=== PATIENT | male | born 1955 | race Caucasian/White ===

== ENCOUNTER 2018-05-27 14:34 | Inpatient (IN) ==
[2018-05-27] MEDS ORDERED: HYDROmorphone INJ 0.5 MG/0.5 ML SYR IV STA (16:30)
[2018-05-27] MEDS ORDERED: HYDROmorphone INJ 0.5 MG/0.5 ML SYR ONE (16:45)
[2018-05-27] MEDS ORDERED: SOD PHOSPHATE/SOD BIPHOSPHATE ENEMA 132 ML BTL PR PRN (17:19)
[2018-05-27] MEDS ORDERED: ONDANSETRON INJ 2 MG/ML 2 ML VIAL IV PRN (17:19)
[2018-05-27] MEDS ORDERED: MAGNESIUM HYDROXIDE SUSP 30 ML UDC PO PRN (17:19)
[2018-05-27] MEDS ORDERED: NALOXONE HCL 0.4 MG/1 ML VIAL/CARP IV PRN (17:19)
[2018-05-27] MEDS ORDERED: BISACODYL 10 MG SUPP PR PRN (17:19)
--- NOTE | 2018-05-27 17:26 | History & Physical Report ---
Date of Service May 27, 2018 Assessment & Plan (1) Hip fracture: Secondary to mechanical fall on ice. -admit to med/surgery floor -fracture precautions and Hip fracture order set employed -pain control with dilaudid -Orthopedic Consult placed-discussed case with Dr. Angeles --> CD with outside xrays sent to Radiology to upload images -SCDs for DVT proph -can eat now, then NPO after midnight for surgery tomorrow to repair He can easily achieve 4 METS, has no acute or recent cardiopulmonary issues. ECG is with NSR, no abnormalities. He is at average risk for this intermediate risk surgery and should therefore proceed with surgery as planned tomorrow. (2) Knee pain, acute: Has a h/o 3 different meniscal repairs/scope and a patellar fracture on the left knee. Now with some pain, but no effusion on exam, difficult to assess for any other abnormality on exam due to hip fracture -await Ortho recommendations -will order left knee xray (3) High triglycerides: -continue atorvastatin 10mg daily (4) Obesity: Needs counseling on weight loss, dietary changes (5) DVT prophylaxis: SCDs only in prep for surgery tomorrow Dispo-admit to med/surgery PT/OT evals will be needed after surgery when ok with Ortho History of Present Illness Chief Complaint: Hip fracture Primary Care Provider: NO PCP This pt is a 63 yo male with a h/o hypertriglyceridemia and obesity, who presents as a direct transfer from [facility] with a left hip fracture after sustaining a fall on black ice on a driveway. 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 He immediately had pain and numbness in the left hip and saw his left ankle was at an odd angle. He denies LOC, no head injury, no other injuries except his left knee is also hurting somewhat. He was able to get back up and into his car and drive himself home 15 miles, and then his brought him to the hospital in her car. Xrays show an acute subcapital fracture of the left hip with valgus deformity. ECG with NSR and no ischemic changes, CBC, BMP, troponin, INR all normal at outside hospital. He reports he can easily walk up and down a flight of stairs without any chest pain or SOB. He has no h/o cardiac disease, no pulmonary or renal problems. He does not exercise, but does go to basketball games at the [facility] frequently and can go up the flight of stairs to his seats without difficulty. Home Medications Home Medications Medication Instructions Recorded Confirmed Type atorvastatin 10 mg PO DAILY 05/27/18 05/27/18 History Past Med/Surg History Medical History High triglycerides History of deviated nasal septum Obesity Surgical History H/O arthroscopy of left knee H/O arthroscopy of shoulder H/O inguinal hernia repair Family History Mother Breast cancer, Onset Age: 43 Father Esophageal cancer Sister Colon cancer Other Family history of cancer Social History marital status: Current Living Situation: Spouse and Family current occupational status: retired current occupation: retired from [place] [employer] Other Information That Helps Us Care for You: No Feels Safe at Home: Yes Safety Concerns: Feels Safe At This Time Smoking Status: Former smoker Tobacco Type: cigarettes Years Smoked: 10 Smoking End Date: 2008 Hx Alcohol Use: Yes Alcohol type: other Alcohol Intake Frequency: holidays/ special occasions only Hx Substance Use: No Beliefs That Will Affect Care: None Preferred Language: Czech Communication Ability: Effective Test Car Driver Required: No Review of Systems All systems reviewed & are unremarkable except as noted in HPI & below (no CP, no SOB, no headace, lightheadedness, no recent illness, no fevers, no abd pain, no constipation or diarrhea, no blood in stool, no rashes) Physical Exam 2 Vital Signs (Past 24 Hours): Last Vital Signs Temp 36.8 C 05/27/18 16:31 Pulse 72 05/27/18 16:31 Resp 20 05/27/18 16:31 BP 164/95 H 05/27/18 16:31 Pulse Ox 95 05/27/18 16:31 Constitutional: WD/WN, vitals as above + obese Eyes: PERRL, conjunctivae normal, anicteric sclerae ENMT: external ear and nose normal, oropharynx normal Neck: trachea midline, no thyromegaly Respiratory: normal respiratory effort, lungs clear to auscultation Cardiovascular: RRR, no murmur, no edema Gastrointestinal (Abdomen): normal bowel sounds, soft, nontender, no hepatosplenomegaly Musculoskeletal: Extremities: + extremities abnormal to inspection (LLE externally rotated and shortened, +TTP over left lateral hip, no hematoma; 2+ DP pulses bilat), no cyanosis and no clubbing Knee: no effusion and no skin erythema Skin: no rashes, warm and dry Neurologic: moves all extremities and awake; no focal motor deficits Psychiatric: A+Ox3, euthymic affect Lymphatic: no cervical lymphadenopathy Results & Data Laboratory Results 05/27/18 05/27/18 05/27/18 Range/Units 17:38 17:38 17:20 25-OH Vitamin D Total 21.6 L (30-100) ng/ml Urine Color Yellow Urine Appearance Clear (Clear) Urine pH 7.0 (4.5-7.5) Ur Specific [place] 1.020 (1.000-1.030) Urine Protein Negative (Negative) Urine Glucose (UA) Negative (Negative) Urine Ketones Negative (Negative) Urine Blood Trace H (Negative) Urine Nitrite Negative (Negative) Urine Bilirubin Negative (Negative) Urine Urobilinogen Negative (Negative) Ur Leukocyte Esterase Negative (Negative) Urine WBC (Auto) 1-5 (0-5) /hpf Urine RBC (Auto) 5-10 H (0-4) /hpf U Hyaline Cast (Auto) 1-5 (0-5) /lpf U Epithel Cells (Auto) 10-20 H (0-5) /lpf Urine Bacteria (Auto) Negative (Negative) Blood Type A Positive Antibody Screen NEGATIVE Outside Hospital Labs: WBC 6.8, Hgb 14.3, Plts 296 Na+ 135, K+ 3.9, Cl- 100, HCO3 27, BUN 20, Disc Jockey 1.1, glu 161 Tropinin negative INR 0.97 ECG Rhythm: normal sinus (rate 76, no ischemic changes) Code Status & VTE Plan Code Status Full Code VTE Prophylaxis Plan VTE Prophylaxis will be ordered: Yes Reason for no VTE drug order: Contraindicated _ (1) Obesity Obesity type: unspecified obesity type Obesity classification: adult class 1 (BMI 30 - 34.9) Serious obesity comorbidity presence: without serious comorbidity Body mass index: BMI 34.0-34.9 Qualified Code(s): E66.9 - Obesity , unspecified; Z68.34 - Body mass index (BMI) 34.0-34.9, adult (2) Hip fracture Encounter type: initial encounter Fracture type: closed Laterality: left Qualified Code(s): S72.002A - Fracture of unspecified part of neck of left femur , initial encounter for closed fracture (3) Knee pain, acute Laterality: left Qualified Code(s): M25.562 - Pain in left knee
[2018-05-27] MEDS ORDERED: HydrALAZINE HCL 20 MG/ML VIAL IV PRN (17:28)
[2018-05-27 17:55] LABS: Appearance Urine Clear (Clear); Bacteria Urine Automated Negative (Negative); Bilirubin Urine Negative (Negative); Color Urine Yellow; Glucose Urine UA Negative (Negative); Ketones Urine Negative (Negative); Leukocyte Esterase Urine Negative (Negative); Nitrite Urine Negative (Negative); Protein Urine Negative (Negative); Urobilinogen Urine Negative (Negative)
--- NOTE | 2018-05-27 19:16 | Anesthesiology Consultation ---
Date of Service May 27, 2018 Assessment & Plan Chart Review Chart Review: Acceptable Risk for Surgery and Patient NOT seen in Pre Admission Testing Consults Requested none ASA ASA3 Proposed Anesthesia Anesthesia Type: General and MAC Spinal History Surgery Operation Date: 05/28/18 08:50 Proposed Procedures p Left Hip Percutaneous Screw Fixation - Bari Angeles DO Height/Weight Height: 6 ft 4 in Weight: 129 kg Medications Home Medications Medication Instructions Recorded Confirmed Last Taken atorvastatin 10 mg PO DAILY 05/27/18 05/27/18 Unknown Past Medical History Medical History High triglycerides History of deviated nasal septum Past Family History Family History Other Family history of cancer Past Surgical History Surgical History H/O arthroscopy of left knee H/O arthroscopy of shoulder H/O inguinal hernia repair Past Anesthesia History No Hx of Anesthesia Complications and No Family Hx of Anesthesia Complications History of PONV No Motion Sickness Screening History of Motion Sickness: No Social History Smoking Status: Former smoker Hx Alcohol Use: No Hx Substance Use: No Exercise / Class Metabolic Activity III < 4 Walking/Shop/Light housework Physical Exam Vital Signs Last Vital Signs Temp 36.8 C 05/27/18 16:31 Pulse 72 05/27/18 16:31 Resp 20 05/27/18 16:31 BP 164/95 H 05/27/18 16:31 Pulse Ox 95 05/27/18 16:31 Testing Laboratory Results Blood Type A Positive 05/27/18 17:38 Antibody Screen NEGATIVE 05/27/18 17:38 Urine Color Yellow 05/27/18 17:20 Urine Appearance Clear (Clear) 05/27/18 17:20 Urine pH 7.0 (4.5-7.5) 05/27/18 17:20 Ur Specific [place] 1.020 (1.000-1.030) 05/27/18 17:20 Urine Protein Negative (Negative) 05/27/18 17:20 Urine Glucose (UA) Negative (Negative) 05/27/18 17:20 Urine Ketones Negative (Negative) 05/27/18 17:20 Urine Nitrite Negative (Negative) 05/27/18 17:20 Ur Leukocyte Esterase Negative (Negative) 05/27/18 17:20 Urine WBC (Auto) 1-5 /hpf (0-5) 05/27/18 17:20 Urine RBC (Auto) 5-10 /hpf (0-4) H 05/27/18 17:20 U Hyaline Cast (Auto) 1-5 /lpf (0-5) 05/27/18 17:20 U Epithel Cells (Auto) 10-20 /lpf (0-5) H 05/27/18 17:20 Urine Bacteria (Auto) Negative (Negative) 05/27/18 17:20
[2018-05-27] MEDS: HYDROmorphone INJ 0.5 MG/0.5 ML SYR IV PRN (21:30)
[2018-05-27] MEDS: DOCUSATE SODIUM/SENNA 50/8.6MG TAB PO SCH (21:37)
[2018-05-27] MEDS: LACTATED RINGER'S 1,000 ML IV SCH (21:37)
--- NOTE | 2018-05-27 21:50 | XRay Report ---
XR knee LT 2V routine HISTORY: 63 years-old Male left knee pain s/p fall with left hip fracture acute left knee pain with acute left hip fracture COMPARISON: Left hip radiographs of same day from outside facility TECHNIQUE: 2 views of the left knee FINDINGS: Limited study secondary to positioning. The patient is unable to properly position the knee secondary to the hip fracture. Tricompartmental osteoarthritis. Indeterminate peripherally corticated ossification is noted posterio r to the knee, 4.4 x 2.2 cm. Ossifications are also noted about the infrapatellar distribution. No de finite acute fracture or dislocation. No large joint effusion. IMPRESSION: Limited study secondary to positioning. No acute fracture or dislocation identified. The above report was generated using voice recognition software. It may contain grammatical, syntax o r spelling errors. Electronically signed by: Dewayne Foote M.D. 05/27/2018 9:49 PM
[2018-05-28] MEDS: HYDROmorphone INJ 0.5 MG/0.5 ML SYR IV PRN ×4 (03:35→13:18)
[2018-05-28] MEDS ORDERED: ROPIVACAINE 0.5% HCL/PF 150 MG, BUPIVACAINE 0.5% MPF 30 ML, EPINEPHrine 30MG/30ML (OR U... INFIL SCH (06:00)
[2018-05-28] MEDS ORDERED: CEFAZOLIN 3000MG 72.5 ML IV SCH (06:00)
--- NOTE | 2018-05-28 06:23 | Orthopedic Consultation ---
Date of Consultation May 28, 2018 Assessment & Plan (1) Left displaced femoral neck fracture: He is already received medical clearance we will proceed with a left anterior total hip arthroplasty. Postoperatively he will be placed on aspirin for DVT prophylaxis. He understands the risks, benefits, and alternatives procedure is elected to proceed. He will be n.p.o. throughout the day today and I plan to fix his hip later this afternoon. 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 He was going to his last house yesterday when he stepped out of his van and slipped on the ice. He fell directly onto his left hip. He had severe left hip pain and went to hospital for special care emergency room. There he was diagnosed with a left femoral neck fracture. He was transferred to [facility] and admitted to the medicine service. Orthopedics has been consulted for evaluation and treatment of the left hip fracture. Allergies Allergy/AdvReac Type Severity Reaction Status Date / Time No Known Allergies Allergy Unverified 05/27/18 21:26 Home Medications Home Medications Medication Instructions Recorded Confirmed Type atorvastatin 10 mg PO DAILY 05/27/18 05/27/18 History Patient History Medical History High triglycerides History of deviated nasal septum Obesity Surgical History H/O arthroscopy of left knee H/O arthroscopy of shoulder H/O inguinal hernia repair Family History Mother Breast cancer, Onset Age: 43 Father Esophageal cancer Sister Colon cancer Other Family history of cancer Social History marital status: Current Living Situation: Spouse and Family current occupational status: retired current occupation: retired from [place] [employer] Other Information That Helps Us Care for You: No Feels Safe at Home: Yes Safety Concerns: Feels Safe At This Time Smoking Status: Former smoker Tobacco Type: cigarettes Years Smoked: 10 Smoking End Date: 2008 Hx Alcohol Use: Yes Alcohol type: other Alcohol Intake Frequency: holidays/ special occasions only Hx Substance Use: No Beliefs That Will Affect Care: None Preferred Language: Frisian Communication Ability: Effective City Distribution Clerk Required: No Physical Exam 2 Vital Signs (Past 24 Hours): Last Vital Signs Temp 37.1 C 05/28/18 03:14 Pulse 81 05/28/18 03:14 Resp 20 05/28/18 03:14 BP 166/83 H 05/28/18 03:14 Pulse Ox 92 05/28/18 03:14 Musculoskeletal: On physical examination of the left hip, his leg lengths are essentially equal. There are no abrasions lesions lacerations of the skin. He has significant pain in his groin with logrolling of the left leg. I did not do any range of motion testing of his leg because of the fracture. Results & Data Diagnostic Findings X-rays reviewed of the left hip and pelvis from [facility] do show a displaced left subcapital femoral neck fracture. There is some mild osteoarthritis of the left hip joint. X-rays of the left knee show some mild to moderate arthritis but no signs of fracture.
[2018-05-28 08:22] LABS: Basophils # (auto) 0.03 K/uL (0-0.2); Basophils % (auto) 0.3 %; Eosinophils # (auto) 0.29 K/uL (0-0.5); Eosinophils % (auto) 2.6 %; Hematocrit (blood only) 41.2 % (42-52); Immature Granulocytes # (auto) 0.04 K/uL (0.00-0.02); Immature Granulocytes % (auto) 0.4 %; Lymphocytes # (auto) 1.31 K/uL (1.2-3.4); Lymphocytes % (auto) 11.9 %; Mean Corpuscular Volume 82.2 fL (80-100); Mean Platelet Volume 8.5 fL (7.4-10.4); Monocytes # (auto) 0.88 K/uL (0.11-0.59); Neutrophils # (auto) 8.45 K/uL (1.4-6.5); Neutrophils % (auto) 76.8 %; Platelet Count 201 K/uL (130-400); RDW Coefficient of Variation 12.8 % (11.5-14.5); RDW Standard Deviation 38.5 fL (36.4-46.3); Red Blood Count 5.01 M/uL (4.7-6.1)
[2018-05-28 08:47] LABS: BUN Creatinine Ratio 20.2 (10-20); Calcium 8.9 mg/dl (8.5-10.1); Est GFR (Non-African American) 87.2; Potassium 3.9 mmol/L (3.5-5.1)
[2018-05-28] MEDS: ATORVASTATIN 10 MG TAB PO SCH (09:28)
[2018-05-28] MEDS: LACTATED RINGER'S 1,000 ML IV SCH ×2 (09:30→20:20)
[2018-05-28] MEDS ORDERED: fentaNYL citrate 100 MCG/2 ML VIAL ONE (13:02)
[2018-05-28] MEDS ORDERED: MIDAZOLAM HCL 1 MG/ML 2ML VIAL ONE (13:02)
--- NOTE | 2018-05-28 13:47 | History & Physical Bridge Note ---
Date of Service May 28, 2018 History & Physical Bridge Note I have examined the patient, reviewed the History & Physical and in the interval since the performance of the History & Physical I have noted the following changes of clinical significance: no changes noted
--- NOTE | 2018-05-28 14:25 | Hospitalist Progress Note ---
Date of Service May 28, 2018 Assessment & Plan (1) Hip fracture: Secondary to mechanical fall on ice. -continue hip fracture precautions -pain control with dilaudid -Orthopedic Consult - OR this afternoon with Dr. Angeles -SCDs for DVT proph (2) Knee pain, acute: Has a h/o 3 different meniscal repairs/scope and a patellar fracture on the left knee. Pain on admission - no fracture on Xray - ortho consulted (3) High triglycerides: -continue atorvastatin 10mg daily (4) Obesity: Needs counseling on weight loss, dietary changes (5) DVT prophylaxis: SCDs only in prep for surgery today. Ortho to use ASA for dvt proph PT/OT evals will be needed after surgery when ok with Ortho Subjective Patient was just about to head to surgery. He is having pain at his fracture site but otherwise has no complaints. Specifically denies any cough, sob, or chest pain. Review of Systems All systems reviewed & are unremarkable except as noted in HPI & below Physical Exam 2 Vital Signs (Past 24 Hours): Last Vital Signs Temp 37.1 C 05/28/18 08:00 Pulse 70 05/28/18 08:00 Resp 20 05/28/18 08:00 BP 151/81 H 05/28/18 08:00 Pulse Ox 91 05/28/18 08:00 Physical Exam: General: no distress Eyes: normal inspection, PERLL Respiratory: chest non tender, clear to auscultation, normal breath sounds, no respiratory distress, no accessory muscle use Cardiac: regular rate and rhythm, no rub or gallop, no murmur, no edema, no jvd GI/: active bowel sounds, no abd pain or tenderness, soft, non distended Extremities: normal range of motion, normal strength, non tender Neuro/Psych: alert and oriented x 3, normal mood and affect Skin: normal color, dry _ (1) Hip fracture Encounter type: initial encounter Fracture type: closed Open fracture type: Laterality: left Fracture healing: Qualified Code(s): S72.002A - Fracture of unspecified part of neck of left femur, initial encounter for closed fracture (2) Knee pain, acute Laterality: left Qualified Code(s): M25.562 - Pain in left knee (3) Obesity Obesity type: unspecified obesity type Obesity classification: adult class 1 (BMI 30 - 34.9) Serious obesity comorbidity presence: without serious comorbidity Body mass index: BMI 34.0-34.9 Qualified Code(s): E66.9 - Obesity , unspecified; Z68.34 - Body mass index (BMI) 34.0-34.9, adult
[2018-05-28] MEDS ORDERED: POVIDONE-IODINE OP SOLN 30 ML BTL ONE (14:30)
[2018-05-28] MEDS ORDERED: ePHEDrine sulfate 50 MG/ML AMP IV PRN (15:17)
[2018-05-28] MEDS ORDERED: ATROPINE SULFATE 0.1 MG/ML 10ML SYR IV PRN (15:17)
[2018-05-28] MEDS ORDERED: KETAMINE HCL INJ 50 MG/ML 10 ML VIAL ONE (15:29)
[2018-05-28] MEDS ORDERED: PROPOFOL IV EMULSION 10 MG/ML 20 ML VIAL IV ONE (16:17)
[2018-05-28] MEDS ORDERED: LIDOCAINE HCL 2% 2 ML VIAL/AMP(20MG/ML) INFIL ONE (16:17)
[2018-05-28] MEDS ORDERED: TRANEXAMIC ACID 1,000 MG **IV Pre-op IV ONE (16:30)
--- NOTE | 2018-05-28 17:56 | Operative Report ---
Post Operative Report Pre & Post Diagnosis Operation Date: 05/28/18 08:50 Pre-Op Diagnosis: Left displaced femoral neck fracture Post-Op Diagnosis: Left displaced femoral neck fracture Procedure Operation Date: 05/28/18 08:50 Actual Procedures p Left Anterior Total Hip Replacement(Left) - Bari Angeles DO Surgeon Bari Angeles DO Inspector [employer]uminum Boat Bari Ward PAC Estimated Blood Loss 250 Findings Consistent with Post-Op Diagnosis Specimens Left femoral head Complications none Disposition Disposition: Recovery Room Indications Evans is a pleasant 63-year-old male who stepped out of his van and slipped on the ice yesterday. He fell directly onto his left hip. He sustained a displaced left femoral neck fracture. He was transferred to [facility]. After discussions with he and his family he elected to proceed with a left anterior total hip arthroplasty. Description of Procedure Implants used Biomet Taperloc total hip arthroplasty system with a size 20 Taperloc stem, a 56 mm G7 cup with a 25mm screw, an E1 polyethylene liner, a 40 mm ceramic head with a -3 neck. Patient arrived at the hospital for the above procedure. They were seen in the preoperative holding area and the operative extremity was identified and signed. They were given a spinal anesthetic. They were given a preoperative antibiotic and TXA. They were taken back To the operating room and laid on the table in the supine position. The leg was brought out through a Puristst leg positioner. The hip was then prepped and draped in sterile fashion. A timeout was done and the patient in upper extremities properly identified. An anterior approach was used. Dissection was taken down through the fascia and the tensor muscle belly was retracted laterally and the rectus was retracted medially. The circumflex vessels were identified and ligated. The capsule was then incised and tagged for later repair. The femoral neck was then cut and the femoral head was removed. The acetabulum was exposed. Time was spent doing a complete circumferential labral release. Sequential reaming of the acetabulum up to a size 55 reamer was done. Final reamings were done under fluoroscopy to ensure appropriate version. A Biomet 56 mm G7 cup was then impacted into place. A single 25 mm screw was placed. The E1 polyethylene liner was then snapped into place. Surrounding soft tissues were then injected with 100 cc of an orthopedic pain control cocktail. The proximal femur was then exposed. Sequential broaching up to a size 20 broach was done. Off that broach a size 40 head with a -3 neck was trialed. The hip was reduced and fluoroscopic images showed anatomic alignment of the implants in acceptable length. The broach was removed. The final size 20 Taperloc stem was then impacted into place. A ceramic 40 mm head with a -3 neck was then impacted into place in the hip was reduced. Final fluoroscopic images showed anatomic reduction of the hip. The capsule was then closed with # 1 Vicryl suture. A dilute betadyne lavage was then done for 3 minutes. The joint was then irrigated with normal saline solution. The fascia was closed with #1 PDS suture. Skin was closed with 2-0 Vicryl, maria del rosario, and a Rebecca VAC dressing. The patient was then transferred to a hospital bed and taken to the post anesthesia care unit in stable condition. They tolerated the procedure well. I attest to the content of the Intraoperative Record and any orders documented therein. Any exceptions are noted below.
--- NOTE | 2018-05-28 18:14 | Fluoroscopy Report ---
FL hip LT 1V HISTORY: 63 years-old Male LT ANTERIOR HIP acute fracture of the left hip COMPARISON: Left hip radiographs 05/27/2017 TECHNIQUE: 6 spot fluoroscopic images of the left hip were obtained utilizing 38.1 seconds fluoroscop y time FINDINGS: Left hip total joint arthroplasty demonstrates satisfactory alignment. Expected postsurgical soft tis andry swelling and deep tissue air. No acute fracture or retained foreign body identified. Imaged left hemipelvis appears intact. IMPRESSION: Fluoroscopic assistance as above. Please see operative report for further details. The above report was generated using voice recognition software. It may contain grammatical, syntax o r spelling errors. Electronically signed by: Dewayne Foote M.D. 05/28/2018 6:12 PM
--- NOTE | 2018-05-28 19:08 | XRay Report ---
XR hip LT min 2V CLINICAL HISTORY: 63 years-old Male presenting with Post-Operative implant position. TECHNIQUE: Frontal and crosstable lateral views of the left hip were obtained. COMPARISON: 05/27/2018. FINDINGS: There has been postsurgical changes of total left hip arthroplasty for the subcapital femoral neck fr acture. No malalignment. Obliquely oriented radiolucency along the posterior aspect of the proximal f emoral diaphysis evident on crosstable lateral view. This may represent a nutrient canal though a per iprosthetic fracture is difficult to completely exclude. Expected soft tissue emphysema. Overlying sk in maria del rosario. Remainder of the visualized bony pelvis intact. IMPRESSION: 1. Obliquely oriented radiolucency along the posterior aspect of the proximal femoral diaphysis is f avored to represent a nutrient canal though a nondisplaced periprosthetic fracture is not completely excluded. Attention on follow-up. 2. Otherwise expected postoperative appearance status post left hip arthroplasty. Electronically signed by: Jesús Arreola M.D. 05/28/2018 7:07 PM
--- NOTE | 2018-05-28 19:08 | Anesthesiology Progress Note ---
Date of Service May 28, 2018 Anesthesia Post Procedure Vital Signs Vital Signs: Temp Pulse Pulse Resp BP BP Pulse Ox 05/28/18 18:45 36.5 C 70 15 123/70 92 05/28/18 18:41 75 15 108/79 99 05/28/18 18:40 82 19 93 05/28/18 18:35 79 18 105/81 94 05/28/18 18:31 85 14 121/73 95 05/28/18 18:30 91 H 17 96 05/28/18 18:25 74 16 123/79 98 05/28/18 18:20 72 17 116/77 100 05/28/18 18:17 79 19 100 05/28/18 18:15 85 23 115/81 100 05/28/18 18:14 70 14 110/79 100 05/28/18 18:12 36.4 C L 80 80 17 89/77 L 110/79 100 05/28/18 14:15 36.5 C 85 18 177/86 H 93 05/28/18 08:00 37.1 C 70 20 151/81 H 91 05/28/18 03:14 37.1 C 81 20 166/83 H 92 05/27/18 23:34 36.6 C 75 18 146/83 H 96 Pain Intensity Left Hip: Pain Intensity: 0
--- NOTE | 2018-05-28 19:19 | Anesthesiology Progress Note ---
Date of Service May 28, 2018 Anesthesia Post Procedure Vital Signs Vital Signs: Temp Pulse Pulse Resp BP BP Pulse Ox 05/28/18 18:45 36.5 C 70 15 123/70 92 05/28/18 18:41 75 15 108/79 99 05/28/18 18:40 82 19 93 05/28/18 18:35 79 18 105/81 94 05/28/18 18:31 85 14 121/73 95 05/28/18 18:30 91 H 17 96 05/28/18 18:25 74 16 123/79 98 05/28/18 18:20 72 17 116/77 100 05/28/18 18:17 79 19 100 05/28/18 18:15 85 23 115/81 100 05/28/18 18:14 70 14 110/79 100 05/28/18 18:12 36.4 C L 80 80 17 89/77 L 110/79 100 05/28/18 14:15 36.5 C 85 18 177/86 H 93 05/28/18 08:00 37.1 C 70 20 151/81 H 91 05/28/18 03:14 37.1 C 81 20 166/83 H 92 05/27/18 23:34 36.6 C 75 18 146/83 H 96 Pain Intensity Left Hip: Pain Intensity: 0 Notes Mental Status: alert / awake / arousable and participated in evaluation Patient Amnestic to Procedure: Yes Nausea / Vomiting: adequately controlled Pain: adequately controlled Airway Patency, RR, SpO2: stable & adequate BP & HR: stable & adequate Hydration State: stable & adequate Neuraxial Anesthesia: was administered and sensory block is resolving Anesthetic Complications: no major complications apparent
[2018-05-28] MEDS ORDERED: NALOXONE HCL 0.4 MG/1 ML VIAL/CARP IV PRN (19:28)
[2018-05-28] MEDS: ASPIRIN 81 MG ECTAB PO SCH (21:19)
[2018-05-28] MEDS: DOCUSATE SODIUM/SENNA 50/8.6MG TAB PO SCH (21:20)
[2018-05-29] MEDS: CEFAZOLIN 2000MG 2,000 MG/15 ML SYR IV SCH ×2 (00:05→07:38)
[2018-05-29 07:14] LABS: Basophils # (auto) 0.02 K/uL (0-0.2); Basophils % (auto) 0.1 %; Eosinophils # (auto) 0.32 K/uL (0-0.5); Eosinophils % (auto) 2.2 %; Hematocrit (blood only) 37.8 % (42-52); Hemoglobin 12.8 g/dL (14.0-18.0); Immature Granulocytes # (auto) 0.03 K/uL (0.00-0.02); Immature Granulocytes % (auto) 0.2 %; Lymphocytes # (auto) 1.28 K/uL (1.2-3.4); Lymphocytes % (auto) 8.8 %; Mean Corpuscular Hgb Conc 33.9 g/dL (32-36); Mean Corpuscular Volume 82.2 fL (80-100); Mean Platelet Volume 8.5 fL (7.4-10.4); Monocytes # (auto) 1.23 K/uL (0.11-0.59); Monocytes % (auto) 8.5 %; Neutrophils # (auto) 11.63 K/uL (1.4-6.5); Neutrophils % (auto) 80.2 %; Platelet Count 189 K/uL (130-400); RDW Coefficient of Variation 12.9 % (11.5-14.5); RDW Standard Deviation 38.4 fL (36.4-46.3); White Blood Count 14.51 K/uL (4.8-10.8)
[2018-05-29] MEDS: ATORVASTATIN 10 MG TAB PO SCH (07:39)
[2018-05-29] MEDS: ASPIRIN 81 MG ECTAB PO SCH ×2 (07:39→21:23)
[2018-05-29 07:45] LABS: BUN Creatinine Ratio 16.9 (10-20); Calcium 8.3 mg/dl (8.5-10.1); Est GFR (African American) 74.4; Est GFR (Non-African American) 64.2
--- NOTE | 2018-05-29 09:06 | Orthopedic Progress Note ---
Date of Service May 29, 2018 Assessment & Plan (1) Left displaced femoral neck fracture: Overall is doing very well. He is been up and ambulating well with physical therapy. We will keep him on aspirin for DVT prophylaxis. He will be on aspirin 81 mg twice a day for 6 weeks. He is orthopedically stable for discharge when medically ready. He will follow-up with orthopedics in 2 weeks. Present on Admission?: Yes Subjective Evans was seen and examined at bedside this morning. Overall is doing very well. Is not having much pain in his hip. He is already been walking up and down the hallways. He is happy with his progress and has no complaints. Physical Exam 2 Vital Signs (Past 24 Hours): Last Vital Signs Temp 36.9 C 05/29/18 07:43 Pulse 77 05/29/18 07:43 Resp 18 05/29/18 07:43 BP 130/74 05/29/18 07:43 Pulse Ox 90 05/29/18 07:43 Musculoskeletal: On physical examination of the left hip, the Rebecca VAC dressing is to suction. His leg lengths are equal. He is active dorsiflexion and plantarflexion of his left ankle. Sensation is intact throughout. Results & Data Laboratory Results H & H 05/28/18 05/29/18 Range/Units 07:16 06:36 Hgb 14.0 12.8 L (14.0-18.0) g/dL Hct 41.2 L 37.8 L (42-52) % Diagnostic Findings Postoperative x-rays of the left hip show the prosthesis to be in anatomic alignment without any evidence of fracture, dislocation, or loosening.
--- NOTE | 2018-05-29 11:03 | Anesthesiology Progress Note ---
Date of Service May 29, 2018 Anesthesia Post Procedure Vital Signs Vital Signs: Temp Pulse Pulse Resp BP BP BP 05/29/18 07:43 36.9 C 77 18 130/74 05/29/18 03:48 36.8 C 84 18 130/80 05/28/18 23:44 36.8 C 86 17 133/80 05/28/18 21:29 36.8 C 85 16 121/79 05/28/18 20:21 80 18 123/74 05/28/18 19:56 77 18 137/83 05/28/18 19:25 37.1 C 82 18 127/79 05/28/18 18:45 36.5 C 70 15 123/70 05/28/18 18:41 75 15 108/79 05/28/18 18:40 82 19 05/28/18 18:35 79 18 105/81 05/28/18 18:31 85 14 121/73 05/28/18 18:30 91 H 17 05/28/18 18:25 74 16 123/79 05/28/18 18:20 72 17 116/77 05/28/18 18:17 79 19 05/28/18 18:15 85 23 115/81 05/28/18 18:14 70 14 110/79 05/28/18 18:12 36.4 C L 80 80 17 89/77 L 110/79 05/28/18 14:15 36.5 C 85 18 177/86 H Pulse Ox 05/29/18 07:43 90 05/29/18 03:48 94 05/28/18 23:44 92 05/28/18 21:29 92 05/28/18 20:21 92 05/28/18 19:56 91 05/28/18 19:25 90 05/28/18 18:45 92 05/28/18 18:41 99 05/28/18 18:40 93 05/28/18 18:35 94 05/28/18 18:31 95 05/28/18 18:30 96 05/28/18 18:25 98 05/28/18 18:20 100 05/28/18 18:17 100 05/28/18 18:15 100 05/28/18 18:14 100 05/28/18 18:12 100 05/28/18 14:15 93 Pain Intensity Left Hip: Pain Intensity: 0 Notes Mental Status: alert / awake / arousable and participated in evaluation Patient Amnestic to Procedure: Yes Nausea / Vomiting: adequately controlled Pain: adequately controlled Airway Patency, RR, SpO2: stable & adequate BP & HR: stable & adequate Hydration State: stable & adequate Anesthetic Complications: no major complications apparent
--- NOTE | 2018-05-29 14:34 | Hospitalist Progress Note ---
Date of Service May 29, 2018 Assessment & Plan (1) Hip fracture: Secondary to mechanical fall on ice. -continue hip fracture precautions -pain control with dilaudid -Orthopedic Consult - s/p repair 05/28 -SCDs for DVT proph (2) Knee pain, acute: Has a h/o 3 different meniscal repairs/scope and a patellar fracture on the left knee. Pain on admission - no fracture on Xray - ortho consulted (3) High triglycerides: -continue atorvastatin 10mg daily (4) Obesity: Needs counseling on weight loss, dietary changes (5) DVT prophylaxis: SCDs, ASA for dvt proph PT/OT evals - can return home with PT/OT referral Dispo: if lab work and vss remain stable overnight, will discharge in am Subjective Pain well controlled, no complaints. Review of Systems All systems reviewed & are unremarkable except as noted in HPI & below Physical Exam 2 Vital Signs (Past 24 Hours): Last Vital Signs Temp 36.4 C L 05/29/18 11:29 Pulse 82 05/29/18 11:29 Resp 16 05/29/18 11:29 BP 108/80 05/29/18 11:29 Pulse Ox 93 05/29/18 11:29 Physical Exam: General: no distress Eyes: normal inspection, PERLL Respiratory: chest non tender, clear to auscultation, normal breath sounds, no respiratory distress, no accessory muscle use Cardiac: regular rate and rhythm, no rub or gallop, no murmur, no edema, no jvd GI/: active bowel sounds, no abd pain or tenderness, soft, non distended Extremities: normal range of motion, normal strength, non tender Neuro/Psych: alert and oriented x 3, normal mood and affect Skin: normal color, dry Results & Data Laboratory Results Abnormal lab results 05/29/18 05/29/18 Range/Units 06:36 06:36 WBC 14.51 H (4.8-10.8) K/uL RBC 4.60 L (4.7-6.1) M/uL Hgb 12.8 L (14.0-18.0) g/dL Hct 37.8 L (42-52) % Immature Gran # (Auto) 0.03 H (0.00-0.02) K/uL Neut # (Auto) 11.63 H (1.4-6.5) K/uL [place] # (Auto) 1.23 H (0.11-0.59) K/uL Sodium 131 L (136-145) mmol/L BUN 21 H (7-18) mg/dl Glucose 131 H (70-99) mg/dl Calcium 8.3 L (8.5-10.1) mg/dl _ (1) Hip fracture Encounter type: initial encounter Fracture type: closed Open fracture type: Laterality: left Fracture healing: Qualified Code(s): S72.002A - Fracture of unspecified part of neck of left femur, initial encounter for closed fracture (2) Knee pain, acute Laterality: left Qualified Code(s): M25.562 - Pain in left knee (3) Obesity Obesity type: unspecified obesity type Obesity classification: adult class 1 (BMI 30 - 34.9) Serious obesity comorbidity presence: without serious comorbidity Body mass index: BMI 34.0-34.9 Qualified Code(s): E66.9 - Obesity , unspecified; Z68.34 - Body mass index (BMI) 34.0-34.9, adult
[2018-05-29] MEDS: OXYCODONE HCL IR 5 MG TAB (IMMEDIATE RELEASE) PO PRN (15:18)
[2018-05-29 16:03] LABS: BUN Creatinine Ratio 21.2 (10-20); Calcium 8.9 mg/dl (8.5-10.1); Creatinine Clr Calc Pharmacy 109.4 ml/min; Est GFR (African American) 89.4; Est GFR (Non-African American) 77.1
[2018-05-29] MEDS: DOCUSATE SODIUM/SENNA 50/8.6MG TAB PO SCH (21:25)
[2018-05-30 05:00] LABS: Basophils # (auto) 0.03 K/uL (0-0.2); Basophils % (auto) 0.3 %; Eosinophils % (auto) 3.9 %; Hematocrit (blood only) 36.2 % (42-52); Hemoglobin 12.1 g/dL (14.0-18.0); Immature Granulocytes # (auto) 0.06 K/uL (0.00-0.02); Immature Granulocytes % (auto) 0.6 %; Lymphocytes # (auto) 1.77 K/uL (1.2-3.4); Lymphocytes % (auto) 17.1 %; Mean Corpuscular Hgb Conc 33.4 g/dL (32-36); Mean Corpuscular Volume 81.3 fL (80-100); Mean Platelet Volume 8.1 fL (7.4-10.4); Monocytes # (auto) 1.05 K/uL (0.11-0.59); Monocytes % (auto) 10.1 %; Neutrophils # (auto) 7.04 K/uL (1.4-6.5); Platelet Count 144 K/uL (130-400); RDW Coefficient of Variation 12.9 % (11.5-14.5); RDW Standard Deviation 38.5 fL (36.4-46.3); Red Blood Count 4.45 M/uL (4.7-6.1); White Blood Count 10.35 K/uL (4.8-10.8)
[2018-05-30] MEDS: OXYCODONE HCL IR 5 MG TAB (IMMEDIATE RELEASE) PO PRN (07:41)
[2018-05-30] MEDS: ATORVASTATIN 10 MG TAB PO SCH (09:04)
[2018-05-30] MEDS: ASPIRIN 81 MG ECTAB PO SCH (09:04)
--- NOTE | 2018-05-30 09:29 | Orthopedic Progress Note ---
Date of Service May 30, 2018 Assessment & Plan (1) Left displaced femoral neck fracture: Overall he is doing very well. He is working well with physical therapy. His lightheadedness he contributes to some sleep deprivation as well as narcotic medications and lack of food here at the hospital. I think he is looking forward to going home. From an orthopedic standpoint he is stable for discharge to home today. He will be on aspirin 81 mg twice a day for 6 weeks. I will see him in the office in 2 weeks for staple removal. He is to call the office to make the appointment. Our office phone number is [phone] Present on Admission?: Yes Subjective Evans was seen and examined at bedside this morning. Overall is doing very well. He is been up and ambulating well with physical therapy. His pain is well controlled. He has felt a little bit lightheaded but otherwise has no complaints. Physical Exam 2 Vital Signs (Past 24 Hours): Last Vital Signs Temp 36.9 C 05/30/18 06:34 Pulse 70 05/30/18 06:34 Resp 18 05/30/18 06:34 BP 131/73 05/30/18 06:34 Pulse Ox 93 05/30/18 06:34 Musculoskeletal: On physical examination of the left hip, the Rebecca VAC dressing is to suction. His leg lengths are equal. He has active dorsiflexion and plantarflexion of the left ankle. Sensation is intact.
[2018-05-30] MEDS ORDERED: SODIUM CHLORIDE 0.9% 500 ML IV SCH (12:30)
--- NOTE | 2018-05-30 13:24 | Discharge Summary ---
Date of Service May 30, 2018 Admission HPI Per Admitting Provider This pt is a 63 yo male with a h/o hypertriglyceridemia and obesity, who presents as a direct transfer from [facility] with a left hip fracture after sustaining a fall on black ice on a driveway. 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 He immediately had pain and numbness in the left hip and saw his left ankle was at an odd angle. He denies LOC, no head injury, no other injuries except his left knee is also hurting somewhat. He was able to get back up and into his car and drive himself home 15 miles, and then his brought him to the hospital in her car. Xrays show an acute subcapital fracture of the left hip with valgus deformity. ECG with NSR and no ischemic changes, CBC, BMP, troponin, INR all normal at outside hospital. He reports he can easily walk up and down a flight of stairs without any chest pain or SOB. He has no h/o cardiac disease, no pulmonary or renal problems. He does not exercise, but does go to basketball games at the [facility] frequently and can go up the flight of stairs to his seats without difficulty. Principal Diagnosis Hip fracture Discharge Exam Constitutional WD/WN, vitals as above Respiratory normal respiratory effort, lungs clear to auscultation Cardiovascular RRR, no murmur, no edema Gastrointestinal (Abdomen) normal bowel sounds, soft, nontender, no hepatosplenomegaly Musculoskeletal no cyanosis or clubbing, extremities motor strength 5/5 Skin no rashes, warm and dry Neurologic moves all extremities and awake Psychiatric A+Ox3, euthymic affect Discharge Data Allergies Allergy/AdvReac Type Severity Reaction Status Date / Time No Known Allergies Allergy Unverified 05/27/18 21:26 Consultations 05/27/18 17:19 Consult Anesthesiology Routine Consult Case Management - Discharge Planning Routine Consult Orthopedic Surgery Routine Procedures Performed Operation Date: 05/28/18 08:50 Actual Procedures p Left Anterior Total Hip Replacement(Left) - Bari Angeles DO Ordered Studies 05/28/18 14:30 FL fluoroscopy <1hr Routine FL hip LT 1V Routine Hospital Course (1) Hip fracture: Secondary to mechanical fall on ice. -continue hip fracture precautions -pain control - patient declined to go home with oxycodone script - instructed to take Tylenol 1g up to 2x/day for pain control -Orthopedic Consult - s/p repair 05/28 -SCDs and ASA BID for DVT proph (2) Dizziness: During PT today - mild orthostasis - gave 500 cc bolus, had patient eat as he said he has not had much intake and held further narcotics. Repeated orthostatics and had patient walk - improved, no further dizziness or orthostasis (3) Knee pain, acute: Has a h/o 3 different meniscal repairs/scope and a patellar fracture on the left knee. Pain on admission - no fracture on Xray - ortho consulted (4) High triglycerides: -continue atorvastatin 10mg daily (5) Obesity: Needs counseling on weight loss, dietary changes (6) DVT prophylaxis: SCDs, ASA BID for dvt proph PT/OT evals - can return home with PT/OT referral and HH (7) Microscopic hematuria: likely secondary to trauma d/t fall Recommend repeat u/a when he follows up with primary care provider. I did explain this to the patient and he verbalized understanding Total Time Total Time Spent Total Time Spent (In Minutes): >30 minutes Total Time Includes: Examination of the Patient, Discharge Planning and Medication Reconciliation Discharge Plan Discharge Items Patient Disposition: Home - Home Health Services Reason For Visit: LT HIP FX Discharge Diagnosis: Left total hip arthroplasty Discharge Goals: Decrease discomfort and Improve function Activity: As commented below Non-emergency contact: Surgeon Call non-emergency contact if: you have a fever, your wound has increased redness and your wound has increased drainage Follow-up/Referrals: Nilesh Parmar M.D. [Primary Care Provider] - Diet: Regular Addtl Provider Instructions: Please see your primary care provider within about a week Activity and Therapy Recommendations: * Home Health Physical Therapy will be provided until they feel you are ready to start Outpatient Physical Therapy. They will evaluate and treat you. If you are not using a Home Health agency then Outpatient Physical Therapy should start about 3-5 days from your day of surgery. Therapy will last about 3-6 weeks * You were shown a series of exercises in the hospital. Do these exercises three times each day including the exercises you were shown in physical therapy. * Get up and walk several times each day.~ For the first four weeks, try not to stand or walk for more than one hour at a time. If you do stand or walk for more than one hour, you will not hurt anything, but your leg will likely swell.~ ~ * As you feel comfortable, you may change from the walker or crutches to a cane and~then to independent walking. Medications: * Narcotic You will likely be sent home from the hospital with a prescription for the narcotic pain medication that worked best throughout your stay. * You can take 1000 mg of Tylenol every 8 hours - do not exceed 3000 mg in 24 hours * Aspirin - you will be required to take Aspirin 81mg twice a day for 6 weeks after surgery to prevent blood clots. This is obtained [id number] and a prescription is not necessary. * Other medications may be prescribed for specific circumstances. If you have any questions, please call the office at . * Resume previous home medications unless otherwise instructed TEDs/Elastic Stockings: The white elastic stockings help limit swelling and prevent blood clots from forming in your legs. The more you wear them, the more they work. Wear them for six weeks. Dressing Care: You will likely have a purple VAC dressing after surgery. This dressing will keep the incision dry and promote early healing. After about 8 days the batteries will wear out and the VAC will lose suction. Simply remove the dressing at that time and throw everything away, including the small suction machine. Then, you may leave the maria del rosario open to air or cover them with a dry dressing so they do not rub on your pants. The maria del rosario will be removed at your 2 week follow-up appointment. Showering: You may shower immediately with the purple VAC dressing. Let the shower spray hit your opposite side and slowly pat the plastic dry. Do not soak the dressing. After the dressing is removed you may shower normally with the maria del rosario exposed. Let soapy water run over the maria del rosario and pat them dry. Things To Watch For: * Drainage from the incision site that occurs more than one week after your surgery. * Increased redness at the incision site. * Fever above 102 degrees Fahrenheit. * Unusual chest pain or shortness of breath. * Call [facility] at with any of the above problems Follow-Up Visit: Follow-up with Dr. Angeles 2-3 weeks after your day of surgery. An appointment was probably scheduled when you signed-up for surgery in the office. If you have any questions call Office Instructions: More detailed instructions as well as Frequently Asked Questions were provided in a folder by our office when you signed-up for surgery. Please review these instructions when you get home. If you have any further questions or concerns, please feel free to call the office at [phone] Prescriptions: New aspirin [Adult Aspirin Regimen] 81 mg tablet,delayed release (DR/EC) 81 mg PO BID Qty: 30 RF: 0 Continue atorvastatin 20 mg tablet 10 mg PO DAILY RF: 0 Stand-Alone Forms: [facility] Discharge Orders: Discharge Order (Routine); Ordered 05/30/18 Ordered By: Marti Vásquez Admission Data Admit Date/Time: 05/27/18 16:10 Attending Provider: Garfield Leyva Admit Provider: Clover Norris Primary Care Provider: Nilesh Parmar Other Providers: Clover Norris ; Cristino Tidwell ; Bari Angeles Service: Medical
[2018-05-30] MEDS ORDERED: ACETAMINOPHEN 500 MG TAB PO ONE (13:46)
== END 2018-05-30 15:43 | disposition home health service (06) | DRG 470 ==
LOC: 3N 16:10 → SUATTDRO 16:10

== ENCOUNTER 2019-02-07 05:36 | Inpatient (IN) ==
--- NOTE | 2019-01-19 11:39 | Anesthesiology Consultation ---
Date of Service January 19, 2019 Assessment & Plan (1) Encounter for pre-operative examination: - Awaiting review preop testing. - Awaiting surgeon-ordered PCP clearance (Dr. Nilesh aPrmar). Chart Review Chart Review: Patient seen in Pre Admission Testing Teaching & Discussion Pre-Anesthesia Teaching/Discussion Notes: Instructed NPO after midnight before surgery,except medications with 15 cc of water. Medication instructions provided according to the PAT guidelines. History Surgery Operation Date: 02/07/19 07:15 Proposed Procedures p Right Hand Assisted Laparoscopic Nephrectomy - Trip Lindo MD Height/Weight Height: 6 ft 4 in Weight: 119.3 kg Allergies Allergy/AdvReac Type Severity Reaction Status Date / Time No Known Allergies Allergy Verified 01/19/19 09:53 Medications Home Medications Medication Instructions Recorded Confirmed Last Taken No Known Home Medications 01/17/19 01/17/19 Unknown Past Medical History Medical History Cancer of kidney High triglycerides no meds History of skin cancer + resection Obesity Right renal mass Sleep apnea hx CPAP ("did not like" using machine) Exercise / Class Metabolic Activity II 4-5 Yardwork/Stairs/Walk up hill Past Family History Family History Mother Breast cancer, Onset Age: 43 Father Esophageal cancer Sister Colon cancer Other Family history of cancer Past Surgical History Surgical History H/O arthroscopy of left knee H/O arthroscopy of shoulder LEFT H/O inguinal hernia repair History of colonoscopy History of left knee surgery + REVISION History of sinus surgery DEVIATED SEPTUM REPAIR History of total left hip arthroplasty Left HAMZAH: 05/28/18: SAB x 3 attempts at L3-L4 at [facility] Past Anesthesia History No Hx of Anesthesia Complications and No Family Hx of Anesthesia Complications History of PONV No Hx of PONV and No Hx of Motion Sickness Social History Smoking Status: Former smoker tobacco type: cigarettes Do You Dip or Chew Tobacco: No (REMOTE HX, NONE CURRENT) Smoking End Date: QUIT 10 YEARS AGO Hx Alcohol Use: Yes Alcohol type: other alcohol intake frequency: holidays/special occasions only Alcohol Intake Frequency Comment: ONE TIME A MONTH Hx Substance Use: No substance use type: does not use Review of Systems Patient denies chest pain, shortness of breath, dyspnea on exertion, reflux, cough, wheezing, palpitations. Physical Exam Vital Signs VITALS BP 107/58 P 62 TEMP 98.2 SP02 98%RA RESP 16 PHYSICAL Full neck and c-spine range of motion. Full TMJ range of motion. TMD 3.5 finger breaths Mallampati Score 3 Dentition: missing molar, crowns on sides/molars Lungs: clear throughout to auscultation Cardiac: regular rate and rhythm, no murmurs noted Spine: normal Carotid arteries: negative bruit Extremities: no edema Trimmed joel. Short, thick neck. Testing Other Testing Chest CT: 01/18/19: Central airways patent. No pneumothorax. No evidence of intrathoracic metastasis. Nonspecific subcentimeter mediastinal and right hilar lymph nodes, possibly reactive. Diffuse bronchial wall thickening could relate to smoking-related lung injury or bronchitis. Mild cardiomegaly.
[2019-01-19 13:20] LABS: BUN Creatinine Ratio 15.8 (10-20); Calcium 9.7 mg/dl (8.5-10.1); Creatinine Clr Calc Pharmacy 111.5 ml/min; Est GFR (African American) 96.6; Est GFR (Non-African American) 83.3; Potassium 4.8 mmol/L (3.5-5.1)
[2019-01-19 13:30] LABS: Appearance Urine Clear (Clear); Bilirubin Urine Negative (Negative); Blood Urine Negative (Negative); Color Urine Yellow; Glucose Urine UA Negative (Negative); Ketones Urine Negative (Negative); Leukocyte Esterase Urine Negative (Negative); Nitrite Urine Negative (Negative); Protein Urine Negative (Negative); Specific Gravity Urine 1.021 (1.000-1.030); Urobilinogen Urine Negative (Negative)
[2019-01-19 13:39] LABS: Basophils # (auto) 0.06 K/uL (0-0.2); Basophils % (auto) 0.8 %; Eosinophils # (auto) 0.19 K/uL (0-0.5); Eosinophils % (auto) 2.5 %; Hematocrit (blood only) 37.9 % (42-52); Hemoglobin 11.7 g/dL (14.0-18.0); Immature Granulocytes # (auto) 0.03 K/uL (0.00-0.02); Immature Granulocytes % (auto) 0.4 %; Lymphocytes # (auto) 1.02 K/uL (1.2-3.4); Lymphocytes % (auto) 13.5 %; Mean Corpuscular Hemoglobin 24.3 pg (25-34); Mean Corpuscular Hgb Conc 30.9 g/dL (32-36); Mean Corpuscular Volume 78.6 fL (80-100); Mean Platelet Volume 8.3 fL (7.4-10.4); Monocytes # (auto) 1.03 K/uL (0.11-0.59); Monocytes % (auto) 13.6 %; Neutrophils # (auto) 5.24 K/uL (1.4-6.5); Neutrophils % (auto) 69.2 %; Platelet Count 302 K/uL (130-400); RDW Coefficient of Variation 14.4 % (11.5-14.5); RDW Standard Deviation 41.2 fL (36.4-46.3); Red Blood Count 4.82 M/uL (4.7-6.1); White Blood Count 7.57 K/uL (4.8-10.8)
[2019-02-07] MEDS ORDERED: ACETAMINOPHEN 1,000 MG/100 ML VIAL IV SCH (06:00)
[2019-02-07] MEDS ORDERED: LR 15ML/HR IV SCH (06:00)
[2019-02-07] MEDS ORDERED: CEFAZOLIN 3000MG 72.5 ML IV SCH (06:00)
[2019-02-07] MEDS ORDERED: GLYCOPYRROLATE 0.2 MG/ML VIAL ONE (06:37)
[2019-02-07] MEDS ORDERED: ONDANSETRON INJ 2 MG/ML 2 ML VIAL ONE (06:37)
[2019-02-07] MEDS ORDERED: PHENYLEPHRINE HCL 10 MG/ML VIAL ONE (06:37)
[2019-02-07] MEDS ORDERED: DEXAMETHASONE SOD INJ 4 MG/ML VIAL ONE (06:37)
[2019-02-07] MEDS ORDERED: MIDAZOLAM HCL 1 MG/ML 2ML VIAL ONE (06:37)
[2019-02-07] MEDS ORDERED: PROPOFOL IV EMULSION 10 MG/ML 20 ML VIAL IV ONE (06:37)
[2019-02-07] MEDS ORDERED: LIDOCAINE HCL 2% 2 ML VIAL/AMP(20MG/ML) INFIL ONE (06:37)
[2019-02-07] MEDS ORDERED: ePHEDrine sulfate 50 MG/ML AMP ONE (06:37)
[2019-02-07] MEDS ORDERED: NEOSTIGMINE METHYLSULFATE 5 MG/5 ML SYR ONE (06:37)
[2019-02-07] MEDS ORDERED: SUCCINYLCHOLINE CHLORIDE 20 MG/ML 10 ML VIAL ONE (06:37)
[2019-02-07] MEDS ORDERED: fentaNYL citrate 100 MCG/2 ML VIAL ONE (06:38)
[2019-02-07] MEDS ORDERED: ROCURONIUM BROMIDE 10 MG/ML 5 ML VIAL ONE ×3 (06:40→07:56)
[2019-02-07] MEDS ORDERED: HYDROmorphone INJ 1 MG/ML SYRINGE IV PRN ×2 (06:46→11:32)
[2019-02-07] MEDS ORDERED: ONDANSETRON INJ 2 MG/ML 2 ML VIAL IV PRN ×2 (06:46→11:32)
[2019-02-07] MEDS ORDERED: fentaNYL citrate 100 MCG/2 ML VIAL IV PRN (06:46)
[2019-02-07] MEDS ORDERED: ePHEDrine sulfate 50 MG/ML AMP IV PRN (06:46)
[2019-02-07] MEDS ORDERED: ATROPINE SULFATE 0.1 MG/ML 10ML SYR IV PRN (06:46)
[2019-02-07] MEDS ORDERED: BUPIVACAINE 0.5 % 5 MG/1 ML MPF 30ML VIAL ONE ×2 (06:49→09:42)
--- NOTE | 2019-02-07 06:56 | History & Physical Bridge Note ---
Date of Service February 07, 2019 History & Physical Bridge Note I have examined the patient, reviewed the History & Physical and in the interval since the performance of the History & Physical I have noted the following changes of clinical significance: no changes noted
[2019-02-07] MEDS ORDERED: HYDROmorphone INJ 2 MG/ML SYR/VIAL ONE (07:48)
[2019-02-07] MEDS ORDERED: raNITIdine HCl 25 MG/ML VIAL IV ONE (07:56)
--- NOTE | 2019-02-07 10:38 | Operative Report ---
PG Post Operative Report Pre & Post Diagnosis Operation Date: 02/07/19 07:00 Pre-Op Diagnosis: Right Renal Mass Post-Op Diagnosis: Right Renal Mass Procedure Operation Date: 02/07/19 07:00 Actual Procedures p Right Hand Assisted Laparoscopic Nephrectomy, with Retroperiteneal Lymph Node Disection (Right) - Trip Lindo MD Surgeon Trip Lindo MD Horticultural Worker SESAR Baker Estimated Blood Loss 100 Findings Consistent with Post-Op Diagnosis Specimens R kidney, R RP lymph nodes Description of Procedure R HALN, R RP LND I attest to the content of the Intraoperative Record and any orders documented therein. Any exceptions are noted below.
[2019-02-07 11:00] LABS: Basophils # (auto) 0.02 K/uL (0-0.2); Basophils % (auto) 0.2 %; Eosinophils # (auto) 0.02 K/uL (0-0.5); Eosinophils % (auto) 0.2 %; Hematocrit (blood only) 34.1 % (42-52); Hemoglobin 10.9 g/dL (14.0-18.0); Immature Granulocytes # (auto) 0.04 K/uL (0.00-0.02); Immature Granulocytes % (auto) 0.4 %; Lymphocytes # (auto) 0.76 K/uL (1.2-3.4); Lymphocytes % (auto) 7.3 %; Mean Corpuscular Hemoglobin 24.8 pg (25-34); Mean Corpuscular Volume 77.5 fL (80-100); Mean Platelet Volume 7.8 fL (7.4-10.4); Monocytes # (auto) 0.33 K/uL (0.11-0.59); Monocytes % (auto) 3.2 %; Neutrophils # (auto) 9.28 K/uL (1.4-6.5); Neutrophils % (auto) 88.7 %; Platelet Count 252 K/uL (130-400); RDW Coefficient of Variation 14.4 % (11.5-14.5); RDW Standard Deviation 41.4 fL (36.4-46.3); White Blood Count 10.45 K/uL (4.8-10.8)
[2019-02-07 11:15] LABS: Calcium 9.2 mg/dl (8.5-10.1); Creatinine Clr Calc Pharmacy 76.6 ml/min; Est GFR (Non-African American) 53.5; Potassium 4.6 mmol/L (3.5-5.1)
[2019-02-07] MEDS: LACTATED RINGER'S 1,000 ML IV SCH ×2 (11:30→20:11)
[2019-02-07] MEDS ORDERED: OXYCODONE HCL IR 5 MG TAB (IMMEDIATE RELEASE) PO PRN (11:32)
[2019-02-07] MEDS ORDERED: HYDROmorphone INJ 0.5 MG/0.5 ML SYR IV PRN (11:32)
[2019-02-07 12:24] LABS: INR 1.2 (0.9-1.1); Partial Thromboplastin Ratio 1.1
[2019-02-07] MEDS: ACETAMINOPHEN 1,000 MG/100 ML VIAL IV SCH ×2 (13:14→21:07)
[2019-02-07] MEDS: CEFAZOLIN 2000MG 2,000 MG/15 ML SYR IV SCH ×2 (14:15→22:05)
--- NOTE | 2019-02-07 14:33 | Anesthesiology Progress Note ---
Date of Service February 07, 2019 Anesthesia Post Procedure Vital Signs Vital Signs: Temp Pulse Pulse Resp BP BP Pulse Ox 02/07/19 14:32 50 L 16 144/84 H 97 02/07/19 13:30 53 L 16 122/72 97 02/07/19 12:30 36 C L 54 L 18 120/64 99 02/07/19 12:00 36.3 C L 56 L 20 121/74 99 02/07/19 11:30 36.7 C 56 L 18 118/74 99 02/07/19 11:15 36.6 C 54 L 20 119/67 99 02/07/19 11:05 59 L 13 126/66 98 02/07/19 10:55 62 21 117/69 100 02/07/19 10:45 67 16 124/76 99 02/07/19 10:37 36.9 C 64 15 114/68 100 02/07/19 06:01 36.6 C 74 18 134/66 95 Pain Intensity Right Flank: Pain Intensity: 3 Transfer of Care Handoff Completed per policy Notes Mental Status: alert / awake / arousable and participated in evaluation Patient Amnestic to Procedure: Yes Nausea / Vomiting: adequately controlled Pain: adequately controlled Airway Patency, RR, SpO2: stable & adequate BP & HR: stable & adequate Hydration State: stable & adequate Anesthetic Complications: no major complications apparent and Pt Satisfied with anesthetic care
--- NOTE | 2019-02-07 15:56 | Urology Progress Note ---
Date of Service February 07, 2019 Subjective Patient POD#0 s/p R HALN, RP LND. Resting in bed, conversant with family at bedside, in good spirits. Postop labs noted - slight drop in Hb and rise in Cr as expected. No OOB yet. Intraop findings reviewed, queries answered. NAD Good respiratory excursion. S1 S2 Soft, ND, NT, inc c/d/i - dressing on lower incision due to serosanguinous drainage, other dressings removed. A/P 64 yo male POD#0 s/p R HALN. Doing well. OOBTC encouraged tonight. TOV and ambulation tomorrow. Full liquids then ADAT if doing well tomorrow. Can remove remaining dressing if no drainage tomorrow. Anticipate DC home tomorrow vs. Wed depending on progress and diet. Expected postop course reviewed. Laboratory Results - last 24 hr 02/07/19 02/07/19 02/07/19 10:45 10:45 11:58 WBC 10.45 RBC 4.40 L Hgb 10.9 L Hct 34.1 L MCV 77.5 L MCH 24.8 L MCHC 32.0 RDW Std Deviation 41.4 RDW Coeff of Enzo 14.4 Plt Count 252 MPV 7.8 Immature Gran % (Auto) 0.4 Neut % (Auto) 88.7 Lymph % (Auto) 7.3 [place] % (Auto) 3.2 Eos % (Auto) 0.2 Baso % (Auto) 0.2 Immature Gran # (Auto) 0.04 H Neut # (Auto) 9.28 H Lymph # (Auto) 0.76 L [place]vin # (Auto) 0.33 Eos # (Auto) 0.02 Baso # (Auto) 0.02 PT 12.0 INR 1.2 H APTT 30.0 PTT Ratio 1.1 Sodium 136 Potassium 4.6 Chloride 102 Carbon Dioxide 28 Anion Gap 6.0 BUN 14 Creatinine 1.40 Est Cr Clr Drug Dosing 76.6 Est GFR ( Amer) 62.0 Est GFR (Non-Af Amer) 53.5 BUN/Creatinine Ratio 10.0 Glucose 137 H Calcium 9.2 Results & Data Vital Signs (Past 12 Hours) Vital Signs Temp Pulse Pulse Resp BP BP Pulse Ox 02/07/19 14:32 50 L 16 144/84 H 97 02/07/19 13:30 53 L 16 122/72 97 02/07/19 12:30 36 C L 54 L 18 120/64 99 02/07/19 12:00 36.3 C L 56 L 20 121/74 99 02/07/19 11:30 36.7 C 56 L 18 118/74 99 02/07/19 11:15 36.6 C 54 L 20 119/67 99 02/07/19 11:05 59 L 13 126/66 98 02/07/19 10:55 62 21 117/69 100 02/07/19 10:45 67 16 124/76 99 02/07/19 10:37 36.9 C 64 15 114/68 100 02/07/19 06:01 36.6 C 74 18 134/66 95 PG Care Time/CCT Total # of Minutes Spent Total Time Spent with Patient: Total time spent is greater than 50% in coordination of care (as documented) at patient's floor/unit and/or counseling patient:
[2019-02-07] MEDS: OXYCODONE HCL IR 5 MG TAB (IMMEDIATE RELEASE) PO PRN (19:06)
[2019-02-07] MEDS: FAMOTIDINE 20 MG TAB PO SCH (20:22)
[2019-02-07] MEDS: DOCUSATE SODIUM 100 MG CAP PO SCH (20:22)
[2019-02-07] MEDS: HEPARIN SOD 5,000 UNIT/0.5 ML VIAL SQ SCH (20:22)
[2019-02-08] MEDS: OXYCODONE HCL IR 5 MG TAB (IMMEDIATE RELEASE) PO PRN (02:39)
[2019-02-08] MEDS: ACETAMINOPHEN 1,000 MG/100 ML VIAL IV SCH (05:36)
[2019-02-08] MEDS: LACTATED RINGER'S 1,000 ML IV SCH (05:37)
[2019-02-08 05:42] LABS: Basophils # (auto) 0.01 K/uL (0-0.2); Basophils % (auto) 0.1 %; Eosinophils # (auto) 0.03 K/uL (0-0.5); Eosinophils % (auto) 0.3 %; Hematocrit (blood only) 33.8 % (42-52); Hemoglobin 10.6 g/dL (14.0-18.0); Immature Granulocytes # (auto) 0.02 K/uL (0.00-0.02); Immature Granulocytes % (auto) 0.2 %; Lymphocytes # (auto) 1.22 K/uL (1.2-3.4); Mean Corpuscular Hemoglobin 24.3 pg (25-34); Mean Corpuscular Hgb Conc 31.4 g/dL (32-36); Mean Corpuscular Volume 77.3 fL (80-100); Mean Platelet Volume 8.1 fL (7.4-10.4); Monocytes # (auto) 0.89 K/uL (0.11-0.59); Neutrophils # (auto) 8.94 K/uL (1.4-6.5); Neutrophils % (auto) 80.4 %; Platelet Count 236 K/uL (130-400); RDW Coefficient of Variation 14.4 % (11.5-14.5); RDW Standard Deviation 40.9 fL (36.4-46.3); Red Blood Count 4.37 M/uL (4.7-6.1); White Blood Count 11.11 K/uL (4.8-10.8)
[2019-02-08 06:23] LABS: BUN Creatinine Ratio 11.7 (10-20); Calcium 9.2 mg/dl (8.5-10.1); Creatinine Clr Calc Pharmacy 83.2 ml/min; Est GFR (African American) 68.4; Potassium 4.6 mmol/L (3.5-5.1)
[2019-02-08 07:16] VITALS: TEMP 97.3
--- NOTE | 2019-02-08 07:37 | Urology Progress Note ---
Date of Service February 08, 2019 Assessment & Plan (1) Renal neoplasm: POD #1 s/p R ANN Nx - malone out advance diet ambulate HL IVF if he progresses well today, possible dc home later this afternoon Subjective feeling well annoyed by the catheter pain tolerable no nausea/vomiting OOB to chair yesterday Physical Exam Physical Exam: Incisions appropriate - dressing removed from extraction site dermabond intact no erythema/bulge/etc Results & Data Vital Signs (Past 12 Hours) Vital Signs Temp Pulse Pulse Resp BP Pulse Ox 02/08/19 07:11 36.3 C L 52 L 16 122/70 96 02/08/19 03:54 36.5 C 50 L 18 111/64 97 02/07/19 23:40 36.5 C 50 L 18 114/71 96 PG Care Time/CCT Total # of Minutes Spent Total Time Spent with Patient: Total time spent is greater than 50% in coordination of care (as documented) at patient's floor/unit and/or counseling patient:
--- NOTE | 2019-02-08 08:47 | Anesthesiology Progress Note ---
Date of Service February 08, 2019 Anesthesia Post Procedure Vital Signs Vital Signs: Temp Pulse Pulse Pulse Resp BP BP 02/08/19 07:11 36.3 C L 52 L 16 122/70 02/08/19 03:54 36.5 C 50 L 18 111/64 02/07/19 23:40 36.5 C 50 L 18 114/71 02/07/19 19:14 36.4 C L 54 L 16 128/75 02/07/19 16:09 36.3 C L 02/07/19 14:32 50 L 16 144/84 H 02/07/19 13:30 53 L 16 122/72 02/07/19 12:30 36 C L 54 L 18 120/64 02/07/19 12:00 36.3 C L 56 L 20 121/74 02/07/19 11:30 36.7 C 56 L 18 118/74 02/07/19 11:15 36.6 C 54 L 20 119/67 02/07/19 11:05 59 L 13 126/66 02/07/19 10:55 62 21 117/69 02/07/19 10:45 67 16 124/76 02/07/19 10:37 36.9 C 64 15 114/68 Pulse Ox 02/08/19 07:11 96 02/08/19 03:54 97 02/07/19 23:40 96 02/07/19 19:14 96 02/07/19 16:09 02/07/19 14:32 97 02/07/19 13:30 97 02/07/19 12:30 99 02/07/19 12:00 99 02/07/19 11:30 99 02/07/19 11:15 99 02/07/19 11:05 98 02/07/19 10:55 100 02/07/19 10:45 99 02/07/19 10:37 100 Pain Intensity Right Flank: Pain Intensity: 1 Notes Mental Status: alert / awake / arousable and participated in evaluation Patient Amnestic to Procedure: Yes Nausea / Vomiting: adequately controlled Pain: adequately controlled Airway Patency, RR, SpO2: stable & adequate BP & HR: stable & adequate Hydration State: stable & adequate Anesthetic Complications: no major complications apparent and Pt Satisfied with anesthetic care
[2019-02-08] MEDS: HEPARIN SOD 5,000 UNIT/0.5 ML VIAL SQ SCH (08:49)
[2019-02-08] MEDS: DOCUSATE SODIUM 100 MG CAP PO SCH (08:50)
[2019-02-08] MEDS: FAMOTIDINE 20 MG TAB PO SCH (08:52)
[2019-02-08 11:04] VITALS: BP 115/68; O2SAT 98
--- NOTE | 2019-02-08 11:09 | Urology Progress Note ---
Date of Service February 08, 2019 Assessment & Plan (1) Renal neoplasm: POD #1 s/p R ANN Nx Progressing very well. Encouraged to ambulate and use IS. PT feels he will void spontaneously very soon. Expected clinical course and discharge instructions reviewed, pt feels ready to go home. OKay to discharge home after lunch if able to spontaneously void. Subjective Pt continues to do well, tolerating PO well No nausea/vomitting. Has not been up yet today, states he's waiting on his underwear that his is bringing. Bentley d/c'd approx 8am. Has not voided yet but feels he will soon. Pain well controlled with PO only and IV tylenol. Results & Data Vital Signs (Past 12 Hours) Vital Signs Temp Pulse Pulse Resp BP Pulse Ox 02/08/19 11:03 36.3 C L 51 L 16 115/68 98 02/08/19 07:11 36.3 C L 52 L 16 122/70 96 02/08/19 03:54 36.5 C 50 L 18 111/64 97 02/07/19 23:40 36.5 C 50 L 18 114/71 96 PG Care Time/CCT Total # of Minutes Spent Total Time Spent with Patient: Total time spent is greater than 50% in coordination of care (as documented) at patient's floor/unit and/or counseling patient:
[2019-02-08 11:39] VITALS: PULSE 50
--- NOTE | 2019-02-14 10:28 | Operative Report ---
DATE OF OPERATION: 02/07/2019 PREOPERATIVE DIAGNOSIS: Large central right renal mass with perinephric borderline lymphadenopathy. POSTOPERATIVE DIAGNOSIS: Large central right renal mass with perinephric borderline lymphadenopathy. PROCEDURE: Right-sided hand assisted laparoscopic radical nephrectomy with retroperitoneal lymph node dissection. SURGEON: Trip Lindo MD SPECIAL EDUCATION ADMINISTRATOR: SESAR Petit. ANESTHESIA: General anesthesia with endotracheal intubation plus local at port sites. ESTIMATED BLOOD LOSS: 100 mL. SPECIMENS SENT TO PATHOLOGY: Right renal mass, right retroperitoneal lymph nodes. DRAINS LEFT IN PLACE: Include a Bentley catheter to gravity drainage. COMPLICATIONS: None. FINDINGS: Large renal mass with borderline lymphadenopathy with no residual retroperitoneal tissue appreciated after completion of dissection. BRIEF HISTORY: Mr. iWck is a pleasant 64-year-old male found on imaging to have an incidentally found suspicious large central right renal mass. Working diagnosis is renal cell carcinoma. The patient is also noted to have some borderline lymph nodes in the area but seeing that the patient is a large man and his nodes are around 1 cm in size, I suspect he is to be within reasonable anatomic balance for him. In any case, these nodes will be sampled at the time of surgery. Please see H and P for further details. SCDs were used for DVT prophylaxis and intravenous cephalosporins used for antibiotic prophylaxis. Informed consent reviewed with the patient and family preoperatively. DESCRIPTION OF PROCEDURE: The patient was properly identified and brought into the operative suite after identification of appropriate consent on the chart. General anesthesia with endotracheal intubation was initiated. The patient was prepped and draped in a standard fashion for this procedure. engineering director-out procedure was followed. The patient was placed in a gentle left flank up position and a Ray incision was made in the right lower quadrant. This was brought down through the subcutaneous tissues to the level of the fascia of the external oblique. This was divided and abdomen was sharply entered using Metzenbaum scissors and DeBakey forceps. This was noted to occur without any injury to the patient's intraabdominal contents. The incision was then extended over the surgeon's finger and a Gelport hand port was placed to allow for insufflation of the abdomen. The laparoscope was placed via the hand port and abdomen was insufflated and surveyed in its entirety. This demonstrated no worrisome intra-abdominal anatomic variations. Large right retroperitoneal renal mass was appreciated. Two 12 mm ports were placed in the midclavicular line onto the surgeon's hand and dissection was then initiated. The white line of Toldt was incised laterally and the colon was mobilized medially. The patient's psoas muscle was discovered and a window was made over this to allow for lateral traction of the kidney. The duodenum was easily visualized and kocherized medially. The patient's renal vein was visualized and renal artery was able to be palpated in the normal anatomic posterior position. Dissection was carried cephalad with identification of the canal without clear identification of the ureter. The large bulky retroperitoneal tissue did injure the dissection at various points. The patient was noted to have adhesions at the level of the liver which were carefully and judiciously dissected free. After sufficient cephalad dissection from the inferior pole of the kidney was carried out, the renal hilum was able to be circumscribed using the surgeon's finger. This was then controlled using a vascular staple load. Dissection was carried out laterally around the apex of the kidney. The remaining attachments at the level of the adrenal gland were then divided using a vascular staple load as necessary. Great care was taken to avoid any injury and to the vascular structures such as the IVC, which was identified and well recognized over the course of its entire course. After the dissection was complete, a remaining vascular staple load was placed over the inferior most aspect of Gerota's fascia including the gonadal vein and the ureter. Kidney was free within the abdomen and with some significant extension of the incision due to the size of the kidney and perirenal fat. The kidney was able to be extracted with some small amount of fat stripping when it was being removed through the incision. After this was complete, attention was turned to the retroperitoneum where excellent hemostasis was appreciated. Some retroperitoneal farrah tissue was appreciated at the level of the hilum. Using clips and Harmonic scalpel, the tissue was separately dissected free for a right retroperitoneal lymph node dissection. After this was complete, excellent hemostasis was appreciated. A large lymphatics and vessels had been controlled with clips. This was handed off for separate pathologic analysis. Attention was again turned to the retroperitoneum where hemostasis was again confirmed. Tisseel tissue sealant was spread after placement of a Surgicel over the planes of dissection. Attention was then turned to the remaining abdominal anatomy and some nodular abnormalities at the level of the liver was appreciated. Dr. Jace Weems was requested for a bedside general surgical consult and felt that this represented distal impaction and inflammation of stones within the gallbladder which was consistent with the patient's CT imaging. Seeing that this has been relatively asymptomatic, no further action was felt to be necessary at this time. We will arrange for followup imaging with their service. The colon was returned to its normal anatomic position as well as the liver. Abdomen was desufflated and ports were removed. Fascia at the level of the 12 mm ports was closed using [id number] 0 Vicryl suture on a UR-6 needle. The hand port was closed in 2 layers using 0 Vicryl on a UR-5 on the deep muscular layers and a #1 Vicryl on the fascia of the external oblique and external musculature. Subcutaneous tissues were reapproximated using 3-0 Vicryl and 4-0 Monocryl was used at all skin incisions to reapproximate the skin followed by Dermabond. Bentley catheter had been placed early on in the case for drainage of the bladder and was left in place postoperatively. Excess carbon dioxide gas removed from the abdomen prior to completion of the closure. Anesthesia was reversed. The patient was transferred to recovery room in stable condition. FOLLOWUP CARE: The patient will be admitted to the floor for standard postoperative management. I attest to the content of the Intraoperative Record and any orders documented therein. Any exceptions are noted below. REKHA
--- NOTE | 2019-02-15 11:40 | Discharge Summary ---
Date of Service February 15, 2019 Admission HPI Per Admitting Provider 64 yo male with R renal mass for nephrectomy. See H&P for further details. Admission Exam (Per Admitting) Constitutional well developed and well nourished; no acute distress Eyes eyes not dysmorphic ENMT Ears: no external ear abnormality Neck trachea midline; no anterior neck swelling Respiratory no respiratory distress and does not use accessory muscles Cardiovascular Vessels: radial pulses present Gastrointestinal (Abdomen) Inspection/Auscultation: abdomen not distended Percussion/Palpation: abdomen soft; abdomen nontender Musculoskeletal Head/Neck/Chest: normocephalic and neck supple Skin normal turgor Neurologic awake; not obtunded Psychiatric Orientation: oriented x 3 Lymphatic no lymphadenopathy Discharge Data Procedures Performed Operation Date: 02/07/19 07:00 Actual Procedures p Right Hand Assisted Laparoscopic Nephrectomy, with Retroperiteneal Lymph Node Disection (Right) - Trip Lindo MD Hospital Course (1) Renal neoplasm: POD #1 s/p R ANN Nx Progressing very well. Encouraged to ambulate and use IS. PT feels he will void spontaneously very soon. Expected clinical course and discharge instructions reviewed, pt feels ready to go home. OKay to discharge home after lunch if able to spontaneously void. Discharge Instructions See DC instructions sheet and med list.
--- NOTE | 2019-02-22 06:15 | Coding Query ---
PATHOLOGY To promote full compliance with coding requirements relating to patient care, physician participation is requested in all cases of director geophysical laboratory uncertainty. Please assist us with the question(s) below: Please review the Pathology report and please document any relevant diagnosis(es) below. Thank you ! PATEL Jha [facility] Diagnosis(es): Renal cell carcinoma MTDD
== END 2019-02-08 13:51 | disposition home or self-care (01) | DRG 658 ==
LOC: ASU 05:36 → 3N 10:36

== ENCOUNTER 2019-11-04 12:43 | Observation (INO) ==
[2019-11-04] MEDS ORDERED: ONDANSETRON INJ 2 MG/ML 2 ML VIAL IV PRN (13:44)
[2019-11-04] MEDS ORDERED: ALUMINUM/MAGNESIUM SUSP 30 ML UDC PO PRN (13:44)
[2019-11-04] MEDS ORDERED: ACETAMINOPHEN 325 MG TAB PO PRN (13:44)
--- NOTE | 2019-11-04 13:59 | History & Physical Report ---
Date of Service November 04, 2019 Assessment & Plan (1) Acute kidney injury: Patient will be hydrated following his renal function avoiding nephrotoxic medications. CT abdomen pelvis without IV contrast will be undertaken to further evaluate progression of any disease hydronephrosis or liver involvement. Checking serial laboratories (2) Elevated LFTs: Mild elevation of his LFTs could be viral in nature perhaps even could be related to his chemotherapeutic medications. These will be held at this time. Will follow liver function testing (3) Renal neoplasm: Patient is been on steroids as part of his chemotherapeutic regimen subsequently he will be given stress dose steroids with a random cortisol checked on presentation and returned to his daily prednisone dose on [address] scan will be done for surveillance for progression of disease (4) Cholelithiasis: This is noted for history only. Certainly does not appear to have an obstructive pattern on serology however immunosuppression can mask an infection subsequently imaging of the area will be warranted (5) DVT prophylaxis: Lovenox to be used for DVT prevention (6) Lyme disease: Reportedly the patient is on day 8 of a 28-day therapeutic treatment for latent Lyme disease as per 3 bands of Western blot on IgG showing up on serology testing Admission and Anticipated Discharge Date Admission Date: November 04, 2019 History of Present Illness Primary Care Provider: Nilesh Parmar 64-year-old male currently under treatment for metastatic renal cell carcinoma with mets to lung. He is status post a wedge resection of 1 of his lung mets. He is undergoing current chemotherapy under the direction of Dr. Bah previously Dr. Hopper through [facility] treatment center. He is on ipilimumab and patient is had about a 2-week history of increasing malaise and fatigue decreased appetite decreased urinary output peripheral swelling. This is slightly preceded Lyme testing where he had evidence of 3 bands of immunoglobulins for IgG on his Western blot, but no IgM. Patient never has been treated for Lyme in the past subsequent was initiated on doxycycline treatment now on day 8 for planned 28-day course by his primary care physician. Patient been to multiple ERs over the last few days all without a defined diagnosis of his general malaise. He subsequently visited Dr. Beltran in clinic and recommended direct admission. He does have elevation of his creatinine over his baseline and a mild decrease in his magnesium level compared to normal. Patient has no other focal signs or symptoms he is known to have cholelithiasis but no signs of dysfunction at this time. Last CT scan done in September 2019 showed no evidence of metastatic disease in his abdomen or pelvis Allergies Allergy/AdvReac Type Severity Reaction Status Date / Time No Known Drug Allergies Allergy Verified 10/26/19 12:31 Home Medications Home Medications Medication Instructions Recorded Confirmed Type doxycycline hyclate 100 mg PO BID 14 Days #28 tab 10/26/19 Rx ipilimumab [Yervoy] 50 mg IV DIRECTED 10/26/19 10/26/19 History prednisone 5 mg PO DIRECTED 10/26/19 10/26/19 History Past Med/Surg History Medical History (Updated 11/04/19 @ 13:58 by Garfield Leyva MD) Cancer of kidney RIGHT KIDNEY REMOVED High triglycerides no meds History of skin cancer + resection Lung metastasis Sleep apnea hx CPAP ("did not like" using machine) Surgical History H/O arthroscopy of shoulder LEFT H/O inguinal hernia repair History of colonoscopy History of left knee surgery + REVISION X 4 History of right nephrectomy 02/07/2019: Gliescope #3 with 8.0 ETT after unsuccessful DLx2. See record for full details. History of sinus surgery DEVIATED SEPTUM REPAIR History of total left hip arthroplasty Left HAMZAH: 05/28/18: SAB x 3 attempts at L3-L4 at [facility] Status post lung surgery (06/08/19) Electromagnetic navigational bronchoscopy with marking of lesion with ICG dye. 2. Left robot-assisted thoracoscopic segmentectomy of the superior segment of left lower lobe. 3. Mediastinal lymph node dissection. Dr. Wright 06/08/19 Social History Preferred Language: Kiswahili Communication Ability: Effective Satellite Television Installer Required: No Beliefs That Will Affect Care: None marital status: Current Living Situation: Spouse Current Living Situation Comment: [facility] current occupational status: retired current occupation: retired from [place] [employer] Feels Safe at Home: Yes Smoking Status: Current every day smoker Tobacco Type: cigarettes ; Second Hand Exposure: No ; Hx Alcohol Use: Yes Alcohol type: other Hx Substance Use: No Review of Systems Review of Systems: Mild to moderate distress and fatigue no headache, blurry or double vision no speech or swallowing issues no chest pain, pressure or palpitations no shortness of breath, occasional feelings of breathlessness cough or wheezes no abdominal pain, nausea or vomiting, he does have loss of appetite and some bloating plus constipation no dysuria, hematuria or frequency no focal joint pain but does note peripheral swelling no back pain, CVA tenderness or radicular pain no bruising, bleeding or rashes no focal signs of weakness or numbness or altered sensation generally feels weak no complaints or anxiety or depression.. Physical Exam Physical Exam: The patient appeared well nourished and normally developed. Vital signs as documented. Head exam is normocephalic atraumatic no scleral icterus Neck is without JVD, thyromegaly, or carotid bruits. Lungs are clear to auscultation, no focal loss of breath sounds Cardiac exam, Rhythm is regular.. No murmurs, rubs or gallops. Abdominal exam reveals normal bowel sounds, soft non tender, no masses particularly no right upper quadrant tenderness Extremities are mildly edematous bilaterally lower extremities and both pedal pulses are normal. Neurologic exam is alert and oriented, no focal loss of strength or sensation Skin is without bruises or rashes Psychologically is without concerns for anxiety or depression Results & Data Results & Data ([facility]) Vital Signs (Past 12 Hours) Vital Signs Temp Pulse Resp BP Pulse Ox 11/04/19 13:05 98.2 F 88 18 102/70 93 Code Status & VTE Plan VTE Prophylaxis Plan VTE Prophylaxis will be ordered: Yes PG Care Time/CCT Total # of Minutes Spent Total Time Spent with Patient: Total time spent is greater than 50% in coordination of care (as documented) at patient's floor/unit and/or counseling patient: Coding Level of Care Code 17700 Initial Inpt Care Lvl 3 Diagnoses Acute kidney injury N17.9 Elevated LFTs R79.89 Renal neoplasm D49.519 Cholelithiasis K80.20 DVT prophylaxis Z29.9 Lyme disease A69.20
[2019-11-04] MEDS ORDERED: MAGNESIUM SULFATE / D5W 1 GM/100 ML BAG IV SCH (14:00)
[2019-11-04 15:17] LABS: Basophils # (auto) 0.08 K/uL (0-0.2); Basophils % (auto) 1.5 %; Eosinophils # (auto) 0.27 K/uL (0-0.5); Hematocrit (blood only) 39.2 % (42-52); Hemoglobin 13.9 g/dL (14.0-18.0); Immature Granulocytes # (auto) 0.15 K/uL (0.00-0.02); Immature Granulocytes % (auto) 2.8 %; Lymphocytes # (auto) 1.39 K/uL (1.2-3.4); Lymphocytes % (auto) 25.6 %; Mean Corpuscular Hemoglobin 30.3 pg (25-34); Mean Corpuscular Hgb Conc 35.5 g/dL (32-36); Mean Corpuscular Volume 85.6 fL (80-100); Mean Platelet Volume 8.5 fL (7.4-10.4); Monocytes # (auto) 0.96 K/uL (0.11-0.59); Monocytes % (auto) 17.6 %; Neutrophils # (auto) 2.59 K/uL (1.4-6.5); Neutrophils % (auto) 47.5 %; Platelet Count 195 K/uL (130-400); RDW Standard Deviation 43.7 fL (36.4-46.3); Red Blood Count 4.58 M/uL (4.7-6.1); White Blood Count 5.44 K/uL (4.8-10.8)
[2019-11-04 15:35] LABS: BUN Creatinine Ratio 5.6 (10-20); Calcium 9.2 mg/dl (8.5-10.1); Creatinine Clr Calc Pharmacy 65.4 ml/min; Est GFR (African American) 47.3; Est GFR (Non-African American) 40.8; Potassium 3.8 mmol/L (3.5-5.1)
[2019-11-04 15:38] LABS: Bilirubin,Total 1.6 mg/dl (0.2-1); Globulin 3.1 gm/dl (2.5-4.0); Total Protein 6.1 gm/dl (6.4-8.2)
[2019-11-04] MEDS: SODIUM CHLORIDE 0.9% 1000ML 1,000 ML IV SCH (16:27)
[2019-11-04] MEDS: ENOXAPARIN INJ 40 MG/0.4 ML SYR SQ SCH ×2 (16:27→17:44)
[2019-11-04] MEDS: HYDROCORTISONE SOD 50 MG in SYRINGE 0 ML IV SCH ×2 (16:28→21:05)
--- NOTE | 2019-11-04 16:45 | CT Scan Report ---
CT OF THE ABDOMEN AND PELVIS WITH ORAL CONTRAST CLINICAL HISTORY: History of renal cell carcinoma. Elevated liver function tests. COMPARISON STUDY: CT of the abdomen and pelvis September 15, 2019. Right upper quadrant ultrasound October. TECHNIQUE: Axial images of the abdomen and pelvis were obtained without IV contrast. Oral contrast wa s administered. Automated exposure control was utilized for the study. A dose lowering technique was utilized adhering to the principles of ALARA. FINDINGS: Fatty infiltration of the liver is noted. There is no biliary ductal dilatation. There are gallstones within the gallbladder. There is no evidence for acute cholecystitis. No peripancreatic in filtration is noted in evaluation of the abdomen and pelvis is suboptimal on this unenhanced examinat ion. The appearance of the right nephrectomy bed is unchanged. No enlarged abdominal or pelvic lymph nodes are noted. Prominent upper abdominal lymph nodes remain unchanged from earlier exams. These are likely benign. The spleen, adrenal glands and left kidney are unremarkable. There is no left hydrone phrosis. There is no evidence for a bowel obstruction. Left hip arthroplasty is noted. The appendix i s normal. There are no suspicious osseous lesions. IMPRESSION: 1. Fatty infiltration of the liver. 2. Cholelithiasis. No evidence for acute cholecystitis. No biliary ductal dilatation. 3. Status post right nephrectomy. No evidence for recurrent malignancy within the abdomen or pelvis o n unenhanced exam. ACT 112: Negative or not required by law. Electronically signed by: Damien Darling M.D. 11/04/2019 4:43 PM
[2019-11-04] MEDS: PATIENT'S HEIGHT AND/OR WEIGHT NEEDED SCH ×2 (17:41→17:42)
[2019-11-04] MEDS: DOXYCYCLINE HYCLATE 100 MG CAP PO SCH (21:04)
[2019-11-05 00:22] LABS: Appearance Urine Clear (Clear); Bilirubin Urine Negative (Negative); Blood Urine 1+ (Negative); Color Urine Yellow; Glucose Urine UA Negative (Negative); Ketones Urine Trace (Negative); Leukocyte Esterase Urine Negative (Negative); Nitrite Urine Negative (Negative); Protein Urine Negative (Negative); Specific Gravity Urine 1.008 (1.000-1.030); Urobilinogen Urine Negative (Negative); pH Urine 5.5 (4.5-7.5)
[2019-11-05] MEDS: SODIUM CHLORIDE 0.9% 1000ML 1,000 ML IV SCH ×2 (00:33→05:41)
[2019-11-05 00:47] LABS: Bacteria Urine Negative (Negative); WBC Urine 0-5 /hpf (0-5)
[2019-11-05] MEDS: HYDROCORTISONE SOD 50 MG in SYRINGE 0 ML IV SCH (05:41)
[2019-11-05] MEDS: DOXYCYCLINE HYCLATE 100 MG CAP PO SCH ×2 (07:37→21:55)
[2019-11-05 08:12] LABS: Hematocrit (blood only) 39.3 % (42-52); Hemoglobin 13.9 g/dL (14.0-18.0); Mean Corpuscular Hemoglobin 30.3 pg (25-34); Mean Corpuscular Hgb Conc 35.4 g/dL (32-36); Mean Corpuscular Volume 85.6 fL (80-100); Mean Platelet Volume 8.4 fL (7.4-10.4); Platelet Count 243 K/uL (130-400); RDW Coefficient of Variation 13.8 % (11.5-14.5); RDW Standard Deviation 43.1 fL (36.4-46.3); Red Blood Count 4.59 M/uL (4.7-6.1); White Blood Count 9.94 K/uL (4.8-10.8)
[2019-11-05 08:44] LABS: Albumin Level 3.2 gm/dl (3.4-5.0); BUN Creatinine Ratio 6.3 (10-20); Calcium 9.3 mg/dl (8.5-10.1); Creatinine Clr Calc Pharmacy 72.9 ml/min; Est GFR (Non-African American) 46.6; Magnesium 1.7 mg/dl (1.8-2.4); Potassium 4.3 mmol/L (3.5-5.1)
[2019-11-05 08:47] LABS: Bilirubin,Total 1.3 mg/dl (0.2-1); Globulin 3.1 gm/dl (2.5-4.0); Total Protein 6.3 gm/dl (6.4-8.2)
[2019-11-05] MEDS ORDERED: MAGNESIUM SULFATE / D5W 1 GM/100 ML BAG IV ONE (10:00)
--- NOTE | 2019-11-05 10:31 | XRay Report ---
XR chest 2V PA/lateral CLINICAL HISTORY: fatigue, malaise; eval infiltrates COMPARISON STUDY: Chest CT October 12, 2019. Chest radiograph October 26, 2019. FINDINGS: Lung volumes are normal. Minimal left basilar opacity favors atelectasis. There is no pneum othorax or pleural effusion. Cardiac size is stable. Mediastinal contours are normal. There is no hazel dence for pulmonary edema. IMPRESSION: 1. No acute cardiopulmonary findings. 2. Mild left basilar opacity which favors atelectasis. ACT 112: Negative or not required by law. Electronically signed by: Damien Darling M.D. 11/05/2019 10:29 AM
--- NOTE | 2019-11-05 14:45 | Ultrasound Report ---
BILATERAL LOWER EXTREMITY VENOUS DOPPLER CLINICAL HISTORY: recent travel, edema, eval DVT COMPARISON STUDY: No previous studies for comparison. TECHNIQUE: Sonography of the deep venous system of the bilateral lower extremities was performed. Co mpression and augmentation were evaluated. FINDINGS: The bilateral common femoral, superficial femoral and popliteal veins were compressible. A ugmentation was normal. Flow was shown within the deep calf vessels. IMPRESSION: No evidence of deep venous thrombus within the bilateral lower extremities. ACT 112: Negative or not required by law. Electronically signed by: Damien Darling M.D. 11/05/2019 2:44 PM
[2019-11-05] MEDS: ENOXAPARIN INJ 40 MG/0.4 ML SYR SQ SCH ×2 (18:00→18:03)
--- NOTE | 2019-11-05 21:35 | Hospitalist Progress Note ---
Date of Service November 05, 2019 Assessment & Plan (1) Lyme disease: The patient is currently day 9 of a 28-day treatment regimen for suspected Lyme Disease. Recent Lyme testing showed negative IgM but positive IgG antibody. Western Blot showed 3 IgG bands suggesting active Lyme disease. Oddly, despite 7+ days of treatment, he still felt poorly (weakness, anorexia, fatigue, etc) and only after being admitted and receiving IV steroids did he improve. Review of all labs shows moderate thrombocytopenia (lowest 80s, now normal) and abnormal LFTs which peaked in October during the illness and continue to improve. Lyme typically does not cause low platelets or abnormal LFTs. The platelet issue and abnormal LFTs fits more so with anaplasmosis. The change in taste during his illness also fits with possible COVID-19 but unlikely (never had fever, respiratory symptoms, etc). Even if he had COVID-19 he likely resolved it days ago. Cannot rule out EBV or CMV infection. Send anaplasmosis and ehrlichosis DNA. Send EBV titers. Check COVID-19 IgG ab to see if any exposure occurred in the last 6 weeks. Follow blood cx's. Cont doxy. Treat minimum 14 days. Repeat LFTs am. (2) Edema: dopplers of b/l LEs negative for DVT. etiology? due to HANSEL? due to previous prednisone use? due to acute liver injury? other? no signs/symptoms of decompensated CHF. consider a few days of low-dose diuretic if desired by patient. (3) Addisonian crisis: Suspect patient had some element of addisonian-like crisis. Had been taking chronic prednisone for his renal cell cancer. Starting in the late winter he began to taper per instructions from his outpatient providers. Prednisone was tapered slowly over months and weaned off in early October. The stress-dose steroids likely helped him feel better this admission. Will d/c IV steroids today. Recommend 3-5 more days of PO prednisone then stop. (4) Acute kidney injury: Peak Cr 1.7 baseline is about 1.4 today 1.5 can stop fluids repeat BMP am no evidence of obstruction on CT abd/pelvis (5) Elevated LFTs: Normal LFTs up until mid-October. At the start of his illness in mid-late October the LFTs began to climb (ast, alt, t.bili). They peaked and are now falling. This coincides with clinical improvement overall. Differential - viral vs tick-borne vs medication (chemo, etc) vs other. Check anaplasmosis DNA. Check EBV titers. Check COVID IgG. Repeat LFTs in am. Recent abdominal imaging shows gallstones but nothing to suggest cholecystitis or choledocholithiasis. (6) Renal neoplasm: s/p right nephrectomy for RCC. (7) Cholelithiasis: NO evidence of acute cholecystitis. I would have expected that if he had passed a gallstone, had cholangitis, etc his clinical picture would have been much different than current. (8) Hyponatremia: mild. cause - due to HANSEL? repeat BMP am. (9) Thrombocytopenia: lowest platelet level in 10/2019 was 80s. now normal. viral vs tick-borne vs chemo-related vs other. (10) DVT prophylaxis: Lovenox extensively updated at bedside today if blood cx's remain negative anticipate d/c in am Admission and Anticipated Discharge Date Admission Date: November 04, 2019 Subjective patient reports feeling MUCH better. appetite is "The best it has been in a few weeks." food tastes normal. good energy. no weakness or fatigue. denies fevers/chills. at bedside. she and report they took 2 camping trips over the last 6 weeks one of which was to a campground near [facility]. they met up with various family during that trip. 2nd camping trip was around Father's day in October. when he arrived at the campground during that trip he was feeling ill. he and [place] near [facility]. don't recall any tick bites. Review of Systems Constitutional: + chills (2 weeks ago - present for several days, now resolved), + fatigue and + anorexia; no fever Ear, Nose, Mouth, Throat: no nasal congestion and no sore throat no loss of smell; change in taste x 2 weeks ("things just didn't taste right") Respiratory: no cough and no dyspnea Cardiovascular: no chest pain Gastrointestinal: + diarrhea/loose stools (Recently - now resolved); no abdominal pain, no nausea and no vomiting Musculoskeletal: no body aches Physical Exam Constitutional: well developed, well nourished and + obese; no acute distress and no altered mental status ENMT: external ear and nose normal, oropharynx normal Respiratory: normal respiratory effort, lungs clear to auscultation Cardiovascular: Rate/Rhythm: regular rate and regular rhythm Heart Sounds: normal S1 and normal S2; no murmur Vessels: posterior tibial pulses present and dorsalis pedis pulses present; no JVD Extremities: + edema (1-2+ b/l ) Gastrointestinal (Abdomen): normal bowel sounds, soft, nontender, no hepatosplenomegaly Skin: no rashes, warm and dry Psychiatric: A+Ox3, euthymic affect Lymphatic: no cervical lymphadenopathy Results & Data Results & Data ([facility]) Vital Signs (Past 12 Hours) Vital Signs Temp Pulse Resp BP Pulse Ox 11/05/19 15:56 36.7 C 72 20 150/83 H 99 11/05/19 11:26 36.6 C 95 H 20 116/77 92 Laboratory Results Laboratory Results - last 24 hr 11/04/19 11/04/19 11/05/19 14:55 Unknown 07:53 WBC RBC Hgb Hct MCV MCH MCHC RDW Std Deviation RDW Coeff of Enzo Plt Count MPV ESR Sodium 133 L Potassium 4.3 Chloride 102 Carbon Dioxide 22 Anion Gap 9.0 BUN 10 Creatinine 1.57 H Est Cr Clr Drug Dosing 72.9 Est GFR ( Amer) 54.0 Est GFR (Non-Af Amer) 46.6 BUN/Creatinine Ratio 6.3 L Glucose 116 H Calcium 9.3 Magnesium 1.7 L Total Bilirubin 1.3 H AST 48 H ALT 68 Alkaline Phosphatase 61 Total Protein 6.3 L Albumin 3.2 L Globulin 3.1 Albumin/Globulin Ratio 1.0 Urine Color Yellow Urine Appearance Clear Urine pH 5.5 Ur Specific [place] 1.008 Urine Protein Negative Urine Glucose (UA) Negative Urine Ketones Trace H Urine Blood 1+ H Urine Nitrite Negative Urine Bilirubin Negative Urine Urobilinogen Negative Ur Leukocyte Esterase Negative Urine RBC 10-30 H Urine WBC 0-5 Ur Epithelial Cells 5-10 H Urine Bacteria Negative A. phagocytophilum DNA Pending E.chaffeensis DNA (PCR) Pending EBV Capsid Ag IgG Ab EBV Capsid Ag IgM Ab EBV Nuclear Antigen Ab EBV Antibody Interp SARS Serology Pending 11/05/19 11/05/19 11/05/19 07:53 07:53 15:49 WBC 9.94 RBC 4.59 L Hgb 13.9 L Hct 39.3 L MCV 85.6 MCH 30.3 MCHC 35.4 RDW Std Deviation 43.1 RDW Coeff of Enzo 13.8 Plt Count 243 MPV 8.4 ESR 17 H Sodium Potassium Chloride Carbon Dioxide Anion Gap BUN Creatinine Est Cr Clr Drug Dosing Est GFR ( Amer) Est GFR (Non-Af Amer) BUN/Creatinine Ratio Glucose Calcium Magnesium Total Bilirubin AST ALT Alkaline Phosphatase Total Protein Albumin Globulin Albumin/Globulin Ratio Urine Color Urine Appearance Urine pH Ur Specific [place] Urine Protein Urine Glucose (UA) Urine Ketones Urine Blood Urine Nitrite Urine Bilirubin Urine Urobilinogen Ur Leukocyte Esterase Urine RBC Urine WBC Ur Epithelial Cells Urine Bacteria A. phagocytophilum DNA E.chaffeensis DNA (PCR) EBV Capsid Ag IgG Ab Pending EBV Capsid Ag IgM Ab Pending EBV Nuclear Antigen Ab Pending EBV Antibody Interp Pending SARS Serology Diagnostic Findings blood cx's negative to date LE venous dopplers negative b/l PG Care Time/CCT Total # of Minutes Spent Total Time Spent with Patient: Total time spent is greater than 50% in coordination of care (as documented) at patient's floor/unit and/or counseling patient: Coding Level of Care Code 18613 Subseq Hosp Care Lvl 3 Diagnoses Lyme disease A69.20 Edema R60.9 Addisonian crisis E27.2 Acute kidney injury N17.9 Elevated LFTs R79.89 Renal neoplasm D49.519 Cholelithiasis K80.80 Cholelithiasis location: other site Biliary obstruction: without biliary obstruction Hyponatremia E87.1 Thrombocytopenia D69.6 DVT prophylaxis Z29.9 (1) Cholelithiasis Cholelithiasis location: other site Biliary obstruction: without biliary obstruction Qualified Code(s): K80.80 - Other cholelithiasis without obstruction
[2019-11-06 07:41] LABS: Albumin Level 2.8 gm/dl (3.4-5.0); BUN Creatinine Ratio 7.1 (10-20); Calcium 8.8 mg/dl (8.5-10.1); Est GFR (African American) 51.9; Est GFR (Non-African American) 44.8; Potassium 3.9 mmol/L (3.5-5.1)
[2019-11-06 07:44] LABS: Bilirubin,Total 0.9 mg/dl (0.2-1); Globulin 2.8 gm/dl (2.5-4.0); Total Protein 5.6 gm/dl (6.4-8.2)
[2019-11-06] MEDS: DOXYCYCLINE HYCLATE 100 MG CAP PO SCH (08:54)
[2019-11-06] MEDS ORDERED: predniSONE 10 MG TABLET PO SCH (09:00)
--- NOTE | 2019-11-06 10:28 | Discharge Summary ---
Date of Service date of admission - November 04, 2019 date of discharge - November 06, 2019 Admission HPI Per Admitting Provider 64-year-old male currently under treatment for metastatic renal cell carcinoma with mets to lung. He is status post wedge resection of 1 of his lung mets. He is undergoing current chemotherapy under the direction of Dr. Bah previously Dr. Hopper through [facility]. He is on ipilimumab and had been on chronic prednisone but this was slowly weaned off over the spring. Patient had about a 2-week history of increasing malaise and fatigue, decreased appetite, decreased urinary output, and peripheral swelling. He saw his PCP who performed Lyme testing where he had evidence of 3 bands of immunoglobulins for IgG on his Western blot. IgM was negative. Patient never has been treated for Lyme in the past. He was initiated on doxycycline treatment - currently now on day 8 for a planned 28-day course by his primary care physician. Patient been to multiple ERs over the last few days all without a defined diagnosis of his general malaise. He subsequently visited Dr. Beltran in clinic who advised direct admission. He does have elevation of his creatinine over his baseline and a mild decrease in his magnesium level compared to normal. Patient has no other focal signs or symptoms. He is known to have cholelithiasis but no signs of dysfunction at this time. Last CT scan done in September 2019 showed no evidence of metastatic disease in his abdomen or pelvis. Principal Diagnosis Lyme disease or other tick-borne infection vs viral syndrome Discharge Exam Constitutional well developed, well nourished and + obese; no acute distress and no altered mental status ENMT external ear and nose normal, oropharynx normal Respiratory normal respiratory effort, lungs clear to auscultation Cardiovascular Rate/Rhythm: regular rate and regular rhythm Heart Sounds: normal S1 and normal S2; no murmur Vessels: posterior tibial pulses present and dorsalis pedis pulses present; no JVD Extremities: + edema (1-2+ b/l ) Gastrointestinal (Abdomen) normal bowel sounds, soft, nontender, no hepatosplenomegaly Skin no rashes, warm and dry Psychiatric A+Ox3, euthymic affect Lymphatic no cervical lymphadenopathy Discharge Data Allergies Allergy/AdvReac Type Severity Reaction Status Date / Time No Known Drug Allergies Allergy Verified 10/26/19 12:31 Ordered Studies 11/04/19 13:44 CT abd pelvis oral con only - IMPRESSION: 1. Fatty infiltration of the liver. 2. Cholelithiasis. No evidence for acute cholecystitis. No biliary ductal dilatation. 3. Status post right nephrectomy. No evidence for recurrent malignancy within the abdomen or pelvis on unenhanced exam. 11/05/19 12:39 US venous doppler LE BI - no evidence of DVT. Hospital Course (1) Lyme disease: At time of discharge the patient is day 10 of a 28-day treatment regimen for suspected Lyme Disease. Recent Lyme testing showed negative IgM but positive IgG antibody. Western Blot showed 3 IgG bands suggesting active Lyme disease. Oddly, despite 7+ days of treatment for suspected Lyme disease prior to admission, he still felt poorly (weakness, anorexia, fatigue, etc) and only after being admitted and receiving IV steroids did he improve. Review of all labs shows that he had moderate thrombocytopenia (lowest 80s, now normal) and abnormal LFTs which peaked in October during the illness and have continued to improve. Lyme typically does not cause low platelets or abnormal LFTs. The low platelets and abnormal LFTs fits more so with anaplasmosis. The change in taste during his illness also fits with possible COVID-19 (but he never had fever, respiratory symptoms, etc but COVID still possible). Cannot rule out EBV or CMV infection given the elevated LFTs. As stated above the patient improved quickly with stress-dose steroids. He remained afebrile while here. Appetite improved during his stay and fatigue resolved. Although anaplasmosis DNA was negative in October 2019 this was repeated prior to discharge. Ehrlichosis DNA was also dispatched along with EBV titers. Checked COVID-19 serum IgG ab to see if any exposure occurred in the last 6 weeks. He graciously declined [employer]SEL[employer] swab for COVID-19. Blood cx's were negative x 48 hours. He will continue doxycycline post-discharge. Treat minimum 14 days (again he is day #10); defer to PCP about extending course to 28 days. Repeat LFTs as an outpatient advised. (2) Edema: dopplers of b/l LEs negative for DVT. etiology? due to HANSEL? due to previous prednisone use? due to acute liver injury? other? no signs/symptoms of decompensated CHF. TSH wnl. Gave lasix with K supplementation at discharge to use on PRN basis. (3) Addisonian crisis: Suspect patient had some element of addisonian-like crisis. Had been taking chronic prednisone for his renal cell cancer. Starting in the late winter he began to taper per instructions from his outpatient providers. Prednisone was tapered slowly over months and weaned off in early October. The stress-dose steroids likely helped him feel better this admission as his fatigue, anorexia, and other presenting symptoms rapidly improved after institution of IV hydrocortisone. At discharge I recommended a short prednisone taper. (4) Acute kidney injury: Peak Cr 1.7 baseline is about 1.4 1.6 at discharge no evidence of obstruction on CT abd/pelvis (5) Elevated LFTs: Normal LFTs up until mid-October. At the start of his illness in mid-late October the LFTs began to climb (ast, alt, t.bili). They peaked and are now falling. This coincides with clinical improvement overall. Differential - viral vs tick-borne vs medication (chemo, etc) vs other. Checked anaplasmosis DNA again; results pending at discharge. Checked EBV titers. Checked COVID serum IgG. Will need repeat LFTs as outpatient to ensure normalization. Recent abdominal imaging showed gallstones but nothing to suggest cholecystitis or choledocholithiasis. (6) Renal neoplasm: s/p right nephrectomy for RCC. CT abd/pelvis without evidence of metastatic disease. (7) Cholelithiasis: NO evidence of acute cholecystitis. I would have expected that if he had passed a gallstone, had cholangitis, etc his clinical picture would have been much different than what was seen during the hospitalization. (8) Hyponatremia: mild. cause - due to HANSEL? due to recent illness and poor PO intake? 139 at discharge. (9) Thrombocytopenia: lowest platelet level in 10/2019 was 80s. now normal. viral vs tick-borne vs chemo-related vs other. Total Time Total Time Spent Total Time Spent (In Minutes): 40 Total Time Includes: Examination of the Patient, Discharge Planning and Medication Reconciliation Discharge Plan Discharge Items Patient Disposition: Home - Self-Care Reason For Visit: weakness, fatigue, anorexia Discharge Diagnosis: 1. weakness, fatigue, poor appetite - infectious process suspected. Lyme disease vs other tickborne illness (anaplasmosis) vs viral infection vs other. IMPROVED. 2. swelling of ankles/legs - no signs of congestive heart failure. Possibly due to IV fluids, IV steroids, recent liver injury, recent kidney injury. 3. history of kidney cancer. 4. gallstones. But the gall bladder does not appear sick. 5. abnormal liver function tests - resolving/nearly normal. Activity: As commented below Activity Comment: gradually increase your activities over the next 5-7 days Non-emergency contact: Primary Care Provider Call non-emergency contact if: you have any medication questions, your symptoms worsen and you have a fever Follow-up/Referrals: Nilesh Parmar M.D. [Primary Care Provider] - (see Dr Parmar THIS WEEK ) Diet: Heart Healthy Addtl Attending Provider Instructions: You were admitted for 2+ weeks of fatigue, malaise, poor appetite, and simply feeling poorly. You continued with the above symptoms despite having taken a week of doxycycline for suspected Lyme Disease. Upon admission you appeared mildly dehydrated due to recent poor appetite. You received IV steroids and your doxycycline was continued. Liver tests were mildly elevated - uncertain cause - but they did improve while hospitalized. On 11/06/19 they are nearly normal. With the above measures your energy and appetite got better. Your vital signs remained stable while hospitalized. Multiple blood tests for various types of infection are pending at time of discharge (see separate section). Recommendations - 1. finish your doxycycline course. Take AT LEAST 14 days. I will leave it up to your family doctor to determine if you need a total of 28 days. * doxycycline can occasionally cause heartburn * it can also cause a rash if you go out in the sun while you are taking it * thus, cover up and use sunscreen while on the doxycycline 2. prednisone - take as follows - * Thursday, 11/05 - take additional 20mg of prednisone upon return home * Thursday, 11/06 - take 30mg of prednisone * Thursday, 11/07 - take 20mg of prednisone * Thursday, 11/08 - take 20mg of prednisone * , 11/09 - take 10mg of prednisone * Thursday, 11/10 - take 10mg of prednisone then stop 3. for swelling/edema - * take 20mg of furosemide as needed; you can take this today if desired * when you take the furosemide please take a potassium supplement with it * I would stop both once your edema is better (probably in 2-4 days) 4. have your family doctor repeat your liver tests at time of hospital follow- up Follow-up - see separate section Return to [facility] if - * you have recurrent fevers over 100.4 degrees * you have shortness of breath or chest pain * you have abdominal pain, vomiting or diarrhea * you have extreme fatigue * any other concerns Pending Studies at Discharge: Yes Studies:: 1. Anaplasmosis test (another tick-borne illness) 2. Ehrlichiosis test (another tick-borne illness) 3. COVID-19 blood antibody test 4. blood cultures but thus far negative (no blood stream infection) 5. mono testing ([facility]) Stand-Alone Forms: My [facility], Smoking Cessation Medications and DC Order Prescriptions: New furosemide [Lasix] 20 mg tablet 20 mg PO DAILY PRN (Reason: edema/swelling) Qty: 30 RF: 0 potassium chloride 20 mEq tablet extended release 20 meq PO DAILY PRN (Reason: when you take your water pill (furosemide)) Qty: 30 RF: 0 Continued prednisone 10 mg tablet 5 mg PO DIRECTED RF: 0 Yervoy 50 mg/10 mL (5 mg/mL) Solution 50 mg IV DIRECTED RF: 0 Discharge Orders: Discharge Order (Routine); Ordered 11/06/19 Ordered By: Mateo Mancuso Admission Data Admit Date/Time: 11/04/19 12:49 Attending Provider: Mateo Mancuso Admit Provider: Garfield Leyva Primary Care Provider: Nilesh Parmar Other Interventions: Discharge Summary Assessment (RN) Last Done: 11/06/19 10:29 DC Date/Time DO NOT enter until pt leaves facility: 11/06/19 11:22 Coding Level of Care Code D/C Day Management >30 mins Diagnoses Lyme disease A69.20 Edema R60.9 Addisonian crisis E27.2 Acute kidney injury N17.9 Elevated LFTs R79.89 Renal neoplasm D49.519 Cholelithiasis K80.80 Biliary obstruction: without biliary obstruction Cholelithiasis location: other site Hyponatremia E87.1 Thrombocytopenia D69.6
[2019-11-10 12:44] LABS: Ehrlichia chaff DNA Bld Not Detected (Not Detected); SARS CoV2 Ab IgG NEGATIVE
== END 2019-11-06 11:22 | disposition home or self-care (01) ==
LOC: SUATTDRO 12:49 → 2W 12:49 → INTOOBSV 12:49

== ENCOUNTER 2020-02-19 13:55 | Inpatient (IN) ==
[2020-02-19] MEDS ORDERED: SODIUM CHLORIDE 0.9% 1000ML 1,000 ML IV SCH ×2 (14:15→15:13)
--- NOTE | 2020-02-19 14:22 | Emergency Department Note ---
Impression & Plan Acute renal failure (ARF), Acute appendicitis, Acute dehydration ED Provider Note NAME: BILLY BATRES AGE: 65 SEX: M : 1955 ARRIVES VIA: Walk-In INFORMANT: Patient, ED PROVIDER(S): Nicholas Concepcion MD Chief Complaint: Dehydration, history of cancer HPI: Does present with at the bedside who is presenting with worsening dehydration decreased p.o. intake. The patient does have a known history of prior nephrectomy as well as metastatic kidney cancer with recurrence. The patient is seen locally at the [facility] but also does follow at [facility]. This patient has had decreased appetite while not eating or drinking much since February 06. The patient did have a course of Opdivo back in January and was recently switched to a by mouth medication Inlyta. Since then the patient has had some worsening p.o. intake. The patient denies any active abdominal pain, shortness of breath, vomiting, fevers or chills, chest pains, or shortness of breath. Denies any numbness or tingling but does feel fatigued and somewhat weak. Per the at the bedside the patient has only been drinking liquids but not eating anything. The patient did have 2 ensures on and is subsequently only had small amounts of Gatorade over the last several days. Patient has had decreased urine output. ROS: See HPI for pertinent positives and negatives. A total of 10 systems were reviewed and otherwise negative. Past medical history: See below Surgical history: See below Social history: See below Physical Exam: GENERAL: Moderately ill in appearance, opens eyes to voice. EYE EXAM: Normal conjunctiva. PERRL, no anisocoria and EOM's grossly intact w/o pain. NECK: Supple, no nuchal rigidity, no adenopathy, non-tender. No signs of meningismus. LUNGS: Clear to auscultation. Normal chest wall mechanics. HEART: Tachycardic and regular, no MRG. ABDOMEN: Abdomen soft, mild lower abdominal pain with occasional rebound. BACK: No CVA TTP. SKIN: No rashes and no bruising. UPPER EXTREMITIES: Upper extremities are grossly normal. LOWER EXTREMITIES: Grossly normal, no edema. NEURO EXAM: Opens eyes to voice, oriented to person place and time. Patient moves all 4 extremities. Differential diagnoses: Sepsis, UTI, pneumonia, metabolic, electrolyte abnormalities, cardiac sources, intracerebral event, toxicologic, neurologic, as well as other pathologies. Course: Patient was seen and evaluated the bedside. Full history physical exam was performed. EKG: Indication: Tachycardia Imaging Studies: Radiology results as stated below per my review in the radiologist's interpretation: SINGLE VIEW CHEST CLINICAL HISTORY: Sepsis. FINDINGS: An AP, portable, upright chest radiograph is compared to study dated 11/05/2019 and correlated with chest CT dated 12/06/2019. The heart is top normal for projection. The pulmonary vasculature is noncongested. Postoperative change and volume loss is seen at the left lung base. There is bibasilar scarring/atelectasis. No airspace consolidation or large pleural effusion is identified. No pneumothorax is seen. The bony thorax is grossly intact. IMPRESSION: No active disease in the chest. ACT 112: Negative or not required by law. Electronically signed by: Ole Wolfe M.D. 02/19/2020 3:11 PM Dictated: 02/19/20 1509 Transcribed: 02/19/[address] SCAN OF THE CHEST, ABDOMEN, AND PELVIS WITHOUT IV CONTRAST CLINICAL HISTORY: Sepsis. Urinary tract infection. Acute renal insufficiency. Renal cell carcinoma. COMPARISON STUDY: Chest CT scans dated 12/06/2019 and 01/18/2019. Abdominal CT dated 11/04/2019. TECHNIQUE: Unenhanced CT scan of the chest, abdomen, and pelvis was performed from the thoracic inlet to the proximal femora. Images are reviewed in the axial, sagittal, and coronal planes. IV contrast was not administered for this examination. Note that the examination was performed in significantly suboptimal fashion without IV contrast. A dose lowering technique was utilized adhering to the principles of ALARA. CT DOSE: 2438.74 mGy.cm FINDINGS: CHEST: Thyroid: Imaged portions of the thyroid gland are normal in size and attenuation. Thoracic aorta: The thoracic aorta is normal in caliber and demonstrates stand bozena 3-vessel arch anatomy. Heart: The heart is normal in size noting trace pericardial effusion. Lungs and pleural spaces: Evaluation of the lung parenchyma is degraded by motion artifact. Faint patchy nodular opacities are again seen throughout both lungs, greatest at the apices (left greater than right) at the left lung base. Postoperative change and volume loss is noted at the left lung base. No lobar consolidation or pleural effusion is identified. The trachea and central airways are clear. There are scattered calcified granulomas. Mediastinum: There are numerous prominent mediastinal lymph nodes which measure up to 12 mm in short axis. Raquel: Not well assessed without IV contrast. Axillae: There is no axillary lymphadenopathy. Bony thorax: The skeletal structures are osteopenic. Degenerative change is noted throughout the thoracic spine. No lytic or blastic lesions are identified. ABDOMEN AND PELVIS: Liver: The unenhanced liver is normal in size and contour. The liver dem onstrates diffusely diminished attenuation consistent with hepatic steatosis. Fatty sparing is noted adjacent to gallbladder fossa. There is no intra- or extrahepatic biliary ductal dilatation. Gallbladder: There are calcified gallstones with no CT evidence of acute cholecystitis. Spleen: Normal in size and attenuation. Pancreas: The unenhanced pancreas is moderately atrophic and grossly unrem arkable. Adrenal glands: Unremarkable. Kidneys: The right kidney is surgically absent. There is no evidence of recurrent or residual lesion in the right renal fossa. The unenhanced left kidney is normal in size and without hydronephrosis. No renal calculi are identified. Abdominal vasculature: The abdominal aorta is normal in course and caliber noting mild atherosclerotic calcification. Stomach and bowel: There is a small hiatal hernia. There is mild sigmoid diverticulosis without CT evidence of acute diverticulitis. No bowel obstruction is seen. The appendix is distended and fluid-filled as seen on image #209. This measures up to 11 mm diameter. This represents a significant change from 11/04/2019. There is periappendiceal inflammation and the appearance is concerning for mild acute appendicitis. Peritoneum: There is no intraperitoneal free air or abdominal ascites. Lymphadenopathy: Shotty retroperitoneal lymph nodes are not pathologically enlarged by size criteria. Pelvic viscera: Evaluation of the pelvis is degraded by streak artifact from a left hip arthroplasty. The prostate gland is enlarged and heterogeneous. The bladder is normal as visualized. Skeletal structures: The skeletal structures are osteopenic. There is moderate lumbosacral spondylosis. No lytic or blastic lesions are seen. A left hip arthroplasty is in place. IMPRESSION: 1. Findings are consistent with mild acute appendicitis. Surgical consultation is advised. 2. Status post right nephrectomy. 3. There is no definite evidence of metastatic disease in the chest, abdomen, or pelvis. 4. Mild patchy nodular opacities are again seen throughout both lungs, greatest at the left apex and at the left lung base. This appears increased from prior studies and suggests a chronic infectious/inflammatory pneumonitis. Clinical correlation will be required. 5. Mildly enlarged mediastinal lymph nodes are nonspecific and unchanged from previous. 6. Hepatic steatosis. 7. Cholelithiasis. 8. Additional findings as above. ACT 112: Negative or not required by law. Electronically signed by: Ole Wolfe M.D. 02/19/2020 3:58 PM Dictated: 02/19/201540 Transcribed: 02/19/201540 Cardiac monitoring: An order was placed for continuous cardiac monitoring. The monitor shows a rate of 120 with sinus tachycardia rhythm. Procedures: Central Venous Catheter placement performed by Dr. Concepcion Indication: Hypotension Catheter type: 3 lm 7 Korean catheter Location: Right groin Verbal consent was obtained after the risks and benefits were explained, including but not limited to pneumothorax, hemothorax, vessel injury, bleeding, scarring, infection, pain, and bone/joint/nerve damage. At this time, the risks of the procedure are less than the risks of NOT performing the procedure. A time out was taken and the correct patient and site identified. The patient was placed in the appropriate position and the skin was prepped in the standard fashion with chlorhexidine and full sterile drapes applied. The proper landmarks were identified with ultrasound, anesthetized with 1% lidocaine without epinephrine, and the needle was inserted through the skin in the standard fashion. The needle was carefully advanced into blood vessel lumen under ultrasound guidance. The guidewire was placed uneventfully. The vessel is dilated and the catheter was placed. It was sutured into position. There was good blood return from all ports. The patient tolerated the procedure well and there were no complications. MDM: He does present with decreased p.o. intake and dehydration type symptoms who is hypotensive and tachycardic. Kstbx-zy-aclo ultrasound was attempted but other than not seeing B-lines on lung huerta this was not helpful in the acute setting. The patient's pulse ox was difficult and very variable so the patient was placed on increasing oxygen while blood work was obtained along with blood and cultures. The patient did have a CT of the chest and abdomen pelvis completed without contrast as the patient did have acute renal failure based on prfte-sy-[id number] BMP with a creatinine greater than 4. I did order an ABG which was completed the patient did have a PCO2 of 40 with a slightly low bicarb at 18 with PO2 of 154. Patient's potassium at that time was 4.1. Patient was ordered additional IV fluids given the likely dehydration symptoms. The patient does not complain of any chest pains or shortness of breath at this time. Patient CTs do show the concern for the possibility of appendicitis. Upon reassessment the patient does have some right lower quadrant discomfort. I did speak the on- call general surgery team Nicanor Cervantes PA-C as well as Dr. Echeverria. They did evaluate the patient and believe that based on the CT read and his lack of current symptoms on exam they would like to admit the patient to medicine for medical optimization and reevaluation. Patient did receive Zosyn and already did have cultures. Did reassess the patient numerous times and each time the patient declined symptoms like abdominal pain, nausea, vomiting, chest pains or shortness of breath. I do believe that the patient is significantly dehydrated given his lack of p.o. intake. The patient did have a repeat lactate which was downtrending. The patient did receive additional IV fluids. Covid test was negative. The patient was ordered hydrocortisone and fluids given the patient's persistent hypotension and history of chronic steroid use. I did speak with Dr. Jen MD. The patient was admitted to the medicine service. I did reassess the patient thereafter and the patient currently denies any acute symptoms. The patient's most recent blood pressure was 100/60 and the patient's tachycardia had improved from the 130s to the low 100s. Patient still denies any chest pains or shortness of breath, abdominal pain, nausea or vomiting. I did discuss with the patient that it was imperative that the patient does convey if he does have any symptoms as this may change the course of his care. The patient and the patient's family member at the bedside understood. Upon reassessment the patient did have declining blood pressure. Given this concern as well as 3 L of IV fluid I did place a central line with the patient and the patient's family members permission. Patient did have a right groin central venous catheter placed without any complication. This was placed sterilely under ultrasound and I did visualize the wire with in the femoral vein. Patient was started on additional IV fluids and Levophed. Dr. Li was to speak with general surgery and the wind turbine sheet metal worker. She had received just over 3 L so 1 additional liter was ordered as well as Levophed. Critical Care: I have personally spent 210 minutes of critical care time in direct management of this patient. This includes bedside care, interpretation of diagnostic studies, and testing, discussion with consultants, patient, and family members, and other require inpatient management activities. This 210 minutes is in excess of all separately billable procedures. Past Med/Surg History Medical History Cancer of kidney RIGHT KIDNEY REMOVED High triglycerides no meds History of skin cancer + resection Hypophysitis Lung metastasis Renal cell cancer Sleep apnea hx CPAP ("did not like" using machine) Surgical History H/O arthroscopy of shoulder LEFT H/O inguinal hernia repair History of colonoscopy History of left knee surgery + REVISION X 4 History of right nephrectomy 02/07/2019: Gliescope #3 with 8.0 ETT after unsuccessful DLx2. See record for full details. History of sinus surgery DEVIATED SEPTUM REPAIR History of total left hip arthroplasty Left HAMZAH: 05/28/18: SAB x 3 attempts at L3-L4 at [facility] Status post lung surgery (06/08/19) Electromagnetic navigational bronchoscopy with marking of lesion with ICG dye. 2. Left robot-assisted thoracoscopic segmentectomy of the superior segment of left lower lobe. 3. Mediastinal lymph node dissection. Dr. 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 Ball Engraver Required: No Beliefs That Will Affect Care: None marital status: Current Living Situation: Spouse Current Living Situation Comment: [facility] current occupational status: retired current occupation: retired from [employer] Feels Safe at Home: Yes Assistive Devices: None Allergies Allergies Allergy/AdvReac Type Severity Reaction Status Date / Time atorvastatin AdvReac Unknown Verified 02/19/20 14:57 Home Meds Home Medications Medication Instructions Recorded Confirmed nivolumab 0 mg IV MONTHLY 12/30/19 02/19/20 axitinib [Inlyta] 5 mg PO Q12H 02/19/20 02/19/20 hydrocortisone 2.5 mg PO UD MDD 0 02/19/20 02/19/20 Results & Data (ED) Vital Signs Vital Signs - 24 hr 02/19/20 13:57 02/19/20 14:08 02/19/20 14:14 Temperature 37.3 C Temperature Source Oral Pulse Rate 134 H 128 H Pulse Rate [Right Finger] Pulse Rate from SpO2 Sensor 128 H Respiratory Rate 20 24 Respiratory Effort / Characteristics Blood Pressure 62/40 L 136/121 H Blood Pressure [Right Arm] Blood Pressure Mean 47 134 Blood Pressure Mean [Right Arm] Pulse Oximetry 94 91 Oxygen Delivery Method Room Air Room Air Oxygen Flow Rate Sepsis Recent Fever Within 48 Hours No Sepsis New/Unexplained Change in Mental Status N/A Sepsis Action Taken by Nursing Physician Notified 02/19/20 14:18 02/19/20 14:19 02/19/20 14:24 Temperature Temperature Source Pulse Rate 121 H Pulse Rate [Right Finger] Pulse Rate from SpO2 Sensor 136 H Respiratory Rate 32 H Respiratory Effort / Characteristics Blood Pressure 98/56 L Blood Pressure [Right Arm] Blood Pressure Mean 79 Blood Pressure Mean [Right Arm] Pulse Oximetry 85 L 94 95 Oxygen Delivery Method Room Air Nasal Cannula Nasal Cannula Oxygen Flow Rate 6 6 Sepsis Recent Fever Within 48 Hours Sepsis New/Unexplained Change in Mental Status Sepsis Action Taken by Nursing 02/19/20 14:26 02/19/20 14:30 02/19/20 14:31 Temperature Temperature Source Pulse Rate 123 H Pulse Rate [Right Finger] Pulse Rate from SpO2 Sensor 143 H Respiratory Rate 31 H Respiratory Effort / Characteristics Non-Labored Spontaneous Blood Pressure 87/62 L Blood Pressure [Right Arm] Blood Pressure Mean 74 Blood Pressure Mean [Right Arm] Pulse Oximetry 100 93 Oxygen Delivery Method Oxymask Oxymask Oxygen Flow Rate 6 6 Sepsis Recent Fever Within 48 Hours Sepsis New/Unexplained Change in Mental Status Sepsis Action Taken by Nursing 02/19/20 14:45 02/19/20 14:55 02/19/20 15:43 Temperature Temperature Source Pulse Rate 125 H 125 H Pulse Rate [Right Finger] 120 H Pulse Rate from SpO2 Sensor 122 H 129 H Respiratory Rate 32 H 31 H 30 H Respiratory Effort / Characteristics Blood Pressure 96/66 L 109/70 Blood Pressure [Right Arm] 84/64 L Blood Pressure Mean 70 73 Blood Pressure Mean [Right Arm] 70 Pulse Oximetry 100 98 Oxygen Delivery Method Oxymask Oxymask Oxygen Flow Rate 6 6 Sepsis Recent Fever Within 48 Hours Sepsis New/Unexplained Change in Mental Status Sepsis Action Taken by Nursing 02/19/20 16:24 02/19/20 16:35 02/19/20 17:12 Temperature Temperature Source Pulse Rate Pulse Rate [Right Finger] 120 H 123 H 120 H Pulse Rate from SpO2 Sensor Respiratory Rate 30 H 32 H 35 H Respiratory Effort / Characteristics Blood Pressure Blood Pressure [Right Arm] 103/55 L 83/64 L 65/43 L Blood Pressure Mean Blood Pressure Mean [Right Arm] 71 70 50 Pulse Oximetry 91 96 92 Oxygen Delivery Method Nasal Cannula Oxymask Oxygen Flow Rate 2 2 Sepsis Recent Fever Within 48 Hours Sepsis New/Unexplained Change in Mental Status Sepsis Action Taken by Nursing 02/19/20 17:44 02/19/20 18:12 02/19/20 18:34 Temperature Temperature Source Pulse Rate Pulse Rate [Right Finger] 108 H 109 H 111 H Pulse Rate from SpO2 Sensor Respiratory Rate 32 H 32 H 34 H Respiratory Effort / Characteristics Blood Pressure Blood Pressure [Right Arm] 103/56 L 95/52 L 73/54 L Blood Pressure Mean Blood Pressure Mean [Right Arm] 71 66 60 Pulse Oximetry 97 94 92 Oxygen Delivery Method Nasal Cannula Oxygen Flow Rate 2 Sepsis Recent Fever Within 48 Hours Sepsis New/Unexplained Change in Mental Status Sepsis Action Taken by Group Home Medications Current Medication List: was personally reviewed by me Laboratory Data Attestation: I reviewed the patient's lab results. Result diagrams: 02/19/20 14:16 02/19/20 14:16 Lab Results 02/19/20 02/19/20 02/19/20 Range/Units 14:16 14:16 14:16 WBC 11.53 H (4.8-10.8) K/uL RBC 6.25 H (4.7-6.1) M/uL Hgb 18.9 H (14.0-18.0) g/dL Hct 54.7 H (42-52) % MCV 87.5 (80-100) fL MCH 30.2 (25-34) pg MCHC 34.6 (32-36) g/dL RDW Std Deviation 45.0 (36.4-46.3) fL RDW Coeff of Enzo 14.0 (11.5-14.5) % Plt Count 187 (130-400) K/uL MPV 8.8 (7.4-10.4) fL Immature Gran % (Auto) 0.2 % Neut % (Auto) 57.7 % Lymph % (Auto) 22.3 % Dickenson % (Auto) 16.1 % Eos % (Auto) 3.0 % Baso % (Auto) 0.7 % Neut # (Auto) 6.65 H (1.4-6.5) K/uL Lymph # (Auto) 2.57 (1.2-3.4) K/uL Dickenson # (Auto) 1.86 H (0.11-0.59) K/uL Eos # (Auto) 0.35 (0-0.5) K/uL Baso # (Auto) 0.08 (0-0.2) K/uL Immature Gran # (Auto) 0.02 (0.00-0.02) K/uL PT 11.8 (9.0-12.0) Seconds INR 1.1 (0.9-1.1) APTT 32.7 H (21.0-31.0) Seconds PTT Ratio 1.2 Sodium 135 L (136-145) mmol/L Potassium 5.0 (3.5-5.1) mmol/L Chloride 99 (98-107) mmol/L Carbon Dioxide 24 (21-32) mmol/L Anion Gap 12.0 H (3-11) BUN 37 H (7-18) mg/dl Creatinine 4.26 H (0.6-1.4) mg/dl Est Cr Clr Drug Dosing 26.1 ml/min Est GFR ( Amer) 16.0 Est GFR (Non-Af Amer) 13.8 BUN/Creatinine Ratio 8.6 L (10-20) Glucose 91 (70-99) mg/dl Lactate (0.4-2.0) mmol/L Calcium 9.6 (8.5-10.1) mg/dl Phosphorus 4.0 (2.5-4.9) mg/dl Magnesium 2.5 H (1.8-2.4) mg/dl Total Bilirubin 1.8 H (0.2-1) mg/dl AST 36 (15-37) U/L ALT 37 (12-78) U/L Alkaline Phosphatase 71 (45-117) U/L Total Protein 7.4 (6.4-8.2) gm/dl Albumin 3.3 L (3.4-5.0) gm/dl Globulin 4.1 H (2.5-4.0) gm/dl Albumin/Globulin Ratio 0.8 L (0.9-2) COVID-19 Eval Order COVID-19 PCR (Negative) 02/19/20 02/19/20 02/19/20 Range/Units 14:16 16:23 16:23 WBC (4.8-10.8) K/uL RBC (4.7-6.1) M/uL Hgb (14.0-18.0) g/dL Hct (42-52) % MCV (80-100) fL MCH (25-34) pg MCHC (32-36) g/dL RDW Std Deviation (36.4-46.3) fL RDW Coeff of Enzo (11.5-14.5) % Plt Count (130-400) K/uL MPV (7.4-10.4) fL Immature Gran % (Auto) % Neut % (Auto) % Lymph % (Auto) % Dickenson % (Auto) % Eos % (Auto) % Baso % (Auto) % Neut # (Auto) (1.4-6.5) K/uL Lymph # (Auto) (1.2-3.4) K/uL Dickenson # (Auto) (0.11-0.59) K/uL Eos # (Auto) (0-0.5) K/uL Baso # (Auto) (0-0.2) K/uL Immature Gran # (Auto) (0.00-0.02) K/uL PT (9.0-12.0) Seconds INR (0.9-1.1) APTT (21.0-31.0) Seconds PTT Ratio Sodium (136-145) mmol/L Potassium (3.5-5.1) mmol/L Chloride (98-107) mmol/L Carbon Dioxide (21-32) mmol/L Anion Gap (3-11) BUN (7-18) mg/dl Creatinine (0.6-1.4) mg/dl Est Cr Clr Drug Dosing ml/min Est GFR ( Amer) Est GFR (Non-Af Amer) BUN/Creatinine Ratio (10-20) Glucose (70-99) mg/dl Lactate 3.3 H* (0.4-2.0) mmol/L Calcium (8.5-10.1) mg/dl Phosphorus (2.5-4.9) mg/dl Magnesium (1.8-2.4) mg/dl Total Bilirubin (0.2-1) mg/dl AST (15-37) U/L ALT (12-78) U/L Alkaline Phosphatase (45-117) U/L Total Protein (6.4-8.2) gm/dl Albumin (3.4-5.0) gm/dl Globulin (2.5-4.0) gm/dl Albumin/Globulin Ratio (0.9-2) COVID-19 Eval Order Covid19 Done at [facility] COVID-19 PCR NEGATIVE (Negative) 02/19/20 Range/Units 16:40 WBC (4.8-10.8) K/uL RBC (4.7-6.1) M/uL Hgb (14.0-18.0) g/dL Hct (42-52) % MCV (80-100) fL MCH (25-34) pg MCHC (32-36) g/dL RDW Std Deviation (36.4-46.3) fL RDW Coeff of Enzo (11.5-14.5) % Plt Count (130-400) K/uL MPV (7.4-10.4) fL Immature Gran % (Auto) % Neut % (Auto) % Lymph % (Auto) % Dickenson % (Auto) % Eos % (Auto) % Baso % (Auto) % Neut # (Auto) (1.4-6.5) K/uL Lymph # (Auto) (1.2-3.4) K/uL Dickenson # (Auto) (0.11-0.59) K/uL Eos # (Auto) (0-0.5) K/uL Baso # (Auto) (0-0.2) K/uL Immature Gran # (Auto) (0.00-0.02) K/uL PT (9.0-12.0) Seconds INR (0.9-1.1) APTT (21.0-31.0) Seconds PTT Ratio Sodium (136-145) mmol/L Potassium (3.5-5.1) mmol/L Chloride (98-107) mmol/L Carbon Dioxide (21-32) mmol/L Anion Gap (3-11) BUN (7-18) mg/dl Creatinine (0.6-1.4) mg/dl Est Cr Clr Drug Dosing ml/min Est GFR ( Amer) Est GFR (Non-Af Amer) BUN/Creatinine Ratio (10-20) Glucose (70-99) mg/dl Lactate 3.0 H* (0.4-2.0) mmol/L Calcium (8.5-10.1) mg/dl Phosphorus (2.5-4.9) mg/dl Magnesium (1.8-2.4) mg/dl Total Bilirubin (0.2-1) mg/dl AST (15-37) U/L ALT (12-78) U/L Alkaline Phosphatase (45-117) U/L Total Protein (6.4-8.2) gm/dl Albumin (3.4-5.0) gm/dl Globulin (2.5-4.0) gm/dl Albumin/Globulin Ratio (0.9-2) COVID-19 Eval Order COVID-19 PCR (Negative) Administered Medications Norepinephrine Bitartrate 8 mg (/ Dextrose) 508 mls @ 24.651 mls/hr IV .[id number] [facility]; Protocol Stop: 03/20/20 18:29 Last Admin: 02/19/20 18:53 Dose: 0.05 mcg/kg/min, 24.7 mls/hr Documented by: [id number] Cosigned by: [id number] Discontinued Medications Fentanyl Citrate (Fentanyl Citrate 100 Mcg/2 Ml Vial) 50 mcg IV NOW STA Stop: 02/19/20 18:24 Last Admin: 02/19/20 18:28 Dose: 50 mcg Documented by: [id number] Hydrocortisone Sodium Succinate (Hydrocortisone Sod Succinate 100 Mg/2 Ml Vial) 100 mg IV NOW STA Stop: 02/19/20 16:52 Last Admin: 02/19/20 17:11 Dose: 100 mg Documented by: [id number] Sodium Chloride (Nss 1000ml) 1,000 mls @ 999 mls/hr IV .Q1H1M KASEY Stop: 02/19/20 16:12 Last Infusion: 02/19/20 15:47 Dose: 0 mls/hr Documented by: [id number] Admin: 02/19/20 14:55 Dose: 999 mls/hr Documented by: [id number] Sodium Chloride (Nss 1000ml) 1,000 mls @ 999 mls/hr IV .Q1H1M KASEY Stop: 02/19/20 15:13 Last Infusion: 02/19/20 14:54 Dose: 0 mls/hr Documented by: [id number] Admin: 02/19/20 14:27 Dose: 999 mls/hr Documented by: [id number] Sodium Chloride (Nss 1000ml) 600 mls @ 999 mls/hr IV .Q37M ONE Stop: 02/19/20 16:42 Last Infusion: 02/19/20 16:59 Dose: 0 mls/hr Documented by: [id number] Admin: 02/19/20 16:23 Dose: 999 mls/hr Documented by: [id number] Piperacillin Sod/Tazobactam Sod (Zosyn) 4.5 gm in 120 mls @ 240 mls/hr IV NOW ONE Stop: 02/19/20 16:35 Last Infusion: 02/19/20 16:53 Dose: 0 mls/hr Documented by: [id number] Admin: 02/19/20 16:23 Dose: 240 mls/hr Documented by: [id number] Discharge Plan Visit Data Chief Complaint: Dehydration Stated Complaint: DEHYDRATED,METASTATIC KIDNEY CANCER ED Provider: Nicholas Concepcion Discharge Problem: Acute renal failure (ARF), Acute appendicitis, Acute dehydration Forms Stand Alone Forms: [facility] [employer] Prescriptions Prescriptions: No Action nivolumab 0 mg IV MONTHLY RF: 0 Inlyta 5 mg Tablet 5 mg PO Q12H RF: 0 hydrocortisone 5 mg tablet 2.5 mg PO UD MDD 0 RF: 0 Discharge Problem: Acute renal failure (ARF) Qualifiers: Acute renal failure type: unspecified Qualified Code(s): N17.9 - Acute kidney failure, unspecified Acute appendicitis Qualifiers: Acute appendicitis type: with localized peritonitis Appendicitis gangrene presence: without gangrene Appendicitis perforation presence: without perforation Appendicitis abscess presence: without abscess Qualified Code(s): K35.30 - Acute appendicitis with localized peritonitis, without perforation or gangrene
[2020-02-19 14:29] LABS: Basophils # (auto) 0.08 K/uL (0-0.2); Basophils % (auto) 0.7 %; Eosinophils # (auto) 0.35 K/uL (0-0.5); Hematocrit (blood only) 54.7 % (42-52); Hemoglobin 18.9 g/dL (14.0-18.0); Immature Granulocytes # (auto) 0.02 K/uL (0.00-0.02); Immature Granulocytes % (auto) 0.2 %; Lymphocytes # (auto) 2.57 K/uL (1.2-3.4); Lymphocytes % (auto) 22.3 %; Mean Corpuscular Hemoglobin 30.2 pg (25-34); Mean Corpuscular Hgb Conc 34.6 g/dL (32-36); Mean Corpuscular Volume 87.5 fL (80-100); Mean Platelet Volume 8.8 fL (7.4-10.4); Monocytes # (auto) 1.86 K/uL (0.11-0.59); Monocytes % (auto) 16.1 %; Neutrophils # (auto) 6.65 K/uL (1.4-6.5); Neutrophils % (auto) 57.7 %; Platelet Count 187 K/uL (130-400); Red Blood Count 6.25 M/uL (4.7-6.1); White Blood Count 11.53 K/uL (4.8-10.8)
[2020-02-19 14:39] LABS: INR 1.1 (0.9-1.1); Partial Thromboplastin Ratio 1.2; Partial Thromboplastin Time 32.7 Seconds (21.0-31.0); Prothrombin Time 11.8 Seconds (9.0-12.0)
[2020-02-19 15:02] LABS: Albumin Level 3.3 gm/dl (3.4-5.0); BUN Creatinine Ratio 8.6 (10-20); Calcium 9.6 mg/dl (8.5-10.1); Creatinine Clr Calc Pharmacy 26.1 ml/min; Est GFR (Non-African American) 13.8; Magnesium 2.5 mg/dl (1.8-2.4)
[2020-02-19 15:05] LABS: Albumin Globulin Ratio 0.8 (0.9-2); Bilirubin,Total 1.8 mg/dl (0.2-1); Globulin 4.1 gm/dl (2.5-4.0); Total Protein 7.4 gm/dl (6.4-8.2)
--- NOTE | 2020-02-19 15:12 | XRay Report ---
SINGLE VIEW CHEST CLINICAL HISTORY: Sepsis. FINDINGS: An AP, portable, upright chest radiograph is compared to study dated 11/05/2019 and correlate d with chest CT dated 12/06/2019. The heart is top normal for projection. The pulmonary vasculature is noncongested. Postoperative change and volume loss is seen at the left lung base. There is bibasilar scarring/atelectasis. No airspace consolidation or large pleural effusion is identified. No pneumotho rax is seen. The bony thorax is grossly intact. IMPRESSION: No active disease in the chest. ACT 112: Negative or not required by law. Electronically signed by: Ole Wolfe M.D. 02/19/2020 3:11 PM
--- NOTE | 2020-02-19 15:59 | CT Scan Report ---
CT SCAN OF THE CHEST, ABDOMEN, AND PELVIS WITHOUT IV CONTRAST CLINICAL HISTORY: Sepsis. Urinary tract infection. Acute renal insufficiency. Renal cell carcinoma. COMPARISON STUDY: Chest CT scans dated 12/06/2019 and 01/18/2019. Abdominal CT dated 11/04/2019. TECHNIQUE: Unenhanced CT scan of the chest, abdomen, and pelvis was performed from the thoracic inlet to the proximal femora. Images are reviewed in the axial, sagittal, and coronal planes. IV contrast was not administered for this examination. Note that the examination was performed in significantly s uboptimal fashion without IV contrast. A dose lowering technique was utilized adhering to the princip les of AMAIRANI. CT DOSE: 2438.74 mGy.cm FINDINGS: CHEST: Thyroid: Imaged portions of the thyroid gland are normal in size and attenuation. Thoracic aorta: The thoracic aorta is normal in caliber and demonstrates standard 3-vessel arch anato my. Heart: The heart is normal in size noting trace pericardial effusion. Lungs and pleural spaces: Evaluation of the lung parenchyma is degraded by motion artifact. Faint pat miladis nodular opacities are again seen throughout both lungs, greatest at the apices (left greater than right) at the left lung base. Postoperative change and volume loss is noted at the left lung base. N o lobar consolidation or pleural effusion is identified. The trachea and central airways are clear. T here are scattered calcified granulomas. Mediastinum: There are numerous prominent mediastinal lymph nodes which measure up to 12 mm in short axis. Raquel: Not well assessed without IV contrast. Axillae: There is no axillary lymphadenopathy. Bony thorax: The skeletal structures are osteopenic. Degenerative change is noted throughout the thor acic spine. No lytic or blastic lesions are identified. ABDOMEN AND PELVIS: Liver: The unenhanced liver is normal in size and contour. The liver demonstrates diffusely diminishe d attenuation consistent with hepatic steatosis. Fatty sparing is noted adjacent to gallbladder fossa . There is no intra- or extrahepatic biliary ductal dilatation. Gallbladder: There are calcified gallstones with no CT evidence of acute cholecystitis. Spleen: Normal in size and attenuation. Pancreas: The unenhanced pancreas is moderately atrophic and grossly unremarkable. Adrenal glands: Unremarkable. Kidneys: The right kidney is surgically absent. There is no evidence of recurrent or residual lesion in the right renal fossa. The unenhanced left kidney is normal in size and without hydronephrosis. No renal calculi are identified. Abdominal vasculature: The abdominal aorta is normal in course and caliber noting mild atheroscleroti c calcification. Stomach and bowel: There is a small hiatal hernia. There is mild sigmoid diverticulosis without CT ev idence of acute diverticulitis. No bowel obstruction is seen. The appendix is distended and fluid-fi lled as seen on image #209. This measures up to 11 mm diameter. This represents a significant change from 11/04/2019. There is periappendiceal inflammation and the appearance is concerning for mild acute appendicitis. Peritoneum: There is no intraperitoneal free air or abdominal ascites. Lymphadenopathy: Shotty retroperitoneal lymph nodes are not pathologically enlarged by size criteria. Pelvic viscera: Evaluation of the pelvis is degraded by streak artifact from a left hip arthroplasty. The prostate gland is enlarged and heterogeneous. The bladder is normal as visualized. Skeletal structures: The skeletal structures are osteopenic. There is moderate lumbosacral spondylosi s. No lytic or blastic lesions are seen. A left hip arthroplasty is in place. IMPRESSION: 1. Findings are consistent with mild acute appendicitis. Surgical consultation is advised. 2. Status post right nephrectomy. 3. There is no definite evidence of metastatic disease in the chest, abdomen, or pelvis. 4. Mild patchy nodular opacities are again seen throughout both lungs, greatest at the left apex and at the left lung base. This appears increased from prior studies and suggests a chronic infectious/in flammatory pneumonitis. Clinical correlation will be required. 5. Mildly enlarged mediastinal lymph nodes are nonspecific and unchanged from previous. 6. Hepatic steatosis. 7. Cholelithiasis. 8. Additional findings as above. ACT 112: Negative or not required by law. Electronically signed by: Ole Wolfe M.D. 02/19/2020 3:58 PM
[2020-02-19] MEDS ORDERED: PIPERACILLIN/TAZOBACTAM 4.5 GM/120 ML BAG IV ONE (16:06)
[2020-02-19] MEDS ORDERED: SODIUM CHLORIDE 0.9% 1000ML 600 ML IV ONE (16:06)
[2020-02-19] MEDS ORDERED: PIPERACILL/TAZOBAC CONSULT ACTIVE PRN (16:06)
[2020-02-19] MEDS ORDERED: HYDROCORTISONE SOD SUCCINATE 100 MG/2 ML VIAL IV STA (16:51)
[2020-02-19] MEDS ORDERED: LIDOCAINE/EPINEPHRINE 1% 20 ML VIAL ONE (16:54)
--- NOTE | 2020-02-19 16:57 | History & Physical Report ---
Date of Service February 19, 2020 Assessment & Plan (1) Acute appendicitis: Plan for laparoscopic appendectomy, possible open appendectomy this evening. Consider medical evaluation. Zosyn ordered by ED. History of Present Illness Primary Care Provider: Nilesh Parmar 65 y/o male not feeling well for the past week. Thought it might be related to recent change in oral chemo and steroids. Has not been eating, less active, has chills and abdominal pain. made him come in today. Previous right nephrectomy by Dr. Lindo, wedge resection of metastatic lesion left lung by Dr. Wright. Allergies Allergy/AdvReac Type Severity Reaction Status Date / Time atorvastatin AdvReac Unknown Verified 02/19/20 14:57 Home Medications Home Medications Medication Instructions Recorded Confirmed Type nivolumab 0 mg IV MONTHLY 12/30/19 02/19/20 History axitinib [Inlyta] 5 mg PO Q12H 02/19/20 02/19/20 History hydrocortisone 2.5 mg PO UD MDD 0 02/19/20 02/19/20 History Past Med/Surg History Medical History (Updated 02/19/20 @ 19:40 by Mateo Li MD) Cancer of kidney RIGHT KIDNEY REMOVED High triglycerides no meds History of skin cancer + resection Hypophysitis Lung metastasis Renal cell cancer Sleep apnea hx CPAP ("did not like" using machine) Surgical History H/O arthroscopy of shoulder LEFT H/O inguinal hernia repair History of colonoscopy History of left knee surgery + REVISION X 4 History of right nephrectomy 02/07/2019: Gliescope #3 with 8.0 ETT after unsuccessful DLx2. See record for full details. History of sinus surgery DEVIATED SEPTUM REPAIR History of total left hip arthroplasty Left HAMZAH: 05/28/18: SAB x 3 attempts at L3-L4 at [facility] Status post lung surgery (06/08/19) Electromagnetic navigational bronchoscopy with marking of lesion with ICG dye. 2. Left robot-assisted thoracoscopic segmentectomy of the superior segment of left lower lobe. 3. Mediastinal lymph node dissection. Dr. 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 Beliefs That Will Affect Care: None marital status: Current Living Situation: Spouse Current Living Situation Comment: [employer] current occupational status: retired current occupation: retired from [employer] Feels Safe at Home: Yes Assistive Devices: None Review of Systems Constitutional: + chills, + fatigue, + malaise and + anorexia; no fever Gastrointestinal: + abdominal pain; no nausea and no vomiting Physical Exam Constitutional: WD/WN, vitals as above Respiratory: normal respiratory effort, lungs clear to auscultation Cardiovascular: RRR, no murmur, no edema Gastrointestinal (Abdomen): Inspection/Auscultation: abdomen not distended Percussion/Palpation: + abdomen tender (RLQ) and abdomen soft; no guarding Skin: no rashes, warm and dry Results & Data Results & Data ([facility]) Vital Signs (Past 12 Hours) Vital Signs Temp Pulse Pulse Resp BP BP Pulse Ox 02/19/20 16:35 123 H 32 H 83/64 L 96 02/19/20 16:24 120 H 30 H 103/55 L 91 02/19/20 15:43 120 H 30 H 84/64 L 02/19/20 14:55 125 H 31 H 109/70 98 02/19/20 14:45 125 H 32 H 96/66 L 100 02/19/20 14:31 123 H 31 H 87/62 L 93 02/19/20 14:30 100 02/19/20 14:24 121 H 32 H 98/56 L 95 02/19/20 14:19 94 02/19/20 14:18 85 L 02/19/20 14:14 91 02/19/20 14:08 128 H 24 136/121 H 02/19/20 13:57 37.3 C 134 H 20 62/40 L 94 Supervising Physician Co-Signing Physician Notes Long discussion with the patient and his the patient has metastatic renal cell carcinoma apparently a week or so ago was started on 2 new chemotherapy drugs and since that time the patient has been nauseated unable to eat or drink anything since last Thursday except for some Ensure 2 days ago The patient denies any abdominal pain The abdomen is completely benign at this time there is no masses no tenderness and no appreciable guarding CAT scan was reviewed and also with the laboratory and and vitals At this time I do not think that the appendicitis even if it is acute which is questionable by physical exam I will treat with antibiotic and reevaluating for those findings I feel that this time the patient's main problem is dehydration I discussed this with the ER physician Dr. Concepcion and also later on I discussed this with Mateo Li MD who is taking care of this patient with plans to keep him on broad-spectrum antibiotic resuscitate him possibly have oncology see the patient and will be available if any clinical deterioration points more to an appendicitis PG Care Time/CCT Total # of Minutes Spent Total Time Spent with Patient: Total time spent is greater than 50% in coordination of care (as documented) at patient's floor/unit and/or counseling patient: Coding Level of Care Code 06416 Initial Inpt Care Lvl 3 Diagnoses Acute appendicitis K35.80
[2020-02-19] MEDS ORDERED: STAT IV Infusion **Titration per Protocol STA (18:22)
[2020-02-19] MEDS ORDERED: fentaNYL citrate 100 MCG/2 ML VIAL IV STA (18:23)
[2020-02-19] MEDS ORDERED: NOREPINEPHRINE BIT INJ 8 MG in DEXTROSE 5% 500 ML IV SCH (18:30)
[2020-02-19] MEDS ORDERED: SODIUM CHLORIDE 0.9% 1000ML 1,000 ML IV ONE (18:49)
--- NOTE | 2020-02-19 19:14 | History & Physical Report ---
Date of Service February 19, 2020 Assessment & Plan (1) Adrenal crisis: Suspect this is the main cause for his presenting complaint of generalized lethargy, hypertension proportion to current illness, dehydration, anorexia. secondary to weaning his hydrocortisone. Hydrocortisone 100 mg IV given in ER. Will defer additional dosing of stress dose steroids to ICU (50 to 100 mg every 6 hourly) Random cortisol pending, TSH pending. (2) Acute renal failure (ARF): 2.6 L NSS given given in the ER. Additional NSS 1 L bolus now. No obstructive cause on CT. Patient now agreeable to malone catheter placement (3) Hypovolemic shock: IV fluids and hydrocortisone as above. Right femoral central line and Levophed started in ER. Patient will be admitted to ICU. (4) Acute appendicitis: Possible early appendicitis. No abdominal pain on exam. Continue Zosyn. Discussed case with Dr. Echeverria (5) Polycythemia: Secondary to dehydration (6) Sleep apnea: History of intolerance to CPAP. Consider trial at bedtime while hospitalized. (7) DVT prophylaxis: Pharmacological prophylaxis deferred to ICU team. Admission and Anticipated Discharge Date Admission Date: 02/19/2020 History of Present Illness Chief Complaint: Generalized fatigue, weakness, lethargy Primary Care Provider: Nilesh Parmar Evans Wick is a 65 year old male with a renal cell carcinoma status post right nephrectomy currently on chemotherapy who presents to the ER with generalized lethargy, poor appetite and dehydration. 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 After stopping the prednisone he developed significant lethargy and was diagnosed with adrenal insufficiency in November and started on hydrocortisone 20/10 mg. He has been weaning this dose recently and is currently down to 2.5 mg twice a day. Associated bilateral hip and shoulder pain for the last 2 weeks but main symptom of just fatigue and sleeping much more than usual. Chills but no fevers. No nausea, vomiting, abdominal pain. Unknown last bowel movement. In the ER CT chest/abdomen/pelvis was concerning for acute appendicitis with WBC 11.5. However the patient reports no abdominal pain. ER physician contacted surgery who felt his presentation was not consistent with Allergies Allergy/AdvReac Type Severity Reaction Status Date / Time atorvastatin AdvReac Unknown Verified 02/19/20 14:57 Home Medications Home Medications Medication Instructions Recorded Confirmed Type nivolumab 0 mg IV MONTHLY 12/30/19 02/19/20 History axitinib [Inlyta] 5 mg PO Q12H 02/19/20 02/19/20 History hydrocortisone 2.5 mg PO UD MDD 0 02/19/20 02/19/20 History Past Med/Surg History Medical History Acute kidney injury Cancer of kidney RIGHT KIDNEY REMOVED High triglycerides no meds History of skin cancer + resection Hypophysitis Lung metastasis Pancreatitis Renal cell cancer Sleep apnea hx CPAP ("did not like" using machine) Surgical History H/O arthroscopy of shoulder LEFT H/O inguinal hernia repair History of colonoscopy History of left knee surgery + REVISION X 4 History of right nephrectomy 02/07/2019: Gliescope #3 with 8.0 ETT after unsuccessful DLx2. See record for full details. History of sinus surgery DEVIATED SEPTUM REPAIR History of total left hip arthroplasty Left HAMZAH: 05/28/18: SAB x 3 attempts at L3-L4 at [facility] Status post lung surgery (06/08/19) Electromagnetic navigational bronchoscopy with marking of lesion with ICG dye. 2. Left robot-assisted thoracoscopic segmentectomy of the superior segment of left lower lobe. 3. Mediastinal lymph node dissection. Dr. Wright 06/08/19 Family History Mother Breast cancer, Onset Age: 43 Father Esophageal cancer Sister Colon cancer Other Family history of cancer Social History Smoking Status: Never smoker Tobacco Type: Cigarettes Second Hand Exposure: No; Hx Alcohol Use: No Hx Substance Use: No Preferred Language: Beninese Communication Ability: Effective Claims Consultant Required: No Beliefs That Will Affect Care: None marital status: Current Living Situation: Spouse Current Living Situation Comment: [employer] current occupational status: retired current occupation: retired from [employer] Other Information That Helps Us Care for You: No Feels Safe at Home: Yes Safety Concerns: Feels Safe At This Time Assistive Devices: Oxygen - Continuous Review of Systems Review of Systems: All systems reviewed & are unremarkable except as noted in HPI & below Physical Exam Constitutional: well developed, well nourished, + obese and + lethargic; no acute distress Eyes: PERRL, conjunctivae normal, anicteric sclerae ENMT: Ears: no external ear abnormality Nose: no external nose abnormality Mouth: + dry oral mucous membranes Neck: trachea midline, no thyromegaly Respiratory: normal respiratory effort, lungs clear to auscultation Cardiovascular: RRR, no murmur, no edema Gastrointestinal (Abdomen): normal bowel sounds, soft, nontender, no hepatosplenomegaly Musculoskeletal: no cyanosis or clubbing, extremities motor strength 5/5 Skin: no rashes, warm and dry Neurologic: moves all extremities and awake; no focal motor deficits (Later alizing) and not confused Motor/Sensory: no tremor and no pronator drift Psychiatric: A+Ox3, euthymic affect Genitourinary: no CVA tenderness Results & Data Results & Data ([facility]) Vital Signs (Past 12 Hours) Vital Signs Temp Pulse Pulse Resp BP BP Pulse Ox 02/19/20 18:34 111 H 34 H 73/54 L 92 02/19/20 18:12 109 H 32 H 95/52 L 94 02/19/20 17:44 108 H 32 H 103/56 L 97 02/19/20 17:12 120 H 35 H 65/43 L 92 02/19/20 16:35 123 H 32 H 83/64 L 96 02/19/20 16:24 120 H 30 H 103/55 L 91 02/19/20 15:43 120 H 30 H 84/64 L 02/19/20 14:55 125 H 31 H 109/70 98 02/19/20 14:45 125 H 32 H 96/66 L 100 02/19/20 14:31 123 H 31 H 87/62 L 93 02/19/20 14:30 100 02/19/20 14:24 121 H 32 H 98/56 L 95 02/19/20 14:19 94 02/19/20 14:18 85 L 02/19/20 14:14 91 02/19/20 14:08 128 H 24 136/121 H 02/19/20 13:57 37.3 C 134 H 20 62/40 L 94 Diagnostic Findings SINGLE VIEW CHEST IMPRESSION: No active disease in the chest. CT SCAN OF THE CHEST, ABDOMEN, AND PELVIS WITHOUT IV CONTRAST IMPRESSION: 1. Findings are consistent with mild acute appendicitis. Surgical consultation is advised. 2. Status post right nephrectomy. 3. There is no definite evidence of metastatic disease in the chest, abdomen, or pelvis. 4. Mild patchy nodular opacities are again seen throughout both lungs, greatest at the left apex and at the left lung base. This appears increased from prior studies and suggests a chronic infectious/inflammatory pneumonitis. Clinical correlation will be required. 5. Mildly enlarged mediastinal lymph nodes are nonspecific and unchanged from previous. 6. Hepatic steatosis. 7. Cholelithiasis. 8. Additional findings as above. ECG Indication: altered mental status Rate (beats per minute): 126 Findings: + other (T wave flattening in I and aVL) Comparison ECG Date: from (October 26, 2019) Change: the following changes noted (T wave flattening is new) Code Status & VTE Plan Code Status Full VTE Prophylaxis Plan VTE Prophylaxis will be ordered: Yes PG Care Time/CCT Total # of Minutes Spent Total Time Spent with Patient: Total time spent is greater than 50% in coordination of care (as documented) at patient's floor/unit and/or counseling patient: Coding Level of Care Code 93582 Initial Inpt Care Lvl 3 Diagnoses Adrenal crisis E27.2 Acute renal failure (ARF) N17.9 Acute renal failure type: unspecified Hypovolemic shock R57.1 Acute appendicitis K35.30 Acute appendicitis type: with localized peritonitis Appendicitis abscess presence: without abscess Appendicitis gangrene presence: without gangrene Appendicitis perforation presence: without perforation Polycythemia D75.1 Sleep apnea G47.30 DVT prophylaxis Z29.9 (1) Acute renal failure (ARF) Acute renal failure type: unspecified Qualified Code(s): N17.9 - Acute kidney failure, unspecified (2) Acute appendicitis Acute appendicitis type: with localized peritonitis Appendicitis abscess presence: without abscess Appendicitis gangrene presence: without gangrene Appendicitis perforation presence: without perforation Qualified Code(s): K35.30 - Acute appendicitis with localized peritonitis, without perforation or gangrene
--- NOTE | 2020-02-19 19:28 | Critical Care Consultation ---
Date of Consultation February 19, 2020 Assessment & Plan (1) Admitted to intensive care unit: Reason Critically Ill: 65-year-old male with profound hypotension secondary to profound hypovolemia with associated adrenal insufficiency requiring close hemodynamic monitoring administration of vasopressors for support of patient's MAPs. NEURO - * CAM ICU: NEGATIVE CARDIAC/VASCULAR - * Hypotension: * 2/2 hypovolemia and adrenal insufficiency. * Received IVF in the ED. Will continue to provide IVF. * Addition of stress dose steroids and PO Florinef. * A-line for hemodynamic monitoring. * Currently requiring pressors. Wean down as tolerated. * EKG: Sinus Tach @126bpm. No significant ST/T-wave changes. QTc 422ms. * Monitor on telemetry. RESPIRATORY - * KELLEN: * Supplemental O2 PRN. * Does not wear home CPAP. * Offered CPAP trail here. Refused at this time. Will consider if felt to be ongoing problem. GI/NUTRITION - * ??Appendicitis: * CT findings w/ ??Appy * Seen and evaluated by General Surgery. No indication for emergent Appendectomy at this time. * Patient w/o acute abdomen findings on exam. * Continue IV Antibiotics in the critically ill individual. * Prophylaxis: Famotidine RENAL/LYTES - * ARF: * Likely 2/2 ATN from profound hypovolemia. * Received 3.5L IVF in the ED. * Will continue w/ ongoing IVF as patient appears volume down on exam. * Hemoconcentration likely indicative of profound hypovolemia. * RCC s/p RIGHT Nephrectomy: * Concerning ARF in this patient. * Again w/ ongoing IVF. * Bentley for strict I&Os. * IVF: Normosol @ 100 mL/hr - * Bentley in place - Strict I&Os. ENDO - * No h/o DM or Thyroid Dz * BSGs per unit protocol. ISS --> gtt per unit policy. HEME - * Relative Polycythemia: * Likely 2/2 profound dehydration. * Continue to trend. ID - * ??Appendicitis on CT: * In the setting of an adrenally insufficient patient w/ profound hypovolemia and questionable CT findings, would agree with continuing IV antibiotics in the interim. * Continue w/ Zosyn. * Will trend Lactate. * Add PCT. * Blood Cxs pending. LINES/IV ACCESS - * PIVs x2 * RIGHT Femoral CVL * LEFT Radial Art Line * Bentley DVT PROPHYLAXIS - * Heparin sq * SCDs I have personally spent 55 minutes of critical care time in the direct management of this patient. This is a life/limb threatening event. This includes time spent evaluating patient, direct bedside care, chart review, placing orders, interpretation of diagnostic studies, discussion with consultants, patient, and family members, as well as other required patient management activities. This time is exclusive of all separately billable procedures, and teaching time and separate from and in addition to any other critical care service time. Thank you for allowing us to participate in the care of this patient. Please refer to my attending physician's documentation for any further recommendations. (2) Hypovolemic shock: (3) Relative polycythemia: (4) Adrenal crisis: (5) Acute dehydration: (6) Acute renal failure (ARF): (7) Adrenal insufficiency due to cancer therapy: (8) Sleep apnea: (9) Lung metastasis: (10) On prednisone therapy: History of Present Illness History of Present Illness Patient is a 65-year-old male with a significant past medical history of renal cell carcinoma status post RIGHT nephrectomy on 02/2019 he was previously been on chemotherapy as directed by the [facility] cancer [facility]. He was noted to have metastatic spread to his lungs and underwent LEFT-sided robotic assisted thorascopic segmentectomy of the superior segment of the LEFT lower lobe with mediastinal lymph node biopsy which confirmed renal cell carcinoma. Additionally, patient was treated in October of this past year with a 28-day course of doxycycline secondary to diagnosis of Lyme disease. Patient had previously been on longstanding course of hydrocortisone, however recent pituitary MRI and ACTH testing allowed for titration down off of the daily hydrocortisone. This was instituted on 01/03/2020. Patient reported to the emergency department this afternoon with his by private vehicle secondary to increasing fatigue and malaise. reports the patient has been sleeping most of the day and has had decreased p.o. intake. Patient reports absolutely no complaints of pain, and simply describes feeling generalized fatigue. He admits that he has felt this before while not on his hydrocortisone. Thorough work-up in the emergency department including CT of the abdomen pelvis was concerning for possible appendicitis. In consultation with general surgery, it was felt that this was mild at best. The patient has a benign abdominal exam. No immediate indication for surgical intervention at this time. Patient was treated with IV Zosyn as well as IV fluids. He received hydrocortisone stress dosing. He was found to have an HANSEL. Patient is hemoconcentrated. Lactate greater than 3. Upon evaluation in the emergency department, the patient is awake, alert, and oriented. He denies any complaints of pain at this time. He describes generalized fatigue and weakness. Patient denies any headaches, dizziness, lightheadedness, chest pain, palpitations, shortness of breath, pleuritic pain, hemoptysis, nausea, vomiting, abdominal pain, hematochezia, melena, hematuria, or dysuria. Allergies Allergy/AdvReac Type Severity Reaction Status Date / Time atorvastatin AdvReac Unknown Verified 02/19/20 14:57 Home Medications Home Medications Medication Instructions Recorded Confirmed Type nivolumab 0 mg IV MONTHLY 12/30/19 02/19/20 History axitinib [Inlyta] 5 mg PO Q12H 02/19/20 02/19/20 History hydrocortisone 2.5 mg PO UD MDD 0 02/19/20 02/19/20 History Patient History Medical History Cancer of kidney RIGHT KIDNEY REMOVED High triglycerides no meds History of skin cancer + resection Hypophysitis Lung metastasis Renal cell cancer Sleep apnea hx CPAP ("did not like" using machine) Surgical History H/O arthroscopy of shoulder LEFT H/O inguinal hernia repair History of colonoscopy History of left knee surgery + REVISION X 4 History of right nephrectomy 02/07/2019: Gliescope #3 with 8.0 ETT after unsuccessful DLx2. See record for full details. History of sinus surgery DEVIATED SEPTUM REPAIR History of total left hip arthroplasty Left HAMZAH: 05/28/18: SAB x 3 attempts at L3-L4 at [facility] Status post lung surgery (06/08/19) Electromagnetic navigational bronchoscopy with marking of lesion with ICG dye. 2. Left robot-assisted thoracoscopic segmentectomy of the superior segment of left lower lobe. 3. Mediastinal lymph node dissection. Dr. 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 All else were negative. Physical Exam Physical Exam: VITAL SIGNS - Vital signs and nursing notes were reviewed. GENERAL - 65-year-old female appearing her stated age who is in no acute distress. Appears generally weak. Communicates well with provider and answers questions appropriately. SKIN - Without rashes. HEAD - NC/AT. EYES - PERRL with EOMI bilaterally. Sclera anicteric. Palpebral conjunctiva pink and moist with no injection noted. EARS - No deformities of external structures noted on gross examination bilaterally. NOSE - Midline and without cyanosis. No epistaxis or purulent drainage noted. MOUTH/OROPHARYNX - Without perioral cyanosis. Buccal mucosa pink and dry. Tongue midline with equal elevation of palate bilaterally. No tonsillar hypertrophy, erythema, or exudates noted. Good dentition noted. NECK - Neck with FROM. Supple to palpation. No lymphadenopathy noted. No nuchal rigidity. LUNGS - Chest wall symmetric without accessory muscle use, intercostals retractions, or central cyanosis. Normal vesicular breath sounds CTA B/L. No wheezes, rales, or rhonchi appreciated. CARDIAC - RRR with S1/S2. No murmur, rubs, or gallops appreciated. ABDOMEN - Abdominal contour obese without pulsations or visible masses. BS normoactive all four quadrants. No tenderness, palpable masses, hepatosplenomegaly, or ascites noted. EXTREMITIES - No clubbing or peripheral cyanosis. No pretibial edema present. +3/5 radial and dorsalis pedis pulses palpated throughout. +4/5 strength noted in UE/LE bilaterally. NEUROLOGIC - Cranial nerves II through XII grossly intact. Sensory intact to light touch throughout. PSYCH - A&Ox3 and cooperates fully with examiner. Pt is very pleasant and interacts well with examiner. Results & Data Results & Data ([facility]) Vital Signs (Past 12 Hours) Vital Signs Temp Pulse Pulse Resp BP BP Pulse Ox 02/19/20 18:34 111 H 34 H 73/54 L 92 02/19/20 18:12 109 H 32 H 95/52 L 94 02/19/20 17:44 108 H 32 H 103/56 L 97 02/19/20 17:12 120 H 35 H 65/43 L 92 02/19/20 16:35 123 H 32 H 83/64 L 96 02/19/20 16:24 120 H 30 H 103/55 L 91 02/19/20 15:43 120 H 30 H 84/64 L 02/19/20 14:55 125 H 31 H 109/70 98 02/19/20 14:45 125 H 32 H 96/66 L 100 02/19/20 14:31 123 H 31 H 87/62 L 93 02/19/20 14:30 100 02/19/20 14:24 121 H 32 H 98/56 L 95 02/19/20 14:19 94 02/19/20 14:18 85 L 02/19/20 14:14 91 02/19/20 14:08 128 H 24 136/121 H 02/19/20 13:57 37.3 C 134 H 20 62/40 L 94 Coding Level of Care Code Critical Care 1st 30-74 mins Diagnoses Admitted to intensive care unit Z78.9 Hypovolemic shock R57.1 Relative polycythemia D75.1 Adrenal crisis E27.2 Acute dehydration E86.0 Acute renal failure (ARF) N17.9 Acute renal failure type: unspecified Adrenal insufficiency due to cancer therapy E27.3 Sleep apnea G47.30 Lung metastasis C78.00 On prednisone therapy Z79.52 Time Spent (min) 55 (1) Acute renal failure (ARF) Acute renal failure type: unspecified Qualified Code(s): N17.9 - Acute kidney failure, unspecified
[2020-02-19 19:39] LABS: C Reactive Protein 13.6 mg/dl (0-0.29); Thyroid Stimulating Hormone 15.5 uIu/ml (0.300-4.500)
[2020-02-19 19:53] LABS: T4 Free Thyroxine 1.23 ng/dl (0.8-1.6)
[2020-02-19] MEDS ORDERED: ICU PROTOCOL FOR HYPERGLYCEMIA PRN (20:32)
[2020-02-19] MEDS ORDERED: NORMOSOL-R 1,000 ML IV SCH (20:45)
[2020-02-19] MEDS ORDERED: ACETAMINOPHEN 1,000 MG/100 ML VIAL IV STA (21:05)
[2020-02-19] MEDS: FLUDROCORTISONE ACETATE 0.1 MG TAB PO SCH (21:07)
[2020-02-19] MEDS: PIPERACILLIN/TAZOBACTAM 4.5 GM in DEXTROSE 5% 100 ML IV SCH (21:07)
--- NOTE | 2020-02-19 21:08 | Procedure Note ---
Procedure Note Date of Service February 19, 2020 Procedure: Arterial Line Placement Attending: Dr. Talavera APC: Poncho Andrade PA-C Indication: Monitoring on Pressors Anesthesia: Lidocaine 1% Emergent consent implied in the setting of need for close hemodynamic monitoring status post initiation of vasopressor medications in the emergency department. Lengthy discussion with patient and family who verbally consented to placement. Indication, risks, and benefits were explained at length. A time-out was completed verifying correct patient, procedure, site, positioning, and implant(s) or special equipment if applicable. Allens test was performed to ensure adequate perfusion. Patients LEFT wrist was prepped and draped in the usual sterile fashion. Ultrasound guidance was used to aid needle placement. A 20g Arrow arterial line was introduced into the LEFT artery. Catheter was threaded, and the needle was removed with appropriate blood return. Good waveform was observed. The patient tolerated the procedure well. Confirmation of placement with ultrasound. Blood Loss: Minimal Complications: None Procedural Ultrasound Guidance: Procedure Date: 02/19/2020 Indication: ABGs, Pressors, Frequent lab draws. Attending: Dr. Talavera APC: Poncho Andrade PA-C Artery Identified: YES Line confirmed in Artery with ultrasound: YES Complications: NONE Patient tolerated procedure: WELL Coding CPT Codes Tubes, Drains, and Vasc Access - Tubes, Drains, and Vasc Access: [id number] Place Catheter In Artery ([id number]) [facility] Procedure Codes (Charges) Tubes, Drains, and Vasc Access Procedure 1: Tubes, Drains, and Vasc Access: [id number] Place Catheter In Artery
[2020-02-19] MEDS: HYDROCORTISONE SOD 50 MG in SYRINGE 0 ML IV SCH (21:14)
[2020-02-19 21:51] LABS: Calcium 7.9 mg/dl (8.5-10.1); Creatinine Clr Calc Pharmacy 23.4 ml/min; Est GFR (African American) 17.5; Est GFR (Non-African American) 15.1; Magnesium 1.8 mg/dl (1.8-2.4); Phosphorus 2.7 mg/dl (2.5-4.9)
[2020-02-19] MEDS ORDERED: FAMOTIDINE 20 MG in SYRINGE 3 ML IV SCH (22:00)
[2020-02-20] MEDS: HYDROCORTISONE SOD 50 MG in SYRINGE 0 ML IV SCH ×4 (04:25→21:32)
[2020-02-20 04:38] LABS: BUN Creatinine Ratio 10.7 (10-20); Calcium 7.9 mg/dl (8.5-10.1); Creatinine Clr Calc Pharmacy 25.1 ml/min; Est GFR (Non-African American) 16.4; Magnesium 2.2 mg/dl (1.8-2.4); Potassium 5.4 mmol/L (3.5-5.1)
[2020-02-20 04:44] LABS: Phosphorus 3.4 mg/dl (2.5-4.9)
[2020-02-20 05:12] LABS: Basophils # (auto) 0.01 K/uL (0-0.2); Basophils % (auto) 0.1 %; Hematocrit (blood only) 44.1 % (42-52); Hemoglobin 15.3 g/dL (14.0-18.0); Immature Granulocytes # (auto) 0.03 K/uL (0.00-0.02); Immature Granulocytes % (auto) 0.3 %; Lymphocytes # (auto) 1.01 K/uL (1.2-3.4); Lymphocytes % (auto) 8.5 %; Mean Corpuscular Hemoglobin 30.2 pg (25-34); Mean Corpuscular Hgb Conc 34.7 g/dL (32-36); Mean Platelet Volume 8.5 fL (7.4-10.4); Monocytes # (auto) 0.67 K/uL (0.11-0.59); Monocytes % (auto) 5.6 %; Neutrophils # (auto) 10.23 K/uL (1.4-6.5); Neutrophils % (auto) 85.5 %; Platelet Count 169 K/uL (130-400); RDW Coefficient of Variation 14.3 % (11.5-14.5); RDW Standard Deviation 45.3 fL (36.4-46.3); Red Blood Count 5.07 M/uL (4.7-6.1); White Blood Count 11.95 K/uL (4.8-10.8)
[2020-02-20] MEDS ORDERED: DEXTROSE 50% 50 ML SYRINGE IV ONE (05:21)
[2020-02-20] MEDS ORDERED: INSULIN HUMAN REGULAR PER UNIT 8 UNITS in SYRINGE 0 ML IV STA (05:21)
[2020-02-20] MEDS ORDERED: CALCIUM CHLORIDE 10% 1,000 MG in SODIUM CHLORIDE 0.9% 50 ML IV STA (05:21)
[2020-02-20] MEDS: PIPERACILLIN/TAZOBACTAM 4.5 GM in DEXTROSE 5% 100 ML IV SCH ×3 (05:22→21:32)
[2020-02-20] MEDS: SODIUM CHLORIDE 0.9% 1000ML 1,000 ML IV SCH ×3 (05:43→23:37)
--- NOTE | 2020-02-20 07:57 | Critical Care Progress Note ---
Date of Service February 20, 2020 Assessment & Plan (1) Admitted to intensive care unit: 65-year-old male with a past medical history of renal cell carcinoma with metastatic disease to the lungs and chronic adrenal insufficiency presenting to the hospital due to altered mental status and concerns for possible appendicitis. His procalcitonin was elevated. Blood cultures are pending. Urinalysis is not yet obtained. Lactate is trending down. He is on stress dose steroids and f ludrocortisone at this time. His TSH is elevated. I am starting him on oral levothyroxine. He is quite sleepy today. He does arouse and follows commands slowly. His blood pressure is improving and he is on low-dose vasopressors. CPAP machine is at bedside as he does have a history of obstructive sleep apnea. His MRSA screen was negative. Continue Zosyn for possible GI pathology. His lipase is also mildly elevated; possibly a component of pancreatitis. N.p.o. for the time being given his mental status and the possibility of requiring surgical intervention. Should he decompensate, we will add antifungal therapy for his GI pathology. Surgery is on board. He also has HANSEL on CKD likely related to hypovolemia and septic shock. Continue fluids. He did have hyperkalemia. I am repeating a BMP. GI prophylaxis with famotidine. VTE prophylaxis with heparin twice daily. Continue ICU care. I have personally spent 42 minutes of critical care time in the direct management of this patient. This is a life/limb threatening event. This includes time spent evaluating patient, direct bedside care, chart review, placing orders, interpretation of diagnostic studies, discussion with consultants, patient, and family members, as well as other required patient management activities. This time is exclusive of all separately billable procedures, and teaching time and separate from and in addition to any other critical care service time. Thank you for allowing us to participate in the care of this patient. (2) Sleep apnea: (3) Hypovolemic shock: (4) On prednisone therapy: (5) Lung metastasis: (6) Pancreatitis: (7) Acute appendicitis: (8) Acute kidney injury: (9) Septic shock: (10) Hypothyroidism: Admission and Anticipated Discharge Date Admission Date: February 19, 2020 Subjective Patient is lethargic this morning, but oriented to time. He is very sleepy and falls asleep easily. He denies any pain. He does have some right lower quadrant tenderness to palpation. Denies any chest pain. Arterial line and central line are in place. Mean arterial pressures holding with low-dose pressors. Review of Systems Review of Systems: Unobtainable due to reduced consciousness Physical Exam Constitutional: WD/WN, vitals as above Eyes: PERRL, conjunctivae normal, anicteric sclerae ENMT: external ear and nose normal, oropharynx normal Respiratory: normal respiratory effort, lungs clear to auscultation Cardiovascular: RRR, no murmur, no edema Gastrointestinal (Abdomen): Mild tenderness to palpation of the right lower quadrant. Normoactive bowel sounds. Musculoskeletal: no cyanosis or clubbing, extremities motor strength 5/5 Skin: no rashes, warm and dry Neurologic: Sleepy. No focal deficits. Psychiatric: Orientation: oriented to place and oriented to time; + not alert Results & Data Results & Data ([facility]) Vital Signs (Past 12 Hours) Vital Signs Temp Pulse Pulse Resp BP BP Pulse Ox 02/20/20 06:22 96.6 F L 88 16 99/76 L 95 02/20/20 05:52 96.8 F L 78 16 126/63 98 02/20/20 05:22 96.8 F L 79 15 88/78 L 96 02/20/20 04:52 96.8 F L 77 18 101/75 96 02/20/20 04:23 97.0 F L 82 16 99/69 L 95 02/20/20 03:52 97.0 F L 78 13 86/67 L 97 02/20/20 03:22 97.0 F L 81 13 108/77 96 02/20/20 02:52 96.8 F L 86 9 L 117/74 95 02/20/20 02:22 97.3 F L 82 17 106/70 95 02/20/20 01:52 97.5 F L 91 H 23 120/82 93 02/20/20 01:22 97.9 F 86 13 113/72 96 02/20/20 00:52 98.1 F 71 1 L 99/69 L 95 02/20/20 00:22 98.4 F 81 1 L 106/73 95 02/20/20 00:00 81 02/19/20 23:52 98.8 F 71 12 100/74 95 02/19/20 23:22 99.3 F 83 3 L 125/83 95 02/19/20 22:52 99.7 F H 91 H 23 119/75 92 02/19/20 22:22 100.4 F H 108 H 21 145/73 H 96 02/19/20 22:21 90 16 94 02/19/20 21:44 100.8 F H 97 H 29 H 116/76 77 L 02/19/20 21:29 100.8 F H 88 26 H 123/72 94 02/19/20 21:14 100.6 F H 95 H 22 122/70 94 02/19/20 20:59 100.6 F H 99 H 31 H 110/68 92 02/19/20 20:44 100.4 F H 99 H 6 L 103/68 95 02/19/20 20:20 99.3 F 100 H 20 124/72 98 I reviewed vital signs, labs and imaging Coding Level of Care Code Critical Care 1st 30-74 mins Diagnoses Admitted to intensive care unit Z78.9 Sleep apnea G47.30 Hypovolemic shock R57.1 On prednisone therapy Z79.52 Lung metastasis C78.00 Pancreatitis K85.90 Acute appendicitis K35.30 Acute appendicitis type: with localized peritonitis Appendicitis abscess presence: without abscess Appendicitis gangrene presence: without gangrene Appendicitis perforation presence: without perforation Acute kidney injury N17.9 Septic shock A41.9; R65.21 Hypothyroidism E03.9 Time Spent (min) 42 (1) Acute appendicitis Acute appendicitis type: with localized peritonitis Appendicitis abscess presence: without abscess Appendicitis gangrene presence: without gangrene Appendicitis perforation presence: without perforation Qualified Code(s): K35.30 - Acute appendicitis with localized peritonitis, without perforation or gangrene
[2020-02-20] MEDS: FLUDROCORTISONE ACETATE 0.1 MG TAB PO SCH (07:59)
--- NOTE | 2020-02-20 08:10 | Surgery Progress Note ---
Date of Service February 20, 2020 Assessment & Plan (1) Abdominal pain: improved WBC stable keep on Iv abx can start liquids seen with Dr. Echeverria Admission and Anticipated Discharge Date Admission Date: February 19, 2020 Subjective feeling better, hungry Physical Exam Gastrointestinal (Abdomen): Inspection/Auscultation: abdomen not distended Percussion/Palpation: + guarding and abdomen soft; abdomen nontender Results & Data ([facility]) Vital Signs (Past 12 Hours) Vital Signs Temp Pulse Pulse Resp BP BP Pulse Ox 02/20/20 06:22 35.9 C L 88 16 99/76 L 95 02/20/20 05:52 36.0 C L 78 16 126/63 98 02/20/20 05:22 36.0 C L 79 15 88/78 L 96 02/20/20 04:52 36.0 C L 77 18 101/75 96 02/20/20 04:23 36.1 C L 82 16 99/69 L 95 02/20/20 03:52 36.1 C L 78 13 86/67 L 97 02/20/20 03:22 36.1 C L 81 13 108/77 96 02/20/20 02:52 36.0 C L 86 9 L 117/74 95 02/20/20 02:22 36.3 C L 82 17 106/70 95 02/20/20 01:52 36.4 C L 91 H 23 120/82 93 02/20/20 01:22 36.6 C 86 13 113/72 96 02/20/20 00:52 36.7 C 71 1 L 99/69 L 95 02/20/20 00:22 36.9 C 81 1 L 106/73 95 02/20/20 00:00 81 02/19/20 23:52 37.1 C 71 12 100/74 95 02/19/20 23:22 37.4 C 83 3 L 125/83 95 02/19/20 22:52 37.6 C H 91 H 23 119/75 92 02/19/20 22:22 38.0 C H 108 H 21 145/73 H 96 02/19/20 22:21 90 16 94 02/19/20 21:44 38.2 C H 97 H 29 H 116/76 77 L 02/19/20 21:29 38.2 C H 88 26 H 123/72 94 02/19/20 21:14 38.1 C H 95 H 22 122/70 94 02/19/20 20:59 38.1 C H 99 H 31 H 110/68 92 02/19/20 20:44 38.0 C H 99 H 6 L 103/68 95 02/19/20 20:20 37.4 C 100 H 20 124/72 98 PG Care Time/CCT Total # of Minutes Spent Total Time Spent with Patient: Total time spent is greater than 50% in coordination of care (as documented) at patient's floor/unit and/or counseling patient: Coding Level of Care Code 51352 Subseq Hosp Care Lvl 1 Diagnoses Abdominal pain R10.9
[2020-02-20 08:50] LABS: BUN Creatinine Ratio 10.3 (10-20); Blood Urea Nitrogen 39 mg/dl (7-18); Calcium 9.3 mg/dl (8.5-10.1); Carbon Dioxide 20 mmol/L (21-32); Chloride 107 mmol/L (98-107); Creatinine Clr Calc Pharmacy 29.1 ml/min; Est GFR (African American) 18.2; Est GFR (Non-African American) 15.7; Glucose 145 mg/dl (70-99); Potassium 4.6 mmol/L (3.5-5.1); Sodium 136 mmol/L (136-145)
[2020-02-20 08:55] LABS: Troponin I < 0.015 ng/ml (0-0.045)
[2020-02-20] MEDS ORDERED: HEPARIN SOD 5,000 UNIT/0.5 ML VIAL SQ SCH (09:00)
[2020-02-20] MEDS ORDERED: LEVOTHYROXINE SODIUM 50 MCG TABLET PO ONE (11:00)
[2020-02-20 11:10] LABS: iSTAT Potassium 4.9 mmol/L (3.3-5.0)
[2020-02-20 11:11] LABS: iSTAT Creatinine 4.1 mg/dl (0.6-1.3)
[2020-02-20 11:12] LABS: iSTAT Hemoglobin 18.4 g/dl (14.0-18.0); iSTAT Ionized Calcium 1.08 mmol/l (1.12-1.32)
--- NOTE | 2020-02-20 11:57 | Nephrology Consultation ---
Date of Consultation February 20, 2020 Assessment & Plan (1) Acute kidney injury: * Nonoliguric HANSEL due to hypotension in the setting of VGEF inhibitor therapy * Volume status and electrolyte balance are acceptable. No acute indication for HD * Monitor PRP, UO (2) Chronic kidney disease with active medical management without dialysis, stage 3 (moderate): * Baseline Cr 1.6 following R nephrectomy (3) Adrenal crisis: * Continue steroid replacement therapy (4) Renal cell carcinoma: * Recommend consultation w/ Oncology. May need to hold VGEF and postpone further biologic therapy until kidney function recovers History of Present Illness Reason for Consultation: HANSEL/CKD Attending Physician: Mateo Li MD History of Present Illness Mr. Wick is a 65 year old white male who is seen at the request of Dr. Woods for evaluation of HANSEL/CKD. Medical records in the EMR were reviewed today and are summarized as follows: Mr. Wick was diagnosed w/ renal cell carcinoma and underwent a R nephrectomy 02/20/[address] Lindo. His post nephrectomy creatinine stabilized at ~ 1.6. Follow up evaluation revealed metastasis to the lung. In June 2019 Mr. Wick underwent robot assisted segmentectomy of the superior segment of the lower lobe of the L lung. 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 Mr. Wick established care w/ Oncology. He was started on a combination of Opdivo (nivolumab) + Yervoy (ipilimumab). He completed 4 doses of the immunotherapy but developed a systemic rash. This improved with steroid therapy. The rash quickly returned whenever steroid taper was performed. Mr. Wick was successfully tapered off steroids in late October 2019. In early November Mr. Wick was admitted for general malaise. Initially there was concern for Lyme disease. He was treated w/ Doxycycline. He was also given a brief steroid taper. His condition improved and Mr. Wick was discharged to home. Mr. Wick was readmitted to [facility] 02/19 for evaluation of hypotension and HANSEL. SBP was 65 mmHg on admission. He remained hypotensive despite 3 L volume resuscitation and IV Levophed. His condition improved following an additional 1 L infusion and stress dose hydrocortisone. Serum Cr has risen to 3.8. Mr. Wick is now admitted to the ICU. staff appraiser report that he has been successfully weaned off Levophed therapy. He remains on IV hydrocortisone. Allergies Allergy/AdvReac Type Severity Reaction Status Date / Time atorvastatin AdvReac Unknown Verified 02/19/20 14:57 Home Medications Home Medications Medication Instructions Recorded Confirmed Type nivolumab 0 mg IV MONTHLY 12/30/19 02/19/20 History axitinib [Inlyta] 5 mg PO Q12H 02/19/20 02/19/20 History hydrocortisone 2.5 mg PO UD MDD 0 02/19/20 02/19/20 History Patient History Medical History (Updated 02/20/20 @ 12:40 by Darin Aiken MD) Acute kidney injury Cancer of kidney RIGHT KIDNEY REMOVED High triglycerides no meds History of skin cancer + resection Hypophysitis Hypothyroidism Lung metastasis Pancreatitis Renal cell cancer Septic shock Sleep apnea hx CPAP ("did not like" using machine) Surgical History H/O arthroscopy of shoulder LEFT H/O inguinal hernia repair History of colonoscopy History of left knee surgery + REVISION X 4 History of right nephrectomy 02/07/2019: Gliescope #3 with 8.0 ETT after unsuccessful DLx2. See record for full details. History of sinus surgery DEVIATED SEPTUM REPAIR History of total left hip arthroplasty Left HAMZAH: 05/28/18: SAB x 3 attempts at L3-L4 at [facility] Status post lung surgery (06/08/19) Electromagnetic navigational bronchoscopy with marking of lesion with ICG dye. 2. Left robot-assisted thoracoscopic segmentectomy of the superior segment of left lower lobe. 3. Mediastinal lymph node dissection. Dr. 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 Beliefs That Will Affect Care: None marital status: Current Living Situation: Spouse Current Living Situation Comment: [facility] current occupational status: retired current occupation: retired from [employer] Other Information That Helps Us Care for You: No Feels Safe at Home: Yes Safety Concerns: Feels Safe At This Time Assistive Devices: Oxygen - Continuous Review of Systems Constitutional: + weakness; no fever Eyes: no problem reported Ear, Nose, Mouth, Throat: no problem reported Respiratory: no dyspnea Cardiovascular: no chest pain, no palpitations and no edema Gastrointestinal: no abdominal pain, no vomiting and no diarrhea/loose stools Genitourinary: no dysuria, no urinary hesitancy and no hematuria Musculoskeletal: no back pain Integumentary: no rash Neurologic: no dizziness and no confusion Physical Exam Constitutional: not in distress Eyes: PERRL, conjunctivae normal, anicteric sclerae ENMT: external ear and nose normal, oropharynx normal Neck: trachea midline, no thyromegaly Respiratory: normal respiratory effort, lungs clear to auscultation Cardiovascular: Rate/Rhythm: + tachycardic Heart Sounds: no cardiac rub Gastrointestinal (Abdomen): normal bowel sounds, soft, nontender, no hepatosplenomegaly Musculoskeletal: Extremities: no cyanosis Skin: no rashes, warm and dry Neurologic: awake; not confused Results & Data ([facility]) Vital Signs (Past 12 Hours) Vital Signs Temp Pulse Resp BP Pulse Ox 02/20/20 08:30 36.1 C L 83 15 96 02/20/20 08:22 36.1 C L 94 H 14 124/81 99 02/20/20 08:15 36.1 C L 93 H 14 98 02/20/20 08:00 36.1 C L 77 16 94 02/20/20 07:52 36.1 C L 75 10 L 106/80 95 02/20/20 07:45 36.1 C L 83 14 97 02/20/20 07:30 36.0 C L 78 15 94 02/20/20 07:22 36.0 C L 85 14 138/88 99 02/20/20 07:15 36.0 C L 83 18 96 02/20/20 07:00 35.9 C L 86 22 95 02/20/20 06:22 35.9 C L 88 16 99/76 L 95 02/20/20 05:52 36.0 C L 78 16 126/63 98 02/20/20 05:22 36.0 C L 79 15 88/78 L 96 02/20/20 04:52 36.0 C L 77 18 101/75 96 02/20/20 04:23 36.1 C L 82 16 99/69 L 95 02/20/20 03:52 36.1 C L 78 13 86/67 L 97 02/20/20 03:22 36.1 C L 81 13 108/77 96 02/20/20 02:52 36.0 C L 86 9 L 117/74 95 02/20/20 02:22 36.3 C L 82 17 106/70 95 02/20/20 01:52 36.4 C L 91 H 23 120/82 93 02/20/20 01:22 36.6 C 86 13 113/72 96 02/20/20 00:52 36.7 C 71 1 L 99/69 L 95 02/20/20 00:22 36.9 C 81 1 L 106/73 95 02/20/20 00:00 81 Laboratory Results Laboratory Tests 02/20/20 02/20/20 03:56 08:03 WBC 11.95 H Hgb 15.3 D Hct 44.1 Plt Count 169 Sodium 136 Potassium 4.6 Chloride 107 Carbon Dioxide 20 L BUN 39 H Creatinine 3.83 H Glucose 145 H Calcium 9.3 D Troponin I < 0.015 PG Care Time/CCT Total # of Minutes Spent Total Time Spent with Patient: Total time spent is greater than 50% in coordination of care (as documented) at patient's floor/unit and/or counseling patient: Coding Level of Care Code 30480 Inpt Consult Level 5 Diagnoses Acute kidney injury N17.9 Chronic kidney disease with active medical management without dialysis, stage 3 (moderate) N18.30 Adrenal crisis E27.2 Renal cell carcinoma C64.9
--- NOTE | 2020-02-20 12:37 | Electrocardiogram Report ---
Test Reason : Blood Pressure : / mmHG Vent. Rate : 126 BPM Atrial Rate : 126 BPM P-R Int : 172 ms QRS Dur : 080 ms QT Int : 292 ms P-R-T Axes : 014 -30 071 degrees QTc Int : 422 ms Sinus tachycardia Left axis deviation Poor R wave progression, consider anterior CO vs. lead placement vs. LVH Nonspecific T wave abnormality T wave abnormality, consider anterior ischemia Abnormal ECG When compared with ECG of 26-OCT-2019 12:41, Minor T wave inversion now evident in Lateral leads Confirmed by Raymond Barriga ([id number]) on 02/20/2020 12:36:53 PM Referred By: REFERRED SELF Confirmed By:Raymond Barriga
--- NOTE | 2020-02-20 12:43 | Hospitalist Progress Note ---
Date of Service February 20, 2020 Assessment & Plan (1) Adrenal crisis: Random cortisol level raised but this was performed after hydrocortisone 100mg IV given in ER. Discussed with Milena Marin PA-C oncology regarding ACTH although currently this will be suppressed from hydrocortisone use. Previously had low ACTH and cortisol, but MRI showed a normal pituitary gland. He was started on hydrocortisone and felt much improved as an outpatient but given normal MRI was recommended to wean this by endocrine (although his [facility] oncologist recommended he just continue on hydrocortisone). He did continue to wean hydrocortisone as outpatient from 20/10mg to 2.5/2.5 on admission. Hydrocortisone 100 mg IV given in ER. Continue 50mg IV hydrocortisone Q6H. TSH elevated suspect secondary to current illness and shock as free T4 normal. (2) Acute appendicitis: Increasing WBC - likely secondary to hydrocortisone. Still no abdominal pain on exam but patient is significantly lethargic and wakes only to voice. Continue Zosyn 4.5g q8h. Appreciate ongoing gen surg recommendations. (3) Acute renal failure (ARF): No obstructive cause on CT. Continue NSS @ 80 ml/hr Appreciate nephrology recommendations. Trend Cr. (4) Septic shock: UO appear much improved with IV fluids given in ER. +ve 2332 ml yesterday. Now off Norepinephrine since 7am. BP stable. (5) Polycythemia: Resolved, relative due to dehydration (6) Sleep apnea: CPAP HS (7) Elevated TSH: TSH elevated suspect secondary to current illness and shock as free T4 normal. (8) Renal cell carcinoma: Discussed with Milena Marin PA-C oncology. Recurrence suspected to be metastasis to lung and cervical lymph nodes. Ok to hold axitinib at this stage. Will re-evaluate chemo/immunotherapy regimen as an outpatient. (9) DVT prophylaxis: Heparin 5000 units Q8H Admission and Anticipated Discharge Date Admission Date: February 19, 2020 Subjective Patient sleeping in bed and feels back to sleep after being woken by voice easily. He denies he is in the hospital. Recognizes his at bedside. He denies any nausea, vomiting, abdominal pain, bowel movements. Reported fever of 38 C at 9 PM last night. Still very fatigued and tired. Positive balance 2332 mL yesterday. Bentley catheter presents with good urine output. Updated patient's at bedside. Review of Systems Review of Systems: All systems reviewed & are unremarkable except as noted in HPI & below Physical Exam Constitutional: + morbidly obese and + lethargic (falling asleep easily); + not well nourished and no acute distress Eyes: + anicteric sclerae; normal pupil size ENMT: Ears: no external ear abnormality Nose: no external nose abnormality Mouth: + dry oral mucous membranes Neck: trachea midline, + short neck and + thick neck; no tracheal deviation Thyroid: no thyromegaly Respiratory: normal respiratory effort and + grunting (Snoring) Auscultation: + diminished lung sounds (Bibasal); no crackles, no rales, no rhonchi and no wheezes Cardiovascular: Rate/Rhythm: regular rate and regular rhythm Heart Sounds: no murmur Extremities: + edema (2+ generalized in upper and lower extremities) Gastrointestinal (Abdomen): Inspection/Auscultation: + abdomen distended and + hypoactive bowel sounds Percussion/Palpation: abdomen soft; abdomen nontend er, no guarding and abdomen not rigid Musculoskeletal: no cyanosis or clubbing, extremities motor strength 5/5 Skin: no rashes, warm and dry + skin tightening Neurologic: moves all extremities, awake (to voice) and + confused Psychiatric: Orientation: alert (To voice) and oriented x 3 Lymphatic: no cervical or axillary lymphadenopathy Results & Data Results & Data ([place]) Vital Signs (Past 12 Hours) Vital Signs Temp Pulse Resp BP Pulse Ox 02/20/20 12:00 36.1 C L 87 21 96 02/20/20 11:30 36.1 C L 96 H 19 98 02/20/20 11:22 36.1 C L 90 22 97/64 L 98 02/20/20 11:00 36.1 C L 90 14 96 02/20/20 10:52 36.1 C L 83 17 117/77 97 02/20/20 10:30 36.1 C L 80 25 H 98 02/20/20 10:23 36.1 C L 83 17 96/71 L 98 02/20/20 10:00 36.1 C L 77 14 96 02/20/20 09:53 36.1 C L 78 13 86/63 L 99 02/20/20 09:30 36.0 C L 81 17 98 02/20/20 09:22 36.1 C L 82 16 108/70 97 02/20/20 09:00 36.1 C L 86 16 94 02/20/20 08:52 36.1 C L 85 16 87/67 L 99 02/20/20 08:30 36.1 C L 83 15 96 02/20/20 08:22 36.1 C L 94 H 14 124/81 99 02/20/20 08:15 36.1 C L 93 H 14 98 02/20/20 08:00 36.1 C L 77 16 94 02/20/20 07:52 36.1 C L 75 10 L 106/80 95 02/20/20 07:45 36.1 C L 83 14 97 02/20/20 07:30 36.0 C L 78 15 94 02/20/20 07:22 36.0 C L 85 14 138/88 99 02/20/20 07:15 36.0 C L 83 18 96 02/20/20 07:00 35.9 C L 86 22 95 02/20/20 06:22 35.9 C L 88 16 99/76 L 95 02/20/20 05:52 36.0 C L 78 16 126/63 98 02/20/20 05:22 36.0 C L 79 15 88/78 L 96 02/20/20 04:52 36.0 C L 77 18 101/75 96 02/20/20 04:23 36.1 C L 82 16 99/69 L 95 02/20/20 03:52 36.1 C L 78 13 86/67 L 97 02/20/20 03:22 36.1 C L 81 13 108/77 96 02/20/20 02:52 36.0 C L 86 9 L 117/74 95 02/20/20 02:22 36.3 C L 82 17 106/70 95 02/20/20 01:52 36.4 C L 91 H 23 120/82 93 02/20/20 01:22 36.6 C 86 13 113/72 96 02/20/20 00:52 36.7 C 71 1 L 99/69 L 95 PG Care Time/CCT Total # of Minutes Spent Total Time Spent with Patient: Total time spent is greater than 50% in coordination of care (as documented) at patient's floor/unit and/or counseling patient: Coding Level of Care Code 63891 Subseq Hosp Care Lvl 3 Diagnoses Adrenal crisis E27.2 Acute appendicitis K35.30 Acute appendicitis type: with localized peritonitis Appendicitis abscess presence: without abscess Appendicitis gangrene presence: without gangrene Appendicitis perforation presence: without perforation Acute renal failure (ARF) N17.9 Acute renal failure type: unspecified Septic shock A41.9; R65.21 Polycythemia D75.1 Sleep apnea G47.30 Elevated TSH R79.89 Renal cell carcinoma C64.9 DVT prophylaxis Z29.9 (1) Acute renal failure (ARF) Acute renal failure type: unspecified Qualified Code(s): N17.9 - Acute kidney failure, unspecified (2) Acute appendicitis Acute appendicitis type: with localized peritonitis Appendicitis abscess presence: without abscess Appendicitis gangrene presence: without gangrene Appendicitis perforation presence: without perforation Qualified Code(s): K35.30 - Acute appendicitis with localized peritonitis, without perforation or gangrene
[2020-02-20 12:53] LABS: Appearance Urine Clear (Clear); Bacteria Urine Automated Negative (Negative); Bilirubin Urine Negative (Negative); Blood Urine Negative (Negative); Color Urine Yellow; Glucose Urine UA Negative (Negative); Ketones Urine Trace (Negative); Leukocyte Esterase Urine 1+ (Negative); Nitrite Urine Negative (Negative); Protein Urine Negative (Negative); RBC Urine Automated 0-4 /hpf (0-4); Specific Gravity Urine 1.016 (1.000-1.030); Urobilinogen Urine Negative (Negative)
[2020-02-20 13:59] LABS: iSTAT Arterial Blood Gas HCO3 18 meg/L (19-24); iSTAT Arterial Blood Gas pCO2 40 mmHg (35-46); iSTAT Arterial Blood Gas pH 7.27 (7.35-7.45); iSTAT Arterial Blood Gas pO2 154 mmHg (80-95); iSTAT Carbon Dioxide 19 mmol/L (24-31); iSTAT Hematocrit 46 % (42-52); iSTAT Hemoglobin 15.6 g/dl (14.0-18.0); iSTAT Potassium 4.1 mmol/L (3.3-5.0); iSTAT Sodium 135 mmol/L (135-144)
[2020-02-20 14:00] LABS: Creatinine Urine Random 81.1 mg/dl; Protein Creatinine Ratio Urine 0.2 (0-0.2); Total Protein Urine Random 16.6 mg/dl (0-11.9)
[2020-02-20] MEDS: HEPARIN SOD 5,000 UNIT/0.5 ML VIAL SQ SCH ×2 (19:11→19:15)
[2020-02-20] MEDS: FAMOTIDINE 20 MG TAB PO SCH (21:32)
[2020-02-21] MEDS: HYDROCORTISONE SOD 50 MG in SYRINGE 0 ML IV SCH ×4 (04:34→20:27)
[2020-02-21 05:07] LABS: Hematocrit (blood only) 42.1 % (42-52); Hemoglobin 14.8 g/dL (14.0-18.0); Mean Corpuscular Hgb Conc 35.2 g/dL (32-36); Mean Corpuscular Volume 85.2 fL (80-100); Platelet Count 151 K/uL (130-400); RDW Coefficient of Variation 13.8 % (11.5-14.5); RDW Standard Deviation 42.9 fL (36.4-46.3); Red Blood Count 4.94 M/uL (4.7-6.1); White Blood Count 14.99 K/uL (4.8-10.8)
[2020-02-21 05:22] LABS: Albumin Level 2.7 gm/dl (3.4-5.0); BUN Creatinine Ratio 13.4 (10-20); Calcium 8.5 mg/dl (8.5-10.1); Est GFR (African American) 26.7; Est GFR (Non-African American) 23.1; Potassium 4.2 mmol/L (3.5-5.1)
[2020-02-21 05:30] LABS: Albumin Globulin Ratio 0.8 (0.9-2); Bilirubin,Total 0.8 mg/dl (0.2-1); Globulin 3.4 gm/dl (2.5-4.0); Total Protein 6.1 gm/dl (6.4-8.2)
[2020-02-21] MEDS: PIPERACILLIN/TAZOBACTAM 4.5 GM in DEXTROSE 5% 100 ML IV SCH ×3 (05:39→21:39)
[2020-02-21] MEDS: SODIUM CHLORIDE 0.9% 1000ML 1,000 ML IV SCH (05:39)
[2020-02-21] MEDS: HEPARIN SOD 5,000 UNIT/0.5 ML VIAL SQ SCH ×3 (05:40→21:40)
[2020-02-21] MEDS: LEVOTHYROXINE SODIUM 50 MCG TABLET PO SCH (05:40)
[2020-02-21] MEDS ORDERED: ONDANSETRON INJ 2 MG/ML 2 ML VIAL IV PRN (06:33)
--- NOTE | 2020-02-21 07:38 | Surgery Progress Note ---
Date of Service February 21, 2020 Assessment & Plan (1) Abdominal pain: improving WBC up on steroids, afebrile cont IV abx can advance diet seen with Dr. Echeverria Admission and Anticipated Discharge Date Admission Date: February 19, 2020 Subjective feeling better, no abdominal pain Physical Exam Gastrointestinal (Abdomen): Percussion/Palpation: abdomen soft; abdomen nontender and no guarding Results & Data ([facility]) Vital Signs (Past 12 Hours) Vital Signs Temp Pulse Resp BP Pulse Ox 02/21/20 04:00 36 C L 69 14 150/89 H 96 02/21/20 00:00 36.7 C 68 16 110/79 95 PG Care Time/CCT Total # of Minutes Spent Total Time Spent with Patient: Total time spent is greater than 50% in coordination of care (as documented) at patient's floor/unit and/or counseling patient: Coding Level of Care Code 99513 Subseq Hosp Care Lvl 1 Diagnoses Abdominal pain R10.9
--- NOTE | 2020-02-21 10:04 | Nephrology Progress Note ---
Date of Service February 21, 2020 Assessment & Plan (1) Acute kidney injury: * Nonoliguric HANSEL due to hypotension in the setting of VGEF inhibitor therapy * Patient received 4 L volume resuscitation. BP stabilized following steroid replacement therapy. Pressors have been weaned to off * Recommend heplock IV and encourage oral hydration * Volume status and electrolyte balance are acceptable. No acute indication for HD * Cr has improved from 4.2 -->2.8 * Monitor PRP, UO (2) Chronic kidney disease with active medical management without dialysis, stage 3 (moderate): * Baseline Cr 1.6 following R nephrectomy (3) Adrenal crisis: * Continue steroid replacement therapy (4) Renal cell carcinoma: * Recommend consultation w/ Oncology. May need to hold VGEF and postpone further biologic therapy until kidney function recovers Admission and Anticipated Discharge Date Admission Date: February 19, 2020 Subjective Mr. Wick was seen & examined in the ICU this morning. He has been weaned off pressor support. He remains on IV hydrocortisone therapy. Mr. Wick reports brisk UO. Review of Systems Constitutional: + weakness; no fever Eyes: no problem reported Ear, Nose, Mouth, Throat: no problem reported Respiratory: no dyspnea Cardiovascular: no chest pain, no palpitations and no edema Gastrointestinal: + nausea; no abdominal pain and no diarrhea/loose stools Musculoskeletal: no back pain Integumentary: no rash Neurologic: no dizziness Physical Exam Constitutional: not in distress Eyes: PERRL, conjunctivae normal, anicteric sclerae ENMT: external ear and nose normal, oropharynx normal Neck: trachea midline, no thyromegaly Respiratory: normal respiratory effort, lungs clear to auscultation Cardiovascular: Rate/Rhythm: regular rate and regular rhythm Heart Sounds: no cardiac rub Gastrointestinal (Abdomen): normal bowel sounds, soft, nontender, no hepatosplenomegaly Musculoskeletal: Extremities: no cyanosis Skin: no rashes, warm and dry Neurologic: awake; not confused Genitourinary: malone catheter in place draining clear yellow urine Results & Data ([facility]) Vital Signs (Past 12 Hours) Vital Signs Temp Pulse Pulse Resp BP BP Pulse Ox 02/21/20 07:24 36.0 C L 81 19 156/101 H 96 02/21/20 07:00 35.9 C L 79 20 93 02/21/20 04:00 36 C L 69 14 150/89 H 96 02/21/20 00:00 36.7 C 68 16 110/79 95 Laboratory Results Laboratory Tests 02/21/20 02/21/20 04:28 04:28 WBC 14.99 H Hgb 14.8 Hct 42.1 Plt Count 151 Sodium 138 Potassium 4.2 Chloride 110 H Carbon Dioxide 21 BUN 37 H Creatinine 2.79 H D PG Care Time/CCT Total # of Minutes Spent Total Time Spent with Patient: Total time spent is greater than 50% in coordination of care (as documented) at patient's floor/unit and/or counseling patient: Coding Level of Care Code 30539 Subseq Hosp Care Lvl 3 Diagnoses Acute kidney injury N17.9 Chronic kidney disease with active medical management without dialysis, stage 3 (moderate) N18.30 Adrenal crisis E27.2 Renal cell carcinoma C64.9
--- NOTE | 2020-02-21 11:09 | Hospitalist Progress Note ---
Date of Service February 21, 2020 Assessment & Plan (1) Adrenal crisis: Marked improvement in BP since admission with fluid resuscitation and stress doses of IV hydrocortisone. Patient had been taking prednisone chronically since early 2019 as part of his treatment for renal cell carcinoma. He weaned steroids as directed in the spring/summer. Was admitted to [facility] in early November for extreme weakness thought 2nd to adrenal insufficiency. Placed back on steroids at that time with resolution of weakness, fatigue, and other symptoms. Saw [facility]ocrinology in December - underwent pituitary w/u for pituitary cause of adrenal insufficiency. None found. Dr Graf recommended to try weaning steroids once again. He had been doing so since the late summer/early fall. Hydrocortisone 20mg/10mg was weaned down to 2.5mg/2.5mg just prior to this admission. Now on 50mg q6h of hydrocortisone. He did require pressor agents early in this admission as well. Wean hydrocortisone to 50mg TID today, 25mg TID tomorrow, and so forth. After discharge will need to get back with Dr Graf to determine next steps with steroids. (2) Acute appendicitis: Appreciate general surgery consultation. At this time acute appendicitis felt unlikely but antibiotics are still advised for now. Now with apparent ileus clinically and radiographically. Restricted diet. PPI IV. Keep K and mag wnl. (3) Acute renal failure (ARF): Baseline Cr 1.7 to 1.8. Presenting Cr 4.2 [address]ly [address]. CT imaging without obstruction. Suspect prerenal in setting of shock/adrenal crisis. appreciate nephrology consultation. defer IV fluid management to nephrology. BMP am. (4) Shock: 2nd addisonian crisis. resolved. off pressors. fluid management per nephrology. wean steroids IV. (5) Polycythemia: Resolved. 2nd hemoconcentration. (6) Sleep apnea: CPAP HS (7) Elevated TSH: free T4 normal. follow as outpatient. (8) Renal cell carcinoma: State 4, with metastasis to lung and cervical lymph nodes. Hold axitinib in light of ARF and illness. (9) Ileus: 2nd to ARF, generalized illness, etc. clear liquids as tolerated. serial exams. keep mag/K wnl. IV PPI + carafate for UGI symptoms. (10) Chronic kidney disease with active medical management without dialysis, stage 3 (moderate): baseline Cr about 1.7 to 1.8 now with superimposed ARF/HANSEL bmp am (11) Cardiomyopathy: echo summer 2019 with EF 40-45% etiology? no evidence of hypervolemia follow (12) DVT prophylaxis: Heparin 5000 units Q8H labs in AM d/c femoral CVC ok to d/c malone PT, OT consults requested updated at bedside Admission and Anticipated Discharge Date Admission Date: February 19, 2020 Subjective patient tolerated clears yesterday. then, late last night, began to have hiccups and burping. developed nausea as well. this am was seen earlier by general surgery; was told that lap appy was not needed. shortly after that visit he had emesis of copious amounts of dark-colored stomach contents. the hiccups are better but still feels full/bloated. passing some flatus but minimal. feels quite weak; has not been out of bed since admission due to central venous line in right groin, etc. malone remains in place. by report telemetry has been normal. Review of Systems Constitutional: + fatigue and + anorexia; no fever Respiratory: no cough and no dyspnea Cardiovascular: no chest pain Gastrointestinal: + bloating, + nausea and + vomiting Physical Exam Constitutional: + ill appearing (looks very tired ); no acute distress and no altered mental status ENMT: Mouth: + dry oral mucous membranes Respiratory: normal respiratory effort, lungs clear to auscultation Auscultation: + diminished lung sounds (bases ) Cardiovascular: Rate/Rhythm: regular rate and regular rhythm Heart Sounds: normal S1 and normal S2; no murmur Vessels: posterior tibial pulses present and dorsalis pedis pulses present; no JVD Extremities: + vascular access device (right groin - clean/dry); no edema Gastrointestinal (Abdomen): Inspection/Auscultation: + abdomen distended; + abnormal bowel sounds (decreased ) Percussion/Palpation: + abdomen tender (upper abdomen just to L of midline); no guarding, abdomen not rigid and no hepatosplenomegaly Skin: no pallor Psychiatric: Orientation: alert and oriented x 3 Results & Data Results & Data ([facility]) Vital Signs (Past 12 Hours) Vital Signs Temp Pulse Pulse Resp BP BP Pulse Ox 02/21/20 10:00 36.4 C L 86 16 92 02/21/20 07:24 36.0 C L 81 19 156/101 H 96 02/21/20 07:00 35.9 C L 79 20 93 02/21/20 04:00 36 C L 69 14 150/89 H 96 02/21/20 00:00 36.7 C 68 16 110/79 95 Laboratory Results Laboratory Results - last 24 hr 02/21/20 02/21/20 04:28 04:28 WBC 14.99 H RBC 4.94 Hgb 14.8 Hct 42.1 MCV 85.2 MCH 30.0 MCHC 35.2 RDW Std Deviation 42.9 RDW Coeff of Enzo 13.8 Plt Count 151 MPV 9.0 Sodium 138 Potassium 4.2 Chloride 110 H Carbon Dioxide 21 Anion Gap 7.0 BUN 37 H Creatinine 2.79 H D Est Cr Clr Drug Dosing 40.0 Est GFR ( Amer) 26.7 Est GFR (Non-Af Amer) 23.1 BUN/Creatinine Ratio 13.4 Glucose 129 H Calcium 8.5 Total Bilirubin 0.8 D AST 19 ALT 22 Alkaline Phosphatase 50 Total Protein 6.1 L Albumin 2.7 L Globulin 3.4 Albumin/Globulin Ratio 0.8 L Diagnostic Findings KUB x-ray - generalized small/large bowel ileus PG Care Time/CCT Total # of Minutes Spent Total Time Spent with Patient: Total time spent is greater than 50% in coordination of care (as documented) at patient's floor/unit and/or counseling patient: Coding Level of Care Code 09848 Subseq Hosp Care Lvl 3 Diagnoses Adrenal crisis E27.2 Acute appendicitis K35.30 Acute appendicitis type: with localized peritonitis Appendicitis abscess presence: without abscess Appendicitis gangrene presence: without gangrene Appendicitis perforation presence: without perforation Acute renal failure (ARF) N17.9 Acute renal failure type: unspecified Shock R57.9 Polycythemia D75.1 Sleep apnea G47.33 Sleep apnea type: obstructive Elevated TSH R79.89 Renal cell carcinoma C64.9 Laterality: unspecified laterality Ileus K56.7 Chronic kidney disease with active medical management without dialysis, stage 3 (moderate) N18.30 Cardiomyopathy I42.9 DVT prophylaxis Z29.9 (1) Sleep apnea Sleep apnea type: obstructive Qualified Code(s): G47.33 - Obstructive sleep apnea (adult) (pediatric) (2) Acute renal failure (ARF) Acute renal failure type: unspecified Qualified Code(s): N17.9 - Acute kidney failure, unspecified (3) Renal cell carcinoma Laterality: unspecified laterality Qualified Code(s): C64.9 - Malignant neoplasm of unspecified kidney, except renal pelvis (4) Acute appendicitis Acute appendicitis type: with localized peritonitis Appendicitis abscess presence: without abscess Appendicitis gangrene presence: without gangrene Appendicitis perforation presence: without perforation Qualified Code(s): K35.30 - Acute appendicitis with localized peritonitis, without perforation or gangrene
--- NOTE | 2020-02-21 11:53 | XRay Report ---
XR abdomen min 2V CLINICAL HISTORY: vomiting; eval ileus, etc COMPARISON STUDY: CT scan dated 02/19/2020 FINDINGS: There are surgical clips within the right upper quadrant and right retroperitoneal region. There is a right-sided femoral catheter in place. There is mild gaseous prominence of both large and small bowel. There are no transition zones to indicate bowel obstruction. IMPRESSION: 1. Bowel gas pattern compatible with a generalized ileus. ACT 112: Negative or not required by law. Electronically signed by: Thaddeus Wright M.D. 02/21/2020 11:51 AM
[2020-02-21] MEDS: PANTOprazole 40 MG in SYRINGE 0 ML IV SCH ×2 (12:30→20:27)
[2020-02-21] MEDS: SUCRALFATE 1 GM/10 ML UDC PO SCH ×4 (12:30→20:26)
[2020-02-21] MEDS: FAMOTIDINE 20 MG TAB PO SCH (20:27)
[2020-02-22 04:48] LABS: Basophils # (auto) 0.01 K/uL (0-0.2); Basophils % (auto) 0.1 %; Eosinophils # (auto) 0.04 K/uL (0-0.5); Eosinophils % (auto) 0.3 %; Hematocrit (blood only) 41.6 % (42-52); Hemoglobin 14.1 g/dL (14.0-18.0); Immature Granulocytes # (auto) 0.03 K/uL (0.00-0.02); Immature Granulocytes % (auto) 0.3 %; Lymphocytes % (auto) 7.9 %; Mean Corpuscular Hemoglobin 29.5 pg (25-34); Mean Corpuscular Hgb Conc 33.9 g/dL (32-36); Mean Platelet Volume 8.8 fL (7.4-10.4); Monocytes # (auto) 0.78 K/uL (0.11-0.59); Monocytes % (auto) 6.8 %; Neutrophils # (auto) 9.69 K/uL (1.4-6.5); Neutrophils % (auto) 84.6 %; Platelet Count 180 K/uL (130-400); RDW Coefficient of Variation 14.1 % (11.5-14.5); RDW Standard Deviation 44.9 fL (36.4-46.3); Red Blood Count 4.78 M/uL (4.7-6.1); White Blood Count 11.45 K/uL (4.8-10.8)
[2020-02-22 05:20] LABS: BUN Creatinine Ratio 15.3 (10-20); Calcium 8.3 mg/dl (8.5-10.1); Creatinine Clr Calc Pharmacy 49.7 ml/min; Est GFR (African American) 34.3; Est GFR (Non-African American) 29.6; Potassium 3.6 mmol/L (3.5-5.1)
[2020-02-22] MEDS: PIPERACILLIN/TAZOBACTAM 4.5 GM in DEXTROSE 5% 100 ML IV SCH ×3 (05:49→23:31)
[2020-02-22] MEDS: HEPARIN SOD 5,000 UNIT/0.5 ML VIAL SQ SCH ×3 (05:50→21:49)
[2020-02-22] MEDS: LEVOTHYROXINE SODIUM 50 MCG TABLET PO SCH (06:29)
--- NOTE | 2020-02-22 07:52 | Surgery Progress Note ---
Date of Service February 22, 2020 Assessment & Plan (1) Abdominal pain: improved WBC down to 11, afebrile cont IV abx advance diet seen with Dr. Echeverria Admission and Anticipated Discharge Date Admission Date: February 19, 2020 Subjective feels good, no further N/V since last evening, bowels moving Physical Exam Gastrointestinal (Abdomen): Inspection/Auscultation: abdomen not distended Percussion/Palpation: abdomen soft; abdomen nontender Results & Data ([facility]) Vital Signs (Past 12 Hours) Vital Signs Temp Pulse Resp BP Pulse Ox 02/22/20 04:00 37.4 C 81 24 163/80 H 95 02/22/20 00:00 36.5 C 69 18 155/86 H 97 02/21/20 20:00 36.5 C 79 22 163/95 H 95 PG Care Time/CCT Total # of Minutes Spent Total Time Spent with Patient: Total time spent is greater than 50% in coordination of care (as documented) at patient's floor/unit and/or counseling patient: Coding Level of Care Code 25002 Subseq Hosp Care Lvl 1 Diagnoses Abdominal pain R10.9
[2020-02-22] MEDS: PANTOprazole 40 MG in SYRINGE 0 ML IV SCH ×2 (09:25→21:49)
[2020-02-22] MEDS: SUCRALFATE 1 GM/10 ML UDC PO SCH ×4 (09:25→21:49)
[2020-02-22] MEDS: HYDROCORTISONE SOD 25 MG in SYRINGE 0 ML IV SCH ×3 (09:25→21:49)
--- NOTE | 2020-02-22 10:56 | Nephrology Progress Note ---
Date of Service February 22, 2020 Assessment & Plan (1) Acute kidney injury: * Nonoliguric HANSEL due to hypotension in the setting of VGEF inhibitor therapy * Patient received 4 L volume resuscitation. BP stabilized following steroid replacement therapy. Pressors have been weaned to off * Continue to encourage oral hydration * Volume status and electrolyte balance are acceptable. No acute indication for HD * Cr has improved from 4.2 -->2.2 * Monitor PRP, UO (2) Chronic kidney disease with active medical management without dialysis, stage 3 (moderate): * Baseline Cr 1.6 following R nephrectomy (3) Adrenal crisis: * Continue steroid replacement therapy. Consider conversion to oral therapy (4) Renal cell carcinoma: * Recommend consultation w/ Oncology. May need to hold VGEF and postpone further biologic therapy until kidney function recovers Admission and Anticipated Discharge Date Admission Date: February 19, 2020 Subjective Mr. Wick was seen & examined in his hospital room this morning. He remains on IV hydrocortisone therapy. Mr. Wick c/o nausea and constipation. Review of Systems Constitutional: + weakness; no fever Eyes: no problem reported Ear, Nose, Mouth, Throat: no problem reported Respiratory: no dyspnea Cardiovascular: no chest pain, no palpitations and no edema Gastrointestinal: + nausea; no abdominal pain, no vomiting and no diarrhea/loose stools Genitourinary: no hematuria Musculoskeletal: no back pain Integumentary: no rash Neurologic: no dizziness and no confusion Physical Exam Constitutional: not in distress Eyes: PERRL, conjunctivae normal, anicteric sclerae ENMT: external ear and nose normal, oropharynx normal Neck: trachea midline, no thyromegaly Respiratory: normal respiratory effort, lungs clear to auscultation Cardiovascular: Rate/Rhythm: regular rate and regular rhythm Heart Sounds: no cardiac rub Gastrointestinal (Abdomen): normal bowel sounds, soft, nontender, no hepatosplenomegaly Musculoskeletal: Extremities: no cyanosis Skin: no rashes, warm and dry Neurologic: awake; not confused Results & Data ([facility]) Vital Signs (Past 12 Hours) Vital Signs Temp Pulse Resp BP Pulse Ox 02/22/20 04:00 37.4 C 81 24 163/80 H 95 02/22/20 00:00 36.5 C 69 18 155/86 H 97 Laboratory Results Laboratory Tests 02/22/20 02/22/20 04:26 04:26 WBC 11.45 H Hgb 14.1 Hct 41.6 L Plt Count 180 Sodium 140 Potassium 3.6 Chloride 110 H Carbon Dioxide 23 BUN 35 H Creatinine 2.27 H D Glucose 113 H PG Care Time/CCT Total # of Minutes Spent Total Time Spent with Patient: Total time spent is greater than 50% in clinical resource coordinator rdination of care (as documented) at patient's floor/unit and/or counseling patient: Coding Level of Care Code 41554 Subseq Hosp Care Lvl 3 Diagnoses Acute kidney injury N17.9 Chronic kidney disease with active medical management without dialysis, stage 3 (moderate) N18.30 Adrenal crisis E27.2 Renal cell carcinoma C64.9 Laterality: unspecified laterality (1) Renal cell carcinoma Laterality: unspecified laterality Qualified Code(s): C64.9 - Malignant neoplasm of unspecified kidney, except renal pelvis
--- NOTE | 2020-02-22 13:53 | Hospitalist Progress Note ---
Date of Service February 22, 2020 Assessment & Plan (1) Adrenal crisis: Resolved. Patient had been taking prednisone chronically since early 2019 as part of his treatment for renal cell carcinoma. He weaned steroids as directed in the spring/summer. Was admitted to [facility] in early November for extreme weakness thought 2nd to adrenal insufficiency. Placed back on steroids at that time with resolution of weakness, fatigue, and other symptoms. Saw [facility] in December - underwent pituitary w/u for pituitary cause of adrenal insufficiency. None found. Dr Graf recommended to try weaning steroids once again. He had been doing so since the late summer/early fall. Hydrocortisone 20mg/10mg was weaned down to 2.5mg/2.5mg just prior to this admission. Now on 50mg q6h of hydrocortisone. Wean to 25mg TID today then 20mg BID tomorrow. Leave IV today. He did require pressor agents early in this admission as well. After discharge will need to get back with Dr Graf to determine next steps with steroids. (2) Acute appendicitis: Appreciate general surgery consultation. At this time acute appendicitis being treated nonoperatively / with IV abx. If appendicitis was present it is resolving with such. Now with ileus clinically and radiographically. Restricted diet. PPI IV. Keep K and mag wnl. (3) Acute renal failure (ARF): Baseline Cr 1.7 to 1.8. Presenting Cr 4.2 Now 2.2. Slowly improving. CT imaging without obstruction. Suspect prerenal in setting of shock/adrenal crisis. appreciate nephrology consultation. IVF have been stopped. BMP am. (4) Shock: 2nd addisonian crisis. can't rule out sepsis. resolved. off pressors. IVF stopped. weaning steroids. (5) Polycythemia: Resolved. 2nd hemoconcentration. (6) Sleep apnea: CPAP HS (7) Elevated TSH: free T4 normal. follow as outpatient. (8) Renal cell carcinoma: State 4, with metastasis to lung and cervical lymph nodes. Hold axitinib in light of ARF and illness. Spoke with heme/onc today at [facility] - they confirm to continue holding axitinib. (9) Ileus: 2nd to ARF, generalized illness, etc. clear liquids as tolerated. serial exams. keep mag/K wnl. IV PPI + carafate for UGI symptoms. encouraged patient to walk. (10) Chronic kidney disease with active medical management without dialysis, stage 3 (moderate): baseline Cr about 1.7 to 1.8 now with superimposed ARF/HANSEL bmp am HANSEL improving nicely (11) Cardiomyopathy: echo summer 2019 with EF 40-45% etiology? no evidence of hypervolemia follow (12) DVT prophylaxis: Heparin 5000 units Q8H labs in AM PT, OT consults requested updated at bedside d/c PCU status -- move to med/surg Admission and Anticipated Discharge Date Admission Date: February 19, 2020 Subjective patient still bloated/distended with frequent hiccups and burping. "slightly" better than yesterday. is passing flatus but not that much. no vomiting, however. denies dyspnea. denies dizziness. denies abd pain - specifically none in the RLQ. at bedside - gave update during the visit. Review of Systems Constitutional: + weakness; no fever and no chills Respiratory: no cough and no dyspnea Cardiovascular: no chest pain Genitourinary: no difficulty urinating Physical Exam Constitutional: no acute distress, not ill appearing (looks better today ) and no altered mental status ENMT: external ear and nose normal, oropharynx normal Respiratory: normal respiratory effort, lungs clear to auscultation Auscultation: + diminished lung sounds (bases ) Cardiovascular: Rate/Rhythm: regular rate and regular rhythm Heart Sounds: normal S1 and normal S2; no murmur Vessels: posterior tibial pulses present and dorsalis pedis pulses present; no JVD Extremities: + edema (trace b/l ) Gastrointestinal (Abdomen): Inspection/Auscultation: + abdomen distended (no change today ); + abnormal bowel sounds (decreased -- no change ) Percussion/Palpation: abdomen nontender, no guarding, abdomen not rigid and no hepatosplenomegaly Skin: no pallor Psychiatric: Orientation: alert and oriented x 3 Results & Data Results & Data ([facility]) Vital Signs (Past 12 Hours) Vital Signs Temp Pulse Pulse Resp BP Pulse Ox 02/22/20 12:05 36.5 C 90 18 110/76 98 02/22/20 08:00 36.5 C 75 17 02/22/20 04:00 37.4 C 81 24 163/80 H 95 Laboratory Results Laboratory Results - last 24 hr 02/22/20 02/22/20 04:26 04:26 WBC 11.45 H RBC 4.78 Hgb 14.1 Hct 41.6 L MCV 87.0 MCH 29.5 MCHC 33.9 RDW Std Deviation 44.9 RDW Coeff of Enzo 14.1 Plt Count 180 MPV 8.8 Immature Gran % (Auto) 0.3 Neut % (Auto) 84.6 Lymph % (Auto) 7.9 Menard % (Auto) 6.8 Eos % (Auto) 0.3 Baso % (Auto) 0.1 Neut # (Auto) 9.69 H Lymph # (Auto) 0.90 L Menard # (Auto) 0.78 H Eos # (Auto) 0.04 Baso # (Auto) 0.01 Immature Gran # (Auto) 0.03 H Sodium 140 Potassium 3.6 Chloride 110 H Carbon Dioxide 23 Anion Gap 7.0 BUN 35 H Creatinine 2.27 H D Est Cr Clr Drug Dosing 49.7 Est GFR ( Amer) 34.3 Est GFR (Non-Af Amer) 29.6 BUN/Creatinine Ratio 15.3 Glucose 113 H Calcium 8.3 L PG Care Time/CCT Total # of Minutes Spent Total Time Spent with Patient: Total time spent is greater than 50% in coordination of care (as documented) at patient's floor/unit and/or counseling patient: Coding Level of Care Code 95931 Subseq Hosp Care Lvl 2 Diagnoses Adrenal crisis E27.2 Acute appendicitis K35.30 Acute appendicitis type: with localized peritonitis Appendicitis abscess presence: without abscess Appendicitis gangrene presence: without gangrene Appendicitis perforation presence: without perforation Acute renal failure (ARF) N17.9 Acute renal failure type: unspecified Shock R57.9 Polycythemia D75.1 Sleep apnea G47.33 Sleep apnea type: obstructive Elevated TSH R79.89 Renal cell carcinoma C64.9 Laterality: unspecified laterality Ileus K56.7 Chronic kidney disease with active medical management without dialysis, stage 3 (moderate) N18.30 Cardiomyopathy I42.9 DVT prophylaxis Z29.9 (1) Sleep apnea Sleep apnea type: obstructive Qualified Code(s): G47.33 - Obstructive sleep apnea (adult) (pediatric) (2) Acute renal failure (ARF) Acute renal failure type: unspecified Qualified Code(s): N17.9 - Acute kidney failure, unspecified (3) Renal cell carcinoma Laterality: unspecified laterality Qualified Code(s): C64.9 - Malignant neoplasm of unspecified kidney, except renal pelvis (4) Acute appendicitis Acute appendicitis type: with localized peritonitis Appendicitis abscess presence: without abscess Appendicitis gangrene presence: without gangrene Appendicitis perforation presence: without perforation Qualified Code(s): K35.30 - Acute appendicitis with localized peritonitis, without perforation or gangrene
[2020-02-22] MEDS: ADVANCED PROBIOTIC 1250 MG CAPSULE PO SCH (18:23)
[2020-02-22] MEDS: FAMOTIDINE 20 MG TAB PO SCH (21:49)
[2020-02-23] MEDS: HEPARIN SOD 5,000 UNIT/0.5 ML VIAL SQ SCH ×2 (05:25→08:28)
[2020-02-23] MEDS: LEVOTHYROXINE SODIUM 50 MCG TABLET PO SCH (05:25)
[2020-02-23 07:15] LABS: Basophils # (auto) 0.03 K/uL (0-0.2); Basophils % (auto) 0.5 %; Eosinophils # (auto) 0.28 K/uL (0-0.5); Eosinophils % (auto) 4.6 %; Hemoglobin 13.5 g/dL (14.0-18.0); Immature Granulocytes # (auto) 0.01 K/uL (0.00-0.02); Immature Granulocytes % (auto) 0.2 %; Lymphocytes # (auto) 1.06 K/uL (1.2-3.4); Lymphocytes % (auto) 17.3 %; Mean Corpuscular Hemoglobin 29.4 pg (25-34); Mean Corpuscular Hgb Conc 33.8 g/dL (32-36); Mean Corpuscular Volume 87.1 fL (80-100); Mean Platelet Volume 8.1 fL (7.4-10.4); Monocytes # (auto) 0.53 K/uL (0.11-0.59); Monocytes % (auto) 8.6 %; Neutrophils # (auto) 4.22 K/uL (1.4-6.5); Neutrophils % (auto) 68.8 %; Platelet Count 137 K/uL (130-400); RDW Coefficient of Variation 14.3 % (11.5-14.5); RDW Standard Deviation 44.9 fL (36.4-46.3); Red Blood Count 4.59 M/uL (4.7-6.1); White Blood Count 6.13 K/uL (4.8-10.8)
[2020-02-23 07:49] LABS: BUN Creatinine Ratio 14.8 (10-20); Calcium 8.3 mg/dl (8.5-10.1); Creatinine Clr Calc Pharmacy 57.6 ml/min; Est GFR (Non-African American) 35.4; Potassium 3.3 mmol/L (3.5-5.1)
[2020-02-23] MEDS: PIPERACILLIN/TAZOBACTAM 4.5 GM in DEXTROSE 5% 100 ML IV SCH (08:19)
[2020-02-23] MEDS: ADVANCED PROBIOTIC 1250 MG CAPSULE PO SCH (08:21)
--- NOTE | 2020-02-23 08:21 | Surgery Progress Note ---
Date of Service February 23, 2020 Assessment & Plan (1) Abdominal pain: Long discussion with the patient regarding his radiographic findings of acute appendicitis by CAT scan on his admission we elected to treat him with antibiotics since the other other more significant issue at hand at the time he has responded with antibiotic therapy never developed any abdominal pain he had an ileus yesterday but is moving his bowels and I suspect that may be are still metabolic in nature with a low potassium at present My recommendation is to increase his diet as I have from my point of view the patient can be discharged I will keep him on Augmentin 850 twice a day for another week we will see him back in the office in 1 week Medicine on.we will regulate his steroid replacement and thyroid replacement at this time Present on Admission?: Yes Admission and Anticipated Discharge Date Admission Date: February 19, 2020 Subjective Denies any of abdominal pain Patient feels fine he is anxious to go home he is moving his bowels he has not felt this good in a long time He wants more to eat once his IV is out Physical Exam Physical Exam: Alert coherent in no distress Abdomen completely benign Results & Data ([facility]) Vital Signs (Past 12 Hours) Vital Signs Temp Pulse Resp BP Pulse Ox 02/23/20 07:21 36.5 C 68 18 134/79 92 02/22/20 23:27 36.2 C L 65 16 142/82 H 93 lab noted potassium is low 3.3 creatinine is normalizing white count is normal PG Care Time/CCT Total # of Minutes Spent Total Time Spent with Patient: Total time spent is greater than 50% in coordination of care (as documented) at patient's floor/unit and/or counseling patient: Coding Level of Care Code 83623 Subseq Hosp Care Lvl 3 Diagnoses Abdominal pain R10.9
[2020-02-23] MEDS: HYDROCORTISONE SOD 25 MG in SYRINGE 0 ML IV SCH (08:22)
[2020-02-23] MEDS: SUCRALFATE 1 GM/10 ML UDC PO SCH ×2 (08:22→15:20)
[2020-02-23] MEDS: PANTOprazole 40 MG in SYRINGE 0 ML IV SCH (08:22)
--- NOTE | 2020-02-23 11:02 | Nephrology Progress Note ---
Date of Service February 23, 2020 Assessment & Plan (1) Acute kidney injury: * Nonoliguric HANSEL due to hypotension in the setting of VGEF inhibitor therapy * Patient received 4 L volume resuscitation. BP stabilized following steroid replacement therapy. Pressors have been weaned to off * Continue to encourage oral hydration * Volume status and electrolyte balance are acceptable. No acute indication for HD * Cr has improved from 4.2 -->1.9 * If discharge is anticipated, please have patient follow up w/ Dr. Santiago in 7 - 14 days . Advise him to have nonfasting blood work completed 1 day prior to OV. Order for PRP has been placed in EMR. No further Nephrology evaluation indicated at this time. Will sign off. Please call if further assistance needed. (2) Chronic kidney disease with active medical management without dialysis, stage 3 (moderate): * Baseline Cr 1.6 following R nephrectomy Admission and Anticipated Discharge Date Admission Date: February 19, 2020 Subjective Mr. Wick was seen & examined in his hospital room this morning. He is tolerating his diet and reports 2 BM yesterday. He is voiding without difficulty. Mr. Wick is now on oral hydrocortisone therapy Review of Systems Constitutional: no fever Eyes: no problem reported Ear, Nose, Mouth, Throat: no problem reported Respiratory: no dyspnea Cardiovascular: no chest pain and no edema Gastrointestinal: no abdominal pain and no vomiting Genitourinary: no dysuria, no urinary hesitancy and no hematuria Musculoskeletal: no back pain Integumentary: no rash Neurologic: no falls, no dizziness and no confusion Physical Exam Constitutional: not in distress Eyes: PERRL, conjunctivae normal, anicteric sclerae ENMT: external ear and nose normal, oropharynx normal Neck: trachea midline, no thyromegaly Respiratory: normal respiratory effort, lungs clear to auscultation Cardiovascular: Rate/Rhythm: regular rate and regular rhythm Heart Sounds: no cardiac rub Gastrointestinal (Abdomen): normal bowel sounds, soft, nontender, no hepatosplenomegaly Musculoskeletal: Extremities: no cyanosis Skin: no rashes, warm and dry Neurologic: awake; not confused Results & Data ([facility]) Vital Signs (Past 12 Hours) Vital Signs Temp Pulse Resp BP Pulse Ox 02/23/20 07:21 36.5 C 68 18 134/79 92 02/22/20 23:27 36.2 C L 65 16 142/82 H 93 PG Care Time/CCT Total # of Minutes Spent Total Time Spent with Patient: Total time spent is greater than 50% in coordination of care (as documented) at patient's floor/unit and/or counseling patient: Coding Level of Care Code 59006 Subseq Hosp Care Lvl 3 Diagnoses Acute kidney injury N17.9 Chronic kidney disease with active medical management without dialysis, stage 3 (moderate) N18.30
[2020-02-23] MEDS: POTASSIUM CHLORIDE 20 MEQ TABCR PO SCH ×2 (11:31→13:58)
[2020-02-23] MEDS ORDERED: AMOXICILLIN/CLAVULANATE 875 MG TAB PO SCH (17:00)
--- NOTE | 2020-02-23 17:32 | Discharge Summary ---
Date of Service date of admission - February 19, 2020 date of discharge - February 23, 2020 Admission HPI Per Admitting Provider Evans Wick is a 65 year old male with a renal cell carcinoma status post right nephrectomy currently on chemotherapy who presents to the ER with generalized l ethargy, poor appetite and dehydration. 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 After stopping the prednisone he developed significant lethargy and was diagnosed with adrenal insufficiency in November and started on hydrocortisone 20/10 mg. He has been weaning this dose recently and is currently down to 2.5 mg twice a day. Associated bilateral hip and shoulder pain for the last 2 weeks but main symptom of just fatigue and sleeping much more than usual. Chills but no fevers. No nausea, vomiting, abdominal pain. Unknown last bowel movement. In the ER CT chest/abdomen/pelvis was concerning for acute appendicitis with WBC 11.5. However the patient reports no abdominal pain. Principal Diagnosis shock, sepsis-related vs addisonian Discharge Exam Constitutional no acute distress, not ill appearing and no altered mental status ENMT external ear and nose normal, oropharynx normal Respiratory normal respiratory effort, lungs clear to auscultation Auscultation: + diminished lung sounds (bases ) Cardiovascular Rate/Rhythm: regular rate and regular rhythm Heart Sounds: normal S1 and normal S2; no murmur Vessels: posterior tibial pulses present and dorsalis pedis pulses present; no JVD Extremities: + edema (trace b/l ) Gastrointestinal (Abdomen) Inspection/Auscultation: normal bowel sounds; abdomen not distended Percussion/Palpation: abdomen nontender, no guarding, abdomen not rigid and no hepatosplenomegaly Skin no pallor Psychiatric Orientation: alert and oriented x 3 Discharge Data Allergies Allergy/AdvReac Type Severity Reaction Status Date / Time atorvastatin AdvReac Unknown Verified 02/19/20 14:57 Consultations general surgery data management specialist Procedures Performed 1. right femoral CVC 2. arterial line Ordered Studies CT abd pelvis wo con Stat CT chest wo con Stat IMPRESSION: 1. Findings are consistent with mild acute appendicitis. Surgical consultation is advised. 2. Status post right nephrectomy. 3. There is no definite evidence of metastatic disease in the chest, abdomen, or pelvis. 4. Mild patchy nodular opacities are again seen throughout both lungs, greatest at the left apex and at the left lung base. This appears increased from prior studies and suggests a chronic infectious/inflammatory pneumonitis. Clinical correlation will be required. 5. Mildly enlarged mediastinal lymph nodes are nonspecific and unchanged from previous. 6. Hepatic steatosis. 7. Cholelithiasis. Hospital Course (1) Adrenal crisis: Resolved. Patient required central line placement, stress-dose steroids, copious IV fluids, arterial line placement, and pressors upon admission to the ICU due to shock. BPs improved by hospital day #2 and pressors were weaned off. Lines were removed, and he was transferred from ICU status to telemetry status. Cause of adrenal crisis was likely multi-fold but largest player was probable sepsis from acute appendicitis. Additionally he had been weaning his steroids in the weeks leading up to admission (see below). Patient had been taking prednisone chronically since early 2019 as part of his treatment for renal cell carcinoma. He weaned steroids as directed in the spring/summer. Was admitted to [facility] in early November for extreme weakness thought 2nd to adrenal insufficiency. Placed back on steroids at that time with resolution of weakness, fatigue, and other symptoms. Saw [facility] in December - underwent pituitary w/u for pituitary cause of adrenal insufficiency. None found. Dr Brandi Graf recommended to try weaning steroids once again. He had been doing so since the late summer/early fall. Hydrocortisone 20mg/10mg was weaned down to 2.5mg/2.5mg just prior to this admission. After discharge he will: 1. taper his steroids slowly over 1-2 weeks 2. see [facility] Dr Graf to determine long-term plan for his steroids. (2) Acute appendicitis: Seen by general surgery for this finding on imaging. Patient had no typical symptoms for appendicitis. Appendiceal inflammation was equivocal on CT. Decision was made to treat the possible acute appendicitis conservatively/nonoperatively with IV antibiotics only. He was kept NPO, given IV fluids, and IV antibiotics were administered. Unfortunately developed an ileus (see below). As ileus resolved his diet was advanced and he tolerated this later in his stay. General surgery recommended 1 additional week of antibiotics in the way of augmentin at discharge. He will follow-up with general surgery within a week of discharge to ensure he is well from an appendicitis standpoint. (3) Ileus: 2nd to ARF, generalized illness, suspected acute appendicitis, etc. treated with bowel rest and IV fluids. resolved with time. diet advanced and was tolerating such before discharge. passing flatus/stool prior to discharge. (4) Acute renal failure (ARF): Baseline Cr 1.7 to 1.8. Presenting Cr 4.[address] imaging without obstruction. Suspect prerenal causes in setting of shock/adrenal crisis. Will need repeat BMP within a week of discharge to ensure stable creatinine. (5) Shock: 2nd addisonian crisis. can't rule out sepsis contributing. resolved with IV fluids, IV stress-dose steroids, and pressors. (6) Polycythemia: Resolved. 2nd hemoconcentration. Discharge Hb 13.5. (7) Sleep apnea: CPAP HS (8) Elevated TSH: TSH on 02/02/20 was elevated at 5.3. TSH on 02/19/20 was 15.5. Care team elected to initiate synthroid at 50mcg daily especially in light of weakness, fatigue, etc he had been experiencing of late. Will need repeat TSH in 6 weeks post-d/c. (9) Renal cell carcinoma: State 4, with metastasis to lung and cervical lymph nodes. Holding axitinib in light of ARF and illness. Spoke with heme[facility]onc at the [facility] - they confirmed to continue holding axitinib. He will f/u with heme/onc within a week or two of discharge. (10) Chronic kidney disease with active medical management without dialysis, stage 3 (moderate): baseline Cr about 1.7 to 1.8 had superimposed ARF/HANSEL discharge Creatinine 1.9 (11) Cardiomyopathy: echo summer 2019 with EF 40-45%. etiology uncertain. He never had evidence of hypervolemia while hospitalized. He takes lasix on PRN basis at home. Total Time Total Time Spent Total Time Spent (In Minutes): 45 Total Time Includes: Examination of the Patient, Discharge Planning, Medication Reconciliation and Communication With Other Providers Discharge Plan Discharge Items Patient Disposition: Home - Self-Care Reason For Visit: Acute Renal Failure, Shock, Possible Appendicitis Discharge Diagnosis: 1. acute renal failure - resolved; discharge creatinine 1.9 2. shock (low blood pressure) - resolved 3. suspected acute appendicitis - resolved with conservative measures including IV antibiotics 4. history of adrenal insufficiency - on chronic hydrocortisone Activity: As commented below Activity Comment: gradually increase your activity over the next 5-7 days Non-emergency contact: Primary Care Provider, Surgeon and Specialist Call non-emergency contact if: you have any medication questions, your symptoms worsen, your pain is not controlled, your pain is worsening and you have a fever Follow-up/Referrals: Myke Echeverria MD [Surgeon] - (see Dr Echeverria or one of his partners in 1 week; dx - medically treated acute appendicitis ) Brandi Graf MD [Physician] - (please follow-up with Dr Graf within 2 weeks; dx - h/o adrenal insufficiency ) Nilesh Parmar M.D. [Primary Care Provider] - (see Dr Parmar within 5 days ) Diet: Low Fiber Addtl Attending Provider Instructions: Mr Wick, You were admitted to our intensive care unit for shock (low blood pressure), acute renal failure (elevated creatinine to 4.2), and possible acute appendicitis. There was also concern for "adrenal crisis." You received IV fluids, IV antibiotics for the appendix, and IV steroids. Your creatinine/kidney level improved with these measures, and your blood pressure normalized. You were seen by the general surgeons who felt that you probably did have a case of appendicitis. In light of how sick you were it was decided to treat this non-operatively with IV antibiotics alone. All issues improved while here. You did have something called an "ileus" which is when the intestines become distended with too much gas. This resolved with supportive care and time. Prior to discharge you are tolerating a low fiber diet and feeling better in all respects. Again your kidney level has improved to 1.9 (you typically run about 1.7 to 1.8). Recommendations: 1. starting AM of 02/23 take amoxicillin-clavulanate antibiotic 1 tablet twice daily for 7 days. This may cause diarrhea. This is for your appendicitis. 2. take probiotics for 10 days to help lessen the chances of diarrhea from your antibiotics. 3. for newly-diagnosed hypothyroidism (underactive thyroid gland) please take levothyroxine 50mcg each morning upon awakening. You will need a repeat "TSH" (thyroid level) in [address] Graf or your family doctor. 4. Hydrocortisone taper -- * starting 02/24/20: * 20mg every morning and 20mg every evening x 3 days, then - * 20mg every morning and 15mg every evening x 3 days, then - * 20mg every morning and 10mg every evening * please stay on the 20mg every AM and 10mg every evening until you see Dr Graf 5. for swelling of legs -- take your lasix (furosemide) pill with the potassium supplement daily until your swelling is gone. Do this on an NEEDED basis only. 6. recent ileus -- follow a LOW FIBER diet for 10 days. See handout on fiber. 7. please keep your [facility] to discuss your chemotherapy. HOLD your chemotherapy pills until that time. 8. follow-up appointments -- see separate section. Return to [facility] if: * you have fevers over 100 degrees * you have worsening shortness of breath * you have abdominal pain * you have inability to have a bowel movement or pass gas * you have worsening abdominal distension * any other concerns Feel better! It was my pleasure caring for you, -Dr Mancuso Pending Studies at Discharge: No Stand-Alone Forms: My [facility], Smoking Cessation Medications and DC Order Prescriptions: New levothyroxine [Synthroid] 50 mcg Tablet 50 mcg PO DAILYBB Qty: 30 RF: 2 Advanced Probiotic 625 mg (10 billion cell) Capsule 2 cap PO DAILY 10 Days Qty: 20 RF: 0 Continued nivolumab 0 mg IV MONTHLY RF: 0 hydrocortisone 5 mg tablet 2.5 mg PO UD MDD 0 RF: 0 Discontinued Inlyta 5 mg Tablet 5 mg PO Q12H RF: 0 Discharge Orders: Discharge Order (Routine); Ordered 02/23/20 Ordered By: Mateo Velasquez/Other Patient Handouts: Ileus, Low-Fiber Diet, ED Hypothyroidism Admission Data Admit Date/Time: 02/19/20 19:11 Attending Provider: Mateo Mancuso Admit Provider: Mateo Li Primary Care Provider: Nilesh Parmar Other Providers: Tyler Cervantes Jr ; Myke Echeverria ; Mateo Li ; Oscar Talavera Other Interventions: Discharge Summary Assessment (RN) Last Done: 02/23/20 17:49 Coding Level of Care Code D/C Day Management >30 mins Diagnoses Adrenal crisis E27.2 Acute appendicitis K35.30 Acute appendicitis type: with localized peritonitis Appendicitis abscess presence: without abscess Appendicitis gangrene presence: without gangrene Appendicitis perforation presence: without perforation Ileus K56.7 Acute renal failure (ARF) N17.9 Acute renal failure type: unspecified Shock R57.9 Polycythemia D75.1 Sleep apnea G47.33 Sleep apnea type: obstructive Elevated TSH R79.89 Renal cell carcinoma C64.9 Laterality: unspecified laterality Chronic kidney disease with active medical management without dialysis, stage 3 (moderate) N18.30 Cardiomyopathy I42.9
[2020-02-23] MEDS ORDERED: PANTOprazole 40 MG TAB PO SCH (21:00)
[2020-02-23] MEDS ORDERED: HYDROCORTISONE 10 MG TAB PO SCH (21:00)
== END 2020-02-23 18:14 | disposition home or self-care (01) | DRG 871 ==
LOC: ED 13:55 → 1E 19:11 → SUATTDRO 19:11 → 1E 19:42 → 3N 02-22 13:50

== ENCOUNTER 2020-03-19 16:09 | Inpatient (IN) ==
[2020-03-19] MEDS ORDERED: SODIUM CHLORIDE 0.9% 1000ML 1,000 ML IV ONE ×3 (16:24→22:57)
--- NOTE | 2020-03-19 16:41 | Emergency Department Note ---
Impression & Plan Pneumonia, Acute hypotension, Tachycardia ED Provider Note NAME: BILLY BATRES AGE: 65 SEX: M : 1955 ARRIVES VIA: Ambulance INFORMANT: Patient, ED PROVIDER(S): Manjit Clark DO CHIEF COMPLAINT: Weakness HPI: The patient is a 65-year-old male who presented to the emergency department from the [facility] for an evaluation of generalized weakness. The patient describes not feeling well over the last few days. He is currently being treated for renal carcinoma. The patient states that he has been having generalized weakness. He denies having any fever. He does complain of a slight cough which is nonproductive. He was at the [facility] and started feeling bad. He was evaluated and found to have significant tachycardia and hypotension. He was sent directly to the emergency department. There was no reported fever. He denies having any chest pain. He denies having any abdominal pain. He denies having any dysuria frequency or chills. The patient states that he has been compliant with all of his usual outpatient medication. ROS: See above HPI for pertinent positives & negatives. A total of 10 systems reviewed and were otherwise negative. PAST MEDICAL HISTORY: See Below PAST SURGICAL HISTORY: See Below FAMILY HISTORY: See Below SOCIAL HISTORY: See Below HOME MEDICATIONS: See Below ALLERGIES: See Below VITALS: See Below PHYSICAL EXAMINATION: GENERAL: The patient is awake and alert. He is somewhat anxious appearing but overall comfortable. EYES: The conjunctivae are clear. The pupils are round and reactive. EARS, NOSE, MOUTH AND THROAT: The nose is without any evidence of any deformity. Mucous membranes are dry. NECK: The neck is nontender and supple. RESPIRATORY: Diminished breath sounds noted at both bases. There were rales at the left base. CARDIOVASCULAR: Regular rate and rhythm noted there no murmurs rubs or gallops normal S1 normal S2. GASTROINTESTINAL: The abdomen is soft. Abdomen is nontender. MUSCULOSKELETAL/EXTREMITIES: There is no evidence of gross deformity full range of motion is noted in the hips and shoulders. SKIN: There is no obvious evidence of any rash. Trace pedal edema was noted bilaterally. NEUROLOGIC: Patient is awake alert and oriented x3 strength is symmetric patellar reflexes are 2+ bilaterally MEDICAL DECISION MAKING: The patient is a 65-year-old male who presented to the emergency department for an evaluation of generalized weakness. He was at the [facility] when he became ill. Reportedly the patient had a pulse rate that was very high over 200 and his blood pressure was very low. When the paramedics arrived the patient was treated immediately with IV fluids. At that time he was noted to have sinus tachycardia and his blood pressure was low but detectable. The patient has no specific complaints but he does of a history of renal cancer. He is also had a history of lung surgery. He appears to have signs of possible pneumonia on chest x-ray. Covid swab was negative. He was treated with IV fluids as well as IV antibiotics. He was reevaluated multiple times. On subsequent reevaluation his symptoms significantly improved. I discussed the patient's laboratory and radiographic studies with him. I also [facility] I discussed this case with the on-call [facility] hospitalist. They have agreed to evaluate the patient in the emergency department for further management and disposition. Triage Nursing notes reviewed. Prior medical records reviewed Vital Signs: reviewed and remarkable for hypotension and tachycardia. Differential diagnosis: Infection, dehydration, metabolic abnormality, hypo/hyperglycemia, electrolyte disturbance, anemia, hypoxia, cardiac sources, intracerebral event, toxicologic, neurologic, as well as other pathologies. ER treatment provided: See below Diagnostics interpreted by me: ECG: EKG was obtained in the emergency department. My interpretation is sinus tachycardia at 111 bpm. There is no ectopy. Poor R wave progression was noted. LVH was noted by voltage criteria. This was compared to a tracing from March 10, 2020. There is an increase in the rate however no significant change was noted otherwise. Cardiac Monitoring: An order was placed for continuous cardiac monitoring. The monitor shows a rate of 110 bpm with sinus tachycardia rhythm. Laboratory studies: As stated above and show below. Imaging studies: See below Consultation(s): 1900: I discussed this case with Dr. Norris [facility] They will evaluate the patient in the emergency department for further management. Past Med/Surg History Medical History Acute appendicitis Cancer of kidney RIGHT KIDNEY REMOVED High triglycerides no meds History of skin cancer + resection Hypophysitis Hypothyroidism Lung metastasis Renal cell cancer Surgical History H/O arthroscopy of shoulder LEFT H/O inguinal hernia repair History of colonoscopy History of left knee surgery + REVISION X 4 History of right nephrectomy 02/07/2019: Gliescope #3 with 8.0 ETT after unsuccessful DLx2. See record for full details. History of sinus surgery DEVIATED SEPTUM REPAIR History of total left hip arthroplasty Left HAMZAH: 05/28/18: SAB x 3 attempts at L3-L4 at [facility] Status post lung surgery (06/08/19) Electromagnetic navigational bronchoscopy with marking of lesion with ICG dye. 2. Left robot-assisted thoracoscopic segmentectomy of the superior segment of left lower lobe. 3. Mediastinal lymph node dissection. Dr. 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 Beliefs That Will Affect Care: None marital status: Current Living Situation: Spouse Current Living Situation Comment: [facility] current occupational status: retired current occupation: retired from [place] [employer] Feels Safe at Home: Yes Assistive Devices: None Allergies Allergies Allergy/AdvReac Type Severity Reaction Status Date / Time atorvastatin AdvReac Unknown Muscle Pain Verified 03/19/20 19:51 Home Meds Home Medications Medication Instructions Recorded Confirmed pembrolizumab 50 mg intravenous 50 mg IV .every 6 weeks 03/02/20 03/19/20 solution axitinib 5 mg PO Q12H 03/10/20 03/19/20 hydrocortisone 7.5 mg PO .Q AFTERNOON 03/10/20 03/19/20 hydrocortisone 17.5 mg PO QAM 03/10/20 03/19/20 cefdinir 300 mg PO BID 03/19/20 03/19/20 Previous Rx's Medication Instructions Recorded levothyroxine 50 mcg tablet 50 mcg PO DAILYBB 90 Days #90 tab 03/06/20 Results & Data (ED) Vital Signs Vital Signs - 24 hr 03/19/20 16:19 03/19/20 16:21 03/19/20 16:24 Temperature Temperature Source Pulse Rate 112 H 116 H Pulse Rate [Right Finger] Pulse Rate from SpO2 Sensor 114 H 117 H Respiratory Rate 24 24 Respiratory Effort / Characteristics Respiratory Depth Respiratory Pattern Blood Pressure 101/69 Blood Pressure [Left Arm] Blood Pressure Mean 93 Blood Pressure Mean [Left Arm] Blood Pressure Position Blood Pressure Position [Left Arm] Pulse Oximetry 97 94 94 Oxygen Delivery Method Room Air Room Air Sepsis Recent Fever Within 48 Hours Sepsis New/Unexplained Change in Mental Status Sepsis Action Taken by Nursing 03/19/20 16:30 03/19/20 16:31 03/19/20 16:37 Temperature 36.5 C Temperature Source Oral Pulse Rate 103 H 103 H Pulse Rate [Right Finger] Pulse Rate from SpO2 Sensor 104 H Respiratory Rate 22 20 Respiratory Effort / Characteristics Non-Labored Respiratory Depth Normal Respiratory Pattern Blood Pressure 115/69 101/69 Blood Pressure [Left Arm] Blood Pressure Mean 91 79 Blood Pressure Mean [Left Arm] Blood Pressure Position Lying Blood Pressure Position [Left Arm] Pulse Oximetry 93 94 94 Oxygen Delivery Method Room Air Room Air Sepsis Recent Fever Within 48 Hours No Sepsis New/Unexplained Change in Mental Status N/A Sepsis Action Taken by Nursing No Action Required 03/19/20 16:40 03/19/20 16:50 03/19/20 17:00 Temperature Temperature Source Pulse Rate 102 H 111 H 112 H Pulse Rate [Right Finger] Pulse Rate from SpO2 Sensor 102 H 112 H 112 H Respiratory Rate 21 20 21 Respiratory Effort / Characteristics Respiratory Depth Respiratory Pattern Blood Pressure 103/79 Blood Pressure [Left Arm] Blood Pressure Mean 85 Blood Pressure Mean [Left Arm] Blood Pressure Position Blood Pressure Position [Left Arm] Pulse Oximetry 92 94 91 Oxygen Delivery Method Sepsis Recent Fever Within 48 Hours Sepsis New/Unexplained Change in Mental Status Sepsis Action Taken by Nursing 03/19/20 17:05 03/19/20 17:10 03/19/20 17:20 Temperature Temperature Source Pulse Rate 111 H 109 H 112 H Pulse Rate [Right Finger] Pulse Rate from SpO2 Sensor 111 H 109 H 111 H Respiratory Rate 23 22 15 Respiratory Effort / Characteristics Respiratory Depth Respiratory Pattern Blood Pressure 106/73 Blood Pressure [Left Arm] Blood Pressure Mean 86 Blood Pressure Mean [Left Arm] Blood Pressure Position Blood Pressure Position [Left Arm] Pulse Oximetry 93 94 93 Oxygen Delivery Method Room Air Sepsis Recent Fever Within 48 Hours Sepsis New/Unexplained Change in Mental Status Sepsis Action Taken by Nursing 03/19/20 17:29 03/19/20 17:30 03/19/20 17:40 Temperature Temperature Source Pulse Rate 113 H 111 H Pulse Rate [Right Finger] 111 H Pulse Rate from SpO2 Sensor 111 H 105 H Respiratory Rate 20 20 16 Respiratory Effort / Characteristics Non-Labored Spontaneous Respiratory Depth Normal Respiratory Pattern Blood Pressure 121/79 Blood Pressure [Left Arm] 106/73 Blood Pressure Mean 96 Blood Pressure Mean [Left Arm] 84 Blood Pressure Position Blood Pressure Position [Left Arm] Lying Pulse Oximetry 94 92 92 Oxygen Delivery Method Room Air Room Air Sepsis Recent Fever Within 48 Hours Sepsis New/Unexplained Change in Mental Status Sepsis Action Taken by Nursing 03/19/20 17:50 03/19/20 18:00 03/19/20 18:10 Temperature Temperature Source Pulse Rate 109 H 103 H 105 H Pulse Rate [Right Finger] Pulse Rate from SpO2 Sensor 109 H 104 H 104 H Respiratory Rate 35 H 32 H 33 H Respiratory Effort / Characteristics Respiratory Depth Respiratory Pattern Blood Pressure 126/79 Blood Pressure [Left Arm] Blood Pressure Mean 95 Blood Pressure Mean [Left Arm] Blood Pressure Position Blood Pressure Position [Left Arm] Pulse Oximetry 91 91 92 Oxygen Delivery Method Sepsis Recent Fever Within 48 Hours Sepsis New/Unexplained Change in Mental Status Sepsis Action Taken by Nursing 03/19/20 18:15 03/19/20 18:45 03/19/20 20:00 Temperature Temperature Source Pulse Rate Pulse Rate [Right Finger] 105 H 102 H 109 H Pulse Rate from SpO2 Sensor Respiratory Rate 22 18 18 Respiratory Effort / Characteristics Non-Labored Spontaneous Non-Labored Spontaneous Respiratory Depth Normal Normal Normal Respiratory Pattern Regular Blood Pressure Blood Pressure [Left Arm] 126/79 135/101 H 113/83 Blood Pressure Mean Blood Pressure Mean [Left Arm] 94 112 93 Blood Pressure Position Blood Pressure Position [Left Arm] Lying Lying Pulse Oximetry 95 93 94 Oxygen Delivery Method Room Air Room Air Room Air Sepsis Recent Fever Within 48 Hours Sepsis New/Unexplained Change in Mental Status Sepsis Action Taken by Long Term Medications Current Medication List: was personally reviewed by me Laboratory Data Attestation: I reviewed the patient's lab results. Result diagrams: 03/19/20 16:41 03/19/20 17:43 Lab Results 03/19/20 03/19/20 03/19/20 Range/Units 16:41 16:41 16:41 WBC 5.82 (4.8-10.8) K/uL RBC 6.20 H (4.7-6.1) M/uL Hgb 18.4 H (14.0-18.0) g/dL Hct 54.1 H (42-52) % MCV 87.3 (80-100) fL MCH 29.7 (25-34) pg MCHC 34.0 (32-36) g/dL RDW Std Deviation 44.7 (36.4-46.3) fL RDW Coeff of Enzo 14.0 (11.5-14.5) % Plt Count 105 L (130-400) K/uL MPV 9.3 (7.4-10.4) fL Immature Gran % (Auto) 0.3 % Neut % (Auto) 65.4 % Lymph % (Auto) 18.0 % Hernando % (Auto) 13.4 % Eos % (Auto) 2.4 % Baso % (Auto) 0.5 % Neut # (Auto) 3.80 (1.4-6.5) K/uL Lymph # (Auto) 1.05 L (1.2-3.4) K/uL Hernando # (Auto) 0.78 H (0.11-0.59) K/uL Eos # (Auto) 0.14 (0-0.5) K/uL Baso # (Auto) 0.03 (0-0.2) K/uL Immature Gran # (Auto) 0.02 (0.00-0.02) K/uL PT 11.9 (9.0-12.0) Seconds INR 1.1 (0.9-1.1) APTT 29.0 (21.0-31.0) Seconds PTT Ratio 1.0 Sodium Cancelled Potassium Cancelled Chloride Cancelled Carbon Dioxide Cancelled Anion Gap Cancelled BUN Cancelled Creatinine Cancelled Est Cr Clr Drug Dosing Cancelled Est GFR ( Amer) Cancelled Est GFR (Non-Af Amer) Cancelled BUN/Creatinine Ratio Cancelled Glucose Cancelled Lactate (0.4-2.0) mmol/L Calcium Cancelled Magnesium Cancelled Total Bilirubin Cancelled AST Cancelled ALT Cancelled Alkaline Phosphatase Cancelled Troponin I Cancelled Total Protein Cancelled Albumin Cancelled Globulin Cancelled Albumin/Globulin Ratio Cancelled Procalcitonin (0-0.5) ng/ml COVID-19 Eval Order SARS-CoV-2, RNA, NAAT (NEGATIVE) 03/19/20 03/19/20 03/19/20 Range/Units 16:41 17:17 17:43 WBC (4.8-10.8) K/uL RBC (4.7-6.1) M/uL Hgb (14.0-18.0) g/dL Hct (42-52) % MCV (80-100) fL MCH (25-34) pg MCHC (32-36) g/dL RDW Std Deviation (36.4-46.3) fL RDW Coeff of Enzo (11.5-14.5) % Plt Count (130-400) K/uL MPV (7.4-10.4) fL Immature Gran % (Auto) % Neut % (Auto) % Lymph % (Auto) % Hernando % (Auto) % Eos % (Auto) % Baso % (Auto) % Neut # (Auto) (1.4-6.5) K/uL Lymph # (Auto) (1.2-3.4) K/uL Hernando # (Auto) (0.11-0.59) K/uL Eos # (Auto) (0-0.5) K/uL Baso # (Auto) (0-0.2) K/uL Immature Gran # (Auto) (0.00-0.02) K/uL PT (9.0-12.0) Seconds INR (0.9-1.1) APTT (21.0-31.0) Seconds PTT Ratio Sodium 136 Potassium 4.2 Chloride 102 Carbon Dioxide 28 Anion Gap 6.0 BUN 24 H Creatinine 2.40 H Est Cr Clr Drug Dosing 45.0 Est GFR ( Amer) 32.1 Est GFR (Non-Af Amer) 27.7 BUN/Creatinine Ratio 10.0 Glucose 91 Lactate 2.4 H* (0.4-2.0) mmol/L Calcium 8.9 Magnesium Total Bilirubin 1.3 H AST 46 H ALT 45 Alkaline Phosphatase 81 Troponin I Total Protein 6.8 Albumin 3.5 Globulin 3.3 Albumin/Globulin Ratio 1.1 Procalcitonin 0.39 (0-0.5) ng/ml COVID-19 Eval Order SARS-CoV-2, RNA, NAAT (NEGATIVE) 03/19/20 03/19/20 Range/Units 18:18 18:18 WBC (4.8-10.8) K/uL RBC (4.7-6.1) M/uL Hgb (14.0-18.0) g/dL Hct (42-52) % MCV (80-100) fL MCH (25-34) pg MCHC (32-36) g/dL RDW Std Deviation (36.4-46.3) fL RDW Coeff of Enzo (11.5-14.5) % Plt Count (130-400) K/uL MPV (7.4-10.4) fL Immature Gran % (Auto) % Neut % (Auto) % Lymph % (Auto) % Hernando % (Auto) % Eos % (Auto) % Baso % (Auto) % Neut # (Auto) (1.4-6.5) K/uL Lymph # (Auto) (1.2-3.4) K/uL Hernando # (Auto) (0.11-0.59) K/uL Eos # (Auto) (0-0.5) K/uL Baso # (Auto) (0-0.2) K/uL Immature Gran # (Auto) (0.00-0.02) K/uL PT (9.0-12.0) Seconds INR (0.9-1.1) APTT (21.0-31.0) Seconds PTT Ratio Sodium Potassium Chloride Carbon Dioxide Anion Gap BUN Creatinine Est Cr Clr Drug Dosing Est GFR ( Amer) Est GFR (Non-Af Amer) BUN/Creatinine Ratio Glucose Lactate (0.4-2.0) mmol/L Calcium Magnesium Total Bilirubin AST ALT Alkaline Phosphatase Troponin I Total Protein Albumin Globulin Albumin/Globulin Ratio Procalcitonin (0-0.5) ng/ml COVID-19 Eval [facility] SARS-CoV-2, RNA, NAAT NEGATIVE (NEGATIVE) Administered Medications Discontinued Medications Sodium Chloride (Nss 1000ml) 1,000 mls @ 999 mls/hr IV .Q1H1M ONE Stop: 03/19/20 17:24 Last Infusion: 03/19/20 18:12 Dose: 0 mls/hr Documented by: [id number] Admin: 03/19/20 17:01 Dose: 999 mls/hr Documented by: [id number] Sodium Chloride (Nss 1000ml) 1,000 mls @ 999 mls/hr IV .Q1H1M ONE Stop: 03/19/20 18:54 Last Infusion: 03/19/20 19:14 Dose: 0 mls/hr Documented by: [id number] Admin: 03/19/20 18:13 Dose: 999 mls/hr Documented by: [id number] Piperacillin Sod/Tazobactam Sod (Zosyn) 4.5 gm in 120 mls @ 240 mls/hr IV NOW ONE Stop: 03/19/20 18:40 Last Infusion: 03/19/20 18:59 Dose: 0 mls/hr Documented by: [id number] Admin: 03/19/20 18:29 Dose: 240 mls/hr Documented by: [id number] Imaging Data Radiologist's Impression: Patient: BILLY BATRES Date: 03/19/20#: [id number]: [address] [facility][id number]: Date: 1955[facility] Zip: [place], [place] [address]Hld: 65Location: EDSex: MRoom/Bed:Att Phy:Diagnosis: LETHARGIGPri Phy: Nilesh Parmar M.D.Service Date: 03/19/20Fa Phy:Interpreting Phy: Damien Darling MDAdmit Phy: Ordering Phy: Manjit Clark DO cc: ~ XR chest 1V portable CLINICAL HISTORY: SEPSIS COMPARISON STUDY: Chest CT February 19, 2020. Chest radiograph March 10, 2020 FINDINGS: Lung volumes are diminished. There is no pneumothorax or pleural effusion. Bibasilar airspace opacities are noted. Cardiomediastinal silhouette is stable. There is no lobar consolidation. IMPRESSION: Bibasilar airspace opacities which favor an infectious process. Radiographic follow-up is recommended. ACT 112: Negative or not required by law. Electronically signed by: Damien Darling M.D. 03/19/2020 5:41 PM Dictated: [id number]: 03/19/201738 Blood Pressure Blood Pressure Findings: Low blood pressure Discharge Plan Visit Data Chief Complaint: Hypotension Stated Complaint: LETHARGIG ED Provider: Manjit Clark Discharge Problem: Pneumonia, Acute hypotension, Tachycardia Patient Disposition: Being Evaluated by Hospitalist Condition: Good Forms Stand Alone Forms: My [facility] Prescriptions Prescriptions: No Action levothyroxine [Synthroid] 50 mcg tablet 50 mcg PO DAILYBB 90 Days Qty: 90 RF: 1 pembrolizumab 50 mg recon soln 50 mg IV .every 6 weeks RF: 0 cefdinir 300 mg capsule 300 mg PO BID RF: 0 hydrocortisone 10 mg tablet 7.5 mg PO .Q AFTERNOON RF: 0 hydrocortisone 10 mg tablet 17.5 mg PO QAM RF: 0 axitinib 5 mg Tablet 5 mg PO Q12H RF: 0 Referrals Referrals: Nilesh Parmar M.D. [Primary Care Provider] -
[2020-03-19 17:07] LABS: Basophils # (auto) 0.03 K/uL (0-0.2); Basophils % (auto) 0.5 %; Eosinophils # (auto) 0.14 K/uL (0-0.5); Eosinophils % (auto) 2.4 %; Hematocrit (blood only) 54.1 % (42-52); Hemoglobin 18.4 g/dL (14.0-18.0); Immature Granulocytes # (auto) 0.02 K/uL (0.00-0.02); Immature Granulocytes % (auto) 0.3 %; Lymphocytes # (auto) 1.05 K/uL (1.2-3.4); Mean Corpuscular Hemoglobin 29.7 pg (25-34); Mean Corpuscular Volume 87.3 fL (80-100); Mean Platelet Volume 9.3 fL (7.4-10.4); Monocytes # (auto) 0.78 K/uL (0.11-0.59); Monocytes % (auto) 13.4 %; Neutrophils % (auto) 65.4 %; Platelet Count 105 K/uL (130-400); RDW Standard Deviation 44.7 fL (36.4-46.3); White Blood Count 5.82 K/uL (4.8-10.8)
[2020-03-19 17:13] LABS: INR 1.1 (0.9-1.1); Prothrombin Time 11.9 Seconds (9.0-12.0)
--- NOTE | 2020-03-19 17:42 | XRay Report ---
XR chest 1V portable CLINICAL HISTORY: SEPSIS COMPARISON STUDY: Chest CT February 19, 2020. Chest radiograph March 10, 2020 FINDINGS: Lung volumes are diminished. There is no pneumothorax or pleural effusion. Bibasilar airspa ce opacities are noted. Cardiomediastinal silhouette is stable. There is no lobar consolidation. IMPRESSION: Bibasilar airspace opacities which favor an infectious process. Radiographic follow-up i s recommended. ACT 112: Negative or not required by law. Electronically signed by: Damien Darling M.D. 03/19/2020 5:41 PM
[2020-03-19 18:08] LABS: Albumin Level 3.5 gm/dl (3.4-5.0); Calcium 8.9 mg/dl (8.5-10.1); Est GFR (African American) 32.1; Est GFR (Non-African American) 27.7; Potassium 4.2 mmol/L (3.5-5.1)
[2020-03-19 18:11] LABS: Albumin Globulin Ratio 1.1 (0.9-2); Bilirubin,Total 1.3 mg/dl (0.2-1); Globulin 3.3 gm/dl (2.5-4.0); Total Protein 6.8 gm/dl (6.4-8.2)
[2020-03-19] MEDS ORDERED: PIPERACILLIN/TAZOBACTAM 4.5 GM/120 ML BAG IV ONE (18:11)
[2020-03-19] MEDS ORDERED: PIPERACILL/TAZOBAC CONSULT ACTIVE PRN ×2 (18:11→22:25)
--- NOTE | 2020-03-19 20:04 | History & Physical Report ---
Date of Service March 19, 2020 Assessment & Plan (1) Pneumonia: (2) Tachycardia: (3) Chemotherapy-induced fatigue: (4) Lung metastasis: (5) Dehydration: Pt is a 65yo with Hx of sarcomatoid RCC s/p R nephrectomy currently on Keytruda chemotherapy, metastatic lung cancer, hypothyroidism and HTN who was admitted with weakness and dehydration, and a septic-like picture. Sepsis -Pt states he has not been feeling well for the past few days. Febrile at home -afebrile, tachycardic, tachypneic, o2 sats in low 90s on admission, WBC WNL -chest XR with bibasilar airspace opacities -lactate elevated, procal WNL -Blood Cx x2 pending -Urine Cx pending -s/p one dose Zosyn in the ED -continue Zosyn, azithromycin given chemo Hx, MRSA nares pending. Consider adding MRSA coverage if positive. -NSS@ 125mls/hr -stress dose steroids for Hx of adrenal insufficiency (see below) Pneumonia -chest XR with bibasilar airspace opacities -Pt previously on cefdinir -continue broad coverage abx regimen as above Weakness/Dehydration -Pt states he has not been feeling well for the past few days, dry on exam, no appetite -s/p two 1000ml fluid boluses in the ED -NSS @125mls/hr -replete Mag as needed, other electrolytes as needed -diet of clear liquids to encourage intake given pt states tongue swollen after last Ketruda infusion, difficult to eat as a result Adrenal insufficiency -Pt on hydrocortisone regimen at home -Hold home dosing; stress dose with IV hydrocortisone 50mg q6h Hypothyroidism - continue home levothyroxine 50mcg Hx of RCC with lung metastasis -Pt receiving Ketruda (last dose on Mar 06), axitinib 5mg BID -Follows with [facility] of [facility] who sent him over to be evaluated today -Also follows with kidney cancer specialist Dr. Rodriguez (female) in [place] FEN/GI: NSS@125mls/hr, Clear Liquids DVT prophylaxis: Heparin q8h CODE STATUS: Full code Dispo: Med/Surg with tele History of Present Illness Primary Care Provider: Nilesh Parmar Pt is a 65yo with Hx of sarcomatoid RCC s/p R nephrectomy currently on Keytruda chemotherapy, metastatic lung cancer, hypothyroidism and HTN who was admitted with weakness and dehydration, and a septic-like picture. Pt's at bedside at the time of admission and provides most of the history as pt appears to be in discomfort. states that he recently had a chest XR done which showed a pneumonia and was started on cefdinir about a week ago. However, his symptoms did not seem to be improving. States today it seemed like he had a fever and ever since his last Ketruda infusion, he has been unable to eat stating that his tongue felt swollen. states she has been trying to feed him at home with limited succes. Today they were at his visit with Milena Soniabnervincent where is was noted that he was tachycardic to the 200s. They were advised to present to the ED. Pt states that he smoked for a "few years" but quit about 20 years ago. No alcohol use or recreational drug use. They live in [place], about 65 miles away. Allergies Allergy/AdvReac Type Severity Reaction Status Date / Time atorvastatin AdvReac Unknown Muscle Pain Verified 03/19/20 19:51 Home Medications Medication Instructions Recorded Confirmed Type pembrolizumab 50 mg intravenous 50 mg IV .every 6 weeks 03/02/20 03/19/20 History solution levothyroxine 50 mcg tablet 50 mcg PO DAILYBB 90 Days #90 tab 03/06/20 03/19/20 Rx axitinib 5 mg PO Q12H 03/10/20 03/19/20 History hydrocortisone 7.5 mg PO .Q AFTERNOON 03/10/20 03/19/20 History hydrocortisone 17.5 mg PO QAM 03/10/20 03/19/20 History cefdinir 300 mg PO BID 03/19/20 03/19/20 History Past Med/Surg History Medical History Acute appendicitis Cancer of kidney RIGHT KIDNEY REMOVED High triglycerides no meds History of skin cancer + resection Hypophysitis Hypothyroidism Lung metastasis Renal cell cancer Surgical History H/O arthroscopy of shoulder LEFT H/O inguinal hernia repair History of colonoscopy History of left knee surgery + REVISION X 4 History of right nephrectomy 02/07/2019: Gliescope #3 with 8.0 ETT after unsuccessful DLx2. See record for full details. History of sinus surgery DEVIATED SEPTUM REPAIR History of total left hip arthroplasty Left HAMZAH: 05/28/18: SAB x 3 attempts at L3-L4 at [facility] Status post lung surgery (06/08/19) Electromagnetic navigational bronchoscopy with marking of lesion with ICG dye. 2. Left robot-assisted thoracoscopic segmentectomy of the superior segment of left lower lobe. 3. Mediastinal lymph node dissection. Dr. Wright 06/08/19 Family History Mother Breast cancer, Onset Age: 43 Father Esophageal cancer Sister Colon cancer Other Family history of cancer Social History Smoking Status: Never smoker Tobacco Type: Cigarettes Years Smoked: 10; Second Hand Exposure: No; Hx Alcohol Use: No Hx Substance Use: No Preferred Language: Greenlandic Communication Ability: Effective Commissioning Manager Required: No Beliefs That Will Affect Care: None marital status: Current Living Situation: Spouse Current Living Situation Comment: [facility] current occupational status: retired current occupation: retired from [employer] Other Information That Helps Us Care for You: No Feels Safe at Home: Yes Safety Concerns: Feels Safe At This Time Assistive Devices: None Review of Systems Constitutional: + fatigue, + weakness and + anorexia; no fever, no chills and no sweats Eyes: no worsening vision Ear, Nose, Mouth, Throat: no nasal congestion and no sore throat Respiratory: no cough and no dyspnea Cardiovascular: no chest pain and no palpitations Gastrointestinal: no abdominal pain, no constipation, no diarrhea/loose stools and no blood in stools Genitourinary: no dysuria and no hematuria Musculoskeletal: no back pain Integumentary: no rash Neurologic: no dizziness, no headache(s) and no confusion Psychiatric: no confusion Physical Exam Physical Exam: General: Alert, oriented. mild distress in bed Skin: No noted rashes or bruises Psych: Appropriate mood and affect Neuro: No gross deficits HEENT: NC/AT Chest: Nontender to palpation. CV: RRR, Normal s1, s2. No murmurs appreciated Resp: Breath sounds clear bilaterally, no increased effort of breathing. Abdomen: BS+. Soft, nontender, nondistended. No guarding. Extremities: No edema in lower extremities bilaterally. Results & Data Results & Data ([facility]) Vital Signs (Past 12 Hours) Vital Signs Temp Pulse Pulse Resp BP BP Pulse Ox 03/19/20 18:45 102 H 18 135/101 H 93 03/19/20 18:15 105 H 22 126/79 95 03/19/20 18:10 105 H 33 H 92 03/19/20 18:00 103 H 32 H 126/79 91 03/19/20 17:50 109 H 35 H 91 03/19/20 17:40 111 H 16 92 03/19/20 17:30 113 H 20 121/79 92 03/19/20 17:29 111 H 20 106/73 94 03/19/20 17:20 112 H 15 93 03/19/20 17:10 109 H 22 94 03/19/20 17:05 111 H 23 106/73 93 03/19/20 17:00 112 H 21 103/79 91 03/19/20 16:50 111 H 20 94 03/19/20 16:40 102 H 21 92 03/19/20 16:37 94 03/19/20 16:31 36.5 C 103 H 20 101/69 94 03/19/20 16:30 103 H 22 115/69 93 03/19/20 16:24 94 03/19/20 16:21 116 H 24 94 03/19/20 16:19 112 H 24 101/69 97 Supervising Physician Co-Signing Physician Notes Patient seen and examined, chart reviewed, case discussed with Dr. Merchant and I agree with her assessment and plan as documented above Patient non-toxic in appearance, adequate mentation, no complaints Labs and images reviewed. ?Sepsis, possible adrenal insufficiency. ?PNA - patient does not endorse symptoms consistent with PNA Covid--19 testing NEGATIVE -Empiric abx -Follow cultures -IVF given -Stress dosed steroids -REmainder of plan as above Resident Activity Tracking Resident Involvement: Resident Care Provided Care Provided: Adult Hospital Medicine (1) Pneumonia Laterality: unspecified laterality Lung location: lower lobe of lung Pneumonia type: due to unspecified organism Qualified Code(s): J18.9 - Pneumonia, unspecified organism
[2020-03-19 21:24] LABS: Appearance Urine Clear (Clear); Bacteria Urine Automated Negative (Negative); Bilirubin Urine Negative (Negative); Blood Urine 3+ (Negative); Color Urine Yellow; Glucose Urine UA Negative (Negative); Ketones Urine Negative (Negative); Leukocyte Esterase Urine 3+ (Negative); Nitrite Urine Negative (Negative); Protein Urine Negative (Negative); RBC Urine Automated 0-4 /hpf (0-4); Specific Gravity Urine 1.011 (1.000-1.030); Urobilinogen Urine Negative (Negative); WBC Urine Automated >30 /hpf (0-5); pH Urine 5.5 (4.5-7.5)
[2020-03-19] MEDS ORDERED: HYDROCORTISONE SOD SUCCINATE 100 MG/2 ML VIAL IV SCH (21:35)
[2020-03-19] MEDS ORDERED: MAGNESIUM OXIDE 400 MG TAB PO ONE (21:35)
[2020-03-19] MEDS ORDERED: AZITHROMYCIN 250 MG TAB PO ONE (21:35)
[2020-03-19] MEDS ORDERED: HYDROCORTISONE 10 MG TAB PO SCH (21:35)
[2020-03-19] MEDS ORDERED: cefTRIAXone SODIUM 2,000 MG in DEXTROSE 5% 50 ML IV SCH (22:00)
[2020-03-19] MEDS: SODIUM CHLORIDE 0.9% 1000ML 1,000 ML IV SCH (22:18)
[2020-03-19] MEDS: HEPARIN SOD 5,000 UNIT/0.5 ML VIAL SQ SCH (22:18)
[2020-03-19] MEDS: HYDROCORTISONE SOD 50 MG in SYRINGE 0 ML IV SCH (23:02)
[2020-03-19] MEDS ORDERED: ACETAMINOPHEN 500 MG TAB PO PRN (23:08)
[2020-03-20] MEDS: PIPERACILLIN/TAZOBACTAM 4.5 GM in DEXTROSE 5% 100 ML IV SCH ×3 (00:58→17:32)
[2020-03-20] MEDS: HYDROCORTISONE SOD 50 MG in SYRINGE 0 ML IV SCH ×4 (03:05→20:45)
--- NOTE | 2020-03-20 05:33 | Billing Data ---
Date of Service March 19, 2020 Coding Level of Care Code 23075 Initial Inpt Care Lvl 3
[2020-03-20] MEDS: SODIUM CHLORIDE 0.9% 1000ML 1,000 ML IV SCH ×3 (05:48→17:40)
[2020-03-20] MEDS: HEPARIN SOD 5,000 UNIT/0.5 ML VIAL SQ SCH ×4 (05:54→20:44)
[2020-03-20] MEDS: LEVOTHYROXINE SODIUM 50 MCG TABLET PO SCH (05:54)
[2020-03-20 08:09] LABS: Basophils # (auto) 0.02 K/uL (0-0.2); Basophils % (auto) 0.2 %; Hematocrit (blood only) 52.3 % (42-52); Hemoglobin 17.8 g/dL (14.0-18.0); Immature Granulocytes # (auto) 0.02 K/uL (0.00-0.02); Immature Granulocytes % (auto) 0.2 %; Lymphocytes # (auto) 0.96 K/uL (1.2-3.4); Lymphocytes % (auto) 10.2 %; Mean Corpuscular Hemoglobin 29.7 pg (25-34); Mean Corpuscular Volume 87.3 fL (80-100); Mean Platelet Volume 9.4 fL (7.4-10.4); Monocytes # (auto) 0.41 K/uL (0.11-0.59); Monocytes % (auto) 4.4 %; Neutrophils # (auto) 7.97 K/uL (1.4-6.5); Platelet Count 118 K/uL (130-400); RDW Coefficient of Variation 14.3 % (11.5-14.5); RDW Standard Deviation 45.9 fL (36.4-46.3); Red Blood Count 5.99 M/uL (4.7-6.1); White Blood Count 9.38 K/uL (4.8-10.8)
--- NOTE | 2020-03-20 08:29 | Hospitalist Progress Note ---
Date of Service March 20, 2020 Assessment & Plan (1) Sepsis: Pt is a 65yo with Hx of sarcomatoid RCC s/p R nephrectomy currently on Keytruda chemotherapy, metastatic lung cancer, hypothyroidism and HTN who was admitted with weakness and dehydration, and a septic-like picture. pt with con cern for gram negative pneumonia causing sepsis -lactate elevated, procal WNL -Blood Cx x2 pending -Urine Cx pending -C. difficile resulted positive for toxin and gene -s/p one dose Zosyn in the ED -continue Zosyn, azithromycin given chemo Hx, MRSA nares pending. Initiating oral vancomycin for C. difficile treatment Question if if she was really C. difficile sepsis rather than pneumonia given hi s markedly improved pulmonary status however initial x-ray does show bibasilar airspace opacities which could be atypical or gram-negative -NSS@ 125mls/hr -stress dose steroids for Hx of adrenal insufficiency (see below) (2) Pneumonia: -chest XR with bibasilar airspace opacities--> covid negative -Pt previously on cefdinir given the bilateral nature could be gram-negative or atypical -continue broad coverage abx regimen as above (3) C. difficile colitis: Initiating oral vancomycin therapy will consider cholestyramine if diarrhea still profuse on 03/21/2020 (4) Tachycardia: (5) Chemotherapy-induced fatigue: (6) Lung metastasis: Hx of RCC with lung metastasis -Pt receiving Ketruda (last dose on Mar 06), axitinib 5mg BID -Follows with Milena [facility] of [facility] who sent him over to be evaluated today -Also follows with kidney cancer specialist Dr. Rodriguez (female) in [place] (7) Chronic steroid use: Adrenal insufficiency -Pt on hydrocortisone regimen at home -Hold home dosing; stress dose with IV hydrocortisone 50mg q6h (8) Dehydration: Weakness/Dehydration -Pt states he has not been feeling well for the past few days, dry on exam, no appetite -s/p two 1000ml fluid boluses in the ED -NSS @125mls/hr -replete Mag as needed, other electrolytes as needed -diet of clear liquids to encourage intake given pt states tongue swollen after last Ketruda infusion, difficult to eat as a result Hypothyroidism - continue home levothyroxine 50mcg (9) DVT prophylaxis: heparin sc will be used PT is a full code Admission and Anticipated Discharge Date Admission Date: March 19, 2020 Subjective this pt feels better, much less respiratory distress but is now positive for clostridium Difficile diarrhea. pt also complains of a sore throat and some dyphagia Review of Systems Review of Systems: Mild distress and fatigue no headache, blurry or double vision Does have some painful swallowing and sore throat no chest pain, pressure or palpitations Mild shortness of breath and nonproductive cough no abdominal pain, nausea or vomiting, is having explosive profuse diarrhea no dysuria, hematuria or frequency no focal joint pain or swelling no back pain, CVA tenderness or radicular pain no bruising, bleeding or rashes no focal signs of weakness or numbness or altered sensation no complaints of anxiety or depression. Physical Exam Physical Exam: The patient appeared well nourished and normally developed. Vital signs as documented. Distal oral thrush is seen with some erythematous mucosa Head exam is normocephalic atraumatic no scleral icterus Neck is without JVD, thyromegaly, or carotid bruits. Lungs are worse bilaterally Cardiac exam, Rhythm is regular.. No murmurs, rubs or gallops. Abdominal exam reveals hyperactive bowel sounds, soft non tender, no masses Extremities are nonedematous and both pedal pulses are present Neurologic exam is alert and oriented, no focal loss of strength or sensation Skin is without bruises or rashes Psychologically is without concerns for anxiety or depression. Results & Data Results & Data ([facility]) Vital Signs (Past 12 Hours) Vital Signs Temp Pulse Pulse Resp BP BP Pulse Ox 03/20/20 08:00 97.3 F L 83 20 124/84 95 03/20/20 02:45 98.2 F 115 H 26 H 80/69 L 93 03/20/20 00:32 98.4 F 113 H 22 78/53 L 91 03/20/20 00:19 111 H 20 95 03/19/20 22:40 101.5 F H 106 H 30 H 83/64 L 95 03/19/20 21:43 100.2 F H 111 H 36 H 92/60 L 91 03/19/20 20:59 113 H 20 94/64 L 91 PG Care Time/CCT Total # of Minutes Spent Total Time Spent with Patient: Total time spent is greater than 50% in coordination of care (as documented) at patient's floor/unit and/or counseling patient: Coding Level of Care Code 52741 Subseq Hosp Care Lvl 3 Diagnoses Sepsis A41.9 Pneumonia J18.9 Laterality: unspecified laterality Lung location: lower lobe of lung Pneumonia type: due to unspecified organism C. difficile colitis A04.72 Tachycardia R00.0 Chemotherapy-induced fatigue R53.83; T45.1X5A Lung metastasis C78.00 Chronic steroid use Dehydration E86.0 DVT prophylaxis Z29.9 (1) Pneumonia Laterality: unspecified laterality Lung location: lower lobe of lung Pneumonia type: due to unspecified organism Qualified Code(s): J18.9 - Pneumonia, unspecified organism
[2020-03-20 08:36] LABS: Albumin Level 3.3 gm/dl (3.4-5.0); BUN Creatinine Ratio 11.7 (10-20); Bilirubin,Total 1.3 mg/dl (0.2-1); Calcium 8.5 mg/dl (8.5-10.1); Creatinine Clr Calc Pharmacy 40.2 ml/min; Est GFR (African American) 27.8; Globulin 3.3 gm/dl (2.5-4.0); Potassium 4.9 mmol/L (3.5-5.1); Total Protein 6.6 gm/dl (6.4-8.2)
[2020-03-20] MEDS ORDERED: HYDROCORTISONE 10 MG TAB PO SCH (09:00)
[2020-03-20 09:13] LABS: Cdiff Antigen Positive
[2020-03-20 09:16] LABS: Cdiff Toxin A+B Positive Cdiff Toxin (Negative)
[2020-03-20] MEDS: AZITHROMYCIN 250 MG TAB PO SCH (09:57)
[2020-03-20] MEDS: MAGNESIUM OXIDE 400 MG TAB PO SCH (09:57)
[2020-03-20] MEDS: VANCOMYCIN HCL 125 MG/2.5ML SOLN PO SCH ×3 (10:28→20:45)
[2020-03-20] MEDS: RASPBERRY SYRUP 5 ML UDP PO SCH ×3 (10:29→20:44)
[2020-03-20] MEDS: NYSTATIN SUSP 500,000 U/5 ML UDC PO SCH ×3 (12:12→20:44)
--- NOTE | 2020-03-20 16:44 | Electrocardiogram Report ---
Test Reason : Blood Pressure : / mmHG Vent. Rate : 111 BPM Atrial Rate : 111 BPM P-R Int : 182 ms QRS Dur : 082 ms QT Int : 324 ms P-R-T Axes : -02 -32 072 degrees QTc Int : 440 ms Sinus tachycardia Left axis deviation Minimal voltage criteria for LVH, may be normal variant Inferior infarct (cited on or before 10-MAR-2020) Possible Anterior infarct (cited on or before 10-MAR-2020) Abnormal ECG When compared with ECG of 10-MAR-2020 22:04, Vent. rate has increased BY 43 BPM T wave inversion now evident in Lateral leads Confirmed by Manjit Vaca ([id number]) on 03/20/2020 4:44:25 PM Referred By: REFERRED SELF Confirmed By:Manjit Vaca
[2020-03-20] MEDS ORDERED: PROMETHAZINE HCL 12.5 MG in SODIUM CHLORIDE 0.9% 50 ML IV PRN (17:30)
[2020-03-20] MEDS ORDERED: ONDANSETRON INJ 2 MG/ML 2 ML VIAL IV PRN (17:30)
[2020-03-21] MEDS: PIPERACILLIN/TAZOBACTAM 4.5 GM in DEXTROSE 5% 100 ML IV SCH ×4 (00:01→23:50)
[2020-03-21] MEDS: HEPARIN SOD 5,000 UNIT/0.5 ML VIAL SQ SCH ×4 (00:02→21:00)
[2020-03-21] MEDS ORDERED: Nursing to Pharmacy Communication SCH (02:45)
[2020-03-21] MEDS: SODIUM CHLORIDE 0.9% 1000ML 1,000 ML IV SCH ×2 (04:08→12:11)
[2020-03-21] MEDS: HYDROCORTISONE SOD 50 MG in SYRINGE 0 ML IV SCH ×4 (04:11→21:00)
[2020-03-21] MEDS: RASPBERRY SYRUP 5 ML UDP PO SCH ×4 (04:12→21:00)
[2020-03-21] MEDS: VANCOMYCIN HCL 125 MG/2.5ML SOLN PO SCH ×4 (04:13→21:00)
[2020-03-21] MEDS: LEVOTHYROXINE SODIUM 50 MCG TABLET PO SCH (06:12)
[2020-03-21] MEDS: MAGNESIUM OXIDE 400 MG TAB PO SCH (08:28)
[2020-03-21] MEDS: AZITHROMYCIN 250 MG TAB PO SCH (08:28)
[2020-03-21] MEDS: NYSTATIN SUSP 500,000 U/5 ML UDC PO SCH ×4 (08:28→20:59)
[2020-03-21 09:06] LABS: Basophils # (auto) 0.01 K/uL (0-0.2); Basophils % (auto) 0.1 %; Eosinophils # (auto) 0.01 K/uL (0-0.5); Eosinophils % (auto) 0.1 %; Hematocrit (blood only) 49.7 % (42-52); Hemoglobin 16.9 g/dL (14.0-18.0); Immature Granulocytes # (auto) 0.03 K/uL (0.00-0.02); Immature Granulocytes % (auto) 0.3 %; Lymphocytes # (auto) 0.86 K/uL (1.2-3.4); Lymphocytes % (auto) 7.6 %; Mean Corpuscular Hemoglobin 29.8 pg (25-34); Mean Corpuscular Volume 87.5 fL (80-100); Mean Platelet Volume 9.3 fL (7.4-10.4); Monocytes # (auto) 0.62 K/uL (0.11-0.59); Monocytes % (auto) 5.5 %; Neutrophils # (auto) 9.72 K/uL (1.4-6.5); Neutrophils % (auto) 86.4 %; Platelet Count 125 K/uL (130-400); RDW Coefficient of Variation 14.4 % (11.5-14.5); RDW Standard Deviation 45.8 fL (36.4-46.3); Red Blood Count 5.68 M/uL (4.7-6.1); White Blood Count 11.25 K/uL (4.8-10.8)
[2020-03-21 09:17] LABS: BUN Creatinine Ratio 13.5 (10-20); Calcium 8.4 mg/dl (8.5-10.1); Creatinine Clr Calc Pharmacy 44.9 ml/min; Est GFR (African American) 31.8; Est GFR (Non-African American) 27.4; Potassium 4.5 mmol/L (3.5-5.1)
[2020-03-21 09:22] LABS: Albumin Globulin Ratio 0.9 (0.9-2); Bilirubin,Total 0.7 mg/dl (0.2-1); Globulin 3.2 gm/dl (2.5-4.0); Total Protein 6.2 gm/dl (6.4-8.2)
--- NOTE | 2020-03-21 16:46 | Hospitalist Progress Note ---
Date of Service March 21, 2020 Assessment & Plan (1) Sepsis: Pt is a 65yo with Hx of sarcomatoid RCC s/p R nephrectomy currently on Keytruda chemotherapy, metastatic lung cancer, hypothyroidism and HTN who was admitted with weakness and dehydration, and a septic-like picture. pt with conc mehul for gram negative pneumonia causing sepsis, however did improve rapidly and now with strep uti on top of C diff brings diagnosis of pneumonia in question -lactate elevated, procal WNL -Blood Cx x2 pending -Urine Cx strep -C. difficile resulted positive for toxin and gene -s/p one dose Zosyn in the ED -continue Zosyn, azithromycin given chemo Hx, MRSA negative. Initiating oral vancomycin for C. difficile treatment -stress dose steroids for Hx of adrenal insufficiency (see below) (2) Pneumonia: -chest XR with bibasilar airspace opacities--> covid negative -Pt previously on cefdinir given the bilateral nature could be gram-negative or atypical -continue broad coverage abx regimen as above (3) C. difficile colitis: Initiating oral vancomycin therapy will consider cholestyramine if diarrhea still profuse on 03/21/2020 (4) Tachycardia: (5) Chemotherapy-induced fatigue: (6) Lung metastasis: Hx of RCC with lung metastasis -Pt receiving Ketruda (last dose on Mar 06), axitinib 5mg BID -Follows with Milena [facility] of [facility] who sent him over to be evaluated today -Also follows with kidney cancer specialist Dr. Rodriguez (female) in [place] (7) Chronic steroid use: Adrenal insufficiency -Pt on hydrocortisone regimen at home -Hold home dosing; stress dose with IV hydrocortisone 50mg q6h (8) Dehydration: Weakness/Dehydration -Pt states he has not been feeling well for the past few days, dry on exam, no appetite -s/p two 1000ml fluid boluses in the ED -NSS @125mls/hr -replete Mag as needed, other electrolytes as needed -diet of clear liquids to encourage intake given pt states tongue swollen after last Ketruda infusion, difficult to eat as a result Hypothyroidism - continue home levothyroxine 50mcg (9) Thrush: nystatin swish and swallow (10) DVT prophylaxis: heparin sc will be used PT is a full code Admission and Anticipated Discharge Date Admission Date: March 19, 2020 Subjective pt feels much better by still with a sore mouth but overall much better Review of Systems Review of Systems: Mild distress and fatigue no headache, blurry or double vision continues with some painful swallowing and sore throat no chest pain, pressure or palpitations Mild shortness of breath and nonproductive cough no abdominal pain, nausea or vomiting, is having explosive profuse diarrhea no dysuria, hematuria or frequency no focal joint pain or swelling no back pain, CVA tenderness or radicular pain no bruising, bleeding or rashes no focal signs of weakness or numbness or altered sensation no complaints of anxiety or depression. Physical Exam Physical Exam: The patient appeared well nourished and normally developed. Vital signs as documented. Distal oral thrush is seen with some erythematous mucosa Head exam is normocephalic atraumatic no scleral icterus Neck is without JVD, thyromegaly, or carotid bruits. Lungs are worse bilaterally Cardiac exam, Rhythm is regular.. No murmurs, rubs or gallops. Abdominal exam reveals hyperactive bowel sounds, soft non tender, no masses Extremities are nonedematous and both pedal pulses are present Neurologic exam is alert and oriented, no focal loss of strength or sensation Skin is without bruises or rashes Psychologically is without concerns for anxiety or depression. Results & Data Results & Data ([facility]) Vital Signs (Past 12 Hours) Vital Signs Temp Pulse Pulse Resp BP BP Pulse Ox 03/21/20 15:37 97.3 F L 66 18 123/80 94 03/21/20 15:14 74 03/21/20 11:46 82 03/21/20 07:06 97.5 F L 71 18 116/77 96 PG Care Time/CCT Total # of Minutes Spent Total Time Spent with Patient: Total time spent is greater than 50% in coordin ation of care (as documented) at patient's floor/unit and/or counseling patient: Coding Level of Care Code 60568 Subseq Hosp Care Lvl 3 Diagnoses Sepsis A41.9 Pneumonia J18.9 Laterality: unspecified laterality Lung location: lower lobe of lung Pneumonia type: due to unspecified organism C. difficile colitis A04.72 Tachycardia R00.0 Chemotherapy-induced fatigue R53.83; T45.1X5A Lung metastasis C78.00 Chronic steroid use Dehydration E86.0 Thrush B37.0 DVT prophylaxis Z29.9 (1) Pneumonia Laterality: unspecified laterality Lung location: lower lobe of lung Pneumonia type: due to unspecified organism Qualified Code(s): J18.9 - Pneumonia, unspecified organism
[2020-03-22] MEDS: HYDROCORTISONE SOD 50 MG in SYRINGE 0 ML IV SCH ×2 (03:44→10:48)
[2020-03-22] MEDS: VANCOMYCIN HCL 125 MG/2.5ML SOLN PO SCH ×2 (03:45→10:47)
[2020-03-22] MEDS: RASPBERRY SYRUP 5 ML UDP PO SCH ×2 (03:45→10:47)
[2020-03-22] MEDS: HEPARIN SOD 5,000 UNIT/0.5 ML VIAL SQ SCH ×2 (05:44→12:47)
[2020-03-22] MEDS: LEVOTHYROXINE SODIUM 50 MCG TABLET PO SCH (05:44)
[2020-03-22] MEDS: PIPERACILLIN/TAZOBACTAM 4.5 GM in DEXTROSE 5% 100 ML IV SCH (07:59)
[2020-03-22] MEDS: NYSTATIN SUSP 500,000 U/5 ML UDC PO SCH ×2 (08:04→12:46)
[2020-03-22] MEDS: MAGNESIUM OXIDE 400 MG TAB PO SCH (08:06)
[2020-03-22] MEDS: AZITHROMYCIN 250 MG TAB PO SCH (08:06)
[2020-03-22 08:36] LABS: Basophils # (auto) 0.01 K/uL (0-0.2); Basophils % (auto) 0.1 %; Eosinophils # (auto) 0.03 K/uL (0-0.5); Eosinophils % (auto) 0.3 %; Hematocrit (blood only) 44.7 % (42-52); Hemoglobin 14.8 g/dL (14.0-18.0); Immature Granulocytes # (auto) 0.02 K/uL (0.00-0.02); Immature Granulocytes % (auto) 0.2 %; Lymphocytes # (auto) 0.92 K/uL (1.2-3.4); Lymphocytes % (auto) 8.4 %; Mean Corpuscular Hemoglobin 29.4 pg (25-34); Mean Corpuscular Hgb Conc 33.1 g/dL (32-36); Mean Corpuscular Volume 88.9 fL (80-100); Mean Platelet Volume 9.2 fL (7.4-10.4); Monocytes # (auto) 0.65 K/uL (0.11-0.59); Monocytes % (auto) 5.9 %; Neutrophils # (auto) 9.38 K/uL (1.4-6.5); Neutrophils % (auto) 85.1 %; Platelet Count 131 K/uL (130-400); RDW Coefficient of Variation 14.6 % (11.5-14.5); RDW Standard Deviation 47.2 fL (36.4-46.3); Red Blood Count 5.03 M/uL (4.7-6.1); White Blood Count 11.01 K/uL (4.8-10.8)
[2020-03-22 08:57] LABS: Albumin Level 2.8 gm/dl (3.4-5.0); BUN Creatinine Ratio 15.3 (10-20); Calcium 8.4 mg/dl (8.5-10.1); Creatinine Clr Calc Pharmacy 55.2 ml/min; Est GFR (African American) 40.2; Est GFR (Non-African American) 34.7; Potassium 4.9 mmol/L (3.5-5.1)
[2020-03-22 09:00] LABS: Bilirubin,Total 0.5 mg/dl (0.2-1); Globulin 2.8 gm/dl (2.5-4.0); Total Protein 5.6 gm/dl (6.4-8.2)
--- NOTE | 2020-03-22 14:35 | Discharge Summary ---
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 Pt's at bedside at the time of admission and provides most of the history as pt appears to be in discomfort. states that he recently had a chest XR done which showed a pneumonia and was started on cefdinir about a week ago. However, his symptoms did not seem to be improving. States today it seemed like he had a fever and ever since his last Ketruda infusion, he has been unable to eat stating that his tongue felt swollen. states she has been trying to feed him at home with limited succes. Today they were at his visit with Milena Bradley where is was noted that he was tachycardic to the 200s. They were advised to present to the ED. Pt states that he smoked for a "few years" but quit about 20 years ago. No alcohol use or recreational drug use. They live in [place], about 65 miles away. Principal Diagnosis C. difficile colitis Enterococcus faecalis urinary tract infection present on admission Renal cell carcinoma with lung metastasis present on admission Discharge Exam The patient appeared well Vital signs as documented. Lungs are clear to auscultation and appear unlabored Cardiac exam, Rhythm is regular.. No murmurs, rubs or gallops. Abdominal exam reveals normal bowel sounds, soft non tender, no masses Extremities are nonedematous and both pedal pulses are normal. Neurologic exam is alert and oriented, no focal loss of strength or sensation Skin is without bruises or rashes Psychologically is without concerns for anxiety or depression. Discharge Data Allergies Allergy/AdvReac Type Severity Reaction Status Date / Time atorvastatin AdvReac Unknown Muscle Pain Verified 03/19/20 19:51 Consultations 03/19/20 18:57 ED Decision to Admit Stat Hospital Course (1) Sepsis: Pt is a 65yo with Hx of sarcomatoid RCC s/p R nephrectomy currently on Keytruda chemotherapy, metastatic lung cancer, hypothyroidism and HTN who was admitted with weakness and dehydration, and a septic-like picture. pt with concern for gram negative pneumonia causing sepsis, however did improve rapidly and now with strep uti on top of C diff brings diagnosis of pneumonia in question Sepsis resolved -Blood Cx x2 negative at time of discharge -Urine Cx Enterococcus faecalis pansensitive will use amoxicillin -C. difficile resulted positive for toxin and gene we will treat oral vancomycin -pneumonia has been ruled out -stress dose steroids for Hx of adrenal insufficiency (see below) (2) Pneumonia: -chest XR with bibasilar airspace opacities--> covid negative Airspace opacities felt to be atelectatic (3) C. difficile colitis: Initiating oral vancomycin therapy (4) Tachycardia: (5) Chemotherapy-induced fatigue: (6) Lung metastasis: Hx of RCC with lung metastasis -Pt receiving Ketruda (last dose on Mar 06), axitinib 5mg BID -[facility] patient instructed to hold and try neoplastic medications until he follows up with the cancer center (7) Chronic steroid use: Adrenal insufficiency Resume dose of hydrocortisone that he typically takes at home (8) Dehydration: Weakness/Dehydration Resolved Hypothyroidism - continue home levothyroxine 50mcg (9) Thrush: nystatin swish and swallow treat for additional few days at home (10) For resuscitation status: Patient is a full code Total Time Total Time Spent Total Time Spent (In Minutes): It required greater than 30 minutes to prepare th is patient for discharge Discharge Plan Discharge Items Patient Disposition: Home - Self-Care Reason For Visit: DEHYDRATION, WEAKNESS Discharge Diagnosis: clostridium difficile colitis enterococcus faecalis uti Condition on Discharge: Good Activity: Resume your previous activity Non-emergency contact: Primary Care Provider and Oncologist Call non-emergency contact if: you have any medication questions and your symptoms worsen Follow-up/Referrals: Evans Beltran DO [Physician] - 03/26/20 (You have an appt with Milena Massey on ThursdayMar 26 at 2:30pm. It is important that you keep this appt, if it does not fit your schedule, please call [phone] to reschedule. ) Nilesh Parmar M.D. [Primary Care Provider] - (Please call your pcp and make an appt to see them within 2 weeks) Diet: Regular Addtl Attending Provider Instructions: good nutrition good hydration and rest do not take you chemo until you discuss it with Dr Rick office next week Pending Studies at Discharge: No Stand-Alone Forms: My [employer], Smoking Cessation Medications and DC Order Prescriptions: New nystatin 100,000 unit/mL Suspension 10 ml PO QID Qty: 250 RF: 0 amoxicillin 500 mg capsule 500 mg PO BID 5 Days Qty: 10 RF: 0 vancomycin 125 mg capsule 125 mg PO Q6H 10 Days Qty: 40 RF: 0 Continued levothyroxine [Synthroid] 50 mcg tablet 50 mcg PO DAILYBB 90 Days Qty: 90 RF: 1 pembrolizumab 50 mg recon soln 50 mg IV .every 6 weeks RF: 0 axitinib 5 mg Tablet 5 mg PO Q12H Qty: 7 RF: 0 hydrocortisone 10 mg tablet 7.5 mg PO .Q AFTERNOON RF: 0 hydrocortisone 10 mg tablet 17.5 mg PO QAM RF: 0 Discontinued cefdinir 300 mg capsule 300 mg PO BID RF: 0 Discharge Orders: Discharge Order (Routine); Ordered 03/22/20 Ordered By: Garfield Velasquez/Other Patient Handouts: Clostridium Difficile Infection Admission Data Admit Date/Time: 03/19/20 20:15 Attending Provider: Garfield Leyva Admit Provider: Roma Merchant Primary Care Provider: Nilesh Parmar Other Providers: Clover Norris Other Interventions: Discharge Summary Assessment (RN) Last Done: 03/22/20 13:41 Coding Level of Care Code D/C Day Management >30 mins Diagnoses Sepsis A41.9 Pneumonia J18.9 Laterality: unspecified laterality Lung location: lower lobe of lung Pneumonia type: due to unspecified organism C. difficile colitis A04.72 Tachycardia R00.0 Chemotherapy-induced fatigue R53.83; T45.1X5A Lung metastasis C78.00 Chronic steroid use Dehydration E86.0 Thrush B37.0 For resuscitation status Z78.9
== END 2020-03-22 15:12 | disposition home or self-care (01) | DRG 872 ==
LOC: ED 16:09 → 2W 20:15 → SUATTDRO 20:15 → 2W 20:59

== ENCOUNTER 2023-12-24 12:35 | Inpatient (IN) ==
[2023-12-24 13:19] LABS: Hemoglobin 11.2 g/dl (14.0-18.0); Mean Corpuscular Hemoglobin 30.8 pg (25.0-34.0); Mean Corpuscular Hgb Conc 31.1 g/dL (32.0-36.0); Mean Corpuscular Volume 98.9 fL (80.0-100.0); Mean Platelet Volume 9.5 fL (9.4-12.4); Nucleated RBC # (auto) 0.06 K/uL (0.00-0.12); Nucleated RBC % (auto) 0.6 %; Platelet Count 195 K/uL (130-400); RDW Coefficient of Variation 17.8 % (11.5-14.5); RDW Standard Deviation 62.6 fL (36.4-46.3); Red Blood Count 3.64 M/uL (4.70-6.10); White Blood Count 10.12 K/ul (4.8-10.8)
[2023-12-24 13:36] LABS: Albumin Globulin Ratio 0.9 (0.9-2); Albumin Level 3.2 gm/dl (3.4-5.0); BUN Creatinine Ratio 20.5 (10-20); Bilirubin,Total 0.8 mg/dl (0.2-1.0); Calcium 8.8 mg/dl (8.6-10.3); Creatinine Clr Calc Pharmacy 40.3 ml/min; Est GFR (African American) 27.5 ml/min; Est GFR (Non-African American) 23.7 ml/min; Globulin 3.4 gm/dl (2.5-4.0); Potassium 4.5 mmol/L (3.5-5.1); Total Protein 6.6 gm/dl (6.0-8.3)
--- NOTE | 2023-12-24 13:40 | XRay Report ---
SINGLE VIEW CHEST CLINICAL HISTORY: Atypical chest pain FINDINGS: 2 AP, portable, upright chest radiographs are compared to study dated 03/19/2020. Correlati on is made with chest CT scans dated 11/30/2023 and 02/19/2020. The heart is enlarged noting atheroscl erotic calcification of the thoracic aorta. The pulmonary vasculature is noncontrast. There is airspa ce consolidation at the right lung base with possible cavitation. This is new from 11/30/2023 and cons istent with pneumonia. The left lung appears clear noting dependent atelectasis. No pneumothorax is s een. The bony thorax is grossly intact. Degenerative change is seen in the shoulders and spine. IMPRESSION: 1. Airspace consolidation with possible cavitation at the right lung base is new from 11/30/2023 and c onsistent with pneumonia. Clinical correlation will be required and radiographic follow-up to resolut ion is recommended. 2. Cardiomegaly without radiographic evidence of congestive failure. ACT 112: Negative or not required by law. Electronically signed by: Ole Wolfe M.D. 12/24/2023 1:38 PM
--- NOTE | 2023-12-24 13:43 | Emergency Department Note ---
Impression & Plan Hypoxia, SOB (shortness of breath), Elevated troponin, Dizziness, Pneumonia, CRF (chronic renal failure) ED Provider Note NAME: BILLY BATRES AGE: 68 SEX: M : 1955 ARRIVES VIA: Walk-In INFORMANT: [Patient] ED PROVIDER(S): [Ole Goodson MD] CHIEF COMPLAINT: Short of breath HISTORY OF PRESENT ILLNESS: The patient is a 68-year-old male who has a history of renal cell cancer that spread to his lungs. He has had a partial left lung resection. The patient states that for several weeks, he has noticed increasing shortness of breath. The shortness of breath is noticed with walking and when he walks, he feels dizzy. There has been no fever although he may have had a chill. He has had a cough that is dry and nonproductive. The patient did notice some swelling of his legs above baseline. The patient states that he was started on Bumex 3 days ago, he thinks this has helped his leg swelling. He states at that same time, a medication for blood pressure was stopped. The patient had gained 12 pounds, he has now lost 4 since starting the Bumex. Patient did notice some right lateral chest discomfort. He states that he notices this at nighttime primarily. It does not worsen to cough. The patient is on Eliquis, he has had a previous DVT. The patient states that he just finished prednisone after a long course. He finished up 3 days ago. Of note, in triage, the patient was hypoxic and required O2 supplementation. Initial saturation was 87%. PMHx/PSHx/Social Hx: See Below PHYSICAL EXAM: GENERAL: Patient is in no acute distress. HEENT: No acute trauma, normocephalic atraumatic, mucous membranes moist, no nasal congestion. NECK: No stridor, no adenopathy, no meningismus, trachea is midline. LUNGS: Crackles bilaterally, especially on the right. No obvious respiratory distress. HEART: Without murmurs gallops or rubs, regular rate and rhythm. ABDOMEN: Soft, nontender, no peritonitis. EXTREMITIES: No cyanosis, full range of motion of all the joints without pain or difficulty. Mild bilateral pedal edema, worse on the right. NEUROLOGIC: Oriented x 3, no acute motor or sensory deficits, no focal weakness. SKIN: No jaundice, no diaphoresis. DIFFERENTIAL DIAGNOSIS: Fluid overload, CHF, pneumonia, metastatic cancer, viral illness, PE or DVT, worsening renal failure, among others. EMERGENCY DEPARTMENT PROCEDURES: MEDICAL DECISION MAKING: There is no leukocytosis. The patient does have a mild anemia. His hemoglobin has dropped when looking back at previous testing. There is a normal platelet count. No coagulopathy. There is evidence for chronic renal failure with a creatinine of 2.68. No electrolyte abnormality in need of emergent correction. Lactic acid level is not elevated making severe sepsis less likely. No worrisome liver enzyme elevation. BNP was elevated consistent with potential fluid overload. Chest x-ray shows what appears to be a right lower lung pneumonia. I see no CHF. ECG shows a sinus rhythm, no obvious ST elevation. Cardiac enzyme testing x 1 is slightly elevated. This troponin elevation could be secondary to cardiac injury or potentially just mismatch given his dyspnea and hypoxia. COVID, influenza and RSV test were negative. Chest CT does not show PE, a right lower lung cavitary pneumonia was seen. Some patchy pneumonia findings were seen elsewhere across the lungs. Bilateral lower extremity ultrasound did not show findings of DVT. The patient did present hypoxic. He required O2 supplementation. Patient's blood pressure was borderline low in the 90s to 100 systolic. He was given a 500 cc saline bolus. I was hesitant to give any more fluid as he has required diuretics recently for weight gain and pedal edema. The patient was given IV cefepime as antibiotic coverage. He was maintained on nasal cannula O2 supplementation. The patient has done well here in the ED. His blood pressure has remained reasonable and he did not require any additional fluid or pressor support. A hospital stay is warranted given his hypoxia and findings. I did speak with case management, the on-call hospitalist was consulted. Prior/Outside records/notes reviewed: None ECG per my interpretation: Indication was shortness of breath. The ECG shows a sinus rhythm with PVCs. The rate is 91. There is no acute ST elevation. There is some diffuse nonspecific ST change. QTc is 435. Continuous Cardiac Monitoring per my interpretation: An order was placed for continuous cardiac monitoring. The monitor shows a rate of 97 with sinus rhythm with PVCs. Imaging/x-ray results per my interpretation: Chest x-ray shows a right lower lung infiltrate/mass. No pneumothorax. Chronic Medical/Social conditions affecting care: History of renal cancer with metastasis. Care/Management discussed with: Case management, the on-call hospitalist. Level of care consideration(s): After review of the information above and other included data: --I believe the patient requires escalation of care to admission Critical Care Note: I have personally spent 48 minutes of critical care time in the direct management of this patient. This includes bedside care, interpretation of diagnostic studies, and testing, discussion with consultants, patient, and family members, and other required patient management activities. This 48 minutes is in excess of all separately billable procedures. DISPOSITION: Admission Past Med/Surg History Problem List (Updated 12/24/23 @ 19:16 by Ole Goodson MD) CRF (chronic renal failure) (Acute) Pneumonia (Acute) Dizziness (Acute) Elevated troponin (Acute) SOB (shortness of breath) (Acute) Hypoxia (Acute) Hyperglycemia Elevated troponin Hypoxia Shortness of breath Acute respiratory failure with hypoxia Abnormal chest CT Necrotizing pneumonia Impingement syndrome of right shoulder Secondary adrenal insufficiency ACTH deficiency Sensorineural hearing loss of both ears Left HF asymmetry Hypertension Erectile dysfunction Hypothyroidism Hypophysitis History of hip replacement Microscopic hematuria Multiple pulmonary nodules Lung metastasis Medical History HANSEL (acute kidney injury) C. difficile colitis Ileus Renal cell carcinoma Chronic kidney disease with active medical management without dialysis, stage 3 (moderate) Hypothyroidism Acute kidney injury Pancreatitis Relative polycythemia Cardiomyopathy Adrenal insufficiency due to cancer therapy Renal cell cancer On prednisone therapy Cancer of kidney RIGHT KIDNEY REMOVED History of skin cancer + resection Sleep apnea hx CPAP ("did not like" using machine) High triglycerides no meds Surgical History Status post lung surgery (06/08/19) History of right nephrectomy History of total left hip arthroplasty History of colonoscopy History of sinus surgery History of left knee surgery H/O inguinal hernia repair H/O arthroscopy of shoulder Family History Mother Breast cancer, Onset Age: 43 Father Esophageal cancer Sister Colon cancer Other Family history of cancer Social History Smoking Status: Former smoker Tobacco Type: Cigarettes Second Hand Exposure: No; Do You Dip or Chew Tobacco: No; Hx Alcohol Use: No Hx Substance Use: No Preferred Language: Eritrean Communication Ability: Effective Visual Impairment: No Limitations Hearing Ability: Normal Industrial Photographer Required: No Beliefs That Will Affect Care: None marital status: Current Living Situation: Spouse Current Living Situation Comment: [facility] current occupational status: retired current occupation: retired from [place] [employer] Feels Safe at Home: Yes Assistive Devices: Glasses Allergies Allergies Allergy/AdvReac Type Severity Reaction Status Date / Time atorvastatin AdvReac Unknown Muscle Pain Verified 12/21/23 12:57 Home Meds Home Medications Medication Instructions Recorded Confirmed nivolumab IV .ON HOLD 07/26/21 12/21/23 cholecalciferol (vitamin D3) 25 25 mcg PO QAM 10/23/22 12/24/23 mcg (1,000 unit) capsule mecobalamin (vitamin B12) 500 mcg 500 mcg PO QAM 10/23/22 12/24/23 chewable tablet cabozantinib 20 mg tablet 20 mg PO Q OTHER DAY 09/11/23 12/24/23 apixaban 2.5 mg tablet (Eliquis) 2.5 mg PO AMPM 12/01/23 12/24/23 levothyroxine 150 mcg tablet 150 mcg PO DAILYBB 12/24/23 12/24/23 losartan 100 mg tablet 100 mg PO QAM 12/24/23 12/24/23 Previous Rx's Medication Instructions Recorded hydrocortisone 10 mg tablet See Rx Instructions PO .COMPLEX 12/09/22 #50 tabs bumetanide 1 mg tablet 2 mg (2 x 1 mg) PO BID #360 tabs 12/22/23 Results & Data (ED) Vital Signs Vital Signs - 24 hr 12/24/23 12:38 12/24/23 12:43 12/24/23 12:43 Temperature 36 C L Temperature Source Temporal Artery Scan Pulse Rate 97 H 67 Pulse Rate from SpO2 Sensor Pulse Rhythm Regular Respiratory Rate 18 21 Respiratory Effort / Characteristics Non-Labored Spontaneous Respiratory Depth Normal Blood Pressure 106/66 Blood Pressure Mean 79 Pulse Oximetry 87 L 87 L 93 Oxygen Delivery Method Room Air Room Air Room Air Sepsis Recent Fever Within 48 Hours No Sepsis New/Unexplained Change in Mental Status No Sepsis Action Taken by Nursing No Action Required Oxygen Flow Rate - Titration 2 Pulse Oximetry Post Tiitration 92 12/24/23 13:13 12/24/23 13:46 12/24/23 13:51 Temperature Temperature Source Pulse Rate 79 86 Pulse Rate from SpO2 Sensor 85 Pulse Rhythm Respiratory Rate 18 Respiratory Effort / Characteristics Respiratory Depth Blood Pressure 89/55 L 85/48 L Blood Pressure Mean 64 56 Pulse Oximetry 94 Oxygen Delivery Method Sepsis Recent Fever Within 48 Hours Sepsis New/Unexplained Change in Mental Status Sepsis Action Taken by Nursing Oxygen Flow Rate - Titration Pulse Oximetry Post Tiitration 12/24/23 15:18 12/24/23 15:30 12/24/23 16:00 Temperature Temperature Source Pulse Rate 78 72 67 Pulse Rate from SpO2 Sensor 72 73 67 Pulse Rhythm Respiratory Rate 26 H 18 21 Respiratory Effort / Characteristics Respiratory Depth Blood Pressure 97/68 L 118/75 128/85 Blood Pressure Mean 77 89 92 Pulse Oximetry 92 92 93 Oxygen Delivery Method Sepsis Recent Fever Within 48 Hours Sepsis New/Unexplained Change in Mental Status Sepsis Action Taken by Nursing Oxygen Flow Rate - Titration Pulse Oximetry Post Tiitration 12/24/23 16:30 Temperature Temperature Source Pulse Rate Pulse Rate from SpO2 Sensor Pulse Rhythm Respiratory Rate Respiratory Effort / Characteristics Respiratory Depth Blood Pressure 134/84 Blood Pressure Mean 102 Pulse Oximetry Oxygen Delivery Method Sepsis Recent Fever Within 48 Hours Sepsis New/Unexplained Change in Mental Status Sepsis Action Taken by Nursing Oxygen Flow Rate - Titration Pulse Oximetry Post Tiitration Home Medications Current Medication List: was personally reviewed by me Laboratory Data Attestation: I reviewed the patient's lab results. 12/24/23 12:48 12/24/23 12:48 Lab Results 12/24/23 12/24/23 12/24/23 Range/Units 12:45 12:48 13:40 WBC 10.12 (4.8-10.8) K/ul RBC 3.64 L (4.70-6.10) M/uL Hgb 11.2 L (14.0-18.0) g/dl Hct 36.0 L (42.0-52.0) % MCV 98.9 (80.0-100.0) fL MCH 30.8 (25.0-34.0) pg MCHC 31.1 L (32.0-36.0) g/dL RDW Std Deviation 62.6 H (36.4-46.3) fL RDW Coeff of Enzo 17.8 H (11.5-14.5) % Plt Count 195 (130-400) K/uL MPV 9.5 (9.4-12.4) fL Absolute Nucleated RBC 0.06 (0.00-0.12) K/uL Nucleated RBC % (auto) 0.6 % Neutrophils % (Manual) 85 % Lymphocytes % (Manual) 8 % Eosinophils % (Manual) 1 % Metamyelocytes % (Man) 1 % Myelocytes % (Man) 5 % Neutrophils # (Manual) 8.60 H (1.40-6.50) K/uL Total Absolute Neuts 8.60 H (1.4-6.5) K/uL Lymphocytes # (Manual) 0.81 L (1.2-3.4) K/uL Total Abs Lymphocytes 0.81 L (1.2-3.4) K/uL Eosinophils # (Manual) 0.10 (0-0.50) K/uL Metamyelocytes # (Man) 0.10 H (0-0) K/uL Myelocytes # (Manual) 0.51 H (0-0) K/uL ESR 75 H (0-20) mm/hr PT 11.5 (9.0-12.0) Seconds INR 1.1 (0.9-1.1) APTT 29 (21-31) Seconds PTT Ratio 1.1 Sodium 138 (136-145) mmol/L Potassium 4.5 (3.5-5.1) mmol/L Chloride 99 (98-107) mmol/L Carbon Dioxide 29 (21-32) mmol/L Anion Gap 10 (3-11) BUN 55 H (6-23) mg/dl Creatinine 2.68 H (0.6-1.4) mg/dl Est Cr Clr Drug Dosing 40.3 ml/min Est GFR ( Amer) 27.5 ml/min Est GFR (Non-Af Amer) 23.7 ml/min BUN/Creatinine Ratio 20.5 H (10-20) Glucose 170 H (70-99(Fasting)) mg/dl Lactate (0.4-2.0) mmol/L Calcium 8.8 (8.6-10.3) mg/dl Magnesium 2.1 (1.7-2.4) mg/dl Total Bilirubin 0.8 (0.2-1.0) mg/dl AST 28 (13-39) U/L ALT 54 H (7-52) U/L Alkaline Phosphatase 81 (34-104) U/L Troponin I High Sens 47.0 H (0-20) pg/ml C-Reactive Protein 21.31 H (0-0.5) mg/dl B-Natriuretic Peptide 118 H (0-100) pg/ml Total Protein 6.6 (6.0-8.3) gm/dl Albumin 3.2 L (3.4-5.0) gm/dl Globulin 3.4 (2.5-4.0) gm/dl Albumin/Globulin Ratio 0.9 (0.9-2) Procalcitonin 0.49 (0-0.5) ng/ml SARS-CoV-2 (PCR) NEGATIVE (Negative) Influenza Type A (PCR) Negative (Neg) Influenza Type B (PCR) Negative (Neg) RSV (RT-PCR) Negative (Neg) 12/24/23 Range/Units 14:52 WBC (4.8-10.8) K/ul RBC (4.70-6.10) M/uL Hgb (14.0-18.0) g/dl Hct (42.0-52.0) % MCV (80.0-100.0) fL MCH (25.0-34.0) pg MCHC (32.0-36.0) g/dL RDW Std Deviation (36.4-46.3) fL RDW Coeff of Enzo (11.5-14.5) % Plt Count (130-400) K/uL MPV (9.4-12.4) fL Absolute Nucleated RBC (0.00-0.12) K/uL Nucleated RBC % (auto) % Neutrophils % (Manual) % Lymphocytes % (Manual) % Eosinophils % (Manual) % Metamyelocytes % (Man) % Myelocytes % (Man) % Neutrophils # (Manual) (1.40-6.50) K/uL Total Absolute Neuts (1.4-6.5) K/uL Lymphocytes # (Manual) (1.2-3.4) K/uL Total Abs Lymphocytes (1.2-3.4) K/uL Eosinophils # (Manual) (0-0.50) K/uL Metamyelocytes # (Man) (0-0) K/uL Myelocytes # (Manual) (0-0) K/uL ESR (0-20) mm/hr PT (9.0-12.0) Seconds INR (0.9-1.1) APTT (21-31) Seconds PTT Ratio Sodium (136-145) mmol/L Potassium (3.5-5.1) mmol/L Chloride (98-107) mmol/L Carbon Dioxide (21-32) mmol/L Anion Gap (3-11) BUN (6-23) mg/dl Creatinine (0.6-1.4) mg/dl Est Cr Clr Drug Dosing ml/min Est GFR ( Amer) ml/min Est GFR (Non-Af Amer) ml/min BUN/Creatinine Ratio (10-20) Glucose (70-99(Fasting)) mg/dl Lactate 1.8 (0.4-2.0) mmol/L Calcium (8.6-10.3) mg/dl Magnesium (1.7-2.4) mg/dl Total Bilirubin (0.2-1.0) mg/dl AST (13-39) U/L ALT (7-52) U/L Alkaline Phosphatase (34-104) U/L Troponin I High Sens 43.2 H (0-20) pg/ml C-Reactive Protein (0-0.5) mg/dl B-Natriuretic Peptide (0-100) pg/ml Total Protein (6.0-8.3) gm/dl Albumin (3.4-5.0) gm/dl Globulin (2.5-4.0) gm/dl Albumin/Globulin Ratio (0.9-2) Procalcitonin (0-0.5) ng/ml SARS-CoV-2 (PCR) (Negative) Influenza Type A (PCR) (Neg) Influenza Type B (PCR) (Neg) RSV (RT-PCR) (Neg) Administered Medications Linezolid (Zyvox) 600 mg in 300 mls @ 300 mls/hr IV Q12H KASEY Stop: 12/31/23 17:29 Last Admin: 12/24/23 17:38 Dose: 300 mls/hr Documented By: BETH Discontinued Medications Hydrocortisone Sodium Succinate (Hydrocortisone Sod Succinate 100 Mg/2 Ml Vial) 100 mg IV NOW STA Stop: 12/24/23 16:38 Last Admin: 08/22/24 16:55 Dose: 100 mg Documented By: BETH Sodium Chloride (Nss) 500 mls @ 999 mls/hr IV .Q31M ONE Stop: 12/24/23 14:24 Last Infusion: 12/24/23 16:06 Dose: Infused Documented By: Admin: 12/24/23 15:20 Dose: 999 mls/hr Documented By: BETH Cefepime HCl (Maxipime) 2,000 mg in 20 mls @ 5 mls/min IV NOW STA; Protocol Stop: 12/24/23 13:57 Last Admin: 12/24/23 15:20 Dose: 5 mls/min Documented By: BETH Insulin Aspart (Insulin Aspart Per Unit Charge) 0 units SC NOW ONE Stop: 12/24/23 18:46 Last Admin: 12/24/23 18:36 Dose: 2 units Documented By: BETH Co-signed By: DE Imaging Data Radiologist's Impression: Chest X-Ray 12/24/23 12:43 SINGLE VIEW CHEST CLINICAL HISTORY: Atypical chest pain FINDINGS: 2 AP, portable, upright chest radiographs are compared to study dated 03/19/2020. Correlation is made with chest CT scans dated 11/30/2023 and 02/19/2020. The heart is enlarged noting atherosclerotic calcification of the thoracic aorta. The pulmonary vasculature is noncontrast. There is airspace consolidation at the right lung base with possible cavitation. This is new from 11/30/2023 and consistent with pneumonia. The left lung appears clear noting dependent atelectasis. No pneumothorax is seen. The bony thorax is grossly intact. Degenerative change is seen in the shoulders and spine. IMPRESSION: 1. Airspace consolidation with possible cavitation at the right lung base is new from 11/30/2023 and consistent with pneumonia. Clinical correlation will be required and radiographic follow-up to resolution is recommended. 2. Cardiomegaly without radiographic evidence of congestive failure. ACT 112: Negative or not required by law. Electronically signed by: Ole Wolfe M.D. 12/24/2023 1:[address] 12/24/23 13:37 CT SCAN OF THE CHEST WITHOUT IV CONTRAST CLINICAL HISTORY: Pneumonia. COMPARISON STUDY: Chest CT dated 11/30/2023. Chest x-ray dated 12/24/2023. TECHNIQUE: CT scan of the thorax was performed from the thoracic inlet to the upper abdomen. Images are reviewed in the axial, sagittal, and coronal planes. IV contrast was not administered for this examination as per the referring clinician. A dose lowering technique was utilized adhering to the principles of ALARA. CT DOSE: 992.33 mGy.cm FINDINGS: Thyroid: Mildly atrophic and heterogeneous. Thoracic aorta: There is mild atherosclerotic calcification of the thoracic aorta, which is normal in caliber and demonstrates standard 3-vessel arch anatomy. Heart: The heart is mildly enlarged noting trace pericardial effusion. Lungs and pleural spaces: Mild emphysematous change is noted. There is postsurgical change from left lower lobe resection. There is trace right pleural effusion. The trachea and central airways are clear. There is a 5.8 x 4.2 cm focus of ovoid consolidation with cavitation seen at the right lung base seen on image #145. This is new from 11/30/2023 and consistent with a cavitary pneumonia. Subtle ground glass opacities are seen throughout both upper lobes, right greater than left. This is also new from previous. Additional foci of parenchymal scarring are seen throughout both lungs. There are scattered calcified granulomas. Mediastinum: There is no mediastinal lymphadenopathy. Raquel: Not well assessed without IV contrast. Axillae: There is no axillary lymphadenopathy. Upper abdomen: There are calcified gallstones with no CT evidence of acute cholecystitis. The liver appears stated ptotic. There is evidence of right nephrectomy. Skeletal structures: The skeletal structures are osteopenic. Degenerative change is seen in the shoulders and spine. No lytic or blastic bony lesions are seen. IMPRESSION: 1. There is a 5.8 x 4.2 cm focus of ovoid consolidation with cavitation at the right lung base. This is new from 11/30/2023 and consistent with a necrotizing pneumonia. Radiographic follow-up to resolution is recommended. 2. Trace right pleural effusion. 3. Subtle patchy groundglass opacities are seen throughout both upper lobes, right greater than left. This is also new from 11/30/2023 and also likely infectious/inflammatory. 4. Postsurgical change is seen in the left lower lobe. 5. Mild cardiomegaly and mild emphysema. 6. Cholelithiasis. 7. Additional findings as above. ACT 112: Negative or not required by law. Electronically signed by: Ole Wolfe M.D. 12/24/2023 3:13 PM Venous Doppler Study 12/24/23 13:37 US venous doppler LE BI CLINICAL HISTORY: swelling TECHNIQUE: Bilateral lower extremity real-time compression venous ultrasound with Color Doppler imaging. Utilizing real-time ultrasonic imaging multiple real time high-resolution ultrasonic images with compression and noncompression maneuvers of the deep venous system in addition to color doppler imaging were performed from the common femoral vein through the proximal calf veins. COMPARISON: Comparison is made to a venous Doppler 07/11/2022 FINDINGS/IMPRESSION: Currently there is normal compressibility of the deep venous system from the common femoral vein through the proximal calf veins. No superficial venous thrombosis is identified. ACT 112: Negative or not required by law. Electronically signed by: Jermaine Sewell M.D. 12/24/2023 2:45 PM Discharge Plan Visit Data Chief Complaint: Shortness of Breath/Dyspnea Stated Complaint: DIZZY, SOB ED Provider: Ole Goodson Discharge Problem: Hypoxia, SOB (shortness of breath), Elevated troponin, Dizziness, Pneumonia, CRF (chronic renal failure) Patient Disposition: Admitted As Inpatient Condition: Serious Discharge Instructions Interventions: ED Discharge Assessment Last Done: 12/24/23 18:23 Discharge Problem: Pneumonia Qualifiers: Pneumonia type: due to unspecified organism Laterality: unspecified laterality Lung location: unspecified part of lung Qualified Code(s): J18.9 - Pneumonia, unspecified organism CRF (chronic renal failure) Qualifiers: Chronic kidney disease stage: unspecified stage Qualified Code(s): N18.9 - Chronic kidney disease, unspecified
[2023-12-24 13:47] LABS: ALC (manual) 0.81 K/uL (1.2-3.4); Eosinophils % (manual) 1 %; Lymphocytes # (manual) 0.81 K/uL (1.2-3.4); Lymphocytes % (manual) 8 %; Metamyelocytes % (manual) 1 %; Myelocytes # (manual) 0.51 K/uL (0-0); Myelocytes % (manual) 5 %; Neutrophils % (manual) 85 %
[2023-12-24 13:49] LABS: Magnesium 2.1 mg/dl (1.7-2.4)
[2023-12-24 13:52] LABS: INR 1.1 (0.9-1.1); Partial Thromboplastin Ratio 1.1; Partial Thromboplastin Time 29 Seconds (21-31); Prothrombin Time 11.5 Seconds (9.0-12.0)
[2023-12-24 14:41] LABS: Influenza A virus by PCR Negative (Neg); Influenza B virus by PCR Negative (Neg); RSV by PCR Negative (Neg); SARS CoV2 RNA(COVID-19) Ceph NEGATIVE (Negative)
--- NOTE | 2023-12-24 14:46 | Ultrasound Report ---
US venous doppler LE BI CLINICAL HISTORY: swelling TECHNIQUE: Bilateral lower extremity real-time compression venous ultrasound with Color Doppler imagi ng. Utilizing real-time ultrasonic imaging multiple real time high-resolution ultrasonic images with compression and noncompression maneuvers of the deep venous system in addition to color doppler imagi ng were performed from the common femoral vein through the proximal calf veins. COMPARISON: Comparison is made to a venous Doppler 07/11/2022 FINDINGS/IMPRESSION: Currently there is normal compressibility of the deep venous system from the common femoral vein thro ugh the proximal calf veins. No superficial venous thrombosis is identified. ACT 112: Negative or not required by law. Electronically signed by: Jermaine Sewell M.D. 12/24/2023 2:45 PM
--- NOTE | 2023-12-24 15:15 | CT Scan Report ---
CT SCAN OF THE CHEST WITHOUT IV CONTRAST CLINICAL HISTORY: Pneumonia. COMPARISON STUDY: Chest CT dated 11/30/2023. Chest x-ray dated 12/24/2023. TECHNIQUE: CT scan of the thorax was performed from the thoracic inlet to the upper abdomen. Images are reviewed in the axial, sagittal, and coronal planes. IV contrast was not administered for this ex amination as per the referring clinician. A dose lowering technique was utilized adhering to the pam Woo. CT DOSE: 992.33 mGy.cm FINDINGS: Thyroid: Mildly atrophic and heterogeneous. Thoracic aorta: There is mild atherosclerotic calcification of the thoracic aorta, which is normal in caliber and demonstrates standard 3-vessel arch anatomy. Heart: The heart is mildly enlarged noting trace pericardial effusion. Lungs and pleural spaces: Mild emphysematous change is noted. There is postsurgical change from left lower lobe resection. There is trace right pleural effusion. The trachea and central airways are ale r. There is a 5.8 x 4.2 cm focus of ovoid consolidation with cavitation seen at the right lung base s een on image #145. This is new from 11/30/2023 and consistent with a cavitary pneumonia. Subtle ground glass opacities are seen throughout both upper lobes, right greater than left. This is also new from previous. Additional foci of parenchymal scarring are seen throughout both lungs. There are scattere d calcified granulomas. Mediastinum: There is no mediastinal lymphadenopathy. Raquel: Not well assessed without IV contrast. Axillae: There is no axillary lymphadenopathy. Upper abdomen: There are calcified gallstones with no CT evidence of acute cholecystitis. The liver a ppears stated ptotic. There is evidence of right nephrectomy. Skeletal structures: The skeletal structures are osteopenic. Degenerative change is seen in the shoul ders and spine. No lytic or blastic bony lesions are seen. IMPRESSION: 1. There is a 5.8 x 4.2 cm focus of ovoid consolidation with cavitation at the right lung base. This is new from 11/30/2023 and consistent with a necrotizing pneumonia. Radiographic follow-up to resoluti on is recommended. 2. Trace right pleural effusion. 3. Subtle patchy groundglass opacities are seen throughout both upper lobes, right greater than left. This is also new from 11/30/2023 and also likely infectious/inflammatory. 4. Postsurgical change is seen in the left lower lobe. 5. Mild cardiomegaly and mild emphysema. 6. Cholelithiasis. 7. Additional findings as above. ACT 112: Negative or not required by law. Electronically signed by: Ole Wolfe M.D. 12/24/2023 3:13 PM
[2023-12-24] MEDS: CEFEPIME 2,000 MG/20 ML VIAL IV STA (15:20)
[2023-12-24] MEDS: SODIUM CHLORIDE 0.9% 500 ML IV ONE (15:20)
[2023-12-24 16:11] LABS: C Reactive Protein 21.31 mg/dl (0-0.5)
--- NOTE | 2023-12-24 16:27 | Pulmonary Consultation ---
Date of Consultation December 24, 2023 Assessment & Plan (1) Necrotizing pneumonia: (2) Abnormal chest CT: (3) Acute respiratory failure with hypoxia: Plan CT chest 12/24/2023 personally reviewed: Right lower lobe peripheral 5.8 cm x 4.1 cm cavitary lesion Linear atelectasis of the left lower lobe No significant mediastinal lymphadenopathy -- Cavitary pneumonia of the right lower lobe I looked at the CT abdomen pelvis from 11/30/2023 and patient did not have the right lower lobe lesion, given the acuity I doubt this to be cancerous Influenza A/B, COVID-19, RSV negative on 12/24/2023 CRP 21.3 BNP 118 --Acute hypoxic respiratory failure Secondary to above -- KELLEN Recommend outpatient polysomnography to be repeated --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 The patient still has persistent nonresolving right lower lobe opacity then bronchoscopy could be thought of at that time Please note the above document was generated using voice recognition software. It may contain grammatical, syntax or spelling errors.Any formal questions or concerns about the content, text or information contained within the body of this dictation should be directly addressed to the provider for clarification. 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 Denied any pleuritic chest pain. No headache, no nausea, no vomiting. No aspiration like episode that he could recall. He was on high-dose prednisone for approximately 2 months, he finished it on 12/21/2023. No dysuria, no diarrhea No headache, no blurry vision Social history: Approximately 21-epnp-kgbn smoking history, quit at the age of 56 Denies any pets at home, no birds or poultry nearby Allergies Allergy/AdvReac Type Severity Reaction Status Date / Time atorvastatin AdvReac Unknown Muscle Pain Verified 12/21/23 12:57 Home Medications Medication Instructions Recorded Confirmed Type nivolumab IV .ON HOLD 07/26/21 12/21/23 History cholecalciferol (vitamin D3) 25 25 mcg PO QAM 10/23/22 12/24/23 History mcg (1,000 unit) capsule mecobalamin (vitamin B12) 500 mcg 500 mcg PO QAM 10/23/22 12/24/23 History chewable tablet hydrocortisone 10 mg tablet See Rx Instructions PO .COMPLEX 12/09/22 12/24/23 Rx #50 tabs cabozantinib 20 mg tablet 20 mg PO Q OTHER DAY 09/11/23 12/24/23 History apixaban 2.5 mg tablet (Eliquis) 2.5 mg PO AMPM 12/01/23 12/24/23 History bumetanide 1 mg tablet 2 mg (2 x 1 mg) PO BID #360 tabs 12/22/23 12/24/23 Rx levothyroxine 150 mcg tablet 150 mcg PO DAILYBB 12/24/23 12/24/23 History losartan 100 mg tablet 100 mg PO QAM 12/24/23 12/24/23 History Patient History Medical History HANSEL (acute kidney injury) C. difficile colitis Ileus Renal cell carcinoma Chronic kidney disease with active medical management without dialysis, stage 3 (moderate) Hypothyroidism Acute kidney injury Pancreatitis Relative polycythemia Cardiomyopathy Adrenal insufficiency due to cancer therapy Renal cell cancer On prednisone therapy Cancer of kidney RIGHT KIDNEY REMOVED History of skin cancer + resection Sleep apnea hx CPAP ("did not like" using machine) High triglycerides no meds Surgical History Status post lung surgery (06/08/19) Electromagnetic navigational bronchoscopy with marking of lesion with ICG dye. 2. Left robot-assisted thoracoscopic segmentectomy of the superior segment of left lower lobe. 3. Mediastinal lymph node dissection. Dr. Wright 06/08/19 History of right nephrectomy 02/07/2019: Gliescope #3 with 8.0 ETT after unsuccessful DLx2. See record for full details. History of total left hip arthroplasty Left HAMZAH: 05/28/18: SAB x 3 attempts at L3-L4 at [facility] History of colonoscopy History of sinus surgery DEVIATED SEPTUM REPAIR History of left knee surgery + REVISION X 4 H/O inguinal hernia repair H/O arthroscopy of shoulder LEFT Family History Mother Breast cancer, Onset Age: 43 Father Esophageal cancer Sister Colon cancer Other Family history of cancer Social History Smoking Status: Former smoker Tobacco Type: Cigarettes Second Hand Exposure: No; Do You Dip or Chew Tobacco: No; Hx Alcohol Use: No Hx Substance Use: No Preferred Language: Citizen Of [place] Communication Ability: Effective Visual Impairment: No Limitations Hearing Ability: Normal Etl Application Developer Required: No Beliefs That Will Affect Care: Oriental Orthodox Oriental Orthodox Beliefs: sikh marital status: Current Living Situation: Spouse Current Living Situation Comment: [facility] current occupational status: retired current occupation: retired from [employer] Feels Safe at Home: Yes Assistive Devices: None Review of Systems 2 Review of Systems: All systems reviewed & are unremarkable except as noted in HPI & below Physical Exam 2 Physical Exam: Constitutional: No acute distress HEENT: EOMI, PERRLA Respiratory system: Decreased air entry bilaterally, no wheeze, rhonchi, positive crackles bilateral lower lobes CVS: S1-S2 positive, no murmurs or gallops Abdomen: Soft, nontender, nondistended, positive bowel sounds x4 Extremities: +2 pulses bilaterally radialis/ dorsalis pedis, no cyanosis, +2 pitting edema bilateral lower extremity Neuro: Awake alert oriented x3 Psych: Normal mood and affect G/U: No Bentley Skin: no rashes, warm and dry Lymphatic: no cervical or axillary lymphadenopathy Results & Data Results & Data Vital Signs (Past 12 Hours) Vital Signs Temp Pulse Resp BP Pulse Ox O2 Del Method 12/24/23 13:13 79 12/24/23 12:43 87 L Room Air 12/24/23 12:38 36 C L 97 H 18 106/66 87 L Room Air Laboratory Results 12/24/23 12:48 12/24/23 12:48 PG Care Time/CCT Total # of Minutes Spent Total Time Spent with Patient: Total time spent is greater than 50% in coordination of care (as documented) at patient's floor/unit and/or counseling patient: Coding Level of Care Code 43048 INT INP/OBS CARE MIN Diagnoses Necrotizing pneumonia J85.[address] R93.89 Acute respiratory failure with hypoxia J96.01
--- NOTE | 2023-12-24 16:43 | History & Physical Report ---
Date of Service December 24, 2023 Assessment & Plan (1) Hypoxia: Plan: Admit to the PCU on telemetry and pulse oximetry Currently stable on 1 L nasal cannula, hemodynamically stable, and nontoxic- appearing Presented to the ED today due to approximately 3 weeks of progressive shortness of breath, dyspnea on exertion, nonproductive cough, and lightheadedness/dizziness CT of the chest without contrast notes findings concerning for necrotizing pneumonia in the right lower lobe Patient was noted to be hypoxic on arrival with SpO2 in the high 80s on room air Pulmonology has been consulted and will continue to follow Status post 1 dose of cefepime in the ED Started patient on Zosyn, would be hesitant to start patient on vancomycin at this time due to having a solitary left kidney and mildly elevated creatinine For now we will continue with cefepime and linezolid until MRSA nasal swab is back Infectious disease consult has been placed, will need to be called tomorrow as consult was placed after abnormal answering service hours Incentive spirometry, flutter therapy, as needed Robitussin/codeine for cough As needed O2 to keep SpO2 at or above 92% Monitor for signs of hemoptysis with being on low-dose Eliquis Continue low-dose Eliquis for DVT prophylaxis Heart healthy/DM type II diet due to hyperglycemia with ongoing corticosteroid use AM CBC, CMP, mag, PT/INR, hemoglobin A1c (2) Necrotizing pneumonia: Plan: Noted on CT of the chest without contrast today Follow-up pulmonology and infectious disease consults Will continue with Zosyn and linezolid for now Follow blood/sputum cultures and MRSA nasal swab O2 to keep SpO2 at or above 92% Incentive spirometry, flutter therapy, as needed albuterol, as needed Robitussin/codeine (3) Secondary adrenal insufficiency: Plan: Patient has been on a chronic steroid taper outpatient Hypotensive on arrival We will start stress dose steroids with 100 mg IV hydrocortisone now Continue with 50 mg IV hydrocortisone every 6 hours until stable (4) Hypertension: Plan: Currently stable Hold losartan due to hypotension on arrival and high risk for adrenal crisis with acute infection (5) Renal cell carcinoma: Plan: Follows with [facility] oncology Has currently been on P.O. cabozantinib every other day Last dose was this a.m. Will consult [facility] to assist with chemotherapy management with acute infection (6) Chronic kidney disease with active medical management without dialysis, stage 3 (moderate): Plan: Creatinine currently 2.68 today, baseline should be near 2.02.4 per last nephrology note Suspect elevated creatinine may be due to recent use of Bumex for bilateral lower extremity swelling, holding for now Follows with [facility] nephrology, consult placed Status post right total nephrectomy due to renal cell carcinoma and 2019 Has been on a long steroid taper due to concerns for reduced renal function from previous chemotherapy Avoid nephrotoxic agents, monitor daily renal function and electrolytes (7) Elevated troponin: Plan: Initial high-sensitivity troponin elevated at 47, down to 43 on 2-hour repeat No acute ST segment or T wave changes on EKG, patient denies chest pain Likely due to demand from current infection continue Continue to monitor on telemetry for now (8) Hyperglycemia: Plan: Patient had to be hyperglycemic with glucose of 170 on arrival Likely due to recent steroid use Will likely be hyperglycemic throughout admission as he has been started on stress dose steroids Will start monitoring BSG ACHS, goal is [id number] Will start CF of 45 and CR 15 ACHS for now Monitor a.m. hemoglobin A1c and adjust regimen as needed Plan The patient was discussed with Dr. Li at the time History of Present Illness Chief Complaint: Shortness of breath Primary Care Provider: Bill Cantrell MD Evans is a 68-year-old male with a past medical history significant for metastatic renal cell carcinoma to the lung status post laparoscopic right nephrectomy in 2018, status post left lower lobe wedge resection in June 2019, currently on cabozantinib, ACTH deficiency, left lower extremity DVT in 2022 (on Eliquis for DVT prophylaxis while on chemotherapy), hypertension, secondary adrenal insufficiency, stage III CKD with solitary left kidney who presented to the [facility] ED on 12/24/2023 with complaints of ongoing shortness of breath. On arrival to the ED he was noted to be apnea hypotensive at 89/55, tachycardic at 97, tachypneic at 26, and initially hypoxic on room air at 87%. Labs were significant for hemoglobin of 11.2 (down from 12.2 as of 12/03/2023), creatinine of 2.68 (baseline is between 2.02.4 per last nephrology note), initial high-sensitivity troponin of 47 down to 43 on 2-hour repeat, CRP of 21, Pro-Sunny of 0.49, with COVID-19/influenza/RSV screens negative. Chest x-ray was read as airspace consolidation with possible cavitation at the right lung base is new from 11/30/2023 and consistent with pneumonia. Clinical correlation will be required and radiographic follow-up to resolution is recommended. Cardiomegaly without radiographic evidence of congestive failure. CT of the chest without IV contrast was read as a 5.8 x 4.2 cm focus of ovoid consolidation with cavitation at the right lung base. This is new from 11/30/2023 and consistent with a necrotizing pneumonia. Radiographic follow-up to resolution is recommended. Trace right pleural effusion. Subtle patchy groundglass opacities are seen throughout both upper lobes, right greater than left. This is also new from 11/30/2023 and also likely infectious/inflammatory. Postsurgical changes seen in the left lower lobe. Mild cardiomegaly and mild emphysema. Venous Dopplers of the bilateral lower extremities were read as negative for DVT. Prior to admission the patient was given a dose of cefepime and 500 mL NSS. Patient was sitting in bed in no acute distress at the time of exam with his bedside, history is obtained from both. They explained that the patient has been experiencing progressive shortness of breath, dyspnea on exertion, nonproductive cough, and lightheadedness/dizziness with changing positions over the past 3 to 4 weeks. Patient attributed the symptoms to issues with his known adrenal insufficiency which is why he did not seek evaluation sooner. Believes he may have been having fevers but did not officially check his temperature, no recent chest pain, denies hemoptysis, denies abdominal pain, nausea/vomiting, diarrhea, dysuria, hematuria, melena. They confirm that he is on low-dose Eliquis due to his history of left lower extremity DVT in 2022. He completed his course of anticoagulation for treatment of the left lower extremity DVT but is currently on a prophylactic dose of Eliquis as his current chemotherapy increases risk of blood clots. Patient had a fall from standing approximately 2 weeks ago due to increased lightheadedness. Denies loss of consciousness and did not hit his head. Has resulting healing skin tears on the bilateral anterior shins after the fall. We discussed CODE STATUS, he confirms he is a full code and would want his to make medical decisions for him if he cannot make them himself. Please refer to Dr. Li's attestation for any changes to the treatment plan Allergies Allergy/AdvReac Type Severity Reaction Status Date / Time atorvastatin AdvReac Unknown Muscle Pain Verified 12/21/23 12:57 Home Medications Medication Instructions Recorded Confirmed Type nivolumab IV .ON HOLD 07/26/21 12/21/23 History cholecalciferol (vitamin D3) 25 25 mcg PO QAM 10/23/22 12/24/23 History mcg (1,000 unit) capsule mecobalamin (vitamin B12) 500 mcg 500 mcg PO QAM 10/23/22 12/24/23 History chewable tablet hydrocortisone 10 mg tablet See Rx Instructions PO .COMPLEX 12/09/22 12/24/23 Rx #50 tabs cabozantinib 20 mg tablet 20 mg PO Q OTHER DAY 09/11/23 12/24/23 History apixaban 2.5 mg tablet (Eliquis) 2.5 mg PO AMPM 12/01/23 12/24/23 History bumetanide 1 mg tablet 2 mg (2 x 1 mg) PO BID #360 tabs 12/22/23 12/24/23 Rx levothyroxine 150 mcg tablet 150 mcg PO DAILYBB 12/24/23 12/24/23 History losartan 100 mg tablet 100 mg PO QAM 12/24/23 12/24/23 History Past Med/Surg History Problem List (Updated 12/25/23 @ 12:28 by Victor Manuel Santiago DO) Cavitary lesion of lung Chronic kidney disease CRF (chronic renal failure) (Acute) Pneumonia (Acute) Dizziness (Acute) Elevated troponin (Acute) SOB (shortness of breath) (Acute) Hypoxia (Acute) Hyperglycemia Elevated troponin Hypoxia Shortness of breath Acute respiratory failure with hypoxia Abnormal chest CT Necrotizing pneumonia Impingement syndrome of right shoulder Secondary adrenal insufficiency ACTH deficiency Sensorineural hearing loss of both ears Left HF asymmetry Hypertension Erectile dysfunction Hypothyroidism Hypophysitis History of hip replacement Microscopic hematuria Multiple pulmonary nodules Lung metastasis Medical History HANSEL (acute kidney injury) C. difficile colitis Ileus Renal cell carcinoma Chronic kidney disease with active medical management without dialysis, stage 3 (moderate) Hypothyroidism Acute kidney injury Pancreatitis Relative polycythemia Cardiomyopathy Adrenal insufficiency due to cancer therapy Renal cell cancer On prednisone therapy Cancer of kidney RIGHT KIDNEY REMOVED History of skin cancer + resection Sleep apnea hx CPAP ("did not like" using machine) High triglycerides no meds Surgical History Status post lung surgery (06/08/19) Electromagnetic navigational bronchoscopy with marking of lesion with ICG dye. 2. Left robot-assisted thoracoscopic segmentectomy of the superior segment of left lower lobe. 3. Mediastinal lymph node dissection. Dr. Wright 06/08/19 History of right nephrectomy 02/07/2019: Gliescope #3 with 8.0 ETT after unsuccessful DLx2. See record for full details. History of total left hip arthroplasty Left HAMZAH: 05/28/18: SAB x 3 attempts at L3-L4 at [facility] History of colonoscopy History of sinus surgery DEVIATED SEPTUM REPAIR History of left knee surgery + REVISION X 4 H/O inguinal hernia repair H/O arthroscopy of shoulder LEFT Family History Mother Breast cancer, Onset Age: 43 Father Esophageal cancer Sister Colon cancer Other Family history of cancer Social History Smoking Status: Former smoker Tobacco Type: Cigarettes Second Hand Exposure: No; Do You Dip or Chew Tobacco: No; Hx Alcohol Use: No Hx Substance Use: No Preferred Language: Maori Communication Ability: Effective Visual Impairment: No Limitations Hearing Ability: Normal [employer] Required: No Beliefs That Will Affect Care: Adventism Adventism Beliefs: pentecostalism marital status: Current Living Situation: Spouse Current Living Situation Comment: [facility] current occupational status: retired current occupation: retired from [employer] Feels Safe at Home: Yes Assistive Devices: None Physical Exam Physical Exam: Physical Exam: General: In no acute distress, stated age, chronically ill-appearing but nontoxic HEENT: Normocephalic, atraumatic, no scleral icterus, pupils around round, symmetrical, and reactive to light, moist mucus membranes, trachea midline, no thyromegaly Chest/Pulm: No respiratory distress, symmetrical chest expansion, absent breath sounds in the left lower lobe, rhonchi noted in the right lower lobe, otherwise CTA Cardiac: RRR, no murmurs noted Abdomen: Negative for ascites and bruising, normoactive bowel sounds, soft, non-tender to palpation throughout Musculoskeletal: Symmetrical and without signs of acute trauma, upper and lower extremities with full ROM, no atrophy, spasticity, or flaccidity Extremities: Radial, dorsalis pedis, and posterior tibial pulses are intact and symmetrical, 1+ pitting edema in the bilateral lower extremities Skin: Healing skin tears on the bilateral anterior shins without signs of infection, bruising noted on the bilateral shins from recent fall Neuro: Alert and oriented to person, place, month, year, and president, no focal defects, no tremors noted Psych: No acute distress, calm and cooperative during the exam Results & Data Results & Data Vital Signs (Past 12 Hours) Vital Signs Temp Pulse Resp BP Pulse Ox O2 Del Method 12/24/23 13:13 79 12/24/23 12:43 87 L Room Air 12/24/23 12:38 36 C L 97 H 18 106/66 87 L Room Air Laboratory Results Abnormal lab results 12/24/23 12/24/23 12/24/23 Range/Units 12:45 12:48 14:52 RBC 3.64 L (4.70-6.10) M/uL Hgb 11.2 L (14.0-18.0) g/dl Hct 36.0 L (42.0-52.0) % MCHC 31.1 L (32.0-36.0) g/dL RDW Std Deviation 62.6 H (36.4-46.3) fL RDW Coeff of Enzo 17.8 H (11.5-14.5) % Neutrophils # (Manual) 8.60 H (1.40-6.50) K/uL Total Absolute Neuts 8.60 H (1.4-6.5) K/uL Lymphocytes # (Manual) 0.81 L (1.2-3.4) K/uL Total Abs Lymphocytes 0.81 L (1.2-3.4) K/uL Metamyelocytes # (Man) 0.10 H (0-0) K/uL Myelocytes # (Manual) 0.51 H (0-0) K/uL ESR 75 H (0-20) mm/hr BUN 55 H (6-23) mg/dl Creatinine 2.68 H (0.6-1.4) mg/dl BUN/Creatinine Ratio 20.5 H (10-20) Glucose 170 H (70-99(Fasting)) mg/dl ALT 54 H (7-52) U/L Troponin I High Sens 47.0 H 43.2 H (0-20) pg/ml C-Reactive Protein 21.31 H (0-0.5) mg/dl B-Natriuretic Peptide 118 H (0-100) pg/ml Albumin 3.2 L (3.4-5.0) gm/dl Diagnostic Findings Chest X-Ray 12/24/23 12:43 SINGLE VIEW CHEST CLINICAL HISTORY: Atypical chest pain FINDINGS: 2 AP, portable, upright chest radiographs are compared to study dated 03/19/2020. Correlation is made with chest CT scans dated 11/30/2023 and 02/19/2020. The heart is enlarged noting atherosclerotic calcification of the thoracic aorta. The pulmonary vasculature is noncontrast. There is airspace consolidation at the right lung base with possible cavitation. This is new from 11/30/2023 and consistent with pneumonia. The left lung appears clear noting dependent atelectasis. No pneumothorax is seen. The bony thorax is grossly intact. Degenerative change is seen in the shoulders and spine. IMPRESSION: 1. Airspace consolidation with possible cavitation at the right lung base is new from 11/30/2023 and consistent with pneumonia. Clinical correlation will be required and radiographic follow-up to resolution is recommended. 2. Cardiomegaly without radiographic evidence of congestive failure. ACT 112: Negative or not required by law. Electronically signed by: Ole Wolfe M.D. 12/24/2023 1:[address] 12/24/23 13:37 CT SCAN OF THE CHEST WITHOUT IV CONTRAST CLINICAL HISTORY: Pneumonia. COMPARISON STUDY: Chest CT dated 11/30/2023. Chest x-ray dated 12/24/2023. TECHNIQUE: CT scan of the thorax was performed from the thoracic inlet to the upper abdomen. Images are reviewed in the axial, sagittal, and coronal planes. IV contrast was not administered for this examination as per the referring clinician. A dose lowering technique was utilized adhering to the principles of ALARA. CT DOSE: 992.33 mGy.cm FINDINGS: Thyroid: Mildly atrophic and heterogeneous. Thoracic aorta: There is mild atherosclerotic calcification of the thoracic aorta, which is normal in caliber and demonstrates standard 3-vessel arch anatomy. Heart: The heart is mildly enlarged noting trace pericardial effusion. Lungs and pleural spaces: Mild emphysematous change is noted. There is postsurgical change from left lower lobe resection. There is trace right pleural effusion. The trachea and central airways are clear. There is a 5.8 x 4.2 cm focus of ovoid consolidation with cavitation seen at the right lung base seen on image #145. This is new from 11/30/2023 and consistent with a cavitary pneumonia. Subtle ground glass opacities are seen throughout both upper lobes, right greater than left. This is also new from previous. Additional foci of parenchymal scarring are seen throughout both lungs. There are scattered calcified granulomas. Mediastinum: There is no mediastinal lymphadenopathy. Raquel: Not well assessed without IV contrast. Axillae: There is no axillary lymphadenopathy. Upper abdomen: There are calcified gallstones with no CT evidence of acute cholecystitis. The liver appears stated ptotic. There is evidence of right nephrectomy. Skeletal structures: The skeletal structures are osteopenic. Degenerative change is seen in the shoulders and spine. No lytic or blastic bony lesions are seen. IMPRESSION: 1. There is a 5.8 x 4.2 cm focus of ovoid consolidation with cavitation at the right lung base. This is new from 11/30/2023 and consistent with a necrotizing pneumonia. Radiographic follow-up to resolution is recommended. 2. Trace right pleural effusion. 3. Subtle patchy groundglass opacities are seen throughout both upper lobes, right greater than left. This is also new from 11/30/2023 and also likely infectious/inflammatory. 4. Postsurgical change is seen in the left lower lobe. 5. Mild cardiomegaly and mild emphysema. 6. Cholelithiasis. 7. Additional findings as above. ACT 112: Negative or not required by law. Electronically signed by: Ole Wolfe M.D. 12/24/2023 3:13 PM Venous Doppler Study 12/24/23 13:37 US venous doppler LE BI CLINICAL HISTORY: swelling TECHNIQUE: Bilateral lower extremity real-time compression venous ultrasound with Color Doppler imaging. Utilizing real-time ultrasonic imaging multiple real time high-resolution ultrasonic images with compression and noncompression maneuvers of the deep venous system in addition to color doppler imaging were performed from the common femoral vein through the proximal calf veins. COMPARISON: Comparison is made to a venous Doppler 07/11/2022 FINDINGS/IMPRESSION: Currently there is normal compressibility of the deep venous system from the common femoral vein through the proximal calf veins. No superficial venous thrombosis is identified. ACT 112: Negative or not required by law. Electronically signed by: Jermaine Sewell M.D. 12/24/2023 2:45 PM ECG Additional Comments: Sinus rhythm with occasional Premature ventricular complexes Old Inferior infarct Poor R wave progression, consider anterior [place] vs. lead placement vs. LVH Left ventricular hypertrophy with repolarization abnormality Abnormal ECG When compared with ECG of 19-Mar-2020 17:07, Premature ventricular complexes are now Present Confirmed by Raymond Barriga ([id number]) on 12/24/2023 5:12:42 PM Code Status & VTE Plan Code Status Full code VTE Prophylaxis Plan VTE Prophylaxis will be ordered: Yes Supervising Physician Co-Signing Physician Notes I personally saw and examined the patient. I verified all friedman points and agree with Victor Manuel Gibson PA-C with the following exceptions and/or additions: 68 year old male with metastatic renal cell carcinoma present to the ER with 2 weeks shortness of breath and right lateral pleuritic chest pain. O/E HS RRR, no murmurs, Chest bibsal coarse crackles, no wheezing, Abdo SNT A/P Necrotizing pneumonia - Zosyn, consult pulmonology (requested MRSA coverage therefore will also start linezolid given ACTH insufficiency - in setting of necrotizing pneumonia and borderline BP, start stress dose steroids with hydrocortisone 100mg IV now then 50mg q6h PG Care Time/CCT Total # of Minutes Spent Total Time Spent with Patient: Total time spent is greater than 50% in coordination of care (as documented) at patient's floor/unit and/or counseling patient: Coding [place] [address] INT INP/OBS CARE 3/75MIN Patient Type Established Medical Decision Making High Complexity Diagnoses Hypoxia R09.02 Necrotizing pneumonia J85.0 Secondary adrenal insufficiency E27.49 Hypertension I10 Renal cell carcinoma, unspecified laterality C64.9 Laterality: unspecified laterality Chronic kidney disease with active medical management without dialysis, stage 3 (moderate) N18.30 Elevated troponin R79.89 Hyperglycemia R73.9 (5) Renal cell carcinoma Laterality: unspecified laterality Qualified Code(s): C64.9 - Malignant neoplasm of unspecified kidney, except renal pelvis
[2023-12-24] MEDS: HYDROCORTISONE SOD SUCCINATE 100 MG/2 ML VIAL IV STA (16:55)
[2023-12-24] MEDS ORDERED: ALBUTEROL 0.5% NEB SOLN 2.5 MG/0.5 ML VIAL NEB PRN (17:10)
--- NOTE | 2023-12-24 17:12 | Electrocardiogram Report ---
Test Reason : Blood Pressure : */* mmHG Vent. Rate : 91 BPM Atrial Rate : 91 BPM P-R Int : 150 ms QRS Dur : 82 ms QT Int : 354 ms P-R-T Axes : 24 -18 45 degrees QTcB Int : 435 ms Sinus rhythm with occasional Premature ventricular complexes Old Inferior infarct Poor R wave progression, consider anterior [place] vs. lead placement vs. LVH Left ventricular hypertrophy with repolarization abnormality Abnormal ECG When compared with ECG of 19-Mar-2020 17:07, Premature ventricular complexes are now Present Confirmed by Raymond Barriga ([id number]) on 12/24/2023 5:12:42 PM Referred By: REFERRED SELF Confirmed By: Raymond Barriga
[2023-12-24] MEDS ORDERED: guaiFENesin/CODEINE 100MG/10MG 5ML UDC PO PRN (17:14)
[2023-12-24] MEDS ORDERED: CARBOHYDRATES FOR HYPOGLYCEMIA PO PRN (17:30)
[2023-12-24] MEDS ORDERED: GLUCOSE 40% GEL 15 GM TUBE PO PRN (17:30)
[2023-12-24] MEDS ORDERED: GLUCOSE 10 TAB/TUBE PO PRN (17:30)
[2023-12-24] MEDS ORDERED: DEXTROSE 50% 50 ML SYRINGE IV PRN (17:30)
[2023-12-24] MEDS ORDERED: GLUCAGON FOR INJ 1 MG VIAL SQ PRN (17:30)
[2023-12-24] MEDS: LINEZOLID 600 MG/300 ML BAG IV SCH (17:38)
[2023-12-24] MEDS: INSULIN ASPART PER UNIT CHARGE SC ONE (18:36)
[2023-12-24] MEDS: INSULIN ASPART PER UNIT CHARGE SC SCH (21:37)
[2023-12-24] MEDS: APIXABAN 2.5 MG TAB PO SCH (22:22)
[2023-12-24] MEDS: PIPERACILLIN/TAZOBACTAM 4.5 GM/100 ML BAG IV ONE (22:23)
[2023-12-24] MEDS: HYDROCORTISONE SOD 50 MG in SYRINGE 0 ML IV SCH (22:23)
[2023-12-24] MEDS ORDERED: HYDROCORTISONE SOD SUCCINATE 100 MG/2 ML VIAL IV SCH (23:00)
[2023-12-25 05:00] LABS: Hematocrit (blood only) 27.8 % (42.0-52.0); Hemoglobin 9.1 g/dl (14.0-18.0); Mean Corpuscular Hemoglobin 31.5 pg (25.0-34.0); Mean Corpuscular Hgb Conc 32.7 g/dL (32.0-36.0); Mean Corpuscular Volume 96.2 fL (80.0-100.0); Mean Platelet Volume 9.2 fL (9.4-12.4); Nucleated RBC # (auto) 0.02 K/uL (0.00-0.12); Nucleated RBC % (auto) 0.3 %; Platelet Count 150 K/uL (130-400); RDW Coefficient of Variation 16.8 % (11.5-14.5); RDW Standard Deviation 58.2 fL (36.4-46.3); Red Blood Count 2.89 M/uL (4.70-6.10); White Blood Count 6.83 K/ul (4.8-10.8)
[2023-12-25 05:14] LABS: INR 1.1 (0.9-1.1); Prothrombin Time 11.5 Seconds (9.0-12.0)
[2023-12-25 05:18] LABS: Albumin Level 2.8 gm/dl (3.4-5.0); Bilirubin,Total 0.7 mg/dl (0.2-1.0); Magnesium 2.1 mg/dl (1.7-2.4); Potassium 4.4 mmol/L (3.5-5.1)
[2023-12-25 05:24] LABS: BUN Creatinine Ratio 21.7 (10-20); Creatinine Clr Calc Pharmacy 42.7 ml/min; Est GFR (African American) 29.5 ml/min; Est GFR (Non-African American) 25.4 ml/min; Globulin 2.9 gm/dl (2.5-4.0); Total Protein 5.7 gm/dl (6.0-8.3)
[2023-12-25] MEDS: LEVOTHYROXINE SODIUM 150 MCG TABLET PO SCH (05:43)
[2023-12-25 07:26] LABS: ALC (manual) 0.14 K/uL (1.2-3.4); ANC (manual) 5.87 K/uL (1.4-6.5); Basophils # (manual) 0.07 K/uL (0-0.2); Basophils % (manual) 1 %; Eosinophils # (manual) 0.07 K/uL (0-0.50); Eosinophils % (manual) 1 %; Lymphocytes # (manual) 0.14 K/uL (1.2-3.4); Lymphocytes % (manual) 2 %; Metamyelocytes # (manual) 0.41 K/uL (0-0); Metamyelocytes % (manual) 6 %; Monocytes # (manual) 0.14 K/uL (0.11-0.59); Monocytes % (manual) 2 %; Myelocytes # (manual) 0.14 K/uL (0-0); Myelocytes % (manual) 2 %; Neutrophils # (manual) 5.87 K/uL (1.40-6.50); Neutrophils % (manual) 86 %
[2023-12-25 07:58] LABS: Estimated Average Glucose 151 mg/dl; Hemoglobin A1C 6.9 % (4.5-5.6)
--- NOTE | 2023-12-25 08:08 | Hospitalist Progress Note ---
Date of Service December 25, 2023 Assessment & Plan (1) Necrotizing pneumonia: Plan: 68 y/o with metastatic renal cell cancer under treatment with carbozantanib who was admitted with acute hypoxic respiratory related to RLL necrotizing pneumonia, 6x4 cm cavitary lesion present on chest CT. Lesion was not present on 11/30/23 CT abdomen/pelvis so tumor unlikely. Also has bilateral upper lobe process, infectious vs inflammatory. He is immunosuppressed because of his oral chemo and recent high dose steroids for two months with max prednisone dose of 80 mg followed by taper -continue antibiotics with pip-tazo and linezolid. -sputum Cx, MRSA nares neg -procal negative last night, ordered repeat -consulted pulmonary and ID - discussed with Dr. Chin and reviewed ID recs in note - ABX narrowed to amp-sulbactam, linezolid stopped since MRSA nares negative, attempting sputum culture, likely 4-6 weeks antibiotics, repeat chest CT in 8 weeks, bronchoscopy if not improving. 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 Santiago with improvement in Cr to 2.2 - consulted Dr. Santiago, reviewed recs in note - gave bumex 1 mg dose for volume overload/leg edema - Cr stable overnight at 2.5 - monitor UOP, avoid nephrotoxin - daily AM BMP (3) Secondary adrenal insufficiency: Plan: Patient has been on a chronic steroid taper outpatient Hypotensive on arrival stress dose steroids - IV overnight, decreased to hydrocortisone 40 mg bid, taper to home dose (4) Renal cell carcinoma: Plan: Metastatic RCC - consulted heme-onc, recommended hold carbozantanib until hospital discharge, has follow up with Dr. Isaac (5) Hypertension: Plan: HTN - BP recently low and nebivolol stopped, losartan also held (6) Elevated troponin: Plan: Initial high-sensitivity troponin minimally elevated at 47, down to 43 on 2- hour repeat No acute ST segment or T wave changes on EKG, patient denies chest pain, no evidence of ACS Related to myocardial demand ischemia from pneumonia, hypoxia (7) Hyperglycemia: Plan: Patient had to be hyperglycemic with glucose of 170 on arrival Likely due to recent steroid use Will likely be hyperglycemic throughout admission as he has been started on stress dose steroids Will start monitoring BSG ACHS, goal is [id number] Will start CF of 45 and CR 15 ACHS for now Monitor a.m. hemoglobin A1c and adjust regimen as needed Plan Continue low dose apixaban for DVT prophylaxis Admission and Anticipated Discharge Date Admission Date: December 24, 2023 Subjective Mr Wick is feeling better with respect to shortness of breath today, coughing but not producing sputum, no chest pain or hemoptysis Recently was on high dose steroids to treat some renal dysfunction Physical Exam 2 Physical Exam: PHYSICAL EXAMINATION Last 24h vital signs reviewed, see documentation in flowsheet General: comfortable appearing, no distress HEENT: Normocephalic, atraumatic, pupils round and equal, sclerae anicteric, no conjunctival injection, moist mucus membranes Lungs: Normal respiratory effort. diminished breath sounds in right base with slight/faint crackles otherwise clear to auscultation bilaterally, no wheezing Heart: Regular rate and rhythm, no murmurs. No JVD Abdomen: Soft, nontender, nondistended. Bowel sounds present. Extremities: Warm, dry, well-perfused. 1-2+ pitting lower extremity edema. Neuro: Alert and oriented x 4, face symmetric, moves 4 extremities well Psych: Normal affect and behavior Results & Data Results & Data Vital Signs (Past 12 Hours) Vital Signs Pulse Pulse Resp BP Pulse Ox O2 Del Method O2 Flow Rate 12/25/23 07:13 54 L 12/25/23 06:00 58 L 20 130/81 97 Nasal Cannula 3 12/25/23 01:00 54 L 19 129/79 94 Room Air 12/24/23 23:31 60 12/24/23 23:00 58 L 14 118/74 94 Nasal Cannula 2 Laboratory Results 12/25/23 03:51 12/25/23 03:51 procal 0.5 MRSA nares neg PG Care Time/CCT Total # of Minutes Spent Total Time Spent with Patient: Total time spent is greater than 50% in coordination of care (as documented) at patient's floor/unit and/or counseling patient: Coding Level of Care Code 10601 SUB INP/OBS CARE 3/50MIN Diagnoses Necrotizing pneumonia J85.0 HANSEL (acute kidney injury) N17.9 Secondary adrenal insufficiency E27.49 Renal cell carcinoma, unspecified laterality C64.9 Laterality: unspecified laterality Hypertension I10 Elevated troponin R79.89 Hyperglycemia R73.9 (4) Renal cell carcinoma Laterality: unspecified laterality Qualified Code(s): C64.9 - Malignant neoplasm of unspecified kidney, except renal pelvis
--- NOTE | 2023-12-25 09:16 | Nephrology Consultation ---
Date of Consultation December 25, 2023 Assessment & Plan (1) HANSEL (acute kidney injury): Recently completed prednisone taper with improvement in creatinine to 2.2 mg/dL. Electrolytes are normal. Evans is non-oliguric. Creatinine sergo with diuretics. He remains slightly hypervolemic with some generalized edema associated with recent prednisone. I will provide a low dose of Bumex 1 mg now. Document strict I/O's. Maintain a dietary sodium restriction and daily fluid restriction. Goal is to encourage a slightly negative fluid balance. Repeat blood work tomorrow AM. Medications are appropriately dosed for kidney function. (2) Chronic kidney disease: CKD attributed to nephron loss from nephrectomy and history of hypertension complicated by multiple episodes of HANSEL. Recent baseline creatinine 2.2 mg/dL. MACR <20 mcg/mg. (3) Cavitary lesion of lung: Appreciate ID and pulmonary consultation. New finding within past ~1 month. Likely infectious. Remains on Zosyn and cefepime. (4) Hypertension: BP has been low. Nebivolol recently stopped. Intravascular volume depletion from diuretics likely contributing complicated by infection. Hold antihypertensives and monitor. Losartan now held. History of Present Illness Reason for Consultation: Left solitary kidney, elevated cr, pneumonia Requesting Physician: Marti Cedeno MD Attending Physician: Marti Cedeno MD History of Present Illness Mr. Evans Wick is a 68-year-old male with metastatic renal cell carcinoma and chronic kidney disease who I know well from the [facility] nephrology clinic. Evans has CKD III-IV A1. Baseline creatinine ~2.2 mg/dL. MACR <20 mcg/mg. Urine microscopy has been acellular. Renal masses identified initially on CT scan s/p right hip fracture in 2018. The fracture was repaired in January of 2019. Evaluation revealed multiple pulmonary nodules, including a 2.2 cm left lower pole nodule for which wedge resection was completed at diagnosis. He underwent a hand assisted laparoscopic nephrectomy with removal of a 7 cm right kidney mass in February 2019. 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 Evans follows with Dr. Rodriguez at [facility] and [facility] locally. He was started on a combination of Opdivo (nivolumab) + Yervoy (ipilimumab). He completed 4 doses of the immunotherapy. Thankfully, reassuring signs of remission on imaging. Unfortunately, he develop immune mediated rash and adrenal insufficiency with therapy. Evans has been maintained on dose adjusted cabozantinib (QOD). He had developed a degree of proteinuria which improved. 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 He recently completed a prednisone taper. Creatinine had improved from 2.85 to 2.22 mg/dL with therapy. Evans presented to the nephrology clinic earlier this week with notable fluid retention and progressive dyspnea. He has also endorsed recent right sided chest pain and persistent dry cough. He was placed on Bumex 2 mg twice daily for fluid retention with close follow up scheduled. Unfortunately, despite improvement in fluid retention/edema, dyspnea and chest discomfort progressed. He presented to the ER yesterday. Evaluation demonstrated ~5.8 cm cavitary lesion in the right lung base and scattered ground glass opacities. Evans was started on vancomycin and cefepime. He reports a couple recent episodes of subjective fever and rigors lasting for several minutes but no sustained fevers or chills. He has been afebrile and hemodynamically stable since admission. Hypoxia improved with supplemental O2. He also recently developed bruising of the left elbow with a large area of ecchymosis extending into the left forearm. Remains on Eliquis for LLE DVT. Allergies Allergy/AdvReac Type Severity Reaction Status Date / Time atorvastatin AdvReac Unknown Muscle Pain Verified 12/21/23 12:57 Home Medications Medication Instructions Recorded Confirmed Type nivolumab IV .ON HOLD 07/26/21 12/21/23 History cholecalciferol (vitamin D3) 25 25 mcg PO QAM 10/23/22 12/24/23 History mcg (1,000 unit) capsule mecobalamin (vitamin B12) 500 mcg 500 mcg PO QAM 10/23/22 12/24/23 History chewable tablet hydrocortisone 10 mg tablet See Rx Instructions PO .COMPLEX 12/09/22 12/24/23 Rx #50 tabs cabozantinib 20 mg tablet 20 mg PO Q OTHER DAY 09/11/23 12/24/23 History apixaban 2.5 mg tablet (Eliquis) 2.5 mg PO AMPM 12/01/23 12/24/23 History bumetanide 1 mg tablet 2 mg (2 x 1 mg) PO BID #360 tabs 12/22/23 12/24/23 Rx levothyroxine 150 mcg tablet 150 mcg PO DAILYBB 12/24/23 12/24/23 History losartan 100 mg tablet 100 mg PO QAM 12/24/23 12/24/23 History Patient History Medical History HANSEL (acute kidney injury) C. difficile colitis Ileus Renal cell carcinoma Chronic kidney disease with active medical management without dialysis, stage 3 (moderate) Hypothyroidism Acute kidney injury Pancreatitis Relative polycythemia Cardiomyopathy Adrenal insufficiency due to cancer therapy Renal cell cancer On prednisone therapy Cancer of kidney RIGHT KIDNEY REMOVED History of skin cancer + resection Sleep apnea hx CPAP ("did not like" using machine) High triglycerides no meds Surgical History Status post lung surgery (06/08/19) Electromagnetic navigational bronchoscopy with marking of lesion with ICG dye. 2. Left robot-assisted thoracoscopic segmentectomy of the superior segment of left lower lobe. 3. Mediastinal lymph node dissection. Dr. Wright 06/08/19 History of right nephrectomy 02/07/2019: Gliescope #3 with 8.0 ETT after unsuccessful DLx2. See record for full details. History of total left hip arthroplasty Left HAMZAH: 05/28/18: SAB x 3 attempts at L3-L4 at [facility] History of colonoscopy History of sinus surgery DEVIATED SEPTUM REPAIR History of left knee surgery + REVISION X 4 H/O inguinal hernia repair H/O arthroscopy of shoulder LEFT Family History Mother Breast cancer, Onset Age: 43 Father Esophageal cancer Sister Colon cancer Other Family history of cancer Social History Smoking Status: Former smoker Tobacco Type: Cigarettes Second Hand Exposure: No; Do You Dip or Chew Tobacco: No; Hx Alcohol Use: No Hx Substance Use: No Preferred Language: Croatian Communication Ability: Effective Visual Impairment: No Limitations Hearing Ability: Normal 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: No Beliefs That Will Affect Care: Baptist Baptist Beliefs: anabaptist marital status: Current Living Situation: Spouse Current Living Situation Comment: [facility] current occupational status: retired current occupation: retired from [place] [employer] Feels Safe at Home: Yes Assistive Devices: None Review of Systems Review of Systems: All systems reviewed & are unremarkable except as noted in HPI & below Physical Exam Constitutional: well developed; no acute distress joy facies Eyes: + anicteric sclerae; no corneal abnormal ity Neck: normal visual inspection and trachea midline Respiratory: normal respiratory effort Auscultation: lungs clear to auscultation bilaterally and + diminished lung sounds; no rales, no rhonchi and no wheezes Cardiovascular: Rate/Rhythm: regular rate Heart Sounds: normal S1 and normal S2 Extremities: + edema (1-2+bilaterally) Musculoskeletal: Extremities: no cyanosis and no clubbing Skin: normal turgor; no jaundice Neurologic: Motor/Sensory: no tremor and no asterixis Psychiatric: Orientation: alert and oriented x 3 Results & Data Vital Signs (Past 12 Hours) Vital Signs Pulse Pulse Resp BP Pulse Ox O2 Del Method O2 Flow Rate 12/25/23 07:13 54 L 12/25/23 06:00 58 L 20 130/81 97 Nasal Cannula 3 12/25/23 01:00 54 L 19 129/79 94 Room Air 12/24/23 23:31 60 12/24/23 23:00 58 L 14 118/74 94 Nasal Cannula 2 Laboratory Results Laboratory Results - last 24 hr 12/24/23 12/24/23 12/24/23 12:45 12:48 13:40 WBC 10.12 RBC 3.64 L Hgb 11.2 L Hct 36.0 L MCV 98.9 MCH 30.8 MCHC 31.1 L RDW Std Deviation 62.6 H RDW Coeff of Enzo 17.8 H Plt Count 195 MPV 9.5 Absolute Nucleated RBC 0.06 Nucleated RBC % (auto) 0.6 Neutrophils % (Manual) 85 Lymphocytes % (Manual) 8 Monocytes % (Manual) Eosinophils % (Manual) 1 Basophils % (Manual) Metamyelocytes % (Man) 1 Myelocytes % (Man) 5 Neutrophils # (Manual) 8.60 H Total Absolute Neuts 8.60 H Lymphocytes # (Manual) 0.81 L Total Abs Lymphocytes 0.81 L Monocytes # (Manual) Eosinophils # (Manual) 0.10 Basophils # (Manual) Metamyelocytes # (Man) 0.10 H Myelocytes # (Manual) 0.51 H ESR 75 H PT 11.5 INR 1.1 APTT 29 PTT Ratio 1.1 Sodium 138 Potassium 4.5 Chloride 99 Carbon Dioxide 29 Anion Gap 10 BUN 55 H Creatinine 2.68 H Est Cr Clr Drug Dosing 40.3 Est GFR ( Amer) 27.5 Est GFR (Non-Af Amer) 23.7 BUN/Creatinine Ratio 20.5 H Glucose 170 H POC Glucose Estimat Average Glucose Hemoglobin A1c Lactate Calcium 8.8 Magnesium 2.1 Total Bilirubin 0.8 AST 28 ALT 54 H Alkaline Phosphatase 81 Troponin I High Sens 47.0 H C-Reactive Protein 21.31 H B-Natriuretic Peptide 118 H Total Protein 6.6 Albumin 3.2 L Globulin 3.4 Albumin/Globulin Ratio 0.9 Procalcitonin 0.49 Nasal Screen MRSA (PCR) SARS-CoV-2 (PCR) NEGATIVE Influenza Type A (PCR) Negative Influenza Type B (PCR) Negative RSV (RT-PCR) Negative 12/24/23 12/24/23 12/24/23 14:52 16:58 17:59 WBC RBC Hgb Hct MCV MCH MCHC RDW Std Deviation RDW Coeff of Enzo Plt Count MPV Absolute Nucleated RBC Nucleated RBC % (auto) Neutrophils % (Manual) Lymphocytes % (Manual) Monocytes % (Manual) Eosinophils % (Manual) Basophils % (Manual) Metamyelocytes % (Man) Myelocytes % (Man) Neutrophils # (Manual) Total Absolute Neuts Lymphocytes # (Manual) Total Abs Lymphocytes Monocytes # (Manual) Eosinophils # (Manual) Basophils # (Manual) Metamyelocytes # (Man) Myelocytes # (Manual) ESR PT INR APTT PTT Ratio Sodium Potassium Chloride Carbon Dioxide Anion Gap BUN Creatinine Est Cr Clr Drug Dosing Est GFR ( Amer) Est GFR (Non-Af Amer) BUN/Creatinine Ratio Glucose POC Glucose 90 Estimat Average Glucose Hemoglobin A1c Lactate 1.8 Calcium Magnesium Total Bilirubin AST ALT Alkaline Phosphatase Troponin I High Sens 43.2 H C-Reactive Protein B-Natriuretic Peptide Total Protein Albumin Globulin Albumin/Globulin Ratio Procalcitonin Nasal Screen MRSA (PCR) Negative SARS-CoV-2 (PCR) Influenza Type A (PCR) Influenza Type B (PCR) RSV (RT-PCR) 12/24/23 12/25/23 12/25/23 21:34 03:51 08:01 WBC 6.83 RBC 2.89 L Hgb 9.1 L Hct 27.8 L MCV 96.2 MCH 31.5 MCHC 32.7 RDW Std Deviation 58.2 H RDW Coeff of Enzo 16.8 H Plt Count 150 MPV 9.2 L Absolute Nucleated RBC 0.02 Nucleated RBC % (auto) 0.3 Neutrophils % (Manual) 86 Lymphocytes % (Manual) 2 Monocytes % (Manual) 2 Eosinophils % (Manual) 1 Basophils % (Manual) 1 Metamyelocytes % (Man) 6 Myelocytes % (Man) 2 Neutrophils # (Manual) 5.87 Total Absolute Neuts 5.87 Lymphocytes # (Manual) 0.14 L Total Abs Lymphocytes 0.14 L Monocytes # (Manual) 0.14 Eosinophils # (Manual) 0.07 Basophils # (Manual) 0.07 Metamyelocytes # (Man) 0.41 H Myelocytes # (Manual) 0.14 H ESR PT 11.5 INR 1.1 APTT PTT Ratio Sodium 134 L Potassium 4.4 Chloride 100 Carbon Dioxide 25 Anion Gap 9 BUN 55 H Creatinine 2.53 H Est Cr Clr Drug Dosing 42.7 Est GFR ( Amer) 29.5 Est GFR (Non-Af Amer) 25.4 BUN/Creatinine Ratio 21.7 H Glucose 148 H POC Glucose 165 H 148 H Estimat Average Glucose 151 Hemoglobin A1c 6.9 H Lactate Calcium 8.0 L Magnesium 2.1 Total Bilirubin 0.7 AST 26 ALT 46 Alkaline Phosphatase 68 Troponin I High Sens C-Reactive Protein B-Natriuretic Peptide Total Protein 5.7 L Albumin 2.8 L Globulin 2.9 Albumin/Globulin Ratio 1.0 Procalcitonin Nasal Screen MRSA (PCR) SARS-CoV-2 (PCR) Influenza Type A (PCR) Influenza Type B (PCR) RSV (RT-PCR) Diagnostic Findings CT SCAN OF THE CHEST WITHOUT IV CONTRAST COMPARISON STUDY: Chest CT dated 11/30/2023. Chest x-ray dated 12/24/2023. FINDINGS: Thyroid: Mildly atrophic and heterogeneous. Thoracic aorta: There is mild atherosclerotic calcification of the thoracic aorta, which is normal in caliber and demonstrates standard 3-vessel arch anatomy. Heart: The heart is mildly enlarged noting trace pericardial effusion. Lungs and pleural spaces: Mild emphysematous change is noted. There is postsurgical change from left lower lobe resection. There is trace right pleural effusion. The trachea and central airways are clear. There is a 5.8 x 4.2 cm focus of ovoid consolidation with cavitation seen at the right lung base seen on image #145. This is new from 11/30/2023 and consistent with a cavitary pneumonia. Subtle ground glass opacities are seen throughout both upper lobes, right greater than left. This is also new from previous. Additional foci of parenchymal scarring are seen throughout both lungs. There are scattered calcified granulomas. Mediastinum: There is no mediastinal lymphadenopathy. Raquel: Not well assessed without IV contrast. Axillae: There is no axillary lymphadenopathy. Upper abdomen: There are calcified gallstones with no CT evidence of acute cholecystitis. The liver appears stated ptotic. There is evidence of right nephrectomy. Skeletal structures: The skeletal structures are osteopenic. Degenerative change is seen in the shoulders and spine. No lytic or blastic bony lesions are seen. IMPRESSION: 1. There is a 5.8 x 4.2 cm focus of ovoid consolidation with cavitation at the right lung base. This is new from 11/30/2023 and consistent with a necrotizing pneumonia. Radiographic follow-up to resolution is recommended. 2. Trace right pleural effusion. 3. Subtle patchy groundglass opacities are seen throughout both upper lobes, right greater than left. This is also new from 11/30/2023 and also likely infectious/inflammatory. 4. Postsurgical change is seen in the left lower lobe. 5. Mild cardiomegaly and mild emphysema. 6. Cholelithiasis. US venous doppler LE BI TECHNIQUE: Bilateral lower extremity real-time compression venous ultrasound with Color Doppler imaging. Utilizing real-time ultrasonic imaging multiple real time high-resolution ultrasonic images with compression and noncompression maneuvers of the deep venous system in addition to color doppler imaging were performed from the common femoral vein through the proximal calf veins. COMPARISON: Comparison is made to a venous Doppler 07/11/2022 FINDINGS/IMPRESSION: Currently there is normal compressibility of the deep venous system from the common femoral vein through the proximal calf veins. No superficial venous thrombosis is identified. PG Care Time/CCT Total # of Minutes Spent Total Time Spent with Patient: Total time spent is greater than 50% in coordination of care (as documented) at patient's floor/unit and/or counseling patient: Coding Level of Care Code 55450 IN/OBS CONSULT LVL 4,60M Diagnoses HANSEL (acute kidney injury) N17.9 Chronic kidney disease N18.9 Cavitary lesion of lung J98.4 Hypertension I10
--- NOTE | 2023-12-25 10:05 | Infectious Disease Consult ---
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 Was started on tapering steroids at 80 mg/d, with taper by 10 mg weekly, to remain on prednisone 10 mg daily at the end of the taper. 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 On presentation, pt was afebrile, HR 97, BP as low as 85/48, 87% on room air. Labs showed WBC 10.12, Cr 2.68, ESR 75, CRP 21.31, procalcitonin 0.49, COVID- 19/flu/RSV negative. CT chest showed a 5.8 x 2.4 cm focus of ovoid consolidation with cavitation at R lung base, new from 11/30/23 and consistent with necrotizing pneumonia, trace R pleural effusion, subtle patchy groundglass opacities throughout both upper lobes, R>L, new from 11/30/23 and also likely infectious/inflammatory. He was started on linezolid, pip-tazo pending a MRSA swab. Pulmonology was consulted, recommended 6 weeks of antibiotics with a repeat CT chest in 8 weeks, and if the RLL opacity was nonresolving, then could consider a bronchoscopy at that time. Of note, pt has been on tapering prednisone since October, as well as cabozantinib, so he is immunosuppressed and susceptible to more atypical organisms. However given the acuity of this RLL cavitation (not seen on 11/30/23 scan), more likely to represent a bacterial process. Recommendations: - Please send a sputum culture if pt is producing sputum - Will discontinue linezolid given MRSA nares negative - Will narrow Zosyn to Unasyn, and assess for improvement. - If pt clinically worsening over the weekend, can rebroaden from Unasyn to Zosyn - Anticipate a prolonged course of antibiotics for cavitary/necrotizing pneumonia, until repeat CT chest shows improvement/resolution. This will likely entail several weeks of antibiotics. This does not have to be IV the entire time, if pt clinically improves (could consider Augmentin as outpatient, if pt clinically improves on Unasyn) - Given immunosuppressed state, ordered Fungitell and galactomannan, although think less likely Will continue to follow. Please note that ID does not round or write notes over the weekend. If questions or concerns arise, please contact the Infectious Disease Call Center and ask to speak with the covering ID physician. I will brass pickler the service again on Thursday. Consultation Information This patient recommendation is based on a telemedicine consult request which was completed asynchronously through chart review and information provided by the primary physician. The patient was not seen or examined today. The evaluation is consultative in nature and all patient care and treatment decisions can either be accepted or rejected by the patient's primary hospital-based treating phys ician using their own independent medical judgment for their patient. [facility] contact information: Please call [facility] Call Center . (Phone Number For Physician Use Only) Time Spent Reviewing Chart: 31+ minutes History of Present Illness Reason for Consultation: Necrotizing pneumonia Attending Physician: Marti Cedeno MD History of Present Illness 68 yo M with metastatic renal cell carcinoma to lung s/p R nephrectomy (2018), s/p LLL wedge resection (2019) currently on cabozantinib, ACTH deficiency, LLE DVT (2022), HTN, secondary adrenal insufficiency, CKD with solitary L kidney who presented on 12/23 with shortness of breath. Pt has been feeling progressive shortness of breath, dyspnea on exertion, nonproductive cough, lightheadedness/dizziness with changing positions over the past 3-4 weeks. He believes he may have been having fevers, but did not check his temperature. Denied chest pain, hemoptysis. On presentation, pt was afebrile, HR 97, BP as low as 85/48, 87% on room air. Labs showed WBC 10.12, Cr 2.68, ESR 75, CRP 21.31, procalcitonin 0.49, COVID- 19/flu/RSV negative. CXR with airspace consolidation with possible cavitation at R lung base, new from 11/30/23 and consistent with pneumonia. CT chest showed a 5.8 x 2.4 cm focus of ovoid consolidation with cavitation at R lung base, new from 11/30/23 and consistent with necrotizing pneumonia, trace R pleural effusions, subtle patchy groundglass opacities throughout both upper lobes, R>L, new from 11/30/23 and also likely infectious/inflammatory. He was started on linezolid, pip-tazo pending a MRSA swab. Pulmonology was consulted, recommended 6 weeks of antibiotics with a repeat CT chest in 8 weeks, and if the RLL opacity was nonresolving, then could consider a bronchoscopy at that time. 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 He was started on tapering steroids at 80 mg/d, with taper by 10 mg every 7 days, to remain on prednisone 10 mg daily at the end of the taper. Allergies Allergy/AdvReac Type Severity Reaction Status Date / Time atorvastatin AdvReac Unknown Muscle Pain Verified 12/21/23 12:57 Home Medications Medication Instructions Recorded Confirmed Type nivolumab IV .ON HOLD 07/26/21 12/21/23 History cholecalciferol (vitamin D3) 25 25 mcg PO QAM 10/23/22 12/24/23 History mcg (1,000 unit) capsule mecobalamin (vitamin B12) 500 mcg 500 mcg PO QAM 10/23/22 12/24/23 History chewable tablet hydrocortisone 10 mg tablet See Rx Instructions PO .COMPLEX 12/09/22 12/24/23 Rx #50 tabs cabozantinib 20 mg tablet 20 mg PO Q OTHER DAY 09/11/23 12/24/23 History apixaban 2.5 mg tablet (Eliquis) 2.5 mg PO AMPM 12/01/23 12/24/23 History bumetanide 1 mg tablet 2 mg (2 x 1 mg) PO BID #360 tabs 12/22/23 12/24/23 Rx levothyroxine 150 mcg tablet 150 mcg PO DAILYBB 12/24/23 12/24/23 History losartan 100 mg tablet 100 mg PO QAM 12/24/23 12/24/23 History Patient History Medical History HANSEL (acute kidney injury) C. difficile colitis Ileus Renal cell carcinoma Chronic kidney disease with active medical management without dialysis, stage 3 (moderate) Hypothyroidism Acute kidney injury Pancreatitis Relative polycythemia Cardiomyopathy Adrenal insufficiency due to cancer therapy Renal cell cancer On prednisone therapy Cancer of kidney RIGHT KIDNEY REMOVED History of skin cancer + resection Sleep apnea hx CPAP ("did not like" using machine) High triglycerides no meds Surgical History Status post lung surgery (06/08/19) History of right nephrectomy History of total left hip arthroplasty History of colonoscopy History of sinus surgery History of left knee surgery H/O inguinal hernia repair H/O arthroscopy of shoulder Family History Mother Breast cancer, Onset Age: 43 Father Esophageal cancer Sister Colon cancer Other Family history of cancer Social History Smoking Status: Former smoker Tobacco Type: Cigarettes Second Hand Exposure: No; Do You Dip or Chew Tobacco: No; Hx Alcohol Use: No Hx Substance Use: No Preferred Language: Divehi Communication Ability: Effective Visual Impairment: No Limitations Hearing Ability: Normal Enterprise Manager Required: No Beliefs That Will Affect Care: Moravian Moravian Beliefs: evangelical marital status: Current Living Situation: Spouse Current Living Situation Comment: [employer] current occupational status: retired current occupation: retired from [employer] Feels Safe at Home: Yes Assistive Devices: None Review of System Pt was not seen Physical Exam Physical Exam: Pt was not seen Results & Data Vital Signs (Past 12 Hours) Vital Signs Pulse Pulse Resp BP Pulse Ox O2 Del Method O2 Flow Rate 12/25/23 07:13 54 L 12/25/23 06:00 58 L 20 130/81 97 Nasal Cannula 3 12/25/23 01:00 54 L 19 129/79 94 Room Air 12/24/23 23:31 60 12/24/23 23:00 58 L 14 118/74 94 Nasal Cannula 2 Laboratory Results Short CBC 12/24/23 12/25/23 Range/Units 12:48 03:51 WBC 10.12 6.83 (4.8-10.8) K/ul Hgb 11.2 L 9.1 L (14.0-18.0) g/dl Hct 36.0 L 27.8 L (42.0-52.0) % Plt Count 195 150 (130-400) K/uL BMP 12/24/23 12/25/23 12:48 03:51 Sodium 138 134 L Potassium 4.5 4.4 Chloride 99 100 Carbon Dioxide 29 25 BUN 55 H 55 H Creatinine 2.68 H 2.53 H Glucose 170 H 148 H Calcium 8.8 8.0 L Liver Function 12/24/23 12/25/23 Range/Units 12:48 03:51 Total Bilirubin 0.8 0.7 (0.2-1.0) mg/dl AST 28 26 (13-39) U/L ALT 54 H 46 (7-52) U/L Alkaline Phosphatase 81 68 (34-104) U/L Albumin 3.2 L 2.8 L (3.4-5.0) gm/dl Diagnostic Findings Chest X-Ray 12/24/23 12:43 SINGLE VIEW CHEST CLINICAL HISTORY: Atypical chest pain FINDINGS: 2 AP, portable, upright chest radiographs are compared to study dated 03/19/2020. Correlation is made with chest CT scans dated 11/30/2023 and 02/19/2020. The heart is enlarged noting atherosclerotic calcification of the thoracic aorta. The pulmonary vasculature is noncontrast. There is airspace consolidation at the right lung base with possible cavitation. This is new from 11/30/2023 and consistent with pneumonia. The left lung appears clear noting dependent atelectasis. No pneumothorax is seen. The bony thorax is grossly intact. Degenerative change is seen in the shoulders and spine. IMPRESSION: 1. Airspace consolidation with possible cavitation at the right lung base is new from 11/30/2023 and consistent with pneumonia. Clinical correlation will be required and radiographic follow-up to resolution is recommended. 2. Cardiomegaly without radiographic evidence of congestive failure. ACT 112: Negative or not required by law. Electronically signed by: Ole Wolfe M.D. 12/24/2023 1:[address] 12/24/23 13:37 CT SCAN OF THE CHEST WITHOUT IV CONTRAST CLINICAL HISTORY: Pneumonia. COMPARISON STUDY: Chest CT dated 11/30/2023. Chest x-ray dated 12/24/2023. TECHNIQUE: CT scan of the thorax was performed from the thoracic inlet to the upper abdomen. Images are reviewed in the axial, sagittal, and coronal planes. IV contrast was not administered for this examination as per the referring clinician. A dose lowering technique was utilized adhering to the principles of ALARA. CT DOSE: 992.33 mGy.cm FINDINGS: Thyroid: Mildly atrophic and heterogeneous. Thoracic aorta: There is mild atherosclerotic calcification of the thoracic aorta, which is normal in caliber and demonstrates standard 3-vessel arch anatomy. Heart: The heart is mildly enlarged noting trace pericardial effusion. Lungs and pleural spaces: Mild emphysematous change is noted. There is postsurgical change from left lower lobe resection. There is trace right pleural effusion. The trachea and central airways are clear. There is a 5.8 x 4.2 cm focus of ovoid consolidation with cavitation seen at the right lung base seen on image #145. This is new from 11/30/2023 and consistent with a cavitary pneumonia. Subtle ground glass opacities are seen throughout both upper lobes, right greater than left. This is also new from previous. Additional foci of parenchymal scarring are seen throughout both lungs. There are scattered calcif ied granulomas. Mediastinum: There is no mediastinal lymphadenopathy. Raquel: Not well assessed without IV contrast. Axillae: There is no axillary lymphadenopathy. Upper abdomen: There are calcified gallstones with no CT evidence of acute cholecystitis. The liver appears stated ptotic. There is evidence of right nephrectomy. Skeletal structures: The skeletal structures are osteopenic. Degenerative change is seen in the shoulders and spine. No lytic or blastic bony lesions are seen. IMPRESSION: 1. There is a 5.8 x 4.2 cm focus of ovoid consolidation with cavitation at the right lung base. This is new from 11/30/2023 and consistent with a necrotizing pneumonia. Radiographic follow-up to resolution is recommended. 2. Trace right pleural effusion. 3. Subtle patchy groundglass opacities are seen throughout both upper lobes, right greater than left. This is also new from 11/30/2023 and also likely infectious/inflammatory. 4. Postsurgical change is seen in the left lower lobe. 5. Mild cardiomegaly and mild emphysema. 6. Cholelithiasis. 7. Additional findings as above. ACT 112: Negative or not required by law. Electronically signed by: Oel Wolfe M.D. 12/24/2023 3:13 PM Venous Doppler Study 12/24/23 13:37 US venous doppler LE BI CLINICAL HISTORY: swelling TECHNIQUE: Bilateral lower extremity real-time compression venous ultrasound with Color Doppler imaging. Utilizing real-time ultrasonic imaging multiple real time high-resolution ultrasonic images with compression and noncompression maneuvers of the deep venous system in addition to color doppler imaging were performed from the common femoral vein through the proximal calf veins. COMPARISON: Comparison is made to a venous Doppler 07/11/2022 FINDINGS/IMPRESSION: Currently there is normal compressibility of the deep venous system from the common femoral vein through the proximal calf veins. No superficial venous thrombosis is identified. ACT 112: Negative or not required by law. Electronically signed by: Jermaine Sewell M.D. 12/24/2023 2:45 PM Medications Administered Current Inpatient Medications Albuterol (Albuterol 0.5% Neb Soln 2.5 Mg/0.5 Ml Vial) 2.5 mg NEB Q6R PRN; Protocol PRN Reason: SOB or wheezing Stop: 01/23/24 18:59 Apixaban (Apixaban 2.5 Mg Tab) 2.5 mg PO BID KASEY Stop: 01/23/24 20:59 Last Admin: 12/25/23 10:44 Dose: 2.5 mg Dextrose (Dextrose 50% 50 Ml Syringe) 25 - 50 ml IV UD PRN; Protocol PRN Reason: Hypoglycemia Protocol Stop: 01/23/24 17:29 Glucagon (Glucagon For Inj 1 Mg Vial) 1 mg SQ UD PRN; Protocol PRN Reason: Hypoglycemia Protocol Stop: 01/23/24 17:29 Glucose (Glucose 40% Gel 15 Gm Tube) 15 - 30 gm PO UD PRN; Protocol PRN Reason: Hypoglycemia Protocol Stop: 01/23/24 17:29 Glucose (Glucose 10 Tab/Tube) 4 - 8 tab PO UD PRN; Protocol PRN Reason: Hypoglycemia Treatment Stop: 01/23/24 17:29 Guaifenesin/Codeine Phosphate (Guaifenesin/Codeine 100mg/10mg 5ml Udc) 5 ml PO Q6H PRN PRN Reason: Cough Stop: 01/23/24 17:13 Linezolid (Zyvox) 600 mg in 300 mls @ 300 mls/hr IV Q12H KASEY Stop: 12/31/23 17:29 Last Infusion: 12/25/23 06:16 Dose: Infused Hydrocortisone Sodium (Succinate 50 mg/ Syringe) 1 mls @ 4 mls/min IV Q6H KASEY Stop: 01/23/24 22:59 Last Admin: 12/25/23 04:34 Dose: 4 mls/min Piperacillin Sod/Tazobactam Sod (Zosyn) 4.5 gm in 100 mls @ 25 mls/hr IV Q8H KASEY; Protocol Stop: 01/01/24 15:29 Insulin Aspart (Insulin Aspart Per Unit Charge) 0 units SC ACHS KASEY Stop: 01/23/24 20:59 Last Admin: 12/25/23 08:16 Dose: Not Given Levothyroxine Sodium (Levothyroxine Sodium 150 Mcg Tablet) 150 mcg PO DAILYBB KASEY Stop: 01/24/24 06:29 Last Admin: 12/25/23 05:43 Dose: 150 mcg Miscellaneous (Carbohydrates For Hypoglycemia ) 15 - 30 gm PO UD PRN PRN Reason: Hypoglycemia Protocol Stop: 01/23/24 17:29
[2023-12-25] MEDS: 4.5GM X1 IV ONE (10:44)
[2023-12-25] MEDS: AMPICILLIN/SULBACTAM SOD 3,000 MG/100 ML BAG IV SCH (11:50)
[2023-12-25] MEDS: BUMETANIDE 1 MG TAB PO ONE (12:47)
--- NOTE | 2023-12-25 12:47 | Oncology Consultation ---
Date of Consultation December 25, 2023 Assessment & Plan (1) Necrotizing pneumonia: (2) Renal cell carcinoma: Plan -Recommend holding cabozantinib for now in the setting of necrotizing pneumonia. Can restart upon discharge from hospital. Thank you for this consult. Oncology will sign off at this time. Patient has a scheduled follow-up with Dr. Isaac next month. History of Present Illness Reason for Consultation: Necrotizing PNA, on Cabozantinib Attending Physician: Marti Cedeno MD History of Present Illness 68-year-old gentleman with medical history significant for metastatic renal cell carcinoma for which he is currently on cabozantinib. Was previously on Opdivo which had to be discontinued due to immunotherapy induced nephritis and has been on chronic steroids for this. Presented to the ER with progressive shortness of breath, dyspnea on exertion, cough, dizziness. Chest x-ray revealed airspace consolidation with possible cavitation in the right lung base consistent with pneumonia, CT chest revealed 5.8 x 2.4 cm focus of ovoid consolidation with cavitation at right lung base consistent with necrotizing pneumonia. Was initially placed on Zosyn, evaluated by ID who recommended Unasyn which he is on right now. States that he is doing better, requiring less supplemental O2 For RCC, patient is primarily followed by of medical oncology at [facility] and followed locally by Dr. Isaac.Most recent scans have shown continued response to treatment. Allergies Allergy/AdvReac Type Severity Reaction Status Date / Time atorvastatin AdvReac Unknown Muscle Pain Verified 12/21/23 12:57 Home Medications Medication Instructions Recorded Confirmed Type nivolumab IV .ON HOLD 07/26/21 12/21/23 History cholecalciferol (vitamin D3) 25 25 mcg PO QAM 10/23/22 12/24/23 History mcg (1,000 unit) capsule mecobalamin (vitamin B12) 500 mcg 500 mcg PO QAM 10/23/22 12/24/23 History chewable tablet hydrocortisone 10 mg tablet See Rx Instructions PO .COMPLEX 12/09/22 12/24/23 Rx #50 tabs cabozantinib 20 mg tablet 20 mg PO Q OTHER DAY 09/11/23 12/24/23 History apixaban 2.5 mg tablet (Eliquis) 2.5 mg PO AMPM 12/01/23 12/24/23 History bumetanide 1 mg tablet 2 mg (2 x 1 mg) PO BID #360 tabs 12/22/23 12/24/23 Rx levothyroxine 150 mcg tablet 150 mcg PO DAILYBB 12/24/23 12/24/23 History losartan 100 mg tablet 100 mg PO QAM 12/24/23 12/24/23 History Patient History Medical History HANSEL (acute kidney injury) C. difficile colitis Ileus Renal cell carcinoma Chronic kidney disease with active medical management without dialysis, stage 3 (moderate) Hypothyroidism Acute kidney injury Pancreatitis Relative polycythemia Cardiomyopathy Adrenal insufficiency due to cancer therapy Renal cell cancer On prednisone therapy Cancer of kidney RIGHT KIDNEY REMOVED History of skin cancer + resection Sleep apnea hx CPAP ("did not like" using machine) High triglycerides no meds Surgical History Status post lung surgery (06/08/19) Electromagnetic navigational bronchoscopy with marking of lesion with ICG dye. 2. Left robot-assisted thoracoscopic segmentectomy of the superior segment of left lower lobe. 3. Mediastinal lymph node dissection. Dr. Wright 06/08/19 History of right nephrectomy 02/07/2019: Gliescope #3 with 8.0 ETT after unsuccessful DLx2. See record for full details. History of total left hip arthroplasty Left HAMZAH: 05/28/18: SAB x 3 attempts at L3-L4 at [facility] History of colonoscopy History of sinus surgery DEVIATED SEPTUM REPAIR History of left knee surgery + REVISION X 4 H/O inguinal hernia repair H/O arthroscopy of shoulder LEFT Family History Mother Breast cancer, Onset Age: 43 Father Esophageal cancer Sister Colon cancer Other Family history of cancer Social History Smoking Status: Former smoker Tobacco Type: Cigarettes Second Hand Exposure: No; Do You Dip or Chew Tobacco: No; Hx Alcohol Use: No Hx Substance Use: No Preferred Language: Yi Communication Ability: Effective Visual Impairment: No Limitations Hearing Ability: Normal Ammonia Refrigeration Technician Required: No Beliefs That Will Affect Care: Mormonism Mormonism Beliefs: yazidi marital status: Current Living Situation: Spouse Current Living Situation Comment: [employer] current occupational status: retired current occupation: retired from [employer] Feels Safe at Home: Yes Assistive Devices: None Results & Data Vital Signs (Past 12 Hours) Vital Signs Temp Pulse Pulse Resp BP BP Pulse Ox 12/25/23 11:10 36.4 C L 67 20 110/73 96 12/25/23 08:30 36.4 C L 60 17 140/77 96 12/25/23 08:30 12/25/23 07:13 54 L 12/25/23 06:00 58 L 20 130/81 97 12/25/23 01:00 54 L 19 129/79 94 O2 Del Method O2 Flow Rate 12/25/23 11:10 Nasal Cannula 2 12/25/23 08:30 Nasal Cannula 2 12/25/23 08:30 Nasal Cannula 2 12/25/23 07:13 12/25/23 06:00 Nasal Cannula 3 12/25/23 01:00 Room Air (2) Renal cell carcinoma Laterality: unspecified laterality Qualified Code(s): C64.9 - Malignant neoplasm of unspecified kidney, except renal pelvis
--- NOTE | 2023-12-25 13:35 | Pulmonology Progress Note ---
Date of Service December 25, 2023 Assessment & Plan (1) Necrotizing pneumonia: (2) Abnormal chest CT: (3) Acute respiratory failure with hypoxia: Plan CT chest 12/24/2023 personally reviewed: Right lower lobe peripheral 5.8 cm x 4.1 cm cavitary lesion Linear atelectasis of the left lower lobe No significant mediastinal lymphadenopathy -- Cavitary pneumonia of the right lower lobe I looked at the CT abdomen pelvis from 11/30/2023 and patient did not have the right lower lobe lesion, given the acuity I doubt this to be cancerous Influenza A/B, COVID-19, RSV negative on 12/24/2023 CRP 21.3, nasal MRSA negative BNP 118 --Acute hypoxic respiratory failure Secondary to above -- KELLEN Recommend outpatient polysomnography to be repeated --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 Patient does have history of C. difficile Would recommend to take it with probiotics and food Recommend repeating a CT chest in 8 weeks. If the patient still has persistent nonresolving right lower lobe opacity then bronchoscopy could be thought of at that time No further recommendation from pulmonary perspective, will sign off Please call directly with any questions Please note the above document was generated using voice recognition software. It may contain grammatical, syntax or spelling errors.Any formal questions or concerns about the content, text or information contained within the body of this dictation should be directly addressed to the provider for clarification. Admission and Anticipated Discharge Date Admission Date: December 24, 2023 Subjective Patient seen and examined at bedside. No acute distress, no adverse events overnight He states that he is feeling better compared to when he came to the hospital. Patient was saturating 97% on 2 L, I went down to 1 L Denies any headache or blurry vision No pleuritic chest pain Not coughing up anything Review of Systems 2 Review of Systems: All systems reviewed & are unremarkable except as noted in Subjective Physical Exam 2 Physical Exam: Constitutional: No acute distress HEENT: EOMI, PERRLA Respiratory system: Decreased air entry bilaterally, no wheeze, rhonchi, positive crackles bilateral lower lobes CVS: S1-S2 positive, no murmurs or gallops Abdomen: Soft, nontender, nondistended, positive bowel sounds x4 Extremities: +2 pulses bilaterally radialis/ dorsalis pedis, no cyanosis, +2 pitting edema bilateral lower extremity, R>L Neuro: Awake alert oriented x3 Psych: Normal mood and affect G/U: No Bentley Skin: no rashes, warm and dry Lymphatic: no cervical or axillary lymphadenopathy Results & Data Results & Data Vital Signs (Past 12 Hours) Vital Signs Temp Pulse Pulse Resp BP BP Pulse Ox 12/25/23 11:10 36.4 C L 67 20 110/73 96 12/25/23 08:30 36.4 C L 60 17 140/77 96 12/25/23 08:30 12/25/23 07:13 54 L 12/25/23 06:00 58 L 20 130/81 97 O2 Del Method O2 Flow Rate 12/25/23 11:10 Nasal Cannula 2 12/25/23 08:30 Nasal Cannula 2 12/25/23 08:30 Nasal Cannula 2 12/25/23 07:13 12/25/23 06:00 Nasal Cannula 3 Laboratory Results 12/25/23 03:51 12/25/23 03:51 PG Care Time/CCT Total # of Minutes Spent Total Time Spent with Patient: Total time spent is greater than 50% in coordination of care (as documented) at patient's floor/unit and/or counseling patient: Coding Level of Care Code 63408 SUB INP/OBS CARE 2/35MIN Diagnoses Necrotizing pneumonia J85.[address] R93.89 Acute respiratory failure with hypoxia J96.01
[2023-12-25] MEDS ORDERED: PIPERACILLIN/TAZOBACTAM 4.5 GM/100 ML BAG IV SCH (15:30)
[2023-12-25] MEDS: HYDROCORTISONE 10 MG TAB PO SCH (17:27)
[2023-12-25] MEDS ORDERED: AMPICILLIN SOD/SULBACTAM SOD 3 GM VIAL IV SCH (19:00)
[2023-12-26 06:37] LABS: Hematocrit (blood only) 26.3 % (42.0-52.0); Hemoglobin 8.6 g/dl (14.0-18.0); Mean Corpuscular Hemoglobin 30.9 pg (25.0-34.0); Mean Corpuscular Hgb Conc 32.7 g/dL (32.0-36.0); Mean Corpuscular Volume 94.6 fL (80.0-100.0); Mean Platelet Volume 9.1 fL (9.4-12.4); Nucleated RBC # (auto) 0.03 K/uL (0.00-0.12); Nucleated RBC % (auto) 0.4 %; Platelet Count 154 K/uL (130-400); RDW Coefficient of Variation 16.4 % (11.5-14.5); RDW Standard Deviation 56.5 fL (36.4-46.3); Red Blood Count 2.78 M/uL (4.70-6.10); White Blood Count 8.24 K/ul (4.8-10.8)
[2023-12-26 07:11] LABS: BUN Creatinine Ratio 24.1 (10-20); Calcium 7.9 mg/dl (8.6-10.3); Creatinine Clr Calc Pharmacy 47.7 ml/min; Est GFR (African American) 33.4 ml/min; Est GFR (Non-African American) 28.8 ml/min; Potassium 3.9 mmol/L (3.5-5.1)
[2023-12-26 07:19] LABS: Basophils # (auto) 0.02 K/uL (0.00-0.20); Basophils % (auto) 0.2 %; Eosinophils # (auto) 0.02 K/uL (0.00-0.50); Eosinophils % (auto) 0.2 %; Immature Granulocytes % (auto) 7.3 %; Lymphocytes # (auto) 0.54 K/uL (1.20-3.40); Lymphocytes % (auto) 6.6 %; Monocytes # (auto) 0.35 K/uL (0.11-0.59); Monocytes % (auto) 4.2 %; Neutrophils # (auto) 6.71 K/uL (1.40-6.50); Neutrophils % (auto) 81.5 %
--- NOTE | 2023-12-26 09:01 | Nephrology Progress Note ---
Date of Service December 26, 2023 Assessment & Plan (1) HANSEL (acute kidney injury): Plan: * HANSEL resolved. * Patient has 2+ ankle edema. Electrolyte balance is acceptable. Will resume outpatient dose of Bumex 1 mg 2 tablets p.o. twice daily * Monitor I&O's, BMP. (2) Chronic kidney disease: Plan: * Metastatic RCCA s/p HALN R kidney 02/19. Patient has solitary functioning L kidney. Baseline creatinine 2.02.3 (3) Cavitary lesion of lung: Plan: * Appreciate ID and pulmonary consultation. New finding within past ~1 month. Likely infectious. Currently managed with IV Unasyn (4) Hypertension: Plan: * BP has been low. Nebivolol and losartan are being held * Resume Bumex due to ankle swelling * Monitor BP and volume status closely Admission and Anticipated Discharge Date Admission Date: December 24, 2023 Subjective Mr. Wick was evaluated in his hospital room this morning. He was sitting up in the chair breathing comfortably on O2 at 1.5 L/minute. He denied productive cough. His primary concern was pitting ankle edema. Review of Systems Constitutional: no fever Eyes: no problem reported Ear, Nose, Mouth, Throat: no problem reported Respiratory: no cough Cardiovascular: + edema; no chest pain Gastrointestinal: no abdominal pain, no nausea, no vomiting and no diarrhea/loose stools Genitourinary: no dysuria or no hematuria Physical Exam Constitutional: not in distress Eyes: PERRL, conjunctivae normal, anicteric sclerae ENMT: external ear and nose normal, oropharynx normal Neck: trachea midline, no thyromegaly Respiratory: normal respiratory effort, lungs clear to auscultation Cardiovascular: Rate/Rhythm: regular rate and regular rhythm Extremities: + edema (2+ ankle edema) Gastrointestinal (Abdomen): normal bowel sounds, soft, nontender, no hep atosplenomegaly Skin: no rashes, warm and dry Neurologic: Speech / Cognition: normal speech and normal cognition Results & Data Vital Signs (Past 12 Hours) Vital Signs Temp Pulse Pulse Resp BP BP Pulse Ox 12/26/23 07:01 36.3 C L 52 L 18 151/88 H 95 12/26/23 03:13 36.3 C L 58 L 16 135/75 94 12/26/23 01:58 61 12/25/23 22:29 36.4 C L 69 18 127/74 96 12/25/23 21:36 O2 Del Method O2 Flow Rate 12/26/23 07:01 Nasal Cannula 1.5 12/26/23 03:13 Nasal Cannula 1.0 12/26/23 01:58 12/25/23 22:29 Nasal Cannula 12/25/23 21:36 Nasal Cannula 1 Laboratory Results Laboratory Results - last 24 hr 12/25/23 12/25/23 12/25/23 11:13 11:52 16:17 WBC RBC Hgb Hct MCV MCH MCHC RDW Std Deviation RDW Coeff of Enzo Plt Count MPV Immature Gran % (Auto) Neut % (Auto) Lymph % (Auto) Hale % (Auto) Eos % (Auto) Baso % (Auto) Neut # (Auto) Lymph # (Auto) Hale # (Auto) Eos # (Auto) Baso # (Auto) Immature Gran # (Auto) Absolute Nucleated RBC Nucleated RBC % (auto) Sodium Potassium Chloride Carbon Dioxide Anion Gap BUN Creatinine Est Cr Clr Drug Dosing Est GFR ( Amer) Est GFR (Non-Af Amer) BUN/Creatinine Ratio Glucose POC Glucose 203 H 137 H Calcium A. galactomannan Ag Pending A. galactomannan Ag Idx Pending Beta-(1,3)-D-Glucan Pending B-(1,3)-D-Glucan Intrp Pending 12/25/23 12/26/23 12/26/23 19:38 06:09 07:01 WBC 8.24 RBC 2.78 L Hgb 8.6 L Hct 26.3 L MCV 94.6 MCH 30.9 MCHC 32.7 RDW Std Deviation 56.5 H RDW Coeff of Enzo 16.4 H Plt Count 154 MPV 9.1 L Immature Gran % (Auto) 7.3 Neut % (Auto) 81.5 Lymph % (Auto) 6.6 Hale % (Auto) 4.2 Eos % (Auto) 0.2 Baso % (Auto) 0.2 Neut # (Auto) 6.71 H Lymph # (Auto) 0.54 L Hale # (Auto) 0.35 Eos # (Auto) 0.02 Baso # (Auto) 0.02 Immature Gran # (Auto) 0.60 H Absolute Nucleated RBC 0.03 Nucleated RBC % (auto) 0.4 Sodium 138 Potassium 3.9 Chloride 102 Carbon Dioxide 27 Anion Gap 9 BUN 55 H Creatinine 2.28 H Est Cr Clr Drug Dosing 47.7 Est GFR ( Amer) 33.4 Est GFR (Non-Af Amer) 28.8 BUN/Creatinine Ratio 24.1 H Glucose 126 H POC Glucose 154 H 107 H Calcium 7.9 L A. galactomannan Ag A. galactomannan Ag Idx Beta-(1,3)-D-Glucan B-(1,3)-D-Glucan Intrp PG Care Time/CCT Total # of Minutes Spent Total Time Spent with Patient: Total time spent is greater than 50% in coordination of care (as documented) at patient's floor/unit and/or counseling patient: Coding Level of Care Code 26900 SUB INP/OBS CARE 3/50MIN Diagnoses HANSEL (acute kidney injury) N17.9 Chronic kidney disease N18.9 Cavitary lesion of lung J98.4 Hypertension I10
--- NOTE | 2023-12-26 14:33 | Hospitalist Progress Note ---
Date of Service December 26, 2023 Assessment & Plan (1) Necrotizing pneumonia: Plan: 68 y/o with metastatic renal cell cancer under treatment with carbozantanib who was admitted with acute hypoxic respiratory related to RLL necrotizing pneumonia, 6x4 cm cavitary lesion present on chest CT. Lesion was not present on 11/30/23 CT abdomen/pelvis so tumor unlikely. Also has bilateral upper lobe process, infectious vs inflammatory. He is immunosuppressed because of his oral chemo and recent high dose steroids for two months with max prednisone dose of 80 mg followed by taper -continue amp-sulbactam, collect sputum cx if possible -procals are low 0.49-->0.28 -consulted pulmonary and ID - assess response to amp-sulbactam if improving likely 4-6 weeks antibiotics can change to augmentin, repeat chest CT in 8 weeks, bronchoscopy if not improving. 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 Santiago with improvement in Cr to 2.2 - consulted nephrology, reviewed recs in Dr. Aiken's note - oral bumex 2 bid resumed - Cr improved to 2.28 - monitor UOP, avoid nephrotoxin - AM BMP (3) Secondary adrenal insufficiency: Plan: Patient has been on a chronic steroid taper outpatient Hypotensive on arrival stress dose steroids - IV given at admission, decreased to hydrocortisone 40 mg bid, taper to home dose eventually (4) Renal cell carcinoma: Plan: Metastatic RCC - consulted heme-onc, recommended hold carbozantanib until hospital discharge, has follow up with Dr. Isaac (5) Hypertension: Plan: HTN - BP recently low and nebivolol stopped, losartan also held (6) Elevated troponin: Plan: Initial high-sensitivity troponin minimally elevated at 47, down to 43 on 2- hour repeat No acute ST segment or T wave changes on EKG, patient denies chest pain, no evidence of ACS Related to myocardial demand ischemia from pneumonia, hypoxia (7) Hyperglycemia: Plan: Patient had to be hyperglycemic with glucose of 170 on arrival related to recent steroid use, A1c 6.9 for average BG of 151 this will improve as no longer on high dose steroids - BG checks in hospital have all been <180. Will stop glucose checks. Plan Continue low dose apixaban for DVT prophylaxis Admission and Anticipated Discharge Date Admission Date: December 24, 2023 Subjective Feeling better today, stronger and shortness of breath improved. Cough seems looser but still no sputum production. No chest pain. Leg edema improved somewhat after bumex yesterday Physical Exam 2 Physical Exam: PHYSICAL EXAMINATION Last 24h vital signs reviewed, see documentation in flowsheet General: comfortable appearing, no distress, sitting up in chair HEENT: Normocephalic, atraumatic, pupils round and equal, sclerae anicteric, no conjunctival injection, moist mucus membranes Lungs: Normal respiratory effort. diminished in both bases very slight crackles R base no wheezing Heart: Regular rate and rhythm, no murmurs. No JVD Abdomen: Soft, nontender, nondistended. Bowel sounds present. Extremities: Warm, dry, well-perfused. 1-2+ pitting lower extremity edema, slightly improved. Neuro: Alert and oriented x 4, face symmetric, moves 4 extremities well Psych: Normal affect and behavior Results & Data Results & Data Vital Signs (Past 12 Hours) Vital Signs Temp Pulse Resp BP BP Pulse Ox O2 Del Method 12/26/23 10:41 36.7 C 75 18 127/73 93 Nasal Cannula 12/26/23 08:00 Nasal Cannula 12/26/23 07:01 36.3 C L 52 L 18 151/88 H 95 Nasal Cannula 12/26/23 03:13 36.3 C L 58 L 16 135/75 94 Nasal Cannula O2 Flow Rate 12/26/23 10:41 1.5 12/26/23 08:00 1.5 12/26/23 07:01 1.5 12/26/23 03:13 1.0 Laboratory Results 12/26/23 06:09 12/26/23 06:09 PG Care Time/CCT Total # of Minutes Spent Total Time Spent with Patient: Total time spent is greater than 50% in coordination of care (as documented) at patient's floor/unit and/or counseling patient: Coding Level of Care Code 19307 SUB INP/OBS CARE 2/35MIN Diagnoses Necrotizing pneumonia J85.0 HANSEL (acute kidney injury) N17.9 Secondary adrenal insufficiency E27.49 Renal cell carcinoma, unspecified laterality C64.9 Laterality: unspecified laterality Hypertension I10 Elevated troponin R79.89 Hyperglycemia R73.9 (4) Renal cell carcinoma Laterality: unspecified laterality Qualified Code(s): C64.9 - Malignant neoplasm of unspecified kidney, except renal pelvis
[2023-12-26] MEDS: BUMETANIDE 1 MG TAB PO SCH (20:16)
[2023-12-27 07:47] LABS: BUN Creatinine Ratio 26.8 (10-20); Calcium 8.1 mg/dl (8.6-10.3); Creatinine Clr Calc Pharmacy 49.4 ml/min; Est GFR (African American) 34.9 ml/min; Est GFR (Non-African American) 30.1 ml/min; Potassium 3.8 mmol/L (3.5-5.1)
[2023-12-27] MEDS ORDERED: Nursing to Pharmacy Communication SCH (08:15)
--- NOTE | 2023-12-27 08:38 | Nephrology Progress Note ---
Date of Service December 27, 2023 Assessment & Plan (1) Chronic kidney disease: Plan: * Metastatic RCCA s/p HALN R kidney 02/19. Patient has solitary functioning L kidney. Baseline creatinine 2.02.3 * Kidney function is stable at this time * Patient has 2+ ankle edema. Electrolyte balance remains acceptable. * Continue Bumex 1 mg 2 tablets p.o. twice daily * Monitor I&O's, BMP, weight * When patient is discharged, have him keep his 01/12/24 outpatient appointment w/ Dr. Santiago. He already has orders for outpatient labs to be completed prior to the office visit (2) Cavitary lesion of lung: Plan: * Currently managed with IV Unasyn (3) Hypertension: Plan: * BP is currently acceptable. * Continue to hold Nebivolol and losartan. Will assess need to resume as outpatient * Continue Bumex due to ankle swellingy Admission and Anticipated Discharge Date Admission Date: December 24, 2023 Subjective Mr. Wick was evaluated in his hospital room this morning. He was sitting in bed breathing comfortably on RA. Mr. Wick was awaiting a 2 step pulse oximetry test. He reports a good response to Bumex therapy and notes that his ankle edema is mildly improved Review of Systems Constitutional: no fever Eyes: no problem reported Ear, Nose, Mouth, Throat: no problem reported Respiratory: no cough Cardiovascular: + edema; no chest pain Gastrointestinal: no abdominal pain, no nausea, no vomiting and no diarrhea/loose stools Genitourinary: no dysuria or no hematuria Physical Exam Constitutional: not in distress Eyes: PERRL, conjunctivae normal, anicteric sclerae ENMT: external ear and nose normal, oropharynx normal Neck: trachea midline, no thyromegaly Respiratory: normal respiratory effort, lungs clear to auscultation Cardiovascular: Rate/Rhythm: regular rate and regular rhythm Extremities: + edema (2+ ankle edema) Gastrointestinal (Abdomen): normal bowel sounds, soft, nontender, no hepatosplenomegaly Skin: no rashes, warm and dry Neurologic: Speech / Cognition: normal speech and normal cognition Results & Data Vital Signs (Past 12 Hours) Vital Signs Temp Pulse Resp BP BP Pulse Ox O2 Del Method 12/27/23 07:04 36.3 C L 55 L 16 143/81 H 92 Room Air 12/26/23 21:51 36.4 C L 69 20 135/75 94 Room Air Laboratory Results Laboratory Results WBC 8.24 K/ul (4.8-10.8) 12/26/23 06:09 RBC 2.78 M/uL (4.70-6.10) L 12/26/23 06:09 Hgb 8.6 g/dl (14.0-18.0) L 12/26/23 06:09 Hct 26.3 % (42.0-52.0) L 12/26/23 06:09 MCV 94.6 fL (80.0-100.0) 12/26/23 06:09 MCH 30.9 pg (25.0-34.0) 12/26/23 06:09 MCHC 32.7 g/dL (32.0-36.0) 12/26/23 06:09 RDW Std Deviation 56.5 fL (36.4-46.3) H 12/26/23 06:09 RDW Coeff of Enzo 16.4 % (11.5-14.5) H 12/26/23 06:09 Plt Count 154 K/uL (130-400) 12/26/23 06:09 MPV 9.1 fL (9.4-12.4) L 12/26/23 06:09 Immature Gran % (Auto) 7.3 % 12/26/23 06:09 Neut % (Auto) 81.5 % 12/26/23 06:09 Lymph % (Auto) 6.6 % 12/26/23 06:09 [place]leigh % (Auto) 4.2 % 12/26/23 06:09 Eos % (Auto) 0.2 % 12/26/23 06:09 Baso % (Auto) 0.2 % 12/26/23 06:09 Neut # (Auto) 6.71 K/uL (1.40-6.50) H 12/26/23 06:09 Lymph # (Auto) 0.54 K/uL (1.20-3.40) L 12/26/23 06:09 Burleigh # (Auto) 0.35 K/uL (0.11-0.59) 12/26/23 06:09 Eos # (Auto) 0.02 K/uL (0.00-0.50) 12/26/23 06:09 Baso # (Auto) 0.02 K/uL (0.00-0.20) 12/26/23 06:09 Immature Gran # (Auto) 0.60 K/uL (0.01-0.20) H 12/26/23 06:09 Absolute Nucleated RBC 0.03 K/uL (0.00-0.12) 12/26/23 06:09 Nucleated RBC % (auto) 0.4 % 12/26/23 06:09 Neutrophils % (Manual) 86 % 12/25/23 03:51 Lymphocytes % (Manual) 2 % 12/25/23 03:51 Monocytes % (Manual) 2 % 12/25/23 03:51 Eosinophils % (Manual) 1 % 12/25/23 03:51 Basophils % (Manual) 1 % 12/25/23 03:51 Metamyelocytes % (Man) 6 % 12/25/23 03:51 Myelocytes % (Man) 2 % 12/25/23 03:51 Neutrophils # (Manual) 5.87 K/uL (1.40-6.50) 12/25/23 03:51 Total Absolute Neuts 5.87 K/uL (1.4-6.5) 12/25/23 03:51 Lymphocytes # (Manual) 0.14 K/uL (1.2-3.4) L 12/25/23 03:51 Total Abs Lymphocytes 0.14 K/uL (1.2-3.4) L 12/25/23 03:51 Monocytes # (Manual) 0.14 K/uL (0.11-0.59) 12/25/23 03:51 Eosinophils # (Manual) 0.07 K/uL (0-0.50) 12/25/23 03:51 Basophils # (Manual) 0.07 K/uL (0-0.2) 12/25/23 03:51 Metamyelocytes # (Man) 0.41 K/uL (0-0) H 12/25/23 03:51 Myelocytes # (Manual) 0.14 K/uL (0-0) H 12/25/23 03:51 ESR 75 mm/hr (0-20) H 12/24/23 12:45 PT 11.5 Seconds (9.0-12.0) 12/25/23 03:51 INR 1.1 (0.9-1.1) 12/25/23 03:51 APTT 29 Seconds (21-31) 12/24/23 12:48 PTT Ratio 1.1 12/24/23 12:48 Sodium 139 mmol/L (136-145) 12/27/23 05:55 Potassium 3.8 mmol/L (3.5-5.1) 12/27/23 05:55 Chloride 102 mmol/L (98-107) 12/27/23 05:55 Carbon Dioxide 29 mmol/L (21-32) 12/27/23 05:55 Anion Gap 8 (3-11) 12/27/23 05:55 BUN 59 mg/dl (6-23) H 12/27/23 05:55 Creatinine 2.20 mg/dl (0.6-1.4) H 12/27/23 05:55 Est Cr Clr Drug Dosing 49.4 ml/min 12/27/23 05:55 Est GFR ( Amer) 34.9 ml/min 12/27/23 05:55 Est GFR (Non-Af Amer) 30.1 ml/min 12/27/23 05:55 BUN/Creatinine Ratio 26.8 (10-20) H 12/27/23 05:55 Glucose 104 mg/dl (70-99(Fasting)) H 12/27/23 05:55 POC Glucose 124 mg/dl (70-99) H 12/26/23 11:23 Estimat Average Glucose 151 mg/dl 12/25/23 03:51 Hemoglobin A1c 6.9 % (4.5-5.6) H 12/25/23 03:51 Lactate 1.8 mmol/L (0.4-2.0) 12/24/23 14:52 Calcium 8.1 mg/dl (8.6-10.3) L 12/27/23 05:55 Magnesium 2.1 mg/dl (1.7-2.4) 12/25/23 03:51 Total Bilirubin 0.7 mg/dl (0.2-1.0) 12/25/23 03:51 AST 26 U/L (13-39) 12/25/23 03:51 ALT 46 U/L (7-52) 12/25/23 03:51 Alkaline Phosphatase 68 U/L (34-104) 12/25/23 03:51 Troponin I High Sens 43.2 pg/ml (0-20) H 12/24/23 14:52 C-Reactive Protein 21.31 mg/dl (0-0.5) H 12/24/23 12:48 B-Natriuretic Peptide 118 pg/ml (0-100) H 12/24/23 12:48 Total Protein 5.7 gm/dl (6.0-8.3) L 12/25/23 03:51 Albumin 2.8 gm/dl (3.4-5.0) L 12/25/23 03:51 Globulin 2.9 gm/dl (2.5-4.0) 12/25/23 03:51 Albumin/Globulin Ratio 1.0 (0.9-2) 12/25/23 03:51 Procalcitonin 0.28 ng/ml (0-0.5) 12/25/23 09:39 Nasal Screen MRSA (PCR) Negative (Negative) 12/24/23 16:58 SARS-CoV-2 (PCR) NEGATIVE (Negative) 12/24/23 13:40 Influenza Type A (PCR) Negative (Neg) 12/24/23 13:40 Influenza Type B (PCR) Negative (Neg) 12/24/23 13:40 RSV (RT-PCR) Negative (Neg) 12/24/23 13:40 Impressions Chest X-Ray 12/24/23 12:43 SINGLE VIEW CHEST CLINICAL HISTORY: Atypical chest pain FINDINGS: 2 AP, portable, upright chest radiographs are compared to study dated 03/19/2020. Correlation is made with chest CT scans dated 11/30/2023 and 02/19/2020. The heart is enlarged noting atherosclerotic calcification of the thoracic aorta. The pulmonary vasculature is noncontrast. There is airspace consolidation at the right lung base with possible cavitation. This is new from 11/30/2023 and consistent with pneumonia. The left lung appears clear noting dependent atelectasis. No pneumothorax is seen. The bony thorax is grossly intact. Degenerative change is seen in the shoulders and spine. IMPRESSION: 1. Airspace consolidation with possible cavitation at the right lung base is new from 11/30/2023 and consistent with pneumonia. Clinical correlation will be required and radiographic follow-up to resolution is recommended. 2. Cardiomegaly without radiographic evidence of congestive failure. ACT 112: Negative or not required by law. Electronically signed by: Ole Wolfe M.D. 12/24/2023 1:[address] 12/24/23 13:37 CT SCAN OF THE CHEST WITHOUT IV CONTRAST CLINICAL HISTORY: Pneumonia. COMPARISON STUDY: Chest CT dated 11/30/2023. Chest x-ray dated 12/24/2023. TECHNIQUE: CT scan of the thorax was performed from the thoracic inlet to the upper abdomen. Images are reviewed in the axial, sagittal, and coronal planes. IV contrast was not administered for this examination as per the referring clinician. A dose lowering technique was utilized adhering to the principles of ALARA. CT DOSE: 992.33 mGy.cm FINDINGS: Thyroid: Mildly atrophic and heterogeneous. Thoracic aorta: There is mild atherosclerotic calcification of the thoracic aorta, which is normal in caliber and demonstrates standard 3-vessel arch anatomy. Heart: The heart is mildly enlarged noting trace pericardial effusion. Lungs and pleural spaces: Mild emphysematous change is noted. There is postsurgical change from left lower lobe resection. There is trace right pleural effusion. The trachea and central airways are clear. There is a 5.8 x 4.2 cm focus of ovoid consolidation with cavitation seen at the right lung base seen on image #145. This is new from 11/30/2023 and consistent with a cavitary pneumonia. Subtle ground glass opacities are seen throughout both upper lobes, right greater than left. This is also new from previous. Additional foci of parenchymal scarring are seen throughout both lungs. There are scattered calcified granulomas. Mediastinum: There is no mediastinal lymphadenopathy. Raquel: Not well assessed without IV contrast. Axillae: There is no axillary lymphadenopathy. Upper abdomen: There are calcified gallstones with no CT evidence of acute cholecystitis. The liver appears stated ptotic. There is evidence of right nephrectomy. Skeletal structures: The skeletal structures are osteopenic. Degenerative change is seen in the shoulders and spine. No lytic or blastic bony lesions are seen. IMPRESSION: 1. There is a 5.8 x 4.2 cm focus of ovoid consolidation with cavitation at the right lung base. This is new from 11/30/2023 and consistent with a necrotizing pneumonia. Radiographic follow-up to resolution is recommended. 2. Trace right pleural effusion. 3. Subtle patchy groundglass opacities are seen throughout both upper lobes, right greater than left. This is also new from 11/30/2023 and also likely infectious/inflammatory. 4. Postsurgical change is seen in the left lower lobe. 5. Mild cardiomegaly and mild emphysema. 6. Cholelithiasis. 7. Additional findings as above. ACT 112: Negative or not required by law. Electronically signed by: Ole Wolfe M.D. 12/24/2023 3:13 PM Venous Doppler Study 12/24/23 13:37 US venous doppler LE BI CLINICAL HISTORY: swelling TECHNIQUE: Bilateral lower extremity real-time compression venous ultrasound with Color Doppler imaging. Utilizing real-time ultrasonic imaging multiple real time high-resolution ultrasonic images with compression and noncompression maneuvers of the deep venous system in addition to color doppler imaging were performed from the common femoral vein through the proximal calf veins. COMPARISON: Comparison is made to a venous Doppler 07/11/2022 FINDINGS/IMPRESSION: Currently there is normal compressibility of the deep venous system from the common femoral vein through the proximal calf veins. No superficial venous thrombosis is identified. ACT 112: Negative or not required by law. Electronically signed by: Jermaine Sewell M.D. 12/24/2023 2:45 PM PG Care Time/CCT Total # of Minutes Spent Total Time Spent with Patient: Total time spent is greater than 50% in coordination of care (as documented) at patient's floor/unit and/or counseling patient: Coding Level of Care Code 96695 SUB INP/OBS CARE 3/50MIN Diagnoses Chronic kidney disease N18.9 Cavitary lesion of lung J98.4 Hypertension I10
[2023-12-27] MEDS: ADVANCED PROBIOTIC 625 MG CAPSULE PO SCH (15:58)
--- NOTE | 2023-12-27 16:18 | Hospitalist Progress Note ---
Date of Service December 27, 2023 Assessment & Plan (1) Necrotizing pneumonia: Plan: 68 y/o with metastatic renal cell cancer under treatment with carbozantanib who was admitted with acute hypoxic respiratory related to RLL necrotizing pneumonia, 6x4 cm cavitary lesion present on chest CT. Lesion was not present on 11/30/23 CT abdomen/pelvis so tumor unlikely. Also has bilateral upper lobe process, infectious vs inflammatory. He is immunosuppressed because of his oral chemo and recent high dose steroids for two months with max prednisone dose of 80 mg followed by taper -continue amp-sulbactam, collect sputum cx if possible -procals are low 0.49-->0.28 -consulted pulmonary and ID - assess response to amp-sulbactam if improving likely 4-6 weeks antibiotics can change to augmentin, repeat chest CT in 8 weeks, bronchoscopy if not improving. Fungitell and galactomannan also sent by ID, pending 12/26 hypoxia has resolved and symptomatically he has definitely improved, will check CBC ESR CRP and two-view chest x-ray in the morning. Will discuss clinical course with infectious disease, likely discharge home on oral Augmentin and follow-up in pulmonary clinic (2) HANSEL (acute kidney injury): Plan: HANSEL on CKD-3 - solitary kidney, hx HTN, multiple AKIs in past - nivolumab has been on hold after 10/09/23 dose due to 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 Santiago with improvement in Cr to 2.2 - consulted nephrology, oral bumex 2 bid resumed - Cr improved to 2.2 which is his recent baseline - monitor UOP, avoid nephrotoxin - AM BMP (3) Secondary adrenal insufficiency: Plan: Patient has been on a chronic steroid taper outpatient Hypotensive on arrival stress dose steroids - IV given at admission, decreased to hydrocortisone 40 mg bid, taper to home dose. (4) Renal cell carcinoma: Plan: Metastatic RCC - consulted heme-onc, recommended hold carbozantanib until hospital discharge, has follow up with Dr. Isaac (5) Hypertension: Plan: HTN - BP recently low and nebivolol stopped, losartan also held normotensive on the balance this week (6) Elevated troponin: Plan: Initial high-sensitivity troponin minimally elevated at 47, down to 43 on 2- hour repeat No acute ST segment or T wave changes on EKG, patient denies chest pain, no evidence of ACS Related to myocardial demand ischemia from pneumonia, hypoxia (7) Hyperglycemia: Plan: Patient had to be hyperglycemic with glucose of 170 on arrival related to recent steroid use, A1c 6.9 for average BG of 151 this will improve as no longer on high dose steroids - BG checks in hospital have all been <180. Will stop glucose checks. Plan Continue low dose apixaban for DVT prophylaxis Admission and Anticipated Discharge Date Admission Date: December 24, 2023 Subjective mild dyspnea on exertion at this time, continues to improve. No longer on supplemental oxygen has cough but has still not produced any sputum leg edema is better after diuretics resumed by nephrology Physical Exam 2 Physical Exam: PHYSICAL EXAMINATION Last 24h vital signs reviewed, see documentation in flowsheet General: sitting up in the chair and looks well HEENT: Normocephalic, atraumatic, pupils round and equal, sclerae anicteric, no conjunctival injection, moist mucus membranes Lungs: Normal respiratory effort. clear on left, diminished in right base but no crackles audible today Heart: Regular rate and rhythm, no murmurs. No JVD Abdomen: Soft, nontender, nondistended. Bowel sounds present. Extremities: Warm, dry, well-perfused. 1-2+ pitting lower extremity edema, improved since admission. Neuro: Alert and oriented x 4, face symmetric, moves 4 extremities well Psych: Normal affect and behavior Results & Data Results & Data Vital Signs (Past 12 Hours) Vital Signs Temp Pulse Resp BP BP Pulse Ox O2 Del Method 12/27/23 14:40 36.8 C 67 16 122/79 94 Room Air 12/27/23 08:15 Room Air 12/27/23 07:04 36.3 C L 55 L 16 143/81 H 92 Room Air Laboratory Results 12/26/23 06:09 12/27/23 05:55 PG Care Time/CCT Total # of Minutes Spent Total Time Spent with Patient: Total time spent is greater than 50% in coordination of care (as documented) at patient's floor/unit and/or counseling patient: Coding Level of Care Code 36177 SUB INP/OBS CARE 2/35MIN Diagnoses Necrotizing pneumonia J85.0 HANSEL (acute kidney injury) N17.9 Secondary adrenal insufficiency E27.49 Renal cell carcinoma, unspecified laterality C64.9 Laterality: unspecified laterality Hypertension I10 Elevated troponin R79.89 Hyperglycemia R73.9 (4) Renal cell carcinoma Laterality: unspecified laterality Qualified Code(s): C64.9 - Malignant neoplasm of unspecified kidney, except renal pelvis
[2023-12-27] MEDS: BUMETANIDE 1 MG TAB PO SCH (17:10)
[2023-12-28 06:35] LABS: Hemoglobin 9.6 g/dl (14.0-18.0); Mean Corpuscular Hemoglobin 30.6 pg (25.0-34.0); Mean Corpuscular Volume 95.5 fL (80.0-100.0); Nucleated RBC # (auto) 0.09 K/uL (0.00-0.12); Nucleated RBC % (auto) 1.2 %; Platelet Count 179 K/uL (130-400); RDW Coefficient of Variation 16.9 % (11.5-14.5); RDW Standard Deviation 58.2 fL (36.4-46.3); Red Blood Count 3.14 M/uL (4.70-6.10); White Blood Count 7.62 K/ul (4.8-10.8)
[2023-12-28 06:54] LABS: ALC (manual) 0.46 K/uL (1.2-3.4); Eosinophils # (manual) 0.23 K/uL (0-0.50); Eosinophils % (manual) 3 %; Lymphocytes # (manual) 0.46 K/uL (1.2-3.4); Lymphocytes % (manual) 6 %; Metamyelocytes # (manual) 0.08 K/uL (0-0); Metamyelocytes % (manual) 1 %; Monocytes # (manual) 0.08 K/uL (0.11-0.59); Monocytes % (manual) 1 %; Myelocytes # (manual) 0.38 K/uL (0-0); Myelocytes % (manual) 5 %; Neutrophils % (manual) 84 %
[2023-12-28 06:59] LABS: BUN Creatinine Ratio 23.3 (10-20); C Reactive Protein 7.15 mg/dl (0-0.5); Calcium 7.9 mg/dl (8.6-10.3); Creatinine Clr Calc Pharmacy 49.5 ml/min; Est GFR (African American) 35.1 ml/min; Est GFR (Non-African American) 30.3 ml/min; Potassium 3.6 mmol/L (3.5-5.1)
--- NOTE | 2023-12-28 08:46 | Nephrology Progress Note ---
Date of Service December 28, 2023 Assessment & Plan (1) Chronic kidney disease: Plan: * Metastatic RCCA s/p HALN R kidney 02/19. Patient has solitary functioning L kidney. Baseline creatinine 2.02.3 * Kidney function is stable at this time * Patient has 2+ ankle edema. Electrolyte balance remains acceptable. * Continue Bumex 1 mg 2 tablets p.o. twice daily * Monitor I&O's, BMP, weight * When patient is discharged, have him keep his 01/12/24 outpatient appointment w/ Dr. Santiago. He already has orders for outpatient labs to be completed prior to the office visit (2) Cavitary lesion of lung: Plan: * Currently managed with IV Unasyn (3) Hypertension: Plan: * BP is currently acceptable. * Continue to hold Nebivolol and losartan. Will assess need to resume as outpatient * Continue Bumex due to ankle swellingy Admission and Anticipated Discharge Date Admission Date: December 24, 2023 Subjective Mr. Wick was evaluated in his hospital room this morning. He was sitting in bed breathing comfortably on RA. He reports a good response to Bumex therapy and notes that his ankle edema is mildly improved. He is awaiting CXR this am Review of Systems Constitutional: no fever Eyes: no problem reported Ear, Nose, Mouth, Throat: no problem reported Respiratory: no cough Cardiovascular: + edema; no chest pain Gastrointestinal: no abdominal pain, no nausea, no vomiting and no diarrhea/loose stools Genitourinary: no dysuria or no hematuria Physical Exam Constitutional: not in distress Eyes: PERRL, conjunctivae normal, anicteric sclerae ENMT: external ear and nose normal, oropharynx normal Neck: trachea midline, no thyromegaly Respiratory: normal respiratory effort, lungs clear to auscultation Cardiovascular: Rate/Rhythm: regular rate and regular rhythm Extremities: + edema (2+ ankle edema) Gastrointestinal (Abdomen): normal bowel sounds, soft, nontender, no hepatosplenomegaly Skin: no rashes, warm and dry Neurologic: Speech / Cognition: normal speech and normal cognition Results & Data Vital Signs (Past 12 Hours) Vital Signs Temp Pulse Resp BP Pulse Ox O2 Del Method 12/28/23 07:07 36.5 C 61 18 148/85 H 93 Room Air 12/27/23 21:46 36.5 C 74 20 156/84 H 93 Room Air Laboratory Results Laboratory Results - last 24 hr 12/28/23 05:55 WBC 7.62 RBC 3.14 L Hgb 9.6 L Hct 30.0 L MCV 95.5 MCH 30.6 MCHC 32.0 RDW Std Deviation 58.2 H RDW Coeff of Enzo 16.9 H Plt Count 179 MPV 9.0 L Absolute Nucleated RBC 0.09 Nucleated RBC % (auto) 1.2 Neutrophils % (Manual) 84 Lymphocytes % (Manual) 6 Monocytes % (Manual) 1 Eosinophils % (Manual) 3 Metamyelocytes % (Man) 1 Myelocytes % (Man) 5 Neutrophils # (Manual) 6.40 Total Absolute Neuts 6.40 Lymphocytes # (Manual) 0.46 L Total Abs Lymphocytes 0.46 L Monocytes # (Manual) 0.08 L Eosinophils # (Manual) 0.23 Metamyelocytes # (Man) 0.08 H Myelocytes # (Manual) 0.38 H ESR 61 H Sodium 140 Potassium 3.6 Chloride 101 Carbon Dioxide 30 Anion Gap 9 BUN 51 H Creatinine 2.19 H Est Cr Clr Drug Dosing 49.5 Est GFR ( Amer) 35.1 Est GFR (Non-Af Amer) 30.3 BUN/Creatinine Ratio 23.3 H Glucose 104 H Calcium 7.9 L C-Reactive Protein 7.15 H PG Care Time/CCT Total # of Minutes Spent Total Time Spent with Patient: Total time spent is greater than 50% in coordination of care (as documented) at patient's floor/unit and/or counseling patient: Coding Level of Care Code 79544 SUB INP/OBS CARE 3/50MIN Diagnoses Chronic kidney disease N18.9 Cavitary lesion of lung J98.4 Hypertension I10
--- NOTE | 2023-12-28 09:20 | Infectious Disease Progress Nt ---
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 Was started on tapering steroids at 80 mg/d, with taper by 10 mg weekly, to remain on prednisone 10 mg daily at the end of the taper. 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 On presentation, pt was afebrile, HR 97, BP as low as 85/48, 87% on room air. La bs showed WBC 10.12, Cr 2.68, ESR 75, CRP 21.31, procalcitonin 0.49, COVID- 19/flu/RSV negative. CT chest showed a 5.8 x 2.4 cm focus of ovoid consolidation with cavitation at R lung base, new from 11/30/23 and consistent with necrotizing pneumonia, trace R pleural effusion, subtle patchy groundglass opacities throughout both upper lobes, R>L, new from 11/30/23 and also likely infectious/inflammatory. He was started on linezolid, pip-tazo pending a MRSA swab. Pulmonology was consulted, recommended 6 weeks of antibiotics with a repeat CT chest in 8 weeks, and if the RLL opacity was nonresolving, then could consider a bronchoscopy at that time. Of note, pt has been on tapering prednisone since October, as well as cabozantinib, so he is immunosuppressed and susceptible to more atypical organisms. However given the acuity of this RLL cavitation (not seen on 11/30/23 scan), more likely to represent a bacterial process. The linezolid and pip-tazo were narrowed to amp-sulbactam on 12/24, with plan to assess for improvement over the weekend. These are empiric antibiotics, given we do not have culture data from the RLL to direct antibiotic therapy. Pt appears to have improved--breathing has improved, and he is no longer on supplemental O2. CXR 12/27 with interval development of moderate R pneumothorax, and decrease in conspicuity of cavitary RLL pneumonia. Recommendations: - Given pt's improvement on amp-sulbactam, can transition to amox/clav 875 mg PO BID. Would send with 6 weeks of antibiotics, with plan for a repeat CT chest in ~6-8 weeks to confirm improvement. - If pt is worsening despite amox/clav, would repeat CT chest at an earlier interval and consider bronchoscopy to obtain deeper cultures (bacterial, fungal, AFB, galactomannan) if pt is still unable to produce sputum for culture - Ideally would have pt follow-up with pulmonology - Given immunosuppressed state, ordered Fungitell and galactomannan, although think less likely--results pending Will sign off, follow peripherally. Admission and Anticipated Discharge Date Admission Date: December 24, 2023 Subjective This patient recommendation is based on a telemedicine consult request which was completed asynchronously through chart review and information provided by the primary physician. The patient was not seen or examined today. The evaluation is consultative in nature and all patient care and treatment decisions can either be accepted or rejected by the patient's primary hospital-based treating physician using their own independent medical judgment for their patient. Time Spent Reviewing Chart: 21 - 30 minutes Remains afebrile without leukocytosis Weaned to room air on 12/25 ESR, CRP downtrending Review of System Pt was not seen Physical Exam Physical Exam: Pt was not seen Results & Data Vital Signs (Past 12 Hours) Vital Signs Temp Pulse Resp BP Pulse Ox O2 Del Method 12/28/23 07:50 Room Air 12/28/23 07:07 36.5 C 61 18 148/85 H 93 Room Air 12/27/23 21:46 36.5 C 74 20 156/84 H 93 Room Air Laboratory Results Short CBC 12/28/23 Range/Units 05:55 WBC 7.62 (4.8-10.8) K/ul Hgb 9.6 L (14.0-18.0) g/dl Hct 30.0 L (42.0-52.0) % Plt Count 179 (130-400) K/uL BMP 12/28/23 05:55 Sodium 140 Potassium 3.6 Chloride 101 Carbon Dioxide 30 BUN 51 H Creatinine 2.19 H Glucose 104 H Calcium 7.9 L Diagnostic Findings 12/27 CXR 1. Interval development of a moderate right pneumothorax. This finding will be called/faxed to the ordering provider at time of dictation. 2. Decrease in conspicuity of the cavitary right lower lobe pneumonia. 3. Small right pleural effusion. Medications Administered Current Inpatient Medications Albuterol (Albuterol 0.5% Neb Soln 2.5 Mg/0.5 Ml Vial) 2.5 mg NEB Q6R PRN; Protocol PRN Reason: SOB or wheezing Stop: 01/23/24 18:59 Apixaban (Apixaban 2.5 Mg Tab) 2.5 mg PO BID KASEY Stop: 01/23/24 20:59 Last Admin: 12/28/23 07:58 Dose: 2.5 mg Bumetanide (Bumetanide 1 Mg Tab) 2 mg PO BID17 KASEY Stop: 01/26/24 16:59 Last Admin: 12/28/23 07:57 Dose: 2 mg Dextrose (Dextrose 50% 50 Ml Syringe) 25 - 50 ml IV UD PRN; Protocol PRN Reason: Hypoglycemia Protocol Stop: 01/23/24 17:29 Glucagon (Glucagon For Inj 1 Mg Vial) 1 mg SQ UD PRN; Protocol PRN Reason: Hypoglycemia Protocol Stop: 01/23/24 17:29 Glucose (Glucose 40% Gel 15 Gm Tube) 15 - 30 gm PO UD PRN; Protocol PRN Reason: Hypoglycemia Protocol Stop: 01/23/24 17:29 Glucose (Glucose 10 Tab/Tube) 4 - 8 tab PO UD PRN; Protocol PRN Reason: Hypoglycemia Treatment Stop: 01/23/24 17:29 Guaifenesin/Codeine Phosphate (Guaifenesin/Codeine 100mg/10mg 5ml Udc) 5 ml PO Q6H PRN PRN Reason: Cough Stop: 01/23/24 17:13 Hydrocortisone (Hydrocortisone 10 Mg Tab) 20 mg PO QAM KASEY Stop: 01/28/24 08:59 Hydrocortisone (Hydrocortisone 10 Mg Tab) 10 mg PO DAILY@1700 KASEY Stop: 01/27/24 16:59 Ampicillin Sodium/Sulbactam Sodium (Unasyn) 3,000 mg in 100 mls @ 200 mls/hr IV Q6H KASEY Stop: 01/01/24 11:59 Last Infusion: 12/28/23 06:33 Dose: Infused Lactobacillus Acidophilus (Advanced Probiotic 625 Mg Capsule) 1,250 mg PO DAILY KASEY Stop: 01/26/24 14:14 Last Admin: 12/28/23 07:57 Dose: 1,250 mg Levothyroxine Sodium (Levothyroxine Sodium 150 Mcg Tablet) 150 mcg PO DAILYBB KASEY Stop: 01/24/24 06:29 Last Admin: 12/28/23 05:47 Dose: 150 mcg Miscellaneous (Carbohydrates For Hypoglycemia ) 15 - 30 gm PO UD PRN PRN Reason: Hypoglycemia Protocol Stop: 01/23/24 17:29
--- NOTE | 2023-12-28 11:48 | XRay Report ---
XR chest 2V PA/lateral CLINICAL HISTORY: follow up R base pneumonia COMPARISON STUDY: Chest radiograph and chest CT December 24, 2023. FINDINGS: There has been interval development of a moderate size right pneumothorax. A small right pl eural effusion is present. Cavitary opacity within the right lower lobe has decreased in conspicuity. There is no left pneumothorax. Left lung is clear. Cardiomediastinal silhouette is stable. There is no evidence for pulmonary edema. IMPRESSION: 1. Interval development of a moderate right pneumothorax. This finding will be called/faxed to the or dering provider at time of dictation. 2. Decrease in conspicuity of the cavitary right lower lobe pneumonia. 3. Small right pleural effusion. ACT 112: Negative or not required by law. Electronically signed by: Damien Darling M.D. 12/28/2023 11:46 AM
--- NOTE | 2023-12-28 14:05 | XRay Report ---
SINGLE VIEW CHEST CLINICAL HISTORY: Pneumothorax. FINDINGS: An AP, portable, upright chest radiograph is compared to study performed earlier the same d ay 12/28/2023 and correlated with chest CT dated 12/24/2023. The heart is enlarged. The pulmonary vascu lature is noncongested. A right-sided pneumothorax is unchanged to modestly decreased in size since dany ozunaay's earlier examination. There is 2.1 cm of pleural separation. Opacities the right lung base are again noted. Scarring/atelectasis is also seen at the left lung base. No large pleural effusion or le ft-sided pneumothorax is seen. The bony thorax is grossly intact. IMPRESSION: 1. A [id number] right-sided pneumothorax is unchanged to modestly decreased in size from today 's earlier examination. 2. Airspace opacities are again seen at the right lung base. 3. Cardiomegaly without radiographic evidence of congestive failure. ACT 112: Negative or not required by law. Electronically signed by: Ole Wolfe M.D. 12/28/2023 2:04 PM
--- NOTE | 2023-12-28 14:10 | Pulmonology Progress Note ---
Date of Service December 28, 2023 Assessment & Plan (1) Spontaneous pneumothorax: Plan: Repeat chest x-ray this afternoon shows stability of approximately a 2 cm apical pneumothorax identified on morning x-ray. Patient asymptomatic at this time. Will repeat additional chest x-ray in 4 hours after he has been on a nonrebreather to help with resorption of the pneumothorax. Avoid noninvasive ventilation at this time. (2) Pneumonia: Plan: Patient currently followed by ID for cavitary pneumonia. Denies any overt respiratory symptoms at present. Immunotherapy currently on hold due to pneumo manuel. Laterality: unspecified laterality Lung location: unspecified part of lung Pneumonia type: due to unspecified organism Qualified Code(s): J18.9 - Pneumonia, unspecified organism (3) Lung metastasis: Plan: Patient has a history of renal cell carcinoma with mets to the lung. Had wedge resection of the left lower lobe. Cavitary lesion noted in the right lower lobe. Unclear if this is malignant versus infectious. Will need follow-up CT chest in 6 weeks. Plan Discussed with patient's and patient. Discussed with hospitalist service and bedside RN. Patient to be moved to PCU status. Admission and Anticipated Discharge Date Admission Date: December 24, 2023 Subjective Asked by hospital service to reevaluate the patient due to pneumothorax identified this morning on chest x-ray. Patient asymptomatic and was ready to go home. He was placed on a nonrebreather and denies any shortness of breath, cough or chest pain presently. Review of Systems Review of Systems: All systems reviewed & are unremarkable except as noted in HPI & below Physical Exam Physical Exam: Constitutional: No acute distress HEENT: EOMI, PERRLA Respiratory system: Decreased air entry bilaterally, no wheeze, rhonchi, positive crackles bilateral lower lobes CVS: S1-S2 positive, no murmurs or gallops Abdomen: Soft, nontender, nondistended, positive bowel sounds x4 Extremities: +2 pulses bilaterally radialis/ dorsalis pedis, no cyanosis, +2 pitting edema bilateral lower extremity, R>L Neuro: Awake alert oriented x3 Psych: Normal mood and affect G/U: No Bentley Skin: no rashes, warm and dry Lymphatic: no cervical or axillary lymphadenopathy Results & Data Results & Data Vital Signs (Past 12 Hours) Vital Signs Temp Pulse Resp BP Pulse Ox O2 Del Method 12/28/23 07:50 Room Air 12/28/23 07:07 36.5 C 61 18 148/85 H 93 Room Air PG Care Time/CCT Total # of Minutes Spent Total Time Spent with Patient: Total time spent is greater than 50% in coordination of care (as documented) at patient's floor/unit and/or counseling patient: Coding Level of Care Code 50103 SUB INP/OBS CARE 2/35MIN Diagnoses Spontaneous pneumothorax J93.83 Pneumonia J18.9 Laterality: unspecified laterality Lung location: unspecified part of lung Pneumonia type: due to unspecified organism Lung metastasis C78.00
--- NOTE | 2023-12-28 14:34 | Hospitalist Progress Note ---
<Statement entered by Marti Cedeno MD - 12/28/23 15:14> Has been responding very well to antibiotics however routine CXR to follow up pneumonia showed moderate pneumothorax on the right. I personally reviewed the CXR and previous chest CT films. Related to cavitary pneumonia RLL which abuts the pleura. Fortunately it is asymptomatic. 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 Blair owens, we'll place him in PCU for closer monitoring and provide supplemental O2, repeat CXR later today. Date of Service December 28, 2023 Assessment & Plan (1) Necrotizing pneumonia: Plan: 68 y/o with metastatic renal cell cancer under treatment with carbozantanib who was admitted with acute hypoxic respiratory related to RLL necrotizing pneumonia, 6x4 cm cavitary lesion present on chest CT. Lesion was not present on 11/30/23 CT abdomen/pelvis so tumor unlikely. Also has bilateral upper lobe process, infectious vs inflammatory. He is immunosuppressed because of his oral chemo and recent high dose steroids for two months with max prednisone dose of 80 mg followed by taper -procals are low 0.49-->0.28 -consulted ID - responded well to amp-sulbactam - 12/27 transition to augmentin 875 PO BID x6 weeks - repeat CT scan in 6-8 weeks - Fungitell and galactomannan also sent by ID, pending Hypoxia is improving however now with pneumothorax (2) Spontaneous pneumothorax: Plan: Noted on chest xray AM of 12/27 Pulm consulted - had seen patient earlier in the stay and recommended outpatient CT in 8 weeks for the PNA - repeat CXR this evening to monitor pneumothorax - nonrebreather to help with reasborption of pneumothorax (3) HANSEL (acute kidney injury): Plan: HANSEL on CKD-3 - solitary kidney, hx HTN, multiple AKIs in past - nivolumab has been on hold after 10/09/23 dose due to 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 Santiago with improvement in Cr to 2.2 - consulted nephrology, oral bumex 2 bid resumed - Cr improved to his recent baseline - monitor UOP, avoid nephrotoxin - AM BMP (4) Secondary adrenal insufficiency: Plan: Patient has been on a chronic steroid taper outpatient Hypotensive on arrival stress dose steroids - IV given at admission, transition back to home dose starting this evening (5) Renal cell carcinoma: Plan: Metastatic RCC - consulted heme-onc, recommended hold carbozantanib until hospital discharge, has follow up with Dr. Isaac (6) Hypertension: Plan: HTN - BP recently low and nebivolol stopped, losartan also held - nephrology recommends holding this and can restart outpatient if needed normotensive on the balance this week (7) Elevated troponin: Plan: Initial high-sensitivity troponin minimally elevated at 47, down to 43 on 2- hour repeat No acute ST segment or T wave changes on EKG, patient denies chest pain, no evidence of ACS Related to myocardial demand ischemia from pneumonia, hypoxia (8) Hyperglycemia: Plan: Patient had to be hyperglycemic with glucose of 170 on arrival related to recent steroid use, A1c 6.9 for average BG of 151 this will improve as no longer on high dose steroids - BG checks in hospital have all been <180. Will stop glucose checks. Plan DVT proh: apixiban Dispo: continued inpatient stay, transferred to PCU with pneumothorax Family updated at bedside Case discussed with Dr. Leung Admission and Anticipated Discharge Date Admission Date: December 24, 2023 Subjective Patient seen this morning ambulating around the room and very anxious to go home. Reevaluated with pulm at bedside. still remains stable on room air, but started on nonrebreather for pneumothorax Review of Systems Review of Systems: All systems reviewed & are unremarkable except as noted in Subjective Physical Exam Physical Exam: General: NAD, VS as above Resp: normal respiratory effort, lungs clear to auscultation CV: RRR, no murmur, Abd: normal bowel sounds, non tender, no hepatosplenomegaly Extremities: Moves all extremities, +1 edema Neuro: A&O x3, Skin: intact, no lesions noted Results & Data Results & Data Vital Signs (Past 12 Hours) Vital Signs Temp Pulse Resp BP BP Pulse Ox O2 Del Method 12/28/23 14:15 36.5 C 62 18 159/90 H 100 Non-rebreather 12/28/23 07:50 Room Air 12/28/23 07:07 36.5 C 61 18 148/85 H 93 Room Air O2 Flow Rate 12/28/23 14:15 15 12/28/23 07:50 12/28/23 07:07 Laboratory Results CBC, chemistry, crp and ESR reviewed PG Care Time/CCT Total # of Minutes Spent Total Time Spent with Patient: Total time spent is greater than 50% in coordination of care (as documented) at patient's floor/unit and/or counseling patient: Coding Level of Care Code 56226 SUB INP/OBS CARE 3/50MIN Diagnoses Necrotizing pneumonia J85.0 Spontaneous pneumothorax J93.83 HANSEL (acute kidney injury) N17.9 Secondary adrenal insufficiency E27.49 Renal cell carcinoma, unspecified laterality C64.9 Laterality: unspecified laterality Hypertension I10 Elevated troponin R79.89 Hyperglycemia R73.9 (5) Renal cell carcinoma Laterality: unspecified laterality Qualified Code(s): C64.9 - Malignant neoplasm of unspecified kidney, except renal pelvis
[2023-12-28] MEDS: AMOXICILLIN/CLAVULANATE 875 MG TAB PO SCH (17:45)
[2023-12-28] MEDS: HYDROCORTISONE 10 MG TAB PO SCH (17:46)
--- NOTE | 2023-12-28 18:18 | XRay Report ---
XR chest 1V portable CLINICAL HISTORY: Reassess pneumothorax. COMPARISON STUDY: Chest radiograph December 28, 2023 at 1:32 PM. FINDINGS: A small to moderate right pneumothorax is similar to prior chest radiograph. This has sligh tly decreased in size since chest radiograph performed at 10:26 AM today. Right basilar opacity persi sts. Left lung is clear. There is no left pneumothorax. IMPRESSION: 1. Small to moderate right pneumothorax, similar in size to prior chest radiograph. 2. Right basilar opacity suggestive of pneumonia. ACT 112: Negative or not required by law. Electronically signed by: Damien Darling M.D. 12/28/2023 6:17 PM
[2023-12-29 07:17] LABS: BUN Creatinine Ratio 22.9 (10-20); Creatinine Clr Calc Pharmacy 52.9 ml/min; Est GFR (Non-African American) 32.8 ml/min; Potassium 3.7 mmol/L (3.5-5.1)
--- NOTE | 2023-12-29 07:35 | XRay Report ---
XR chest 1V portable HISTORY: Follow-up right-sided pneumothorax. COMPARISON: Chest 12/28/2023. FINDINGS: Okxum-fv-muemzlsh right pneumothorax persists with a maximal pleural gap of 15 mm. No media stinal shift. The heart remains mildly enlarged. No evidence for pulmonary edema. A few bibasilar ellyn ear densities suggesting subsegmental atelectasis. Focal density within the base of the right lower l obe has improved. IMPRESSION: 1. No change in the small to moderate right pneumothorax. No mediastinal shift. 2. Right basilar density has improved. ACT 112: Negative or not required by law. Electronically signed by: Raymundo Borja M.D. 12/29/2023 7:33 AM
[2023-12-29] MEDS: HYDROCORTISONE 10 MG TAB PO SCH ×2 (07:36→21:56)
--- NOTE | 2023-12-29 08:39 | Nephrology Progress Note ---
Date of Service December 29, 2023 Assessment & Plan (1) Chronic kidney disease: Plan: * Metastatic RCCA s/p HALN R kidney 02/19. Patient has solitary functioning L kidney. Baseline creatinine 2.02.3 * Kidney function is stable at this time * Patient has 2+ ankle edema. Electrolyte balance remains acceptable. * Continue Bumex 1 mg 2 tablets p.o. twice daily * Monitor I&O's, BMP, weight * When patient is discharged, have him keep his 01/12/24 outpatient appointment w/ Dr. Santiago. He already has orders for outpatient labs to be completed prior to the office visit (2) Cavitary lesion of lung: Plan: * ID recommends transition to amox/clav 875 mg PO BID x6 weeks. Plan for a repeat CT chest in ~6-8 weeks to confirm improvement. If worsening despite amox/clav, then repeat CT chest at an earlier interval and consider bronchoscopy to obtain deeper cultures (bacterial, fungal, AFB, galactomannan) (3) Spontaneous pneumothorax: Plan: * 12/28 CXR shows no progression of R PTX * Await Pulmonology recommendations (4) Hypertension: Plan: * BP is currently acceptable. * Continue to hold Nebivolol and losartan. Will assess need to resume as outpatient * Continue Bumex due to ankle swellingy Admission and Anticipated Discharge Date Admission Date: December 24, 2023 Subjective Mr. Wick was evaluated in his hospital room this morning. He was sitting in bed breathing comfortably on RA. He reports a good response to Bumex therapy and notes that his ankle edema is mildly improved. He hopes to return home today. Review of Systems Constitutional: no fever Eyes: no problem reported Ear, Nose, Mouth, Throat: no problem reported Respiratory: no cough Cardiovascular: + edema; no chest pain Gastrointestinal: no abdominal pain, no nausea, no vomiting and no diarrhea/loose stools Genitourinary: no dysuria or no hematuria Physical Exam Constitutional: not in distress Eyes: PERRL, conjunctivae normal, anicteric sclerae ENMT: external ear and nose normal, oropharynx normal Neck: trachea midline, no thyromegaly Respiratory: normal respiratory effort, lungs clear to auscultation Cardiovascular: Rate/Rhythm: regular rate and regular rhythm Extremities: + edema (2+ ankle edema) Gastrointestinal (Abdomen): normal bowel sounds, soft, nontender, no hepatosplenomegaly Skin: no rashes, warm and dry Neurologic: Speech / Cognition: normal speech and normal cognition Results & Data Vital Signs (Past 12 Hours) Vital Signs Temp Pulse Pulse Resp BP Pulse Ox O2 Del Method 12/29/23 07:57 36.5 C 78 20 145/67 H 95 Nasal Cannula 12/29/23 07:51 Room Air 12/29/23 03:25 36.7 C 81 18 127/71 91 Nasal Cannula 12/28/23 23:59 Room Air 12/28/23 22:55 36.5 C 75 18 142/77 H 90 Room Air 12/28/23 21:59 66 O2 Flow Rate 12/29/23 07:57 2 12/29/23 07:51 12/29/23 03:25 2 12/28/23 23:59 12/28/23 22:55 12/28/23 21:59 Laboratory Results Laboratory Results - last 24 hr 12/29/23 06:13 Sodium 141 Potassium 3.7 Chloride 102 Carbon Dioxide 31 Anion Gap 8 BUN 47 H Creatinine 2.05 H Est Cr Clr Drug Dosing 52.9 Est GFR ( Amer) 38.0 Est GFR (Non-Af Amer) 32.8 BUN/Creatinine Ratio 22.9 H Glucose 93 Calcium 8.0 L Diagnostic Findings 12/29/23 CXR: Xddlc-af-lvmslvth right pneumothorax persists with a maximal pleural gap of 15 mm. No mediastinal shift. The heart remains mildly enlarged. No evidence for pulmonary edema. A few bibasilar linear densities suggesting subsegmental atelectasis. Focal density within the base of the right lower lobe has improved. PG Care Time/CCT Total # of Minutes Spent Total Time Spent with Patient: Total time spent is greater than 50% in coordination of care (as documented) at patient's floor/unit and/or counseling patient: Coding Level of Care Code 91449 SUB INP/OBS CARE 3/50MIN Diagnoses Chronic kidney disease N18.9 Cavitary lesion of lung J98.4 Spontaneous pneumothorax J93.83 Hypertension I10
--- NOTE | 2023-12-29 08:46 | Pulmonology Progress Note ---
Date of Service December 29, 2023 Assessment & Plan (1) Spontaneous pneumothorax: Plan: Stable to slightly decreased size of pneumothorax. Patient can go home with a repeat chest x-ray on . Instructions given to the patient to avoid any strenuous activity. He is agreeable to this plan at this time. (2) Pneumonia: Plan: Patient currently followed by ID for cavitary pneumonia. Denies any overt respiratory symptoms at present. Immunotherapy currently on hold due to pneumonia. Laterality: unspecified laterality Lung location: unspecified part of lung Pneumonia type: due to unspecified organism Qualified Code(s): J18.9 - Pneumonia, unspecified organism (3) Lung metastasis: Plan: Patient has a history of renal cell carcinoma with mets to the lung. Had wedge resection of the left lower lobe. Cavitary lesion noted in the right lower lobe. Unclear if this is malignant versus infectious. Will need follow-up CT chest in 6 weeks. Plan Discussed with patient's and patient. Discussed with hospitalist service and bedside RN. Patient to be moved to PCU status. Admission and Anticipated Discharge Date Admission Date: December 24, 2023 Subjective Patient seen and examined. Denies any significant chest pain. Does notice some tightness on his right side. No fevers, chills or night sweats. Eager to go home. Review of Systems Review of Systems: All systems reviewed & are unremarkable except as noted in HPI & below Physical Exam Physical Exam: Constitutional: No acute distress HEENT: EOMI, PERRLA Respiratory system: Decreased air entry bilaterally, no wheeze, rhonchi, positive crackles bilateral lower lobes CVS: S1-S2 positive, no murmurs or gallops Abdomen: Soft, nontender, nondistended, positive bowel sounds x4 Extremities: +2 pulses bilaterally radialis/ dorsalis pedis, no cyanosis, +2 pitting edema bilateral lower extremity, R>L Neuro: Awake alert oriented x3 Psych: Normal mood and affect G/U: No Bentley Skin: no rashes, warm and dry Lymphatic: no cervical or axillary lymphadenopathy Results & Data Results & Data Vital Signs (Past 12 Hours) Vital Signs Temp Pulse Pulse Resp BP Pulse Ox O2 Del Method 12/29/23 07:57 36.5 C 78 20 145/67 H 95 Nasal Cannula 12/29/23 07:51 Room Air 12/29/23 03:25 36.7 C 81 18 127/71 91 Nasal Cannula 12/28/23 23:59 Room Air 12/28/23 22:55 36.5 C 75 18 142/77 H 90 Room Air 12/28/23 21:59 66 O2 Flow Rate 12/29/23 07:57 2 12/29/23 07:51 12/29/23 03:25 2 12/28/23 23:59 12/28/23 22:55 12/28/23 21:59 PG Care Time/CCT Total # of Minutes Spent Total Time Spent with Patient: Total time spent is greater than 50% in coordination of care (as documented) at patient's floor/unit and/or counseling patient: Coding Level of Care Code 95266 SUB INP/OBS CARE 235MIN Diagnoses Spontaneous pneumothorax J93.83 Pneumonia J18.9 Laterality: unspecified laterality Lung location: unspecified part of lung Pneumonia type: due to unspecified organism Lung metastasis C78.00
--- NOTE | 2023-12-29 10:00 | Discharge Summary ---
Discharge Summary Date of Service December 29, 2023 Principal Dx & Hospital Course #1 = Principal Diagnosis (1) Necrotizing pneumonia: 68 y/o with metastatic renal cell cancer under treatment with carbozantanib who was admitted with acute hypoxic respiratory related to RLL necrotizing pneumonia, 6x4 cm cavitary lesion present on chest CT. Lesion was not present on 11/30/23 CT abdomen/pelvis so tumor unlikely. Also has bilateral upper lobe process, infectious vs inflammatory. He is immunosuppressed because of his oral chemo and recent high dose steroids for two months with max prednisone dose of 80 mg followed by taper -procals are low 0.49-->0.28 -consulted ID - responded well to amp-sulbactam - 12/27 transition to augmentin 875 PO BID x6 weeks - repeat CT scan in 6-8 weeks - Fungitell and galactomannan also sent by ID, pending Hypoxia is improving however now with pneumothorax (2) Spontaneous pneumothorax: Noted on chest xray AM of 12/27 Pulm consulted - had seen patient earlier in the stay and recommended outpatient CT in 8 weeks for the PNA - repeat CXR this evening to monitor pneumothorax - nonrebreather to help with reasborption of pneumothorax (3) HANSEL (acute kidney injury): HANSEL on CKD-3 - solitary kidney, hx HTN, multiple AKIs in past - nivolumab has been on hold after 10/09/23 dose due to 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 Santiago with improvement in Cr to 2.2 - consulted nephrology, oral bumex 2 bid resumed - Cr improved to his recent baseline - monitor UOP, avoid nephrotoxin - AM BMP (4) Secondary adrenal insufficiency: Patient has been on a chronic steroid taper outpatient Hypotensive on arrival stress dose steroids - IV given at admission, transition back to home dose starting this evening (5) Renal cell carcinoma: Metastatic RCC - consulted heme-onc, recommended hold carbozantanib until hospital discharge, has follow up with Dr. Isaac (6) Hypertension: HTN - BP recently low and nebivolol stopped, losartan also held - nephrology recommends holding this and can restart outpatient if needed normotensive on the balance this week (7) Elevated troponin: Initial high-sensitivity troponin minimally elevated at 47, down to 43 on 2- hour repeat No acute ST segment or T wave changes on EKG, patient denies chest pain, no evidence of ACS Related to myocardial demand ischemia from pneumonia, hypoxia (8) Hyperglycemia: Patient had to be hyperglycemic with glucose of 170 on arrival related to recent steroid use, A1c 6.9 for average BG of 151 this will improve as no longer on high dose steroids - BG checks in hospital have all been <180. Will stop glucose checks. Plan Dispo: discharge to home today Family updated at bedside 12/27 Notes For Next Care Provider Fungitell and Galactomannan pending Pneumothorax - follow up chest xray ordered for 12/30 Augmentin x 6 weeks for infectious disease BP meds on hold per nephrology Admission HPI Per Admitting Provider Evans is a 68-year-old male with a past medical history significant for meta static renal cell carcinoma to the lung status post laparoscopic right nephrectomy in 2018, status post left lower lobe wedge resection in June 2019, currently on cabozantinib, ACTH deficiency, left lower extremity DVT in 2022 (on Eliquis for DVT prophylaxis while on chemotherapy), hypertension, secondary adrenal insufficiency, stage III CKD with solitary left kidney who presented to the [facility] ED on 12/24/2023 with complaints of ongoing shortness of breath. On arrival to the ED he was noted to be apnea hypotensive at 89/55, tachycardic at 97, tachypneic at 26, and initially hypoxic on room air at 87%. Labs were significant for hemoglobin of 11.2 (down from 12.2 as of 12/03/2023), creatinine of 2.68 (baseline is between 2.02.4 per last nephrology note), initial high-sensitivity troponin of 47 down to 43 on 2-hour repeat, CRP of 21, Pro-Sunny of 0.49, with COVID-19/influenza/RSV screens negative. Chest x-ray was read as airspace consolidation with possible cavitation at the right lung base is new from 11/30/2023 and consistent with pneumonia. Clinical correlation will be required and radiographic follow-up to resolution is recommended. Cardiomegaly without radiographic evidence of congestive failure. CT of the chest without IV contrast was read as a 5.8 x 4.2 cm focus of ovoid consolidation with cavitation at the right lung base. This is new from 11/30/2023 and consistent with a necrotizing pneumonia. Radiographic follow-up to resolution is recommended. Trace right pleural effusion. Subtle patchy groundglass opacities are seen throughout both upper lobes, right greater than left. This is also new from 11/30/2023 and also likely infectious/inflammatory. Postsurgical changes seen in the left lower lobe. Mild cardiomegaly and mild emphysema. Venous Dopplers of the bilateral lower extremities were read as negative for DVT. Prior to admission the patient was given a dose of cefepime and 500 mL NSS. Patient was sitting in bed in no acute distress at the time of exam with his bedside, history is obtained from both. They explained that the patient has been experiencing progressive shortness of breath, dyspnea on exertion, nonproductive cough, and lightheadedness/dizziness with changing positions over the past 3 to 4 weeks. Patient attributed the symptoms to issues with his known adrenal insufficiency which is why he did not seek evaluation sooner. Believes he may have been having fevers but did not officially check his temperature, no recent chest pain, denies hemoptysis, denies abdominal pain, nausea/vomiting, diarrhea, dysuria, hematuria, melena. They confirm that he is on low-dose Eliquis due to his history of left lower extremity DVT in 2022. He completed his course of anticoagulation for treatment of the left lower extremity DVT but is currently on a prophylactic dose of Eliquis as his current chemotherapy increases risk of blood clots. Patient had a fall from standing approximately 2 weeks ago due to increased lightheadedness. Denies loss of consciousness and did not hit his head. Has resulting healing skin tears on the bilateral anterior shins after the fall. We discussed CODE STATUS, he confirms he is a full code and would want his to make medical decisions for him if he cannot make them himself. Please refer to Dr. Li's attestation for any changes to the treatment plan Discharge Exam General: NAD, VS as above Resp: normal respiratory effort, lungs clear to auscultation CV: RRR, no murmur, Abd: normal bowel sounds, non tender, no hepatosplenomegaly Extremities: Moves all extremities, +1 edema Neuro: A&O x3, Skin: intact, no lesions noted Discharge Plan Discharge Items Patient Disposition: Home - Self-Care Reason For Visit: NECROTIZING PNEUMONIA Discharge Diagnosis: Necrotizing Pneumonia, Pneumothorax Condition on Discharge: Serious Activity: As commented below Activity Comment: no strenuous activity while you have the pneumothorax Non-emergency contact: Primary Care Provider, Loan Administrator and Clinical Nurse Occupational Medicine Call non-emergency contact if: you have any medication questions, your symptoms worsen and your rectal temperature is above 100.4 Follow-up/Referrals: Victor Manuel Santiago DO [Physician] - (Keep scheduled appointment ) Irland[facility] Chin MD, [facility] [Physician] - (Follow up 1-2 weeks ) Bill Cantrell MD [Primary Care Provider] - (Follow up in 7-10days ) Diet: Heart Healthy Ambulatory Orders: XR chest 1V not portable (Routine) Timeframe: 20231231 Location: Determined by Patient Ordered By: Karishma Campa Attending Provider Instructions: Mr. Wick, You were hospitalized after having shortness of breath. Your CT scan showed necrotizing pneumonia. You were treated with IV antibiotics, and seen by infectious disease, and they recommended transition to Augmentin for 6 weeks. You will need a repeat chest xray on 12/30, the results will be sent to the outside residential sales professional and your PCP. Please contact them for results if you do not hear anything. Recommendations: * CXR 12/30 - avoid strenuous activity and hold Eliquis as directed by pulmonology * Follow up with pulmonology - an appointment should be made for you, but if you do not hear from anyone by the end of the week, call the number above. They will likely do a repeat CT scan in 6-8 weeks * Steroids continue at home dose * Hold nebivolol and losartan, your vp production will discuss with you if they need to be resumed in January * Can resume Cabozantinib (chemo) tomorrow * Augmentin twice a day with meals - next dose PM 12/28 Labs ordered by infectious disease are still pending. Medications: Your medication list has been reviewed and reconciled upon discharge to ensure accuracy and continuity of care. An updated list of all your medications is included with your hospital discharge paperwork. Please review this list closely, and make note of any changes. Take your medications as instructed; do not skip a dose of your medicines. Make sure all of your doctors know every medicine you are taking (including vmun-szg-htwkkil medicines, vitamins, and supplements). Call your primary care provider before taking any new medicines (including over- the-counter medicines, vitamins, and supplements), because some of these may interact with your current medications, or may make your symptoms worse. Tell your primary care provider if you cannot afford your medications. Activity: Please take it easy while your pneumothorax continues to heal. Take rest breaks if you feel tired. Do not overexert. Stop activity if you have pain, shortness of breath or feel dizzy. Follow-up appointments: Make an appointment with your primary care physician within one week of discharge. A copy of this summary will be sent to them. Every time you see your primary care physician, or any other doctor, bring your medication list, and a list of questions. CONTACT YOUR PRIMARY CARE PROVIDER if you experience any of the following: Shortness of breath or difficulty breathing Fevers or chills Feeling tired with normal activity or experiencing dizziness or fainting Difficulty following your treatment plan, or difficulty taking medications CALL 911 OR GO TO THE EMERGENCY DEPARTMENT if you experience any of the following: Severe abdominal pain or nausea/vomiting Severe chest pain, or chest pain that radiates (moves) to your jaw or arm Sudden, severe shortness of breath or difficulty breathing Thank you for allowing us to participate in your care. Pending Studies at Discharge: Yes (fungitell and galactomannnan ) Stand-Alone Forms: My [facility] [employer], Smoking Cessation Medications and DC Order Prescriptions: New amoxicillin-pot clavulanate 875-125 mg Tablet 1 tab PO BIDM 41 Days Qty: 82 0RF Continued hydrocortisone 10 mg tablet See Rx Instructions PO .COMPLEX Qty: 50 1RF Rx Instructions: take 20 mg AM; take 10 mg 8 hours later; may double in times of stress bumetanide 1 mg tablet 2 mg PO BID Qty: 360 2RF Hold Instructions: Hold per provider cholecalciferol (vitamin D3) 25 mcg (1,000 unit) capsule 25 mcg PO QAM mecobalamin (vitamin B12) 500 mcg tablet,chewable 500 mcg PO QAM nivolumab IV .ON HOLD Hold Instructions: Home Medication placed on hold at Doctor's office Rx Instructions: ON HOLD cabozantinib 20 mg tablet 20 mg PO Q OTHER DAY Hold Instructions: Per patient Rx Instructions: take on even days levothyroxine 150 mcg tablet 150 mcg PO DAILYBB Held Eliquis 2.5 mg tablet 2.5 mg PO AMPM Hold Instructions: Resume on 12/31/23. until instructed by pulmonary to resume losartan 100 mg tablet 100 mg PO QAM Hold Instructions: Resume on 01/12/24. until discussed with nephrology Discharge Orders: Discharge Order (Routine); Ordered 12/29/23 Ordered By: Karishma Velasquez/Other Patient Handouts: Diabetes: Meal Planning, ED Pneumothorax, Spontaneous, Type 2 Diabetes Admission Data Admit Date/Time: 12/24/23 16:48 Attending Provider: Mateo Mancuso Admit Provider: Mateo Li Primary Care Provider: Bill Cantrell Other Providers: [facility]; Irlanda Chin; Mateo Li; Victor Manuel Santiago; Tamar Jonas; Maxine Harvey; Eloisa Whatley; Randi Rutledge; Bianka Jones; Marti Sharp; Vianney Mathews Hospital Stay Data Consultations 12/24/23 15:52 Consult Pulmonology Routine 12/24/23 15:54 ED Decision to Admit Stat 12/24/23 17:03 Consult Nephrology Routine 12/24/23 17:07 Consult Oncology Routine 12/24/23 17:11 Consult Infectious Diseases Routine Diagnostic Imagining Performed 12/24/23 13:37 CT chest diagnostic wo con Stat US venous doppler LE BI Stat 12/29/23 08:09 sono, invasive monitoring [US point of care ultrasound] Urgent Pending Results Patient Have Any Pending Studies at Discharge: Yes (fungitell and galactomannnan ) Discharge Instructions Given to Patient (Per Discharging Provider) Mr. Wick, You were hospitalized after having shortness of breath. Your CT scan showed necrotizing pneumonia. You were treated with IV antibiotics, and seen by infectious disease, and they recommended transition to Augmentin for 6 weeks. You will need a repeat chest xray on 12/30, the results will be sent to the outside residential sales professional and your PCP. Please contact them for results if you do not hear anything. Recommendations: * CXR 12/30 - avoid strenuous activity and hold Eliquis as directed by pulmonology * Follow up with pulmonology - an appointment should be made for you, but if you do not hear from anyone by the end of the week, call the number above. They will likely do a repeat CT scan in 6-8 weeks * Steroids continue at home dose * Hold nebivolol and losartan, your vp production will discuss with you if they need to be resumed in January * Can resume Cabozantinib (chemo) tomorrow * Augmentin twice a day with meals - next dose PM 12/28 Labs ordered by infectious disease are still pending. Medications: Your medication list has been reviewed and reconciled upon discharge to ensure accuracy and continuity of care. An updated list of all your medications is included with your hospital discharge paperwork. Please review this list closely, and make note of any changes. Take your medications as instructed; do not skip a dose of your medicines. Make sure all of your doctors know every medicine you are taking (including hssd-las-drboiat medicines, vitamins, and supplements). Call your primary care provider before taking any new medicines (including over- the-counter medicines, vitamins, and supplements), because some of these may interact with your current medications, or may make your symptoms worse. Tell your primary care provider if you cannot afford your medications. Activity: Please take it easy while your pneumothorax continues to heal. Take rest breaks if you feel tired. Do not overexert. Stop activity if you have pain, shortness of breath or feel dizzy. Follow-up appointments: Make an appointment with your primary care physician within one week of discharge. A copy of this summary will be sent to them. Every time you see your primary care physician, or any other doctor, bring your medication list, and a list of questions. CONTACT YOUR PRIMARY CARE PROVIDER if you experience any of the following: Shortness of breath or difficulty breathing Fevers or chills Feeling tired with normal activity or experiencing dizziness or fainting Difficulty following your treatment plan, or difficulty taking medications CALL 911 OR GO TO THE EMERGENCY DEPARTMENT if you experience any of the following: Severe abdominal pain or nausea/vomiting Severe chest pain, or chest pain that radiates (moves) to your jaw or arm Sudden, severe shortness of breath or difficulty breathing Thank you for allowing us to participate in your care. Coding Diagnoses Necrotizing pneumonia J85.0 Spontaneous pneumothorax J93.83 HANSEL (acute kidney injury) N17.9 Secondary adrenal insufficiency E27.49 Renal cell carcinoma, unspecified laterality C64.9 Laterality: unspecified laterality Hypertension I10 Elevated troponin R79.89 Hyperglycemia R73.9
--- NOTE | 2023-12-29 15:26 | XRay Report ---
XR chest 1V portable CLINICAL HISTORY: ptx COMPARISON STUDY: Chest radiograph performed earlier today. FINDINGS: Small to moderate right pneumothorax has slightly increased in size since prior exam. Super ior pleural separation measures 1.9 cm. Right basilar airspace opacity is again noted. There is no le ft pneumothorax. There is no evidence for pulmonary edema. Cardiomediastinal silhouette is stable. IMPRESSION: 1. Small to moderate right pneumothorax, mildly increased in size since prior chest radiograph. 2. Persistent right basilar opacity suggestive of pneumonia. ACT 112: Negative or not required by law. Electronically signed by: Damien Darling M.D. 12/29/2023 3:24 PM
--- NOTE | 2023-12-29 16:32 | XRay Report ---
XR chest 1V portable CLINICAL HISTORY: right chest tube placement COMPARISON STUDY: Chest radiograph December 29, 2023 at 1:39 PM. FINDINGS: The right pneumothorax has significantly decreased in size following catheter placement. Th ere is a small residual right apical pneumothorax. Suspected small right pleural effusion within the right lateral hemithorax is present. Low lung volumes are noted. This likely accounts for mediastinal widening. Right basilar opacity persists. IMPRESSION: 1. Significant decrease in size of the right pneumothorax following pleural catheter placement. Small residual right apical pneumothorax. 2. Suspected small right pleural effusion. A small hemothorax cannot be excluded. Short-term radiogra [facility] follow-up is recommended. ACT 112: Negative or not required by law. Electronically signed by: Damien Darling M.D. 12/29/2023 4:30 PM
--- NOTE | 2023-12-29 17:05 | Procedure Note ---
Procedure Note Date of Service December 29, 2023 PIGTAIL CATHETER PLACEMENT NOTE: Procedure: Pigtail Catheter Chest Tube Placement Indication: Persistent pneumothorax Anesthesia: 10 mL lidocaine 1% Written consent was obtained and placed on the chart. Timeout was done prior to the procedure. Prior to procedure, chest x-ray films were reviewed by myself and demonstrated large right pneumothorax. A time-out was completed verifying correct patient, procedure, site, positioning, and implant(s) or special equipment if applicable. Utilizing bedside ultrasound, chest wall was evaluated for location for optimal chest tube placement. Location between the second and third ribs were marked on the skin using gentle pressure. The right sided chest wall was prepped with chlorhexidine and draped in the typical sterile fashion. 10 mL of 1% Lidocaine without epinephrine was used to anesthetize the skin down to the dorsal surface of the second rib. Air return confirmed entry into the pleural space. Lidocaine was injected into the pleural space for increased anesthetization. Introducer needle on syringe was inserted in perpendicular fashion taking care to ride just above the dorsal surface of the second rib. Entry into the pleural space was heralded by air return into the syringe while under gentle aspiration. Guide wire was advanced into the pleural space without resistance and the introducer needle was subsequently removed. Scalpel was used to make small incision of the superficial tissue, parallel to the direction of the rib anatomy. Dilator was advanced uneventfully over the guide wire into the pleural space. 14 Hebrew Pigtail Catheter was inserted into the pleural space. Inner introducer and guide wire were removed. Drain was immediately connected to pre-prepared KAYLIE pleur- evac system. Pigtail was sutured securely in place and sterile dressing was applied. Chest tube was placed to -20 cmH2O suction. Patient tolerated procedure well. Blood Loss: Minimal Complications: None Post procedure Chest X-ray was ordered and reviewed by myself which demonstrated adequate placement. [facility] [place] Procedure Codes (Charges) Pulmonary/Thoracic Procedure 1: Pulmonary and Thoracic: 71408 Tube thoracostomy Procedure 2: Pulmonary and Thoracic: 75234 US, Chest, real time with imaging documentation Coding CPT Codes Pulmonary/Thoracic - Pulmonary and Thoracic: 00576 Tube thoracostomy ([id number]) Pulmonary/Thoracic - Pulmonary and Thoracic: 72288 US, Chest, real time with imaging documentation ([id number]) Additional Codes Date of Service (PG.SURGERY)
[2023-12-29] MEDS ORDERED: oxyCODONE HCL IR 5 MG TAB (IMMEDIATE RELEASE) PO PRN (17:17)
[2023-12-29] MEDS: ACETAMINOPHEN 500 MG TAB PO PRN (17:46)
[2023-12-29] MEDS ORDERED: STAT IV Infusion **Titration per Protocol STA ×3 (18:05→19:29)
[2023-12-29 18:23] LABS: Aspergillus Ag Index 0.05 (<0.50); Aspergillus Antigen, Serum Not Detected (Not Detected); Fungitell (1-3)-B-D-Glucan >500 pg/mL
--- NOTE | 2023-12-29 18:24 | Hospitalist Progress Note ---
Date of Service December 29, 2023 Assessment & Plan (1) Spontaneous pneumothorax: Plan: Noted on chest xray AM of 12/27 Pulm consulted - had seen patient earlier in the stay and recommended outpatient CT in 8 weeks for the PNA - initial plan to discharge but repeat CXR showed worsening pneumo - Chest Tube placed 12/28, concerns for small hemothorax, check H&H With chest tube placement, patient has flipped into afib (no hx of afib) - is on ELiquis for hx of DVT (held currently with chest tube) - BP soft, 500 cc LR bolus, followed by maintenance fluids - start diltiazem drip (2) Necrotizing pneumonia: Plan: 68 y/o with metastatic renal cell cancer under treatment with carbozantanib who was admitted with acute hypoxic respiratory related to RLL necrotizing pneumonia, 6x4 cm cavitary lesion present on chest CT. Lesion was not present on 11/30/23 CT abdomen/pelvis so tumor unlikely. Also has bilateral upper lobe process, infectious vs inflammatory. 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 Santiago with improvement in Cr to 2.2 - consulted nephrology, oral bumex 2 bid resumed - Cr improved to his recent baseline - monitor UOP, avoid nephrotoxin (4) Secondary adrenal insufficiency: Plan: Patient has been on a chronic steroid taper outpatient Hypotensive on arrival stress dose steroids - IV given at admission, transition back to home dose starting this evening (5) Renal cell carcinoma: Plan: Metastatic RCC - consulted heme-onc, recommended hold carbozantanib until hospital discharge, has follow up with Dr. Isaac (6) Hypertension: Plan: HTN - BP recently low and nebivolol stopped, losartan also held - nephrology recommends holding this and can restart outpatient if needed normotensive on the balance this week (7) Elevated troponin: Plan: Initial high-sensitivity troponin minimally elevated at 47, down to 43 on 2- hour repeat No acute ST segment or T wave changes on EKG, patient denies chest pain, no evidence of ACS Related to myocardial demand ischemia from pneumonia, hypoxia (8) Hyperglycemia: Plan: Patient had to be hyperglycemic with glucose of 170 on arrival related to recent steroid use, A1c 6.9 for average BG of 151 this will improve as no longer on high dose steroids - BG checks in hospital have all been <180. Will stop glucose checks. Plan Dispo: continued inpatient stay, transfer down to ICU Family updated at bedside 12/28 Admission and Anticipated Discharge Date Admission Date: December 24, 2023 Supervising Physician Co-Signing Physician Notes Attending Attestation & Progress Note: Pt seen & examined, chart reviewed, care plan d/w LAURA Hearn. I agree w/ the friedman components of her documentation. Saw patient late am today. Pulmonary had seen in the am; felt he could be potentially discharged. Patient reported dyspnea with minimal exertion, and tele noted severe tachycardia when up & moving around. Following my visit I asked staff to walk patient in hallway and check o2 sats / HRs. HRs were very fast with walking - >150 with minimal activity, and sats down to 89/90%. 2-step requested. Exam - gen - at rest no dyspnea or distress, talks in complete sentences, NAD neck - no JVD heart - tachy, s1 s2 lungs - decreased BS on right, crackles R base, no distress at rest abd - soft NT ND BS+ ext - 1+ edema b/l, pulses 2+ b/l Although pt passed his 2-step ambulatory o2 test, we notified pulmonology about his borderline O2 sats, dyspnea with minimal exertion, tachycardia with minimal exertion, etc. Another cxr was obtained in the early afternoon. This showed worsening right-sided pneumothorax. Thus, patient underwent pigtail chest tube placement by Dr Woods. Following this procedure patient developed rapid a.fib, relative hypotension, an d there was concern for bleeding from the chest tube site given his anticoagulation use. In light of worsening status the patient was transferred to the ICU late afternoon. Mateo Mancuso MD Subjective Patient visited multiple times throughout the day, was initally supposed to discharge, but then hypoxic while walking. Passed his 2 step. Then repeat CXR showed worsening of his pneumothorax and a chest tube was placed. Patient does not feel short of breath but has discomfort from the chest tube Review of Systems Review of Systems: All systems reviewed & are unremarkable except as noted in Subjective Physical Exam Physical Exam: Exam from this morning General: NAD, VS as above Resp: normal respiratory effort, lungs clear to auscultation CV: RRR, no murmur, Abd: normal bowel sounds, non tender, no hepatosplenomegaly Extremities: Moves all extremities, +1 edema Neuro: A&O x3, Skin: intact, no lesions noted Results & Data Results & Data Vital Signs (Past 12 Hours) Vital Signs Temp Pulse Pulse Pulse Pulse Pulse Resp 12/29/23 17:51 12/29/23 14:26 93 H 12/29/23 13:14 121 H 109 H 89 12/29/23 11:20 127 H 12/29/23 11:19 130 H 12/29/23 10:15 36.5 C 78 20 12/29/23 08:00 62 12/29/23 07:57 36.5 C 78 20 12/29/23 07:51 Resp Resp Resp BP BP Pulse Ox Pulse Ox 12/29/23 17:51 100/60 12/29/23 14:26 12/29/23 13:14 20 18 16 90 12/29/23 11:20 92 12/29/23 11:19 85 L 12/29/23 10:15 145/67 H 148/85 H 95 12/29/23 08:00 12/29/23 07:57 145/67 H 95 12/29/23 07:51 Pulse Ox Pulse Ox O2 Del Method O2 Flow Rate 12/29/23 17:51 12/29/23 14:26 12/29/23 13:14 92 90 12/29/23 11:20 Room Air 12/29/23 11:19 Room Air 12/29/23 10:15 12/29/23 08:00 12/29/23 07:57 Nasal Cannula 2 12/29/23 07:51 Room Air PG Care Time/CCT Total # of Minutes Spent Total Time Spent with Patient: Total time spent is greater than 50% in coordination of care (as documented) at patient's floor/unit and/or counseling patient: Coding Level of Care Code 67723 SUB INP/OBS CARE 3/50MIN Diagnoses Spontaneous pneumothorax J93.83 Necrotizing pneumonia J85.0 HANSEL (acute kidney injury) N17.9 Secondary adrenal insufficiency E27.49 Renal cell carcinoma, unspecified laterality C64.9 Laterality: unspecified laterality Hypertension I10 Elevated troponin R79.89 Hyperglycemia R73.9 (5) Renal cell carcinoma Laterality: unspecified laterality Qualified Code(s): C64.9 - Malignant neoplasm of unspecified kidney, except renal pelvis
[2023-12-29] MEDS: dilTIAZem HCL 125 MG in DEXTROSE 5% 100 ML IV SCH (18:35)
[2023-12-29] MEDS: LACTATED RINGER'S 500 ML IV ONE (18:35)
[2023-12-29 18:50] LABS: Hematocrit (blood only) 30.2 % (42.0-52.0); Hemoglobin 9.4 g/dl (14.0-18.0)
[2023-12-29] MEDS ORDERED: COAGULATION FACTOR VIIA IV STA (19:00)
--- NOTE | 2023-12-29 19:20 | XRay Report ---
SINGLE VIEW CHEST CLINICAL HISTORY: Hypoxia. Hypotension FINDINGS: 2 AP, portable, upright chest radiographs are compared to study performed earlier the same day 12/29/2023 and correlated with chest CT dated 12/24/2023. The heart is enlarged. There is pulmonary vascular congestion. There are increasing bilateral airspace opacities seen throughout both lungs, r ight greater than left. A right-sided pleural catheter is unchanged in position. There is likely trac e residual right apical pneumothorax. This is not well visualized. There are increasing bilateral ple ural effusions. An ovoid opacity projects over the right lower lung. No left sided pneumothorax is se en. The bony thorax is grossly intact. IMPRESSION: 1. Cardiomegaly with evidence of congestive failure. 2. There are increasing bilateral airspace opacities, right greater than left. Given the time course this likely represents pulmonary edema.. Correlate clinically for evidence of a superimposed infectio us/inflammatory pneumonitis. Radiographic follow-up to resolution is recommended. 3. There are increasing pleural effusions. 4. A pleural catheter is unchanged in position. There is likely a small residual right apical pneumot horax. This is not well assessed , and may be partially filled with pleural fluid. 5. An ovoid opacity projecting over the right lower lung may represent loculated fluid along the fiss ure. ACT 112: Negative or not required by law. Electronically signed by: Ole Wolfe M.D. 12/29/2023 7:18 PM
[2023-12-29] MEDS: LACTATED RINGER'S 1,000 ML IV SCH (19:21)
[2023-12-29] MEDS ORDERED: SODIUM CHLORIDE 0.9% 250 ML IV PRN (19:26)
[2023-12-29] MEDS ORDERED: AMIODARONE IV BOLUS & DRIP IV STA (19:29)
[2023-12-29] MEDS ORDERED: 0.2 MICRON FILTER SET 1 EACH IV STA (19:29)
[2023-12-29] MEDS: AMIODARONE / D5W 150 MG/100 ML BAG IV STA (19:30)
[2023-12-29] MEDS ORDERED: STAT IV/IM STA ×2 (19:31→22:50)
[2023-12-29] MEDS: PHENYLEPHRINE/NSS 25 MG/250 ML BAG IV SCH (19:38)
[2023-12-29] MEDS: AMIODARONE / D5W 360 MG/200 ML BAG IV ONE (19:40)
[2023-12-29] MEDS: KETAMINE HCL IV ONE ×2 (19:45→23:01)
[2023-12-29 20:24] LABS: Hematocrit (blood only) 26.9 % (42.0-52.0); Hemoglobin 8.5 g/dl (14.0-18.0); Mean Corpuscular Hemoglobin 30.8 pg (25.0-34.0); Mean Corpuscular Hgb Conc 31.6 g/dL (32.0-36.0); Mean Corpuscular Volume 97.5 fL (80.0-100.0); Mean Platelet Volume 9.2 fL (9.4-12.4); Nucleated RBC # (auto) 0.26 K/uL (0.00-0.12); Nucleated RBC % (auto) 2.3 %; Platelet Count 234 K/uL (130-400); RDW Coefficient of Variation 17.4 % (11.5-14.5); Red Blood Count 2.76 M/uL (4.70-6.10); White Blood Count 11.29 K/ul (4.8-10.8)
[2023-12-29 20:50] LABS: Fibrinogen 459 mg/dl (184-400); INR 1.1 (0.9-1.1); Partial Thromboplastin Time 27 Seconds (21-31); Prothrombin Time 11.9 Seconds (9.0-12.0)
[2023-12-29] MEDS: OPTIRAY 320 125ml IV ONE (21:12)
[2023-12-29] MEDS: KCENTRA (500unit vial) 2000 units IVP IV ONE (21:48)
[2023-12-29] MEDS: AMIODARONE 150MG / 100ML D5W IV ONE (21:50)
[2023-12-29] MEDS: PHENYLEPHRINE HCL 25 MG/250 ML NSS IV ONE (21:50)
[2023-12-29] MEDS: LIDOCAINE 2% LOCAL 50 ML VIAL ONE (21:51)
[2023-12-29] MEDS: KETAMINE HCL INJ 50 MG/ML 10 ML VIAL ONE (21:51)
[2023-12-29] MEDS: AMIODARONE 360MG / 200ML D5W IV ONE (21:51)
[2023-12-29] MEDS: MIDAZOLAM HCL 5 MG/ML 2ML VIAL ONE (21:52)
[2023-12-29] MEDS: fentaNYL citrate PF 100 MCG/2 ML VIAL ONE (21:52)
[2023-12-29 21:54] LABS: iSTAT Art Bld Gas pCO2 Correct 41 mmHg (35-46); iSTAT Art Bld Gas pH Corrected 7.432 (7.35-7.45); iSTAT Arterial Blood Gas HCO3 27 meg/L (19-24); iSTAT Arterial Blood Gas pCO2 41 mmHg (35-46); iSTAT Arterial Blood Gas pH 7.43 (7.35-7.45); iSTAT Arterial Blood Gas pO2 < 32 mmHg (80-95); iSTAT Arterial Blood Gas pO2 C 31; iSTAT Carbon Dioxide 28 mmol/L (24-31); iSTAT Hematocrit 26 % (42-52); iSTAT Hemoglobin 8.8 g/dl (14.0-18.0); iSTAT Potassium 3.6 mmol/L (3.3-5.0); iSTAT Site R Brachial; iSTAT Sodium 135 mmol/L (135-144)
[2023-12-29 21:54] LABS: iSTAT Art Bld Gas pCO2 Correct 42 mmHg (35-46); iSTAT Art Bld Gas pH Corrected 7.386 (7.35-7.45); iSTAT Arterial Blood Gas HCO3 25 meg/L (19-24); iSTAT Arterial Blood Gas pCO2 42 mmHg (35-46); iSTAT Arterial Blood Gas pH 7.39 (7.35-7.45); iSTAT Arterial Blood Gas pO2 40 mmHg (80-95); iSTAT Arterial Blood Gas pO2 C 40; iSTAT Carbon Dioxide 27 mmol/L (24-31); iSTAT Hematocrit 24 % (42-52); iSTAT Hemoglobin 8.2 g/dl (14.0-18.0); iSTAT Potassium 3.6 mmol/L (3.3-5.0); iSTAT Site R Brachial; iSTAT Sodium 134 mmol/L (135-144)
[2023-12-29] MEDS ORDERED: ONDANSETRON INJ 2 MG/ML 2 ML VIAL IV PRN (21:58)
[2023-12-29] MEDS: ONDANSETRON INJ 2 MG/ML 2 ML VIAL IV STA (22:15)
--- NOTE | 2023-12-29 22:19 | Procedure Note ---
Procedure Note Date of Service December 29, 2023 Emergency right-sided chest tube Emergency verbal consent was obtained from the patient and . Patient was sedated with the use of Versed, fentanyl and ketamine. Please see nursing documentation for sedation. Timeout performed immediately prior to the procedure. Ultrasound guidance was utilized to localize the hemothorax. Area was marked prior to incision. The area in the fifth intercostal space was anesthetized with 2% lidocaine. Approximately 20 mL of lidocaine was utilized to anesthetize the superficial and deeper tissues. A 3 cm horizontal incision was used with an 11 blade. A Karol clamp was then inserted via the incision and the tissues were dissected down to the pleura. The pleura was punctured with the Kaorl clamp. A finger sweep was performed and lung tissue was palpated. A size 24 chest tube was inserted with the assistance of the Karol clamp over the fifth rib. Tube was hooked up to suction. Approximately 50 mL of blood was aspirated immediately. The chest tube insertion site was sutured with interrupted 2-0 sutures. An anchoring suture was placed. Vaseline gauze was placed over the chest tube insertion site. 4 x 4's were then placed over the site and then the place was secured with a large Tegaderm. Postprocedure chest x-ray revealed that the tube may be in the fissure of the lung. [facility] [place] [facility] Procedure Codes (Charges) Pulmonary/Thoracic Procedure 1: Pulmonary and Thoracic: 53844 Tube thoracostomy Coding CPT Codes Pulmonary/Thoracic - Pulmonary and Thoracic: 22159 Tube thoracostomy ([id number]) Additional Codes Date of Service (PG.SURGERY)
[2023-12-29 22:31] LABS: Hemoglobin 7.3 g/dl (14.0-18.0); Mean Corpuscular Hemoglobin 30.9 pg (25.0-34.0); Mean Corpuscular Hgb Conc 31.7 g/dL (32.0-36.0); Mean Corpuscular Volume 97.5 fL (80.0-100.0); Nucleated RBC % (auto) 3.3 %; Platelet Count 225 K/uL (130-400); RDW Coefficient of Variation 17.5 % (11.5-14.5); RDW Standard Deviation 60.2 fL (36.4-46.3); Red Blood Count 2.36 M/uL (4.70-6.10); White Blood Count 12.13 K/ul (4.8-10.8)
--- NOTE | 2023-12-29 22:33 | Communication Note ---
Date of Service: December 29, 2023 Subsequent to the apical chest tube to evacuate the pneumothorax, the patient became profoundly dyspneic with atrial fibrillation and rapid ventricular re sponse. Chest x-ray was completed which demonstrated opacification of the right hemithorax. High suspicion for hemothorax was had. Emergently a right 24 [place]ian surgical chest tube was placed by me. Approximately 250 mL of blood was evacuated from the right hemithorax after chest tube insertion. Patient is requiring low-dose Levophed. Hemoglobin is trending down and he is currently receiving a unit of packed RBCs. Family has been extensively updated regarding the patient's condition. Patient is currently alert and oriented x 3. He denies any overt chest pain or significant shortness of breath. Chest CTA was completed which did not reveal any active extravasation per the on-call radiologist. There was extensive hemothorax noted which was predominantly loculated in the right upper lobe region. [facility] was called for emergent transfer. I had a discussion with their thoracic surgeon on-call at [facility] and the steam tank operator on-call. The patient has been accepted for transfer. Family consents to transfer for further management of the right hemothorax. Central line is currently being placed by the overnight ICU DOMINICK.
[2023-12-29] MEDS: fentaNYL citrate PF 100 MCG/2 ML VIAL IV STA ×2 (22:39→22:40)
[2023-12-29] MEDS: MIDAZOLAM HCL 5 MG/ML 2ML VIAL IV STA (22:40)
[2023-12-29] MEDS: fentaNYL citrate PF 100 MCG/2 ML VIAL IV ONE (22:40)
[2023-12-29 22:46] VITALS: RESP 18
[2023-12-29 22:52] LABS: Basophils # (auto) 0.06 K/uL (0.00-0.20); Basophils % (auto) 0.5 %; Eosinophils # (auto) 0.11 K/uL (0.00-0.50); Eosinophils % (auto) 0.9 %; Immature Granulocytes # (auto) 1.11 K/uL (0.01-0.20); Immature Granulocytes % (auto) 9.2 %; Lymphocytes # (auto) 1.14 K/uL (1.20-3.40); Lymphocytes % (auto) 9.4 %; Monocytes # (auto) 0.76 K/uL (0.11-0.59); Monocytes % (auto) 6.3 %; Neutrophils # (auto) 8.95 K/uL (1.40-6.50); Neutrophils % (auto) 73.7 %; Polychromasia 1+
--- NOTE | 2023-12-29 22:52 | Procedure Note ---
Procedure Note Date of Service December 29, 2023 INTERNAL JUGULAR CENTRAL LINE PROCEDURE NOTE: Procedure: Internal Jugular Central Line Placement Attending: Dr. Woods Provider: SESAR Mosher Indication: Central Drug Administration Anesthesia:Lidocaine 1% Line placed emergently in the setting of shock requiring vasopressor support and blood product transfusions A time-out was completed verifying correct patient, procedure, site, positioning, and implants(s) or special equipment if applicable. Patient's Right Neck was cleansed and draped in the typical sterile fashion using Chloraprep. The Right Internal Jugular Vein and Carotid Artery were identified using ultrasound. The superficial tissue was anesthetized using 3 mL of 1% lidocaine without epinephrine under direct visualization with the ultrasound. After adequate anesthetization was achieved, the Internal Jugular vein was cannulated under direct ultrasound guidance using an introducer needle on a syringe. Good venous blood return was maintained prior to removal of syringe from introducer needle. Using Seldinger Technique, a guide wire was advanced through the introducer needle without resistance. The introducer needle was removed and ultrasound images were obtained of the guide wire within the Internal Jugular Vein and saved to the patient's medical record. A small incision was made in penetrating fashion at the guide wire insertion site utilizing an 11 blade scalpel. The dilator was advanced to the vessel without resistance. The dilator was exchanged for the triple lumen catheter which was advanced into the vessel without resistance. The guide wire was removed intact from the catheter without issue. Claves were placed on each catheter tip with confirmation of good blood flow from each lumen. Each port was easily flushed with sterile saline. The catheter was placed at 16 cm and sutured in place. BioPatch was applied to the catheter and a sterile Tegaderm dressing was applied over the catheter with careful attention to sterility. Patient tolerated procedure well. No immediate complications were met. Post procedure x-ray was completed, placement was appropriate and no pneumothorax was noted. Procedural Ultrasound Guidance: Procedure Date: 12/29/2023 Indication: Central venous catheter insertion Attending: Dr. Woods Provider: SESAR Mosher Artery AND Vein visualized: yes Compressible Vein: yes Guidewire or Short Catheter seen in vein prior to dilation: yes Line confirmed in Vein with ultrasound: yes Images obtained are saved for permanent record. [facility] [place] Procedure Codes (Charges) Tubes, Drains, and Vasc Access Procedure 1: Tubes, Drains, and Vasc Access: [id number] Insertion Of Non-tunneled Catheter Age 7 Yrs> Procedure 2: Tubes, Drains, and Vasc Access: [id number] Ultrasound Guidance For Vascular Coding CPT Codes Tubes, Drains, and Vasc Access - Tubes, Drains, and Vasc Access: [id number] Insertion Of Non-tunneled Catheter Age 7 Yrs> ([id number]) Tubes, Drains, and Vasc Access - Tubes, Drains, and Vasc Access: [id number] Ultrasound Guidance For Vascular ([id number]) Additional Codes Date of Service (PG.SURGERY)
[2023-12-29] MEDS: CALCIUM GLUCONATE 1,000 MG/60 ML BAG IV STA (22:56)
[2023-12-29] MEDS: CALCIUM GLUCONATE 1000 MG/60 ML NSS IV ONE (22:56)
[2023-12-29 23:09] VITALS: TEMP 98.1
[2023-12-29 23:11] VITALS: O2SAT 95
[2023-12-30 00:07] VITALS: BP 110/72; PULSE 85
--- NOTE | 2023-12-30 01:04 | CT Scan Report ---
Exam(s): CTA CHEST With Contrast IV Amt: 118 ml optiray 320 EXAM: CT Angiography Chest With Intravenous Contrast CLINICAL HISTORY: Hemorrhage. TECHNIQUE: Axial computed tomographic angiography images of the chest with intravenous contrast. MIPS images were created and reviewed. CTDI is 23. 75 mGy and DLP is 920.36 mGy-cm. Automated exposure control was utilized for the study. A dose lowering technique was utilized adhering to the principles of ALARA. MIP reconstructed images were created and reviewed. CONTRAST: Patient received 118 ml optiray 320 of IV contrast COMPARISON: CT chest 12/24/2023 FINDINGS: Pulmonary arteries: Unremarkable. No pulmonary embolism. Aorta: Mild atherosclerosis. No thoracic aortic aneurysm. Lungs: Bilateral atelectasis. No mass. Pleural space: Interval development of a large right hemothorax with a chest tube in position. There is a small pneumothorax. No significant effusion. Heart: Unremarkable. No cardiomegaly. No significant pericardial effusion. No evidence of RV dysfunction. Bones/joints: There are degenerative changes of the spine. No acute fracture. Soft tissues: Unremarkable. Lymph nodes: Unremarkable. No enlarged lymph nodes. IMPRESSION: Interval development of a large right hemothorax with a chest tube in position. There is a small pneumothorax. Electronically signed by: Imani Hadley MD 12/30/23 01:03 AM
[2023-12-30] MEDS ORDERED: AMIODARONE / D5W 360 MG/200 ML BAG IV SCH (01:39)
--- NOTE | 2023-12-30 07:00 | XRay Report ---
XR chest 1V portable CLINICAL HISTORY: central line COMPARISON STUDY: Chest CT December 29, 2023 at 9:01 PM and chest radiograph December 29, 2023 at 8:35 P M. FINDINGS: There has been interval placement of a right internal jugular central line. Catheter tip pr ojects over the mid SVC. No pneumothorax is identified. A right apical pleural catheter remains in pl alvaro. Right sided chest tube is in place. Sidehole for the chest tube is within the chest wall. Extens chris asymmetric opacity within the right hemithorax is similar to prior exam. Cardiomediastinal silhou ette is stable. Minimal leftward mediastinal shift is unchanged. IMPRESSION: 1. No pneumothorax following placement of a right internal jugular central line. 2. No change in extensive asymmetric opacity within the right hemithorax corresponding to the hemotho rax shown on chest CT. Stable mild associated leftward mediastinal shift. 3. Right pleural catheter in place. Right chest tube in place. Sidehole for the chest tube is within the chest wall. ACT 112: Negative or not required by law. Electronically signed by: Damien Darling M.D. 12/30/2023 6:58 AM
--- NOTE | 2023-12-30 07:12 | XRay Report ---
XR chest 1V portable CLINICAL HISTORY: chest tube placement COMPARISON STUDY: Chest radiograph December 29, 2023 at 6:26 PM. FINDINGS: No pneumothorax is identified. Right apical pleural catheter remains in place. Interval ector cement of a large bore right-sided chest tube. Extensive asymmetric opacification of the right hemith orax is again noted. There is mild leftward mediastinal shift, unchanged. Cardiomediastinal silhouett e is stable. Hazy left lower lung opacity is again noted. IMPRESSION: 1. Interval placement of a right-sided chest tube. No pneumothorax identified. Right apical pleural c atheter also remains in place. 2. Persistent extensive asymmetric opacification of the right hemithorax suggestive of a hemothorax w ith mild leftward mediastinal shift. ACT 112: Negative or not required by law. Electronically signed by: Damien Darling M.D. 12/30/2023 7:10 AM
--- NOTE | 2024-01-01 21:31 | Electrocardiogram Report ---
Test Reason : Blood Pressure : */* mmHG Vent. Rate : 113 BPM Atrial Rate : 102 BPM P-R Int : * ms QRS Dur : 88 ms QT Int : 322 ms P-R-T Axes : * -20 127 degrees QTcB Int : 441 ms Atrial fibrillation with rapid ventricular response Inferior infarct , age undetermined Possible Anterior infarct , age undetermined Nonspecific ST abnormality Abnormal ECG When compared with ECG of 24-Dec-2023 12:46, Atrial fibrillation has replaced Sinus rhythm Confirmed by Phong Armas ([id number]) on 01/01/2024 9:30:56 PM Referred By: REFERRED SELF Confirmed By: Phong Armas
--- NOTE | 2024-01-01 21:35 | Electrocardiogram Report ---
Test Reason : Blood Pressure : */* mmHG Vent. Rate : 139 BPM Atrial Rate : 139 BPM P-R Int : 128 ms QRS Dur : 94 ms QT Int : 288 ms P-R-T Axes : 35 -18 132 degrees QTcB Int : 438 ms Sinus tachycardia Abnormal ECG When compared with ECG of 29-Dec-2023 17:34, Sinus rhythm has replaced Atrial fibrillation Confirmed by Phong Armas ([id number]) on 01/01/2024 9:35:40 PM Referred By: REFERRED SELF Confirmed By: Phong Armas
--- NOTE | 2024-01-07 08:42 | Discharge Summary ---
Discharge Summary Date of Service date of admission - December 24, 2023 date of discharge - December 30, 2023 Principal Dx & Hospital Course #1 = Principal Diagnosis (1) Hemothorax on right: The patient was admitted to the hospital after presenting with several weeks of cough, fatigue, dyspnea. CT of the chest without contrast noted findings concerning for necrotizing pneumonia in the right lower lobe. Specifically, there was a 5.8 x 4.2 cm focus of ovoid consolidation with cavitation at the right lung base on CT. There were subtle patchy groundglass opacities seen throughout both upper lobes as well, right greater than left. Patient was noted to be hypoxic on arrival to the ER with O2 sats in the high 80s on room air. He was initiated on broad-spectrum IV antibiotic therapy. Supplemental O2 was given[place] [facility] [place] for assistance with his pneumonia. Infectious diseases was consulted for antibiotic recommendations. Initial plan was for a prolonged course of PO augmentin post-discharge for the necrotizing pneumonia. On the AM of 12/28/23 chest x-ray revealed a new right-sided pneumothorax. This was initially treated with O2 and serial exams/x-rays. On 12/29/23 the patient had stable O2 sats in room air. However, with any activity, he had severe tachycardia, dyspnea, and O2 sats would dip to the upper 80s. Afternoon of 12/29/23 the pneumothorax was radiographically worse. [facility] [place] pigtail catheter placement for the worsening right- sided pneumothorax. Following pigtail catheter placement there was concern, in light of chronic Eliquis use, that the patient had developed a small hemothorax. A short time later following the pigtail catheter placement Mr Wick developed rapid a.fib. The patient became hemodynamically unstable in the setting of his suspected right-sided hemothorax, a.fib, etc and hence he was transferred to the ICU. CT chest done a short time later confirmed a large right-sided hemothorax. A larger bore chest tube was placed by the ICU attending for the right-sided hemothorax. IJ central venous catheter was placed. Hemoglobin evening of 12/29/23 was 7.3. Drop in hemoglobin was 2nd to his hemothorax. He received 2 units of PRBCs for such. Following stabilization in the ICU, preparations were made for transfer to [facility] for CT surgery/IR/advanced pulmonary consultation/management for his complex right-sided hemithorax pathology. The patient was transferred to [facility] late in the evening on 12/29/23 / early AM on 12/30/23. He was transferred via air/flight due to the critical nature of his status. (2) Spontaneous pneumothorax: right-sided 2nd to #3 below (3) Necrotizing pneumonia: RLL see #1 above (4) Acute hypoxic respiratory failure: 2nd to #1, #2, #3 (5) Secondary adrenal insufficiency: On chronic prednisone (6) Renal cell carcinoma: metastatic renal cell cancer - current treatment with carbozantanib (7) Chronic kidney disease: (8) Hypothyroidism: (9) Sleep apnea: (10) Atrial fibrillation with RVR: developed such afternoon of 12/29/23 (11) Acute blood loss anemia: 2nd to hemothorax on right lowest hemoglobin 7.3 s/p 2 units PRBCs a 3rd unit was given to the flight crew for his air transport to [facility] Admission HPI Per Admitting Provider Evans Wick is a 68-year-old male with a past medical history significant for metastatic renal cell carcinoma to the lung status post laparoscopic right nephrectomy in 2018, status post left lower lobe wedge resection in June 2019, currently on cabozantinib, ACTH deficiency, left lower extremity DVT in 2022 (on Eliquis for DVT prophylaxis while on chemotherapy), hypertension, secondary adrenal insufficiency, stage III CKD with solitary left kidney who presented to the [facility] ED on 12/24/2023 with complaints of ongoing shortness of breath. On arrival to the ED he was noted to be apnea hypotensive at 89/55, tachycardic at 97, tachypneic at 26, and initially hypoxic on room air at 87%. Labs were significant for hemoglobin of 11.2 (down from 12.2 as of 12/03/2023), creatinine of 2.68 (baseline is between 2.02.4 per last nephrology note), initial high-sensitivity troponin of 47 down to 43 on 2-hour repeat, CRP of 21, Pro-Sunny of 0.49, with COVID-19/influenza/RSV screens negative. Chest x-ray was read as airspace consolidation with possible cavitation at the right lung base is new from 11/30/2023 and consistent with pneumonia. Clinical correlation will be required and radiographic follow-up to resolution is recommended. Cardiomegaly without radiographic evidence of congestive failure. CT of the chest without IV contrast was read as a 5.8 x 4.2 cm focus of ovoid consolidation with cavitation at the right lung base. This is new from 11/30/2023 and consistent with a necrotizing pneumonia. Radiographic follow-up to resolution is recommended. Trace right pleural effusion. Subtle patchy groundglass opacities are seen throughout both upper lobes, right greater than left. This is also new from 11/30/2023 and also likely infectious/inflammatory. Postsurgical changes seen in the left lower lobe. Mild cardiomegaly and mild emphysema. Venous Dopplers of the bilateral lower extremities were read as negative for DVT. Prior to admission the patient was given a dose of cefepime and 500 mL NSS. Patient was sitting in bed in no acute distress at the time of exam with his bedside, history is obtained from both. They explained that the patient has been experiencing progressive shortness of breath, dyspnea on exertion, nonproductive cough, and lightheadedness/dizziness with changing positions over the past 3 to 4 weeks. Patient attributed the symptoms to issues with his known adrenal insufficiency which is why he did not seek evaluation sooner. Believes he may have been having fevers but did not officially check his temperature, no recent chest pain, denies hemoptysis, denies abdominal pain, nausea/vomiting, diarrhea, dysuria, hematuria, melena. They confirm that he is on low-dose Eliquis due to his history of left lower extremity DVT in 2022. He completed his course of anticoagulation for treatment of the left lower extremity DVT but is currently on a prophylactic dose of Eliquis as his current chemotherapy increases risk of blood clots. Patient had a fall from standing approximately 2 weeks ago due to increased lightheadedness. Denies loss of consciousness and did not hit his head. Has resulting healing skin tears on the bilateral anterior shins after the fall. We discussed CODE STATUS, he confirms he is a full code and would want his to make medical decisions for him if he cannot make them himself. Discharge Exam Exam done prior to decompensation - gen - NAD neck - no JVD heart - tachy, s1 s2, irregular, no murmur lungs - decreased BS on right, crackles R base abd - soft NT ND BS+ ext - 1+ edema b/l, pulses 2+ b/l Discharge Plan Discharge Items Patient Disposition: Transfer Acute Care Hospital Reason For Visit: NECROTIZING PNEUMONIA Discharge Diagnosis: Necrotizing Pneumonia, Pneumothorax Condition on Discharge: Serious Activity: As commented below Activity Comment: no strenuous activity while you have the pneumothorax Non-emergency contact: Primary Care Provider, Advertising Statistical Clerk and Director Global Market Research Call non-emergency contact if: you have any medication questions, your symptoms worsen and your rectal temperature is above 100.4 Follow-up/Referrals: Victor Manuel Santiago DO [Physician] - (Keep scheduled appointment ) [facility]land[facility] Chin [facility], [facility] [Physician] - (Follow up 1-2 weeks ) Bill Cantrell MD [Primary Care Provider] - (Follow up in 7-10days ) Diet: Heart Healthy Ambulatory Orders: XR chest 1V not portable (Routine) Timeframe: 20231231 Location: Determined by Patient Ordered By: Karishma Plascencia Attending Provider Instructions: Mr. Wick, You were hospitalized after having shortness of breath. Your CT scan showed necrotizing pneumonia. You were treated with IV antibiotics, and seen by infectious disease, and they recommended transition to Augmentin for 6 weeks. You will need a repeat chest xray on 12/30, the results will be sent to the vice president corporate communications and your PCP. Please contact them for results if you do not hear anything. Recommendations: * CXR 12/30 - avoid strenuous activity and hold Eliquis as directed by pulmonology * Follow up with pulmonology - an appointment should be made for you, but if you do not hear from anyone by the end of the week, call the number above. They will likely do a repeat CT scan in 6-8 weeks * Steroids continue at home dose * Hold nebivolol and losartan, your radio machinist will discuss with you if they need to be resumed in January * Can resume Cabozantinib (chemo) tomorrow * Augmentin twice a day with meals - next dose PM 12/28 Labs ordered by infectious disease are still pending. Medications: Your medication list has been reviewed and reconciled upon discharge to ensure accuracy and continuity of care. An updated list of all your medications is included with your hospital discharge paperwork. Please review this list closely, and make note of any changes. Take your medications as instructed; do not skip a dose of your medicines. Make sure all of your doctors know every medicine you are taking (including pfkb-tkk-bzyzxpc medicines, vitamins, and supplements). Call your primary care provider before taking any new medicines (including over- the-counter medicines, vitamins, and supplements), because some of these may interact with your current medications, or may make your symptoms worse. Tell your primary care provider if you cannot afford your medications. Activity: Please take it easy while your pneumothorax continues to heal. Take rest breaks if you feel tired. Do not overexert. Stop activity if you have pain, shortness of breath or feel dizzy. Follow-up appointments: Make an appointment with your primary care physician within one week of discharge. A copy of this summary will be sent to them. Every time you see your primary care physician, or any other doctor, bring your medication list, and a list of questions. CONTACT YOUR PRIMARY CARE PROVIDER if you experience any of the following: Shortness of breath or difficulty breathing Fevers or chills Feeling tired with normal activity or experiencing dizziness or fainting Difficulty following your treatment plan, or difficulty taking medications CALL 911 OR GO TO THE EMERGENCY DEPARTMENT if you experience any of the following: Severe abdominal pain or nausea/vomiting Severe chest pain, or chest pain that radiates (moves) to your jaw or arm Sudden, severe shortness of breath or difficulty breathing Thank you for allowing us to participate in your care. Pending Studies at Discharge: Yes (fungitell and galactomannnan ) Stand-Alone Forms: My [employer] Smoking Cessation Skilled Items Patient informed of condition?: Yes DNR: Yes Discharge Level of Care: Other Communicable Disease: No Discharge Prognosis: Other Lines: Peripheral IV Urinary Catheter: Yes Medications and DC Order Prescriptions: New amoxicillin-pot clavulanate 875-125 mg Tablet 1 tab PO BIDM 41 Days Qty: 82 0RF Continued hydrocortisone 10 mg tablet See Rx Instructions PO .COMPLEX Qty: 50 1RF Rx Instructions: take 20 mg AM; take 10 mg 8 hours later; may double in times of stress bumetanide 1 mg tablet 2 mg PO BID Qty: 360 2RF Hold Instructions: Hold per provider cholecalciferol (vitamin D3) 25 mcg (1,000 unit) capsule 25 mcg PO QAM mecobalamin (vitamin B12) 500 mcg tablet,chewable 500 mcg PO QAM nivolumab IV .ON HOLD Hold Instructions: Home Medication placed on hold at Doctor's office Rx Instructions: ON HOLD cabozantinib 20 mg tablet 20 mg PO Q OTHER DAY Hold Instructions: Per patient Rx Instructions: take on even days levothyroxine 150 mcg tablet 150 mcg PO DAILYBB Held Eliquis 2.5 mg tablet 2.5 mg PO AMPM Hold Instructions: Resume on 12/31/23. until instructed by pulmonary to resume losartan 100 mg tablet 100 mg PO QAM Hold Instructions: Resume on 01/12/24. until discussed with nephrology Discharge Orders: Discharge Order (Routine); Ordered 12/30/23 Ordered By: Sena Velasquez/Other Patient Handouts: Diabetes: Meal Planning, ED Pneumothorax, Spontaneous, Type 2 Diabetes Admission Data Admit Date/Time: 12/24/23 16:48 Attending Provider: Mateo Mancuso Admit Provider: Mateo Li Primary Care Provider: Bill Cantrell Other Providers: [facility]; Irlanda Chin; Mateo Li; Victor Manuel Santiago; Tamar Jonas Other Interventions: Discharge Summary Assessment (RN) Last Done: 12/29/23 23:34 Hospital Stay Data Consultations Pulmonology Nephrology Oncology Infectious Diseases Procedures Performed 1. IJ central line placement 2. right-sided pigtail chest tube placement 3. right-sided standard/large-bore chest tube placement 4. TWO units PRBCs Diagnostic Imagining Performed Chest X-Ray 12/24/23 12:43 SINGLE VIEW CHEST CLINICAL HISTORY: Atypical chest pain FINDINGS: 2 AP, portable, upright chest radiographs are compared to study dated 03/19/2020. Correlation is made with chest CT scans dated 11/30/2023 and 02/19/2020. The heart is enlarged noting atherosclerotic calcification of the thoracic aorta. The pulmonary vasculature is noncontrast. There is airspace consolidation at the right lung base with possible cavitation. This is new from 11/30/2023 and consistent with pneumonia. The left lung appears clear noting dependent atelectasis. No pneumothorax is seen. The bony thorax is grossly intact. Degenerative change is seen in the shoulders and spine. IMPRESSION: 1. Airspace consolidation with possible cavitation at the right lung base is new from 11/30/2023 and consistent with pneumonia. Clinical correlation will be required and radiographic follow-up to resolution is recommended. 2. Cardiomegaly without radiographic evidence of congestive failure. ACT 112: Negative or not required by law. Electronically signed by: Ole Wolfe M.D. 12/24/2023 1:[address] 12/24/23 13:37 CT SCAN OF THE CHEST WITHOUT IV CONTRAST CLINICAL HISTORY: Pneumonia. COMPARISON STUDY: Chest CT dated 11/30/2023. Chest x-ray dated 12/24/2023. TECHNIQUE: CT scan of the thorax was performed from the thoracic inlet to the upper abdomen. Images are reviewed in the axial, sagittal, and coronal planes. IV contrast was not administered for this examination as per the referring clinician. A dose lowering technique was utilized adhering to the principles of ALARA. CT DOSE: 992.33 mGy.cm FINDINGS: Thyroid: Mildly atrophic and heterogeneous. Thoracic aorta: There is mild atherosclerotic calcification of the thoracic aorta, which is normal in caliber and demonstrates standard 3-vessel arch anatomy. Heart: The heart is mildly enlarged noting trace pericardial effusion. Lungs and pleural spaces: Mild emphysematous change is noted. There is postsurgical change from left lower lobe resection. There is trace right pleural effusion. The trachea and central airways are clear. There is a 5.8 x 4.2 cm focus of ovoid consolidation with cavitation seen at the right lung base seen on image #145. This is new from 11/30/2023 and consistent with a cavitary pneumonia. Subtle ground glass opacities are seen throughout both upper lobes, right greater than left. This is also new from previous. Additional foci of parenchymal scarring are seen throughout both lungs. There are scattered calcified granulomas. Mediastinum: There is no mediastinal lymphadenopathy. Raquel: Not well assessed without IV contrast. Axillae: There is no axillary lymphadenopathy. Upper abdomen: There are calcified gallstones with no CT evidence of acute cholecystitis. The liver appears stated ptotic. There is evidence of right nephrectomy. Skeletal structures: The skeletal structures are osteopenic. Degenerative change is seen in the shoulders and spine. No lytic or blastic bony lesions are seen. IMPRESSION: 1. There is a 5.8 x 4.2 cm focus of ovoid consolidation with cavitation at the right lung base. This is new from 11/30/2023 and consistent with a necrotizing pneumonia. Radiographic follow-up to resolution is recommended. 2. Trace right pleural effusion. 3. Subtle patchy groundglass opacities are seen throughout both upper lobes, right greater than left. This is also new from 11/30/2023 and also likely infectious/inflammatory. 4. Postsurgical change is seen in the left lower lobe. 5. Mild cardiomegaly and mild emphysema. 6. Cholelithiasis. 7. Additional findings as above. ACT 112: Negative or not required by law. Electronically signed by: Ole Wolfe M.D. 12/24/2023 3:13 PM Venous Doppler Study 12/24/23 13:37 US venous doppler LE BI CLINICAL HISTORY: swelling TECHNIQUE: Bilateral lower extremity real-time compression venous ultrasound with Color Doppler imaging. Utilizing real-time ultrasonic imaging multiple real time high-resolution ultrasonic images with compression and noncompression maneuvers of the deep venous system in addition to color doppler imaging were performed from the common femoral vein through the proximal calf veins. COMPARISON: Comparison is made to a venous Doppler 07/11/2022 FINDINGS/IMPRESSION: Currently there is normal compressibility of the deep venous system from the common femoral vein through the proximal calf veins. No superficial venous thrombosis is identified. ACT 112: Negative or not required by law. Electronically signed by: Jermaine Sewell M.D. 12/24/2023 2:45 PM Chest X-Ray 12/28/23 08:00 XR chest 2V PA/lateral CLINICAL HISTORY: follow up R base pneumonia COMPARISON STUDY: Chest radiograph and chest CT December 24, 2023. FINDINGS: There has been interval development of a moderate size right pneumothorax. A small right pleural effusion is present. Cavitary opacity within the right lower lobe has decreased in conspicuity. There is no left pneumothorax. Left lung is clear. Cardiomediastinal silhouette is stable. There is no evidence for pulmonary edema. IMPRESSION: 1. Interval development of a moderate right pneumothorax. This finding will be called/faxed to the ordering provider at time of dictation. 2. Decrease in conspicuity of the cavitary right lower lobe pneumonia. 3. Small right pleural effusion. ACT 112: Negative or not required by law. Electronically signed by: Damien Darling M.D. 12/28/2023 11:46 AM Chest X-Ray 12/28/23 13:01 SINGLE VIEW CHEST CLINICAL HISTORY: Pneumothorax. FINDINGS: An AP, portable, upright chest radiograph is compared to study performed earlier the same day 12/28/2023 and correlated with chest CT dated 12/24/2023. The heart is enlarged. The pulmonary vasculature is noncongested. A right-sided pneumothorax is unchanged to modestly decreased in size since to day's earlier examination. There is 2.1 cm of pleural separation. Opacities the right lung base are again noted. Scarring/atelectasis is also seen at the left lung base. No large pleural effusion or left-sided pneumothorax is seen. The bony thorax is grossly intact. IMPRESSION: 1. A [id number]-[id number] right-sided pneumothorax is unchanged to modestly decreased in size from today's earlier examination. 2. Airspace opacities are again seen at the right lung base. 3. Cardiomegaly without radiographic evidence of congestive failure. ACT 112: Negative or not required by law. Electronically signed by: Ole Wolfe M.D. 12/28/2023 2:04 PM Chest X-Ray 12/28/23 18:00 XR chest 1V portable CLINICAL HISTORY: Reassess pneumothorax. COMPARISON STUDY: Chest radiograph December 28, 2023 at 1:32 PM. FINDINGS: A small to moderate right pneumothorax is similar to prior chest radiograph. This has slightly decreased in size since chest radiograph performed at 10:26 AM today. Right basilar opacity persists. Left lung is clear. There is no left pneumothorax. IMPRESSION: 1. Small to moderate right pneumothorax, similar in size to prior chest rad iograph. 2. Right basilar opacity suggestive of pneumonia. ACT 112: Negative or not required by law. Electronically signed by: Damien Darling M.D. 12/28/2023 6:17 PM Chest X-Ray 12/29/23 08:00 XR chest 1V portable HISTORY: Follow-up right-sided pneumothorax. COMPARISON: Chest 12/28/2023. FINDINGS: [id number] right pneumothorax persists with a maximal pleural gap of 15 mm. No mediastinal shift. The heart remains mildly enlarged. No evidence for pulmonary edema. A few bibasilar linear densities suggesting subsegmental atelectasis. Focal density within the base of the right lower lobe has improved. IMPRESSION: 1. No change in the small to moderate right pneumothorax. No mediastinal shift. 2. Right basilar density has improved. ACT 112: Negative or not required by law. Electronically signed by: Raymundo Borja M.D. 12/29/2023 7:33 AM Chest X-Ray 12/29/23 13:27 XR chest 1V portable CLINICAL HISTORY: ptx COMPARISON STUDY: Chest radiograph performed earlier today. FINDINGS: Small to moderate right pneumothorax has slightly increased in size since prior exam. Superior pleural separation measures 1.9 cm. Right basilar airspace opacity is again noted. There is no left pneumothorax. There is no evidence for pulmonary edema. Cardiomediastinal silhouette is stable. IMPRESSION: 1. Small to moderate right pneumothorax, mildly increased in size since prior chest radiograph. 2. Persistent right basilar opacity suggestive of pneumonia. ACT 112: Negative or not required by law. Electronically signed by: Damien Darling M.D. 12/29/2023 3:24 PM Chest X-Ray 12/29/23 16:14 XR chest 1V portable CLINICAL HISTORY: right chest tube placement COMPARISON STUDY: Chest radiograph December 29, 2023 at 1:39 PM. FINDINGS: The right pneumothorax has significantly decreased in size following catheter placement. There is a small residual right apical pneumothorax. Suspected small right pleural effusion within the right lateral hemithorax is present. Low lung volumes are noted. This likely accounts for mediastinal widening. Right basilar opacity persists. IMPRESSION: 1. Significant decrease in size of the right pneumothorax following pleural catheter placement. Small residual right apical pneumothorax. 2. Suspected small right pleural effusion. A small hemothorax cannot be excluded. Short-term radiographic follow-up is recommended. ACT 112: Negative or not required by law. Electronically signed by: Damien Darling M.D. 12/29/2023 4:30 PM Chest X-Ray 12/29/23 18:05 SINGLE VIEW CHEST CLINICAL HISTORY: Hypoxia. Hypotension FINDINGS: 2 AP, portable, upright chest radiographs are compared to study performed earlier the same day 12/29/2023 and correlated with chest CT dated 12/24/2023. The heart is enlarged. There is pulmonary vascular congestion. There are increasing bilateral airspace opacities seen throughout both lungs, right greater than left. A right-sided pleural catheter is unchanged in position. There is likely trace residual right apical pneumothorax. This is not well visualized. There are increasing bilateral pleural effusions. An ovoid opacity projects over the right lower lung. No left sided pneumothorax is seen. The bony thorax is grossly intact. IMPRESSION: 1. Cardiomegaly with evidence of congestive failure. 2. There are increasing bilateral airspace opacities, right greater than left. Given the time course this likely represents pulmonary edema.. Correlate clinically for evidence of a superimposed infectious/inflammatory pneumonitis. Radiographic follow-up to resolution is recommended. 3. There are increasing pleural effusions. 4. A pleural catheter is unchanged in position. There is likely a small residual right apical pneumothorax. This is not well assessed , and may be partially filled with pleural fluid. 5. An ovoid opacity projecting over the right lower lung may represent loculated fluid along the fissure. ACT 112: Negative or not required by law. Electronically signed by: Ole Wolfe M.D. 12/29/2023 7:18 PM Chest CTA 12/29/23 20:18 Exam(s): CTA CHEST With Contrast IV Amt: 118 ml optiray 320 EXAM: CT Angiography Chest With Intravenous Contrast CLINICAL HISTORY: Hemorrhage. TECHNIQUE: Axial computed tomographic angiography images of the chest with intravenous contrast. MIPS images were created and reviewed. CTDI is 23. 75 mGy and DLP is 920.36 mGy-cm. Automated exposure control was utilized for the study. A dose lowering technique was utilized adhering to the principles of ALARA. MIP reconstructed images were created and reviewed. CONTRAST: Patient received 118 ml optiray 320 of IV contrast COMPARISON: CT chest 12/24/2023 FINDINGS: Pulmonary arteries: Unremarkable. No pulmonary embolism. Aorta: Mild atherosclerosis. No thoracic aortic aneurysm. Lungs: Bilateral atelectasis. No mass. Pleural space: Interval development of a large right hemothorax with a chest tube in position. There is a small pneumothorax. No significant effusion. Heart: Unremarkable. No cardiomegaly. No significant pericardial effusion. No evidence of RV dysfunction. Bones/joints: There are degenerative changes of the spine. No acute fracture. Soft tissues: Unremarkable. Lymph nodes: Unremarkable. No enlarged lymph nodes. IMPRESSION: Interval development of a large right hemothorax with a chest tube in position. There is a small pneumothorax. Electronically signed by: Imani Hadley MD 12/30/23 01:03 AM Chest X-Ray 12/29/23 20:21 XR chest 1V portable CLINICAL HISTORY: chest tube placement COMPARISON STUDY: Chest radiograph December 29, 2023 at 6:26 PM. FINDINGS: No pneumothorax is identified. Right apical pleural catheter remains in place. Interval placement of a large bore right-sided chest tube. Extensive asymmetric opacification of the right hemithorax is again noted. There is mild leftward mediastinal shift, unchanged. Cardiomediastinal silhouette is stable. Hazy left lower lung opacity is again noted. IMPRESSION: 1. Interval placement of a right-sided chest tube. No pneumothorax identified. Right apical pleural catheter also remains in place. 2. Persistent extensive asymmetric opacification of the right hemithorax suggestive of a hemothorax with mild leftward mediastinal shift. ACT 112: Negative or not required by law. Electronically signed by: Damien Darling M.D. 12/30/2023 7:10 AM Chest X-Ray 12/29/23 22:32 XR chest 1V portable CLINICAL HISTORY: central line COMPARISON STUDY: Chest CT December 29, 2023 at 9:01 PM and chest radiograph December 29, 2023 at 8:35 PM. FINDINGS: There has been interval placement of a right internal jugular central line. Catheter tip projects over the mid SVC. No pneumothorax is identified. A right apical pleural catheter remains in place. Right sided chest tube is in place. Sidehole for the chest tube is within the chest wall. Extensive as ymmetric opacity within the right hemithorax is similar to prior exam. Cardiomediastinal silhouette is stable. Minimal leftward mediastinal shift is unchanged. IMPRESSION: 1. No pneumothorax following placement of a right internal jugular central line. 2. No change in extensive asymmetric opacity within the right hemithorax corresponding to the hemothorax shown on chest CT. Stable mild associated leftward mediastinal shift. 3. Right pleural catheter in place. Right chest tube in place. Sidehole for the chest tube is within the chest wall. ACT 112: Negative or not required by law. Electronically signed by: Damien Darling M.D. 12/30/2023 6:58 AM Pending Results Patient Have Any Pending Studies at Discharge: Yes (fungitell and galactomannnan ) Discharge Instructions Given to Patient (Per Discharging Provider) Mr. Wick, You were hospitalized after having shortness of breath. Your CT scan showed necrotizing pneumonia. You were treated with IV antibiotics, and seen by infectious disease, and they recommended transition to Augmentin for 6 weeks. You will need a repeat chest xray on 12/30, the results will be sent to the vice president corporate communications and your PCP. Please contact them for results if you do not hear anything. Recommendations: * CXR 12/30 - avoid strenuous activity and hold Eliquis as directed by pulmonology * Follow up with pulmonology - an appointment should be made for you, but if you do not hear from anyone by the end of the week, call the number above. They will likely do a repeat CT scan in 6-8 weeks * Steroids continue at home dose * Hold nebivolol and losartan, your radio machinist will discuss with you if they need to be resumed in January * Can resume Cabozantinib (chemo) tomorrow * Augmentin twice a day with meals - next dose PM 12/28 Labs ordered by infectious disease are still pending. Medications: Your medication list has been reviewed and reconciled upon discharge to ensure accuracy and continuity of care. An updated list of all your medications is included with your hospital discharge paperwork. Please review this list closely, and make note of any changes. Take your medications as instructed; do not skip a dose of your medicines. Make sure all of your doctors know every medicine you are taking (including [id number] medicines, vitamins, and supplements). Call your primary care provider before taking any new medicines (including over- the-counter medicines, vitamins, and supplements), because some of these may interact with your current medications, or may make your symptoms worse. Tell your primary care provider if you cannot afford your medications. Activity: Please take it easy while your pneumothorax continues to heal. Take rest breaks if you feel tired. Do not overexert. Stop activity if you have pain, shortness of breath or feel dizzy. Follow-up appointments: Make an appointment with your primary care physician within one week of discharge. A copy of this summary will be sent to them. Every time you see your primary care physician, or any other doctor, bring your medication list, and a list of questions. CONTACT YOUR PRIMARY CARE PROVIDER if you experience any of the following: Shortness of breath or difficulty breathing Fevers or chills Feeling tired with normal activity or experiencing dizziness or fainting Difficulty following your treatment plan, or difficulty taking medications CALL 911 OR GO TO THE EMERGENCY DEPARTMENT if you experience any of the following: Severe abdominal pain or nausea/vomiting Severe chest pain, or chest pain that radiates (moves) to your jaw or arm Sudden, severe shortness of breath or difficulty breathing Thank you for allowing us to participate in your care. Total Time Total Time Spent Total Time Spent (In Minutes): 90 Coding Level of Care Code 27139 INP/OBS DISCH >30 MIN Diagnoses Hemothorax on right J94.2 Spontaneous pneumothorax J93.83 Necrotizing pneumonia J85.0 Acute hypoxic respiratory failure J96.01 Secondary adrenal insufficiency E27.49 Renal cell carcinoma, unspecified laterality C64.9 Laterality: unspecified laterality Chronic kidney disease N18.9 Hypothyroidism E03.9 Obstructive sleep apnea syndrome G47.33 Sleep apnea type: obstructive Atrial fibrillation with RVR I48.91 Acute blood loss anemia D62
== END 2023-12-29 23:34 | disposition short-term general hospital (02) | DRG 177 ==
LOC: ED 12:35 → SUATTDRO 16:48 → EDINP 16:48 → 2S 12-25 08:53 → 3E 12-26 16:03 → 2S 12-28 15:59 → 1E 12-29 19:12
DX: Z79.01 Long term (current) use of anticoagulants; Z90.5 Acquired absence of kidney; Z79.890 Hormone replacement therapy; D64.9 Anemia, unspecified; I12.9 Hypertensive chronic kidney disease with stage 1 through stage 4 chronic kidney disease, or unspecified chronic kidney disease; E27.49 Other adrenocortical insufficiency; I24.89 Other forms of acute ischemic heart disease; J93.83 Other pneumothorax; C78.02 Secondary malignant neoplasm of left lung; R57.9 Shock, unspecified; Z87.891 Personal history of nicotine dependence; J85.0 Gangrene and necrosis of lung; Z85.528 Personal history of other malignant neoplasm of kidney; J96.01 Acute respiratory failure with hypoxia; G47.33 Obstructive sleep apnea (adult) (pediatric); N18.30 Chronic kidney disease, stage 3 unspecified; Z90.2 Acquired absence of lung [part of]; D84.821 Immunodeficiency due to drugs; N17.9 Acute kidney failure, unspecified; R73.9 Hyperglycemia, unspecified

== ENCOUNTER 2024-01-16 08:53 | Inpatient (IN) ==
[2024-01-17] MEDS ORDERED: POLYETHYLENE (MIRALAX) 17 GM PACK PO PRN (08:55)
[2024-01-17] MEDS ORDERED: ONDANSETRON INJ 2 MG/ML 2 ML VIAL IV PRN (08:55)
--- NOTE | 2024-01-17 09:08 | History & Physical Report ---
Date of Service January 17, 2024 Assessment & Plan (1) Necrotizing pneumonia: Plan: PT presented with necrotizing pneumonia, developed hemothorax while on Eliquis, sent to [facility] for IR treatment returns with recommendation from [facility] for 6 weeks of zosyn, 12/23 -02/03. 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 (2) Atrial fibrillation: Plan: Patient is previously on rate controlling agents with metoprolol which was subsequently held due to his orthostatic hypotension Patient is on midodrine and Florinef from [facility] regarding this issue. Patient reportedly was restarted on Xarelto therapy at [facility] currently not on any rate controlling medications since 01/11 when he had metoprolol (3) Renal cell carcinoma: Plan: History of renal cell carcinoma metastatic to the lung with resection in 2019. Previously treated with cabozantinib 20 mg q 48h and avelumab 10 mg q 4 weeks, held during acute hospital stay. 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 Garcia his dose of hydrocortisone is 20 morning and 10 in the afternoon (5) Varicella zoster: Plan: has lesion on right buttock, did have shingrix vacine was seen by Derm and swab confirmed Varicella Zoster not herpes simplex Derm recommended 10 d of treatment 01/04- however still not healed continue bid valtrex and topical acyclovir Plan Patient has chronic kidney disease stage IIIb, s/p right nephrectomy as an outpatient was on diuretic use of furosemide 40 morning 20 in the afternoon hypothyroidism typically on Synthroid 150 mcg a day History of Present Illness Primary Care Provider: Bill Cantrell MD Received phone call from Dr. Rosario at [facility] about return service agreement for Mr. Rodriguez. He reportedly was in stable condition except for some orthostatic hypotension being treated with midodrine and Florinef. His hemoglobin has been stable his return to anticoagulation and his atrial fibrillation has not been an issue although he said his rate controlling agents stopped. He is currently on a medical floor they will be transferred to medical floor here in need of subacute rehab placement. Patient was transferred from our facility on December 29 after he developed a pneumothorax requiring pigtail catheter placement and then a subsequent hemothorax in the context of a necrotizing pneumonia and a history of renal cell carcinoma metastatic to the lung s/p resection. Patient acute blood loss anemia was transferred to units packed red blood cells prior to transfer. Patient was on anticoagulation therapy for atrial fibrillation. He was transferred to higher level of care for possibility of IR treatment. INitiallly presenting with septic shock requiring pressors on arrival of [facility] Thoracic surgery performed Saline lavage of chest 12/31, then evacuated old clot 01/[address] pigtail, second placed 01/05, both removed by 01/09 Allergies Allergy/AdvReac Type Severity Reaction Status Date / Time atorvastatin AdvReac Unknown Muscle Pain Verified 01/17/24 13:23 Home Medications Medication Instructions Recorded Confirmed Type nivolumab IV .ON HOLD 07/26/21 12/21/23 History cholecalciferol (vitamin D3) 25 25 mcg PO QAM 10/23/22 12/24/23 History mcg (1,000 unit) capsule mecobalamin (vitamin B12) 500 mcg 500 mcg PO QAM 10/23/22 12/24/23 History chewable tablet hydrocortisone 10 mg tablet See Rx Instructions PO .COMPLEX 12/09/22 12/24/23 Rx #50 tabs cabozantinib 20 mg tablet 20 mg PO Q OTHER DAY 09/11/23 12/24/23 History apixaban 2.5 mg tablet (Eliquis) 2.5 mg PO AMPM 12/01/23 01/17/24 History bumetanide 1 mg tablet 2 mg (2 x 1 mg) PO BID #360 tabs 12/22/23 12/24/23 Rx levothyroxine 150 mcg tablet 150 mcg PO DAILYBB 12/24/23 01/17/24 History losartan 100 mg tablet 100 mg PO QAM 12/24/23 12/24/23 History amoxicillin 875 mg-potassium 1 tab PO BIDM 41 days #82 tabs 12/29/23 Rx clavulanate 125 mg tablet Past Med/Surg History Problem List (Updated 01/17/24 @ 14:11 by Garfield Leyva MD) Varicella zoster Atrial fibrillation Acute blood loss anemia Acute hypoxic respiratory failure Sleep apnea hx CPAP ("did not like" using machine) Cardiomyopathy Hypothyroidism Chronic kidney disease Renal cell carcinoma Secondary adrenal insufficiency Necrotizing pneumonia Spontaneous pneumothorax Hemothorax on right Shortness of breath Abnormal chest CT Impingement syndrome of right shoulder ACTH deficiency Sensorineural hearing loss of both ears Left HF asymmetry Erectile dysfunction Hypothyroidism Hypophysitis History of hip replacement Microscopic hematuria Multiple pulmonary nodules Lung metastasis Medical History (Updated 01/17/24 @ 14:11 by Garfield Leyva MD) Atrial fibrillation with RVR Cavitary lesion of lung Hypertension C. difficile colitis Ileus Chronic kidney disease with active medical management without dialysis, stage 3 (moderate) Acute kidney injury Pancreatitis Relative polycythemia Adrenal insufficiency due to cancer therapy Renal cell cancer On prednisone therapy Cancer of kidney RIGHT KIDNEY REMOVED History of skin cancer + resection High triglycerides no meds Surgical History (Updated 01/03/24 @ 00:09 by Rosalba Clemente) Status post lung surgery (06/08/19) Electromagnetic navigational bronchoscopy with marking of lesion with ICG dye. 2. Left robot-assisted thoracoscopic segmentectomy of the superior segment of left lower lobe. 3. Mediastinal lymph node dissection. Dr. Wright 06/08/19 History of right nephrectomy 02/07/2019: Gliescope #3 with 8.0 ETT after unsuccessful DLx2. See record for full details. History of total left hip arthroplasty Left HAMZAH: 05/28/18: SAB x 3 attempts at L3-L4 at [facility] History of colonoscopy History of sinus surgery DEVIATED SEPTUM REPAIR History of left knee surgery + REVISION X 4 H/O inguinal hernia repair H/O arthroscopy of shoulder LEFT Family History Mother Breast cancer, Onset Age: 43 Father Esophageal cancer Sister Colon cancer Other Family history of cancer Social History Smoking Status: Former smoker Tobacco Type: Cigarettes Second Hand Exposure: No; Do You Dip or Chew Tobacco: No; Hx Alcohol Use: No Hx Substance Use: No Preferred Language: Yemeni Communication Ability: Effective Visual Impairment: No Limitations Hearing Ability: Normal Research Executive Required: No Beliefs That Will Affect Care: Yarsanism Yarsanism Beliefs: Buddhist marital status: Current Living Situation: Spouse Current Living Situation Comment: [facility] current occupational status: retired current occupation: retired from [employer] Feels Safe at Home: Yes Safety Concerns: Feels Safe At This Time Assistive Devices: Hearing Aid - Bilateral Physical Exam Physical Exam: pt is awake and alert fatigued but no significant distress cardiac is irregular and rate controlled lungs are diminished at the right base abd is soft and non tender right buttock with denuded serpiginous area approx 3 cm ext with trace edema Code Status & VTE Plan VTE Prophylaxis Plan VTE Prophylaxis will be ordered: Yes PG Care Time/CCT Total # of Minutes Spent Total Time Spent with Patient: Total time spent is greater than 50% in coordination of care (as documented) at patient's floor/unit and/or counseling patient: Coding Level of Care Code 29105 INT INP/OBS CARE 375MIN Diagnoses Necrotizing pneumonia J85.0 Atrial fibrillation I48.91 Renal cell carcinoma, unspecified laterality C64.9 Laterality: unspecified laterality Secondary adrenal insufficiency E27.49 Varicella zoster B02.9 (3) Renal cell carcinoma Laterality: unspecified laterality Qualified Code(s): C64.9 - Malignant neoplasm of unspecified kidney, except renal pelvis
[2024-01-17] MEDS: Patient's HEIGHT &/or WEIGHT Needed SCH (13:07)
[2024-01-17] MEDS: MIDODRINE HCL 2.5 MG TAB PO SCH (13:46)
[2024-01-17] MEDS: Patient's ALLERGY Info needs ENTERED SCH (13:53)
[2024-01-17] MEDS: HYDROCORTISONE 10 MG TAB PO SCH (15:29)
[2024-01-17] MEDS: 4.5GM X1 IV STA (15:29)
[2024-01-17 15:52] LABS: Creatinine Clr Calc Pharmacy 43.8 ml/min; Est GFR (African American) 31.2 ml/min; Est GFR (Non-African American) 26.9 ml/min
[2024-01-17 16:34] LABS: BUN Creatinine Ratio 24.2 (10-20); Calcium 8.1 mg/dl (8.6-10.3); Potassium 3.6 mmol/L (3.5-5.1)
--- NOTE | 2024-01-17 17:01 | CT Scan Report ---
CT chest diagnostic wo con CLINICAL HISTORY: eval RLL necrotizing mass TECHNIQUE: Multidetector row helical CT of the chest was performed. Coronal and sagittal reformations were obtained. Automated dose lowering techniques and/or adjustment according to patient size were u tilized for this exam. CT DOSE: 924.78 mGy.cm Comparison: Comparison is made to CT chest 12/29/2023 FINDINGS: Lungs and pleura: Complex pleural collection is again seen on the right with locules of gas. Previous ly noted pigtail catheter has been removed. Atelectasis is seen. There is groundglass density in the left upper lobe. Heart and pericardium: Heart size is normal. No pericardial effusion. Vessels: Mild atherosclerotic changes in the aorta and coronary arteries. Mediastinum and raeann: Enlarged lymph nodes measure up to 13 mm in the subcarinal station. Chest wall and lower neck: Unremarkable. Abdomen: A hiatal hernia is seen. Hepatic steatosis is seen. Bones: Unremarkable. IMPRESSION: Complex right pleural masses compatible with hemothorax and possibly empyema. Interval development of left upper lobe groundglass opacity which may be infectious. Mediastinal lymphadenopathy is likely r eactive. ACT 112: Negative or not required by law. Electronically signed by: Jermaine Sewell M.D. 01/17/2024 4:59 PM
[2024-01-17] MEDS: MIDODRINE HCL 10 MG TAB PO SCH (18:31)
[2024-01-17] MEDS: PIPERACILLIN/TAZOBACTAM 4.5 GM/100 ML BAG IV SCH (22:00)
[2024-01-17] MEDS: ACYCLOVIR 5% OINT 15 GM TUBE EXT SCH (22:01)
[2024-01-17] MEDS: valACYclovir HCL 500 MG TABLET PO SCH (22:02)
[2024-01-17] MEDS: APIXABAN 2.5 MG TAB PO SCH (22:05)
[2024-01-18] MEDS: LEVOTHYROXINE SODIUM 150 MCG TABLET PO SCH (05:45)
[2024-01-18] MEDS: HYDROCORTISONE 10 MG TAB PO SCH (07:44)
[2024-01-18] MEDS: SENNA 8.6 MG TAB PO SCH (07:48)
--- NOTE | 2024-01-18 07:48 | Hospitalist Progress Note ---
Date of Service January 18, 2024 Assessment & Plan (1) Necrotizing pneumonia: Plan: PT presented with necrotizing pneumonia, developed hemothorax while on Eliquis, sent to [facility] for IR treatment returns with recommendation from [facility] for 6 weeks of zosyn, 12/23 -02/03. 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 (2) Atrial fibrillation: Plan: Patient is previously on rate controlling agents with metoprolol which was subsequently held due to his orthostatic hypotension Patient is on midodrine and Florinef from [facility] regarding this issue. Patient reportedly was restarted on anticoagulation therapy at [facility] currently not on any rate controlling medications since 01/11 when he had metoprolol (3) Renal cell carcinoma: Plan: History of renal cell carcinoma metastatic to the lung with resection in 2019. Previously treated with cabozantinib 20 mg q 48h and avelumab 10 mg q 4 weeks, held during acute hospital stay. 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 Garcia his dose of hydrocortisone is 20 morning and 10 in the afternoon (5) Varicella zoster: Plan: has lesion on right buttock, did have shingrix vacine was seen by Derm and swab confirmed Varicella Zoster not herpes simplex Derm recommended 10 d of treatment 01/04- however still not healed continue bid valtrex and topical acyclovir Plan Patient has chronic kidney disease stage IIIb, s/p right nephrectomy as an outpatient was on diuretic use of furosemide 40 morning 20 in the afternoon hypothyroidism typically on Synthroid 150 mcg a day Admission and Anticipated Discharge Date Admission Date: January 17, 2024 Subjective pt is very weakened and fatigued no obvious blood loss abd is soft and non tender Physical Exam Physical Exam: pt is awake and alert fatigued but no significant distress cardiac is irregular and rate controlled lungs remain diminished at the right base abd is soft and non tender from 01/16-right buttock with denuded serpiginous area approx 3 cm Results & Data Results & Data Vital Signs (Past 12 Hours) Vital Signs Temp Pulse Resp BP Pulse Ox O2 Del Method 01/18/24 07:35 98.1 F 96 H 18 116/74 91 Room Air 01/17/24 22:00 Room Air 01/17/24 20:16 97.7 F 85 18 146/80 H 96 Room Air Laboratory Results review cbc review chemistry PG Care Time/CCT Total # of Minutes Spent Total Time Spent with Patient: Total time spent is greater than 50% in coordination of care (as documented) at patient's floor/unit and/or counseling patient: Coding Level of Care Code 60220 SUB INP/OBS CARE 3/50MIN Diagnoses Necrotizing pneumonia J85.0 Atrial fibrillation I48.91 Renal cell carcinoma, unspecified laterality C64.9 Laterality: unspecified laterality Secondary adrenal insufficiency E27.49 Varicella zoster B02.9 (3) Renal cell carcinoma Laterality: unspecified laterality Qualified Code(s): C64.9 - Malignant neoplasm of unspecified kidney, except renal pelvis
[2024-01-18] MEDS: SODIUM CHLORIDE 1 GM TABLET PO SCH (07:51)
--- NOTE | 2024-01-18 09:31 | Nephrology Consultation ---
Date of Consultation January 18, 2024 Assessment & Plan (1) Chronic kidney disease: * Solitary functioning L kidney. Patient is s/p HALN 02/19 due to 7 cm R renal mass * Evidence of pulmonary metastasis at time of HALN * Post nephrectomy creatinine stabilized at 2.2 * Kidney function is stable at this time. He has mild hyponatremia and hypokalemia but otherwise electrolyte balance is acceptable. 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 * Continue hydrocortisone and Florinef therapy * Recommend taper midodrine maintaining SBP > 90 mm Hg (3) Atrial fibrillation: * On rate control and apixaban (4) Acute blood loss anemia: * Management as per primary service (5) Necrotizing pneumonia: * Consider follow-up consultation with ID specialist * Continue Zosyn therapy * Fungitell positive last hospitalization (6) Varicella zoster: * On Valtrex therapy History of Present Illness Reason for Consultation: HANSEL/CKD Attending Physician: Garfield Leyva MD History of Present Illness Mr. Wick is a 69-year-old white male who is seen at the request of the [facility] hospitalist service for evaluation of HANSEL/CKD. Information for the HPI is obtained from direct patient interview and review of the EMR. HPI is summarized as follows: In 2019 Mr. Wick was found to have a 7 cm right renal mass and pulmonary nodules. He underwent HALN 02/19. 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 Post nephrectomy creatinine stabilized at approximately 2.2. Mr. Wick was referred to oncology and managed with Opdivo + Yervoy. He completed 4 infusions which were subsequently complicated by rash and adrenal insufficiency. He has since required oral hydrocortisone therapy. Mr. Wick was last hospitalized at [facility] 12/24/23 -12/29/2023 for evaluation of pulmonary edema and a newly diagnosed 5.8 cm cavitary lesion involving the lower lobe of the right lung. Throughout his hospitalization kidney function remained stable. He did respond well to IV diuretic therapy. Consultation with ID specialist revealed that Mr. Wick had a right lower lobe necrotizing pneumonia. His blood culture was negative. His antibiotic regimen was consolidated to ampicillin sulbactam. Laboratory testing for Fungitell later returned positive. Antigen testing for aspergillosis was negative. Mr. Wick's hospitalization was complicated by spontaneous right pneumothorax. Consultation was obtained with pulmonology. Patient underwent emergency placement of a right-sided chest tube. Following the procedure he became profoundly dyspneic and developed atrial fibrillation with RVR. There is concern that he had developed a hemothorax. 250 cc of blood was evacuated from the right hemithorax and the patient required Levophed therapy. He was transfused 3 units packed red cells. Chest CTA was negative for any active extravasation. Mr. Wick was subsequently life flighted to [facility] for evaluation by [facility] and ongoing care by their critical care team. Yesterday Mr. Wick was transferred back to [facility] for ongoing antibiotics/antifungal therapy. Laboratory studies this afternoon show stable kidney function with creatinine 2.14. Electrolyte balance is acceptable. Patient has persistent anemia with hemoglobin 6.8. Allergies Allergy/AdvReac Type Severity Reaction Status Date / Time atorvastatin AdvReac Unknown Muscle Pain Verified 01/17/24 13:23 Home Medications Medication Instructions Recorded Confirmed Type nivolumab IV .ON HOLD 07/26/21 12/21/23 History cholecalciferol (vitamin D3) 25 25 mcg PO QAM 10/23/22 12/24/23 History mcg (1,000 unit) capsule mecobalamin (vitamin B12) 500 mcg 500 mcg PO QAM 10/23/22 12/24/23 History chewable tablet hydrocortisone 10 mg tablet See Rx Instructions PO .COMPLEX 12/09/22 12/24/23 Rx #50 tabs cabozantinib 20 mg tablet 20 mg PO Q OTHER DAY 09/11/23 12/24/23 History apixaban 2.5 mg tablet (Eliquis) 2.5 mg PO AMPM 12/01/23 01/17/24 History bumetanide 1 mg tablet 2 mg (2 x 1 mg) PO BID #360 tabs 12/22/23 12/24/23 Rx levothyroxine 150 mcg tablet 150 mcg PO DAILYBB 12/24/23 01/17/24 History losartan 100 mg tablet 100 mg PO QAM 12/24/23 12/24/23 History amoxicillin 875 mg-potassium 1 tab PO BIDM 41 days #82 tabs 12/29/23 Rx clavulanate 125 mg tablet Patient History Medical History Atrial fibrillation with RVR Cavitary lesion of lung Hypertension C. difficile colitis Ileus Chronic kidney disease with active medical management without dialysis, stage 3 (moderate) Acute kidney injury Pancreatitis Relative polycythemia Adrenal insufficiency due to cancer therapy Renal cell cancer On prednisone therapy Cancer of kidney RIGHT KIDNEY REMOVED History of skin cancer + resection High triglycerides no meds Surgical History Status post lung surgery (06/08/19) Electromagnetic navigational bronchoscopy with marking of lesion with ICG dye. 2. Left robot-assisted thoracoscopic segmentectomy of the superior segment of left lower lobe. 3. Mediastinal lymph node dissection. Dr. Wright 06/08/19 History of right nephrectomy 02/07/2019: Gliescope #3 with 8.0 ETT after unsuccessful DLx2. See record for full details. History of total left hip arthroplasty Left HAMZAH: 05/28/18: SAB x 3 attempts at L3-L4 at [facility] History of colonoscopy History of sinus surgery DEVIATED SEPTUM REPAIR History of left knee surgery + REVISION X 4 H/O inguinal hernia repair H/O arthroscopy of shoulder LEFT Family History Mother Breast cancer, Onset Age: 43 Father Esophageal cancer Sister Colon cancer Other Family history of cancer Social History Smoking Status: Former smoker Tobacco Type: Cigarettes Second Hand Exposure: No; Do You Dip or Chew Tobacco: No; Hx Alcohol Use: No Hx Substance Use: No Preferred Language: Romansh Communication Ability: Effective Visual Impairment: No Limitations Hearing Ability: Normal 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 Beliefs That Will Affect Care: Denominational Denominational Beliefs: Confucianism marital status: Current Living Situation: Spouse Current Living Situation Comment: [facility] current occupational status: retired current occupation: retired from [employer] Feels Safe at Home: Yes Safety Concerns: Feels Safe At This Time Assistive Devices: None Review of Systems Constitutional: no fever Eyes: no problem reported Ear, Nose, Mouth, Throat: no problem reported Respiratory: no cough and no dyspnea Cardiovascular: no chest pain Gastrointestinal: no abdominal pain, no nausea, no vomiting and no diarrhea/loose stools Genitourinary: no dysuria, no difficulty urinating or no hematuria Integumentary: no rash Physical Exam Constitutional: not in distress Eyes: PERRL, conjunctivae normal, anicteric sclerae ENMT: external ear and nose normal, oropharynx normal Neck: trachea midline, no thyromegaly Respiratory: normal respiratory effort, lungs clear to auscultation Cardiovascular: Rate/Rhythm: regular rate and regular rhythm Gastrointestinal (Abdomen): normal bowel sounds, soft, nontender, no hepatosplenomegaly Skin: no rashes, warm and dry Neurologic: Speech / Cognition: normal speech and normal cognition Results & Data Vital Signs (Past 12 Hours) Vital Signs Temp Pulse Resp BP Pulse Ox O2 Del Method 01/18/24 07:35 36.7 C 96 H 18 116/74 91 Room Air 01/17/24 22:00 Room Air Laboratory Results Laboratory Results Sodium 130 mmol/L (136-145) L 01/17/24 14:59 Potassium 3.6 mmol/L (3.5-5.1) 01/17/24 14:59 Chloride 93 mmol/L (98-107) L 01/17/24 14:59 Carbon Dioxide 27 mmol/L (21-32) 01/17/24 14:59 Anion Gap 10 (3-11) 01/17/24 14:59 BUN 58 mg/dl (6-23) H 01/17/24 14:59 Creatinine 2.40 mg/dl (0.6-1.4) H 01/17/24 14:59 Est Cr Clr Drug Dosing 43.8 ml/min 01/17/24 14:59 Est GFR ( Amer) 31.2 ml/min 01/17/24 14:59 Est GFR (Non-Af Amer) 26.9 ml/min 01/17/24 14:59 BUN/Creatinine Ratio 24.2 (10-20) H 01/17/24 14:59 Glucose 130 mg/dl (70-99(Fasting)) H 01/17/24 14:59 Calcium 8.1 mg/dl (8.6-10.3) L 01/17/24 14:59 Blood Type A Positive 01/17/24 15:06 Antibody Screen NEGATIVE 01/17/24 15:[address] 01/17/24 14:21 CT chest diagnostic wo con CLINICAL HISTORY: eval RLL necrotizing mass TECHNIQUE: Multidetector row helical CT of the chest was performed. Coronal and sagittal reformations were obtained. Automated dose lowering techniques and/or adjustment according to patient size were utilized for this exam. CT DOSE: 924.78 mGy.cm Comparison: Comparison is made to CT chest 12/29/2023 FINDINGS: Lungs and pleura: Complex pleural collection is again seen on the right with locules of gas. Previously noted pigtail catheter has been removed. Atelectasis is seen. There is groundglass density in the left upper lobe. Heart and pericardium: Heart size is normal. No pericardial effusion. Vessels: Mild atherosclerotic changes in the aorta and coronary arteries. Mediastinum and raeann: Enlarged lymph nodes measure up to 13 mm in the subcarinal station. Chest wall and lower neck: Unremarkable. Abdomen: A hiatal hernia is seen. Hepatic steatosis is seen. Bones: Unremarkable. IMPRESSION: Complex right pleural masses compatible with hemothorax and possibly empyema. Interval development of left upper lobe groundglass opacity which may be infectious. Mediastinal lymphadenopathy is likely reactive. ACT 112: Negative or not required by law. Electronically signed by: Jermaine Sewell M.D. 01/17/2024 4:59 PM PG Care Time/CCT Total # of Minutes Spent Total Time Spent with Patient: Total time spent is greater than 50% in coordination of care (as documented) at patient's floor/unit and/or counseling patient: Coding Level of Care Code 89481 IN/OBS CONSULT LVL 5,80M Diagnoses Chronic kidney disease N18.9 Secondary adrenal insufficiency E27.49 Atrial fibrillation I48.91 Acute blood loss anemia D62 Necrotizing pneumonia J85.0 Varicella zoster B02.9
[2024-01-18 12:48] LABS: BUN Creatinine Ratio 23.8 (10-20); Calcium 8.1 mg/dl (8.6-10.3); Creatinine Clr Calc Pharmacy 49.1 ml/min; Est GFR (African American) 35.8 ml/min; Est GFR (Non-African American) 30.9 ml/min; Potassium 3.3 mmol/L (3.5-5.1)
[2024-01-18 13:00] LABS: Hematocrit (blood only) 21.7 % (42.0-52.0); Hemoglobin 6.8 g/dl (14.0-18.0); Mean Corpuscular Hemoglobin 30.4 pg (25.0-34.0); Mean Corpuscular Hgb Conc 31.3 g/dL (32.0-36.0); Mean Corpuscular Volume 96.9 fL (80.0-100.0); Nucleated RBC # (auto) 0.12 K/uL (0.00-0.12); Platelet Count 292 K/uL (130-400); RDW Coefficient of Variation 20.8 % (11.5-14.5); RDW Standard Deviation 69.1 fL (36.4-46.3); Red Blood Count 2.24 M/uL (4.70-6.10); White Blood Count 12.02 K/ul (4.8-10.8)
[2024-01-18] MEDS ORDERED: SODIUM CHLORIDE 0.9% 250 ML IV PRN (13:30)
--- NOTE | 2024-01-18 16:14 | XRay Report ---
XR chest 1V portable HISTORY: eval for accumulating hemothorax COMPARISON: Chest CT 01/17/2024. Chest x-ray 12/29/2023. FINDINGS: The heart remains mildly enlarged. Patchy groundglass densities within the left upper lobe are better appreciated on the recent chest CT. SUV and mediastinal shift. There is a small layering r ight pleural effusion. There is also a density overlying the right upper to midlung zone containing s mall foci of gas. This corresponds to the loculated pleural effusion/hemothorax. This is similar to t he recent chest CT. No acute fractures identified. IMPRESSION: 1. Loculated right pleural effusion/hemothorax is similar to the recent chest CT. There are small foc i of gas within the pleural collection which could represent a pneumothorax from the prior chest tube placement or an underlying infectious process/empyema. 2. No mediastinal shift. 3. Stable cardiomegaly. ACT 112: Negative or not required by law. Electronically signed by: Raymundo Borja M.D. 01/18/2024 4:13 PM
[2024-01-18] MEDS: Nursing to Pharmacy Communication SCH (16:35)
[2024-01-18] MEDS ORDERED: ALPRAZolam 0.25 MG TABLET PO PRN (16:58)
[2024-01-18] MEDS: LORazepam 2 MG/1 ML VIAL IV STA (17:21)
[2024-01-18] MEDS ORDERED: CALCIUM CITRATE 950 MG TAB PO SCH (18:00)
[2024-01-18] MEDS: POTASSIUM CHLORIDE CRTAB 20 MEQ TABCR PO SCH (20:46)
[2024-01-19 08:43] LABS: Albumin Globulin Ratio 0.8 (0.9-2); Albumin Level 2.5 gm/dl (3.4-5.0); BUN Creatinine Ratio 23.1 (10-20); Bilirubin,Total 0.8 mg/dl (0.2-1.0); Calcium 8.2 mg/dl (8.6-10.3); Creatinine Clr Calc Pharmacy 52.8 ml/min; Est GFR (African American) 39.1 ml/min; Est GFR (Non-African American) 33.7 ml/min; Globulin 3.1 gm/dl (2.5-4.0); Potassium 3.3 mmol/L (3.5-5.1); Total Protein 5.6 gm/dl (6.0-8.3)
--- NOTE | 2024-01-19 08:52 | Nephrology Progress Note ---
Date of Service January 19, 2024 Assessment & Plan (1) Chronic kidney disease: Plan: * Solitary functioning L kidney. Patient is s/p HALN 02/19 due to 7 cm R renal mass * Evidence of pulmonary metastasis at time of HALN * Post nephrectomy creatinine stabilized at 2.2 * Kidney function is stable at this time. Hyponatremia is improving. Patient has mild hypokalemia but otherwise electrolyte balance is acceptable. 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 * Continue hydrocortisone and Florinef therapy * Recommend taper midodrine maintaining SBP > 90 mm Hg (3) Atrial fibrillation: Plan: * On rate control and apixaban (4) Acute blood loss anemia: Plan: * Management as per primary service * Follow up CBC ordered this morning (5) Necrotizing pneumonia: Plan: * Awaiting ID recommendations * Continue Zosyn therapy * Fungitell positive last hospitalization (6) Varicella zoster: Plan: * On Valtrex therapy Admission and Anticipated Discharge Date Admission Date: January 17, 2024 Subjective Mr. Wick was evaluated in his hospital room this morning. He was transfused one unit PRBC yesterday. He currently denies dyspnea, angina. He voices no new medical concerns Review of Systems Constitutional: no fever Eyes: no problem reported Ear, Nose, Mouth, Throat: no problem reported Respiratory: no cough and no dyspnea Cardiovascular: no chest pain Gastrointestinal: no abdominal pain, no nausea, no vomiting and no diarrhea/loose stools Genitourinary: no dysuria, no difficulty urinating or no hematuria Integumentary: no rash Physical Exam Constitutional: not in distress Eyes: PERRL, conjunctivae normal, anicteric sclerae ENMT: external ear and nose normal, oropharynx normal Neck: trachea midline, no thyromegaly Respiratory: normal respiratory effort, lungs clear to auscultation Cardiovascular: Rate/Rhythm: regular rate and regular rhythm Gastrointestinal (Abdomen): normal bowel sounds, soft, nontender, no he patosplenomegaly Skin: no rashes, warm and dry Neurologic: Speech / Cognition: normal speech and normal cognition Results & Data Vital Signs (Past 12 Hours) Vital Signs Temp Pulse Resp BP Pulse Ox O2 Del Method O2 Flow Rate 01/19/24 07:54 36.5 C 90 18 160/84 H 92 Nasal Cannula 2 01/18/24 21:31 Room Air Laboratory Results Laboratory Results - last 24 hr 01/17/24 01/18/24 01/19/24 15:06 12:21 07:37 WBC 12.02 H RBC 2.24 L Hgb 6.8 L* Hct 21.7 L MCV 96.9 MCH 30.4 MCHC 31.3 L RDW Std Deviation 69.1 H RDW Coeff of Enzo 20.8 H Plt Count 292 MPV 9.0 L Absolute Nucleated RBC 0.12 Nucleated RBC % (auto) 1.0 Sodium 131 L 133 L Potassium 3.3 L 3.3 L Chloride 94 L 96 L Carbon Dioxide 29 28 Anion Gap 8 9 BUN 51 H 46 H Creatinine 2.14 H 1.99 H Est Cr Clr Drug Dosing 49.1 52.8 Est GFR ( Amer) 35.8 39.1 Est GFR (Non-Af Amer) 30.9 33.7 BUN/Creatinine Ratio 23.8 H 23.1 H Glucose 122 H 100 H Calcium 8.1 L 8.2 L Total Bilirubin 0.8 AST 31 ALT 29 Alkaline Phosphatase 125 H Total Protein 5.6 L Albumin 2.5 L Globulin 3.1 Albumin/Globulin Ratio 0.8 L Blood Type A Positive Antibody Screen NEGATIVE Crossmatch See Detail PG Care Time/CCT Total # of Minutes Spent Total Time Spent with Patient: Total time spent is greater than 50% in coordination of care (as documented) at patient's floor/unit and/or counseling patient: Coding Level of Care Code 47887 SUB INP/OBS CARE 3/50MIN Diagnoses Chronic kidney disease N18.9 Secondary adrenal insufficiency E27.49 Atrial fibrillation I48.91 Acute blood loss anemia D62 Necrotizing pneumonia J85.0 Varicella zoster B02.9
[2024-01-19] MEDS: FLUDROCORTISONE ACETATE 0.1 MG TAB PO SCH (09:04)
[2024-01-19 09:23] LABS: Hematocrit (blood only) 26.4 % (42.0-52.0); Mean Corpuscular Hgb Conc 30.3 g/dL (32.0-36.0); Mean Corpuscular Volume 98.9 fL (80.0-100.0); Mean Platelet Volume 9.1 fL (9.4-12.4); Nucleated RBC # (auto) 0.12 K/uL (0.00-0.12); Nucleated RBC % (auto) 1.2 %; Platelet Count 297 K/uL (130-400); RDW Coefficient of Variation 21.1 % (11.5-14.5); RDW Standard Deviation 68.9 fL (36.4-46.3); Red Blood Count 2.67 M/uL (4.70-6.10); White Blood Count 10.41 K/ul (4.8-10.8)
--- NOTE | 2024-01-19 09:39 | Infectious Disease Consult ---
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 Was started on tapering steroids at 80 mg/d, with taper by 10 mg weekly, to remain on prednisone 10 mg daily at the end of the taper, now on HC 20/10 daily #CKD #BDG >500 #buttock lesion Micro: 12/23 MRSA swab: neg 12/23 BCx x1: NGTD Abx: Unasyn 12/24 Zosyn 12/23 - 12/24 Linezolid 12/23 - 12/24 Cefepime 12/23 Zosyn From OSH- present Discussion Repeat imaging shows ongoing GGO, with steroid use since 10/2023, initially on pred of 80mg which was tapered down. Now he is on hydrocortisone 20/10mg daily which is equivalent to prednisone ~8mg daily. While this is not nec risk for PJP his prior high dose steroids, GGO on imaging and BDG being positive, it is difficult to ignore and patient may have multiple processes. H/E Unasyn and Zosyn could both cause a false pos! Impression: -Patient has clinically improved, off oxygen and doing well -His BDG number is quite high, I am going to repeat this lab BDG can be a/w several bacterial infections as well as PCP and fungi and can be a false positive with Zosyn and Unasyn use -Check PCP sputum, repeat BDG, urine histo -I am c.f starting bactrim for presumptive PCP given his renal function, will plan for atovaquone 750mg po bid with food instead while waiting on results -Plese try to obtain ID records from [place], presume they tested for fungal/afb/bacterial cultures on fluid there -Buttock lesion doesnt appear to be HSV or VZV could consider dcing Valtrex once hes received total of 7 days (from when he started at [place]) Consultation Information Consultation was provided via telemedicine using two-way real-time interactive telecommunication between the patient and the telemedicine provider. For the duration of the visit, the provider was performing the assessment from a different facility than the patient. This includesuse of bluetooth stethoscope forauscultationperformed by the telepresenter that the telemedicine provider can hear if described in the physical exam. [facility] Faculty Assistant contact information: Please call [facility] . (Phone Number For Physician Use Only) After establishing a telemedicine visit, patient was: Patient was verified with two unique identifiers, Patient/authorized rep acknowledged consent and understanding and Gave permission to continue telehealth session Time Spent with Patient: Initial => 55 min History of Present Illness Reason for Consultation: Necrotizing Pneumonia Requesting Physician: Dr Trammell Attending Physician: Casey Trammell MD History of Present Illness 68 yo M with metastatic renal cell carcinoma to lung s/p R nephrectomy (2018), s/p LLL wedge resection (2019) currently on cabozantinib (nivolumab on hold after 10/09/23 dose due to 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 At [facility] Thoracic surgery performed Saline lavage of chest 12/31, then evacuated old clot 01/04 with placed pigtail, second placed 01/05, both removed by 01/09. He was TF back to [facility] on IV Zosyn (recommended EOT 02/03) At his initial presentation he was had c/o cough for over 4 wks. Initial COVID- 19/flu/RSV negative. CT chest showed a 5.8 x 2.4 cm focus of ovoid consolidation with cavitation at R lung base, new from 11/30/23 and consistent with necrotizing pneumonia, trace R pleural effusion, subtle patchy groundglass opacities throughout both upper lobes, R>L, new from 11/30/23 and also likely infectious/inflammatory. He was started on linezolid, pip-tazo pending a MRSA swab. Pulmonology was consulted, recommended 6 weeks of antibiotics with a repeat CT chest in 8 weeks, and if the RLL opacity was nonresolving, then could consider a bronchoscopy at that time. Of note, pt has been on tapering prednisone since October, as well as cabozantinib, so he is immunosuppressed and susceptible to more atypical organisms. However given the acuity of this RLL cavitation (not seen on 11/30/23 scan), more likely to represent a bacterial process. Antibiotics were narrowed to Unasyn, and he was clinically improving. As part of workup BDG checked (bc of immunosuppression, and thought to be unlikely etiology) this was positive >500 (12/24) 12/28/23 chest x-ray revealed a new right-sided pneumothorax, pigtail catheter placement for the worsening right-sided pneumothorax, followed by a chest tube in ICU and eventual TF to [place] on 12/28 d/t HD instability and c/f complicated hemothorax. Patient TF back to [facility] on 01/16. 01/16 CT Chest now shows Complex right pleural masses compatible with hemothorax and possibly empyema. Interval development of left upper lobe groundglass opacity which may be infectious. HDS, not on oxygen Feeling well ID Re c/s as BDG result >500 Allergies Allergy/AdvReac Type Severity Reaction Status Date / Time atorvastatin AdvReac Unknown Muscle Pain Verified 01/17/24 13:23 Home Medications Medication Instructions Recorded Confirmed Type nivolumab IV .ON HOLD 07/26/21 12/21/23 History cholecalciferol (vitamin D3) 25 25 mcg PO QAM 10/23/22 12/24/23 History mcg (1,000 unit) capsule mecobalamin (vitamin B12) 500 mcg 500 mcg PO QAM 10/23/22 12/24/23 History chewable tablet hydrocortisone 10 mg tablet See Rx Instructions PO .COMPLEX 12/09/22 12/24/23 Rx #50 tabs cabozantinib 20 mg tablet 20 mg PO Q OTHER DAY 09/11/23 12/24/23 History apixaban 2.5 mg tablet (Eliquis) 2.5 mg PO AMPM 12/01/23 01/17/24 History bumetanide 1 mg tablet 2 mg (2 x 1 mg) PO BID #360 tabs 12/22/23 12/24/23 Rx levothyroxine 150 mcg tablet 150 mcg PO DAILYBB 12/24/23 01/17/24 History losartan 100 mg tablet 100 mg PO QAM 12/24/23 12/24/23 History amoxicillin 875 mg-potassium 1 tab PO BIDM 41 days #82 tabs 12/29/23 Rx clavulanate 125 mg tablet Patient History Medical History Atrial fibrillation with RVR Cavitary lesion of lung Hypertension C. difficile colitis Ileus Chronic kidney disease with active medical management without dialysis, stage 3 (moderate) Acute kidney injury Pancreatitis Relative polycythemia Adrenal insufficiency due to cancer therapy Renal cell cancer On prednisone therapy Cancer of kidney RIGHT KIDNEY REMOVED History of skin cancer + resection High triglycerides no meds Surgical History Status post lung surgery (06/08/19) Electromagnetic navigational bronchoscopy with marking of lesion with ICG dye. 2. Left robot-assisted thoracoscopic segmentectomy of the superior segment of left lower lobe. 3. Mediastinal lymph node dissection. Dr. Wright 06/08/19 History of right nephrectomy 02/07/2019: Gliescope #3 with 8.0 ETT after unsuccessful DLx2. See record for full details. History of total left hip arthroplasty Left HAMZAH: 05/28/18: SAB x 3 attempts at L3-L4 at [facility] History of colonoscopy History of sinus surgery DEVIATED SEPTUM REPAIR History of left knee surgery + REVISION X 4 H/O inguinal hernia repair H/O arthroscopy of shoulder LEFT Family History Mother Breast cancer, Onset Age: 43 Father Esophageal cancer Sister Colon cancer Other Family history of cancer Social History Smoking Status: Former smoker Tobacco Type: Cigarettes Second Hand Exposure: No; Do You Dip or Chew Tobacco: No; Hx Alcohol Use: No Hx Substance Use: No Preferred Language: [place] Communication Ability: Effective Visual Impairment: No Limitations Hearing Ability: Normal Bench Worker Required: No Beliefs That Will Affect Care: Scientology Scientology Beliefs: Anglican marital status: Current Living Situation: Spouse Current Living Situation Comment: [employer] current occupational status: retired current occupation: retired from [employer] Feels Safe at Home: Yes Safety Concerns: Feels Safe At This Time Assistive Devices: None Physical Exam Physical Exam: NAD Buttock lesion round, no open sore Results & Data Vital Signs (Past 12 Hours) Vital Signs Temp Pulse Resp BP Pulse Ox O2 Del Method O2 Flow Rate 01/19/24 07:54 36.5 C 90 18 160/84 H 92 Nasal Cannula 2 Medications Administered Current Inpatient Medications Acetaminophen (Acetaminophen 325 Mg Tab) 650 mg PO Q4H PRN PRN Reason: pain/fever Stop: 02/16/24 08:54 Acyclovir (Acyclovir 5% Oint 15 Gm Tube) 1 appln EXT BID [facility] Stop: 01/27/24 20:59 Last Admin: 01/19/24 09:03 Dose: 1 appln Alprazolam (Alprazolam 0.25 Mg Tablet) 0.25 mg PO QID PRN PRN Reason: Nausea And Vomiting Stop: 02/17/24 16:57 Apixaban (Apixaban 2.5 Mg Tab) 2.5 mg PO BID [facility] Stop: 02/16/24 20:59 Last Admin: 01/18/24 07:44 Dose: 2.5 mg Fludrocortisone Acetate (Fludrocortisone Acetate 0.1 Mg Tab) 0.1 mg PO QAM [facility] Stop: 02/18/24 08:59 Last Admin: 01/19/24 09:04 Dose: 0.1 mg Hydrocortisone (Hydrocortisone 10 Mg Tab) 20 mg PO QAM [facility] Stop: 02/17/24 08:59 Last Admin: 01/19/24 09:04 Dose: 20 mg Hydrocortisone (Hydrocortisone 10 Mg Tab) 10 mg PO Q24H [facility] Stop: 02/16/24 14:59 Last Admin: 01/18/24 17:21 Dose: 10 mg Piperacillin Sod/Tazobactam Sod (Zosyn) 4.5 gm in 100 mls @ 25 mls/hr IV Q8H [facility] Stop: 02/04/24 19:59 Last Admin: 01/19/24 11:31 Dose: 25 mls/hr Levothyroxine Sodium (Levothyroxine Sodium 150 Mcg Tablet) 150 mcg PO DAILYBB [facility] Stop: 02/17/24 06:29 Last Admin: 01/19/24 05:28 Dose: 150 mcg Midodrine (Midodrine Hcl 10 Mg Tab) 10 mg PO TID@0800,1200,1700 [facility] Stop: 02/16/24 16:59 Last Admin: 01/19/24 11:31 Dose: 10 mg Ondansetron HCl (Ondansetron Inj 2 Mg/Ml 2 Ml Vial) 4 mg IV Q6H PRN PRN Reason: Nausea Stop: 02/16/24 08:54 Polyethylene Glycol (Polyethylene (Miralax) 17 Gm Pack) 17 gm PO DAILY PRN PRN Reason: Constipation Stop: 02/16/24 08:54 Potassium Chloride (Potassium Chloride Crtab 20 Meq Tabcr) 20 meq PO BID [facility] Stop: 01/19/24 21:01 Last Admin: 01/19/24 09:03 Dose: 20 meq Sennosides (Senna 8.6 Mg Tab) 17.2 mg PO QAM [facility] Stop: 02/17/24 08:59 Last Admin: 01/19/24 09:03 Dose: 17.2 mg Sodium Chloride (Sodium Chloride 1 Gm Tablet) 1 gm PO DAILY [facility] Stop: 02/17/24 08:59 Last Admin: 01/19/24 09:04 Dose: 1 gm Valacyclovir HCl (Valacyclovir Hcl 500 Mg Tablet) 1,000 mg PO BID [facility] Stop: 01/24/24 20:59 Last Admin: 01/19/24 09:04 Dose: 1,000 mg
[2024-01-19 12:42] LABS: Quantiferon NIL 0.02 IU/mL; Quantiferon TB Gold Plus NEGATIVE (NEGATIVE)
[2024-01-19 12:57] LABS: Appearance Urine Clear (Clear); Bacteria Urine Automated None Seen (None Seen); Bilirubin Urine Negative (Negative); Blood Urine Negative (Negative); Cast Urine Automated 0-2 /lpf (0-2); Color Urine Yellow; Epithelial Cell Urine Auto 0-2 /hpf (0-2); Glucose Urine UA Negative (Negative); Ketones Urine Negative (Negative); Leukocyte Esterase Urine Negative (Negative); Nitrite Urine Negative (Negative); Protein Urine Trace (Negative); RBC Urine Automated 0-2 /hpf (0-2); Specific Gravity Urine 1.017 (1.000-1.030); Urobilinogen Urine Negative (Negative); WBC Urine Automated 0-5 /hpf (0-5)
--- NOTE | 2024-01-19 13:09 | Pulmonary Consultation ---
Date of Consultation January 19, 2024 Assessment & Plan (1) Hemothorax on right: (2) Abnormal CT scan of lung: Plan Impression: 69-year-old male with recent transfer to tertiary facility for hemothorax requiring surgical evacuation transferred back for placement. Pulmonary was consulted for an abnormal CT scan. Unclear what his pictures look like from [facility] but review of the CT here demonstrates pleural fluid collections or masses with areas of air within the pleural space. There is no significant parenchymal abnormality identified. Recommendations: 1. Complicated pleural space: Discussed with hospitalist. Recommended they reach out to thoracic surgery for correlation of the current set of imaging with his prior imaging to determine whether or not this is an acute change or not. The findings of gas within the pleural space may be simple postoperative or postprocedural and unclear if these represent infectious etiology as well. At this point in time, I do not see any indication to pursue bronchoscopy as there is minimal parenchymal disease. Will defer antibiotics to infectious disease and correlate with cultures which should have been obtained at [facility]. Patient is currently maintained on room air. Given the complex nature of his pleural space, I do not see any window to intervene or place any tubes at this point in time. At this point in time I think the patient can be managed expectantly. He certainly does not appear toxic or in any acute distress based on review of his chart. If additional pulmonary intervention or evaluation is required, feel free to reach out to us but at this point in time, nothing else to offer. Next for the opportunity participating the care of this patient. Feel free to contact us with new or progressive respiratory issues History of Present Illness Attending Physician: Casey Trammell MD History of Present Illness Asked by hospitalist to assist in evaluation management this patient with an abnormal chest x-ray. History is obtained from discussion with the hospitalist as well as review the electronic medical record. Direct interview the patient was deferred as he is in isolation for varicella currently. 69-year-old male with a history of metastatic renal cell carcinoma was initially admitted to our facility 12/23 and developed a complicated pneumothorax with hemothorax. Pigtail catheters were placed and the patient was transferred to [facility] 12/30/2023. I have no notes from [facility] but reportedly according to his admission H&P, [facility] felt that patient was stable after having undergone thoracoscopic saline lavage 12/31 with repeat thoracoscopic evaluation 01/04 and pigtail catheter placement. Unclear if cultures were obtained. According to his H&P here, ID had recommended 6 weeks of Zosyn. Infectious disease consultation was obtained here and they recommended transitioning to Augmentin. Again cultures are not available to review. Patient had a chest x-ray performed revealing dense opacification within the right hemithorax. Was concerned about potential need for bronchoscopy which prompted pulmonary consultation Allergies Allergy/AdvReac Type Severity Reaction Status Date / Time atorvastatin AdvReac Unknown Muscle Pain Verified 01/17/24 13:23 Home Medications Medication Instructions Recorded Confirmed Type nivolumab IV .ON HOLD 07/26/21 12/21/23 History cholecalciferol (vitamin D3) 25 25 mcg PO QAM 10/23/22 12/24/23 History mcg (1,000 unit) capsule mecobalamin (vitamin B12) 500 mcg 500 mcg PO QAM 10/23/22 12/24/23 History chewable tablet hydrocortisone 10 mg tablet See Rx Instructions PO .COMPLEX 12/09/22 12/24/23 Rx #50 tabs cabozantinib 20 mg tablet 20 mg PO Q OTHER DAY 09/11/23 12/24/23 History apixaban 2.5 mg tablet (Eliquis) 2.5 mg PO AMPM 12/01/23 01/17/24 History bumetanide 1 mg tablet 2 mg (2 x 1 mg) PO BID #360 tabs 12/22/23 12/24/23 Rx levothyroxine 150 mcg tablet 150 mcg PO DAILYBB 12/24/23 01/17/24 History losartan 100 mg tablet 100 mg PO QAM 12/24/23 12/24/23 History amoxicillin 875 mg-potassium 1 tab PO BIDM 41 days #82 tabs 12/29/23 Rx clavulanate 125 mg tablet Patient History Medical History Atrial fibrillation with RVR Cavitary lesion of lung Hypertension C. difficile colitis Ileus Chronic kidney disease with active medical management without dialysis, stage 3 (moderate) Acute kidney injury Pancreatitis Relative polycythemia Adrenal insufficiency due to cancer therapy Renal cell cancer On prednisone therapy Cancer of kidney RIGHT KIDNEY REMOVED History of skin cancer + resection High triglycerides no meds Surgical History Status post lung surgery (06/08/19) Electromagnetic navigational bronchoscopy with marking of lesion with ICG dye. 2. Left robot-assisted thoracoscopic segmentectomy of the superior segment of left lower lobe. 3. Mediastinal lymph node dissection. Dr. Wright 06/08/19 History of right nephrectomy 02/07/2019: Gliescope #3 with 8.0 ETT after unsuccessful DLx2. See record for full details. History of total left hip arthroplasty Left HAMZAH: 05/28/18: SAB x 3 attempts at L3-L4 at [facility] History of colonoscopy History of sinus surgery DEVIATED SEPTUM REPAIR History of left knee surgery + REVISION X 4 H/O inguinal hernia repair H/O arthroscopy of shoulder LEFT Family History Mother Breast cancer, Onset Age: 43 Father Esophageal cancer Sister Colon cancer Other Family history of cancer Social History Smoking Status: Former smoker Tobacco Type: Cigarettes Second Hand Exposure: No; Do You Dip or Chew Tobacco: No; Hx Alcohol Use: No Hx Substance Use: No Preferred Language: Finnish Communication Ability: Effective Visual Impairment: No Limitations Hearing Ability: Normal Manager Part Required: No Beliefs That Will Affect Care: Temple Temple Beliefs: Confucianism marital status: Current Living Situation: Spouse Current Living Situation Comment: [employer] current occupational status: retired current occupation: retired from [employer] Feels Safe at Home: Yes Safety Concerns: Feels Safe At This Time Assistive Devices: None Review of Systems Review of Systems: Please refer to admission H&P Physical Exam Physical Exam: Exam deferred as the patient is in isolation for varicella currently Results & Data Results & Data Vital Signs (Past 12 Hours) Vital Signs Temp Pulse Resp BP Pulse Ox O2 Del Method O2 Flow Rate 01/19/24 09:00 Room Air 01/19/24 07:54 36.5 C 90 18 160/84 H 92 Nasal Cannula 2 Critical Care Results & Data Vital Signs (Past 12 Hours) Vital Signs Temp Pulse Resp BP Pulse Ox O2 Del Method O2 Flow Rate 01/19/24 09:00 Room Air 01/19/24 07:54 36.5 C 90 18 160/84 H 92 Nasal Cannula 2 Lab & Micro Results (Past 24 Hours) RBC 2.67 M/uL (4.70-6.10) L 01/19/24 WBC 10.41 K/ul (4.8-10.8) 01/19/24 Hgb 8.0 g/dl (14.0-18.0) L 01/19/24 Hct 26.4 % (42.0-52.0) L 01/19/24 MCV 98.9 fL (80.0-100.0) 01/19/24 MCH 30.0 pg (25.0-34.0) 01/19/24 MCHC 30.3 g/dL (32.0-36.0) L 01/19/24 RDW Standard Deviation 68.9 fL (36.4-46.3) H 01/19/24 RDW Coefficient of Variation 21.1 % (11.5-14.5) H 01/19/24 Plt Count 297 K/uL (130-400) 01/19/24 MPV 9.1 fL (9.4-12.4) L 01/19/24 Nucleated Red Blood Cells % (auto) 1.2 % 01/18 Nucleated RBC Absolute Count (auto) 0.12 K/uL (0.00-0.12) 0 01/19/24 Na 133 mmol/L (136-145) L 01/19/24 K 3.3 mmol/L (3.5-5.1) L 01/19/24 Cl 96 mmol/L (98-107) L 01/19/24 CO2 28 mmol/L (21-32) 01/19/24 Anion Gap 9 (3-11) 01/19/24 BUN 46 mg/dl (6-23) H 01/19/24 Creatinine 1.99 mg/dl (0.6-1.4) H 01/19/24 Estimated GFR ( Amer) 39.1 ml/min 01/19/24 Estimated GFR (Non-Af Amer) 33.7 ml/min 01/19/24 BUN/Creatinine Ratio 23.1 (10-20) H 01/19/24 Glu 100 mg/dl (70-99(Fasting)) H 01/19/24 Ca 8.2 mg/dl (8.6-10.3) L 01/19/24 Total Bilirubin 0.8 mg/dl (0.2-1.0) 01/19/24 AST 31 U/L (13-39) 01/19/24 ALT 29 U/L (7-52) 01/19/24 Alkaline Phosphatase 125 U/L (34-104) H 01/19/24 TP 5.6 gm/dl (6.0-8.3) L 01/19/24 Albumin 2.5 gm/dl (3.4-5.0) L 01/19/24 Globulin 3.1 gm/dl (2.5-4.0) 01/19/24 Albumin/Globulin Ratio 0.8 (0.9-2) L 01/19/24 Calcium Level 8.2 mg/dl (8.6-10.3) L 01/19/24 07:37 Diagnostic Findings (Past 24 Hours) Chest X-Ray 01/18/24 15:30 XR chest 1V portable HISTORY: eval for accumulating hemothorax COMPARISON: Chest CT 01/17/2024. Chest x-ray 12/29/2023. FINDINGS: The heart remains mildly enlarged. Patchy groundglass densities within the left upper lobe are better appreciated on the recent chest CT. SUV and mediastinal shift. There is a small layering right pleural effusion. There is also a density overlying the right upper to midlung zone containing small foci of gas. This corresponds to the loculated pleural effusion/hemothorax. This is similar to the recent chest CT. No acute fractures identified. IMPRESSION: 1. Loculated right pleural effusion/hemothorax is similar to the recent chest CT. There are small foci of gas within the pleural collection which could represent a pneumothorax from the prior chest tube placement or an underlying infectious process/empyema. 2. No mediastinal shift. 3. Stable cardiomegaly. ACT 112: Negative or not required by law. Electronically signed by: Raymundo Borja M.D. 01/18/2024 4:13 PM I & O Totals 24 Hours 01/18/24 01/19/24 01/20/24 06:59 06:59 06:59 Intake Total 200 / 200 610.000 / 610.000 100 / 100 Output Total 1050 / 1050 1351 / 1351 500 / 500 Balance -850 / -850 -741.000 / -741.000 -400 / -400 Cumulative 09/14/24 thru 01/19/24 09:40 Intake Total 910.000 Output Total 2901 Balance -1991.000 RT Ventilator Mngmt (Last Documented) Ventilator Ordered Settings Respiratory Rate 18 01/19/24 07:54 Fraction of Inspired Oxygen 2 01/17/24 13:19 Ventilator - PT Measurements Respiratory Rate 18 PG Care Time/CCT Total # of Minutes Spent Total Time Spent with Patient: Total time spent is greater than 50% in coordination of care (as documented) at patient's floor/unit and/or counseling patient: Coding Level of Care Code 67448 INT INP/OBS CARE 255MIN Diagnoses Hemothorax on right J94.[address] scan of lung R91.8
--- NOTE | 2024-01-19 15:45 | Hospitalist Progress Note ---
Date of Service January 19, 2024 Assessment & Plan (1) Necrotizing pneumonia: Plan: PT presented with necrotizing pneumonia, developed hemothorax while on Eliquis, sent to [facility] for IR treatment returns with recommendation from [facility] for 6 weeks of zosyn, 12/23 -02/03. 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 regarding this issue. Patient reportedly was restarted on anticoagulation therapy at 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 Previously treated with cabozantinib 20 mg q 48h and avelumab 10 mg q 4 weeks, held during acute hospital stay. 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 Garcia his dose of hydrocortisone is 20 morning and 10 in the afternoon (5) Varicella zoster: Plan: has lesion on right buttock, did have shingrix vacine was seen by Derm and swab confirmed Varicella Zoster not herpes simplex Derm recommended 10 d of treatment 01/04- ID has recommended total of 7 days of Valtrex Stop Valtrex at this point Plan Patient has chronic kidney disease stage IIIb, s/p right nephrectomy as an outpatient was on diuretic use of Bumex 2 mg p.o. twice daily hypothyroidism typically on Synthroid 150 mcg a day Admission and Anticipated Discharge Date Admission Date: January 17, 2024 Subjective Patient seen and examined at bedside Patient overall feels better, he is not on any oxygen and denies any fever, chills, chest pain or shortness of breath Reports feeling swollen and has arms and legs Review of Systems Review of Systems: As per HPI Physical Exam Physical Exam: General: No acute distress, speaking in full sentences Psych: Awake and alert HEENT: Anicteric sclera, moist oral mucosa CVS: Regular rate and rhythm Lungs: Bilateral air entry, no wheezing noted Abdomen: Soft, nontender, no rebound, no guarding Ext: Bilateral lower extremity edema noted Neuro: No focal motor deficits noted Results & Data Results & Data Vital Signs (Past 12 Hours) Vital Signs Temp Pulse Resp BP Pulse Ox O2 Del Method O2 Flow Rate 01/19/24 09:00 Room Air 01/19/24 07:54 36.5 C 90 18 160/84 H 92 Nasal Cannula 2 Laboratory Results Laboratory Results - last 24 hr 01/17/24 01/19/24 01/19/24 14:59 07:37 12:35 WBC 10.41 RBC 2.67 L Hgb 8.0 L Hct 26.4 L MCV 98.9 MCH 30.0 MCHC 30.3 L RDW Std Deviation 68.9 H RDW Coeff of Enzo 21.1 H Plt Count 297 MPV 9.1 L Absolute Nucleated RBC 0.12 Nucleated RBC % (auto) 1.2 Sodium 133 L Potassium 3.3 L Chloride 96 L Carbon Dioxide 28 Anion Gap 9 BUN 46 H Creatinine 1.99 H Est Cr Clr Drug Dosing 52.8 Est GFR ( Amer) 39.1 Est GFR (Non-Af Amer) 33.7 BUN/Creatinine Ratio 23.1 H Glucose 100 H Calcium 8.2 L Total Bilirubin 0.8 AST 31 ALT 29 Alkaline Phosphatase 125 H Total Protein 5.6 L Albumin 2.5 L Globulin 3.1 Albumin/Globulin Ratio 0.8 L Urine Color Yellow Urine Appearance Clear Urine pH 6.0 Ur Specific [place] 1.017 Urine Protein Trace H Urine Glucose (UA) Negative Urine Ketones Negative Urine Blood Negative Urine Nitrite Negative Urine Bilirubin Negative Urine Urobilinogen Negative Ur Leukocyte Esterase Negative Urine WBC (Auto) 0-5 Urine RBC (Auto) 0-2 U Hyaline Cast (Auto) 0-2 U Epithel Cells (Auto) 0-2 Urine Bacteria (Auto) None Seen U Histopl Galactoman Ag TB Test (QFT) Gold Plus NEGATIVE TB Test (QFT) Nil 0.02 TB Test Mitogen - Nil 3.40 TB Test Ag - Nil 1 0.00 TB Test Ag - Nil 2 0.00 Beta-(1,3)-D-Glucan B-(1,3)-D-Glucan Intrp 01/19/24 01/19/24 14:27 Unknown WBC RBC Hgb Hct MCV MCH MCHC RDW Std Deviation RDW Coeff of Enzo Plt Count MPV Absolute Nucleated RBC Nucleated RBC % (auto) Sodium Potassium Chloride Carbon Dioxide Anion Gap BUN Creatinine Est Cr Clr Drug Dosing Est GFR ( Amer) Est GFR (Non-Af Amer) BUN/Creatinine Ratio Glucose Calcium Total Bilirubin AST ALT Alkaline Phosphatase Total Protein Albumin Globulin Albumin/Globulin Ratio Urine Color Urine Appearance Urine pH Ur Specific [place] Urine Protein Urine Glucose (UA) Urine Ketones Urine Blood Urine Nitrite Urine Bilirubin Urine Urobilinogen Ur Leukocyte Esterase Urine WBC (Auto) Urine RBC (Auto) U Hyaline Cast (Auto) U Epithel Cells (Auto) Urine Bacteria (Auto) U Histopl Galactoman Ag Pending TB Test (QFT) Gold Plus TB Test (QFT) Nil TB Test Mitogen - Nil TB Test Ag - Nil 1 TB Test Ag - Nil 2 Beta-(1,3)-D-Glucan Pending B-(1,3)-D-Glucan Intrp Pending PG Care Time/CCT Total # of Minutes Spent Total Time Spent with Patient: Total time spent is greater than 50% in coordination of care (as documented) at patient's floor/unit and/or counseling patient: Coding Level of Care Code 18975 SUB INP/OBS CARE 235MIN Diagnoses Necrotizing pneumonia J85.0 Atrial fibrillation I48.91 Renal cell carcinoma, unspecified laterality C64.9 Laterality: unspecified laterality Secondary adrenal insufficiency E27.49 Varicella zoster B02.9 (3) Renal cell carcinoma Laterality: unspecified laterality Qualified Code(s): C64.9 - Malignant neoplasm of unspecified kidney, except renal pelvis
--- NOTE | 2024-01-19 16:42 | XRay Report ---
XR chest 1V portable HISTORY: eval for accumulating hemothorax COMPARISON: Chest 01/18/2024. FINDINGS: The heart remains mildly enlarged. Patchy groundglass densities within the left upper lobe are again noted. No significant mediastinal shift. There is a small layering right pleural effusion. There is also a density overlying the right upper to midlung zone containing small foci of gas. This corresponds to the loculated pleural effusion/hemothorax. This is similar to the prior chest x-ray No acute fractures identified. IMPRESSION: 1. Loculated right pleural effusion/hemothorax is similar to the prior chest x-ray. There are small f oci of gas within the pleural collection which could represent a pneumothorax from the prior chest tu be placement or an underlying infectious process/empyema. 2. No mediastinal shift. 3. Stable cardiomegaly. ACT 112: Negative or not required by law. Electronically signed by: Raymundo Borja M.D. 01/19/2024 4:40 PM
[2024-01-19] MEDS: BUMETANIDE 1 MG TAB PO STA (21:07)
[2024-01-20 05:58] LABS: Basophils # (auto) 0.05 K/uL (0.00-0.20); Basophils % (auto) 0.4 %; Eosinophils # (auto) 0.39 K/uL (0.00-0.50); Eosinophils % (auto) 3.4 %; Hematocrit (blood only) 25.4 % (42.0-52.0); Hemoglobin 7.9 g/dl (14.0-18.0); Immature Granulocytes # (auto) 0.57 K/uL (0.01-0.20); Lymphocytes # (auto) 1.03 K/uL (1.20-3.40); Mean Corpuscular Hemoglobin 30.5 pg (25.0-34.0); Mean Corpuscular Hgb Conc 31.1 g/dL (32.0-36.0); Mean Corpuscular Volume 98.1 fL (80.0-100.0); Mean Platelet Volume 8.8 fL (9.4-12.4); Monocytes # (auto) 1.19 K/uL (0.11-0.59); Monocytes % (auto) 10.4 %; Neutrophils # (auto) 8.17 K/uL (1.40-6.50); Neutrophils % (auto) 71.8 %; Nucleated RBC # (auto) 0.08 K/uL (0.00-0.12); Nucleated RBC % (auto) 0.7 %; Platelet Count 281 K/uL (130-400); RDW Standard Deviation 68.1 fL (36.4-46.3); Red Blood Count 2.59 M/uL (4.70-6.10)
[2024-01-20 06:07] LABS: Albumin Globulin Ratio 0.8 (0.9-2); Albumin Level 2.5 gm/dl (3.4-5.0); BUN Creatinine Ratio 21.6 (10-20); Bilirubin,Total 0.8 mg/dl (0.2-1.0); Calcium 8.2 mg/dl (8.6-10.3); Creatinine Clr Calc Pharmacy 54.1 ml/min; Est GFR (African American) 40.3 ml/min; Est GFR (Non-African American) 34.8 ml/min; Globulin 3.1 gm/dl (2.5-4.0); Potassium 3.2 mmol/L (3.5-5.1); Total Protein 5.6 gm/dl (6.0-8.3)
[2024-01-20 06:20] LABS: Anisocytosis Present; Polychromasia 2+
--- NOTE | 2024-01-20 09:15 | Nephrology Progress Note ---
Date of Service January 20, 2024 Assessment & Plan (1) Chronic kidney disease: Plan: * Solitary functioning L kidney. Patient is s/p HALN 02/19 due to 7 cm R renal mass * Evidence of pulmonary metastasis at time of HALN * Post nephrectomy creatinine stabilized at 2.2 * Kidney function is at baseline. Hyponatremia is improving. Patient has mild hypokalemia but otherwise electrolyte balance is acceptable. Patient remains nonoliguric * Monitor UO, daily BMP * No further nephrology intervention needed at this time. Will sign off. Please call if further assistance is needed (2) Secondary adrenal insufficiency: Plan: * Adrenal insufficiency due to prior immunotherapy. * Continue hydrocortisone and Florinef therapy * Recommend taper midodrine maintaining SBP > 90 mm Hg (3) Atrial fibrillation: Plan: * On rate control and apixaban (4) Acute blood loss anemia: Plan: * Management as per primary service (5) Necrotizing pneumonia: Plan: * On Zosyn therapy as per ID * Fungitell positive last hospitalization (6) Varicella zoster: Plan: * On Valtrex therapy Admission and Anticipated Discharge Date Admission Date: January 17, 2024 Subjective Mr. Wick was evaluated in his hospital room this morning. He appeared comfortable and denied angina, dyspnea Review of Systems Constitutional: no fever Eyes: no problem reported Ear, Nose, Mouth, Throat: no problem reported Respiratory: no cough and no dyspnea Cardiovascular: no chest pain Gastrointestinal: no abdominal pain, no nausea, no vomiting and no diarrhea/loose stools Genitourinary: no dysuria, no difficulty urinating or no hematuria Integumentary: no rash Physical Exam Constitutional: not in distress Eyes: PERRL, conjunctivae normal, anicteric sclerae ENMT: external ear and nose normal, oropharynx normal Neck: trachea midline, no thyromegaly Respiratory: normal respiratory effort, lungs clear to auscultation Cardiovascular: Rate/Rhythm: regular rate and regular rhythm Gastrointestinal (Abdomen): normal bowel sounds, soft, nontender, no hepat osplenomegaly Skin: no rashes, warm and dry Neurologic: Speech / Cognition: normal speech and normal cognition Results & Data Vital Signs (Past 12 Hours) Vital Signs Temp Pulse Resp BP Pulse Ox O2 Del Method 01/20/24 07:58 36.7 C 94 H 18 126/75 94 Room Air Laboratory Results Laboratory Results WBC 11.40 K/ul (4.8-10.8) H 01/20/24 05:35 RBC 2.59 M/uL (4.70-6.10) L 01/20/24 05:35 Hgb 7.9 g/dl (14.0-18.0) L 01/20/24 05:35 Hct 25.4 % (42.0-52.0) L 01/20/24 05:35 MCV 98.1 fL (80.0-100.0) 01/20/24 05:35 MCH 30.5 pg (25.0-34.0) 01/20/24 05:35 MCHC 31.1 g/dL (32.0-36.0) L 01/20/24 05:35 RDW Std Deviation 68.1 fL (36.4-46.3) H 01/20/24 05:35 RDW Coeff of Enzo 21.0 % (11.5-14.5) H 01/20/24 05:35 Plt Count 281 K/uL (130-400) 01/20/24 05:35 MPV 8.8 fL (9.4-12.4) L 01/20/24 05:35 Immature Gran % (Auto) 5.0 % 01/20/24 05:35 Neut % (Auto) 71.8 % 01/20/24 05:35 Lymph % (Auto) 9.0 % 01/20/24 05:35 Craig % (Auto) 10.4 % 01/20/24 05:35 Eos % (Auto) 3.4 % 01/20/24 05:35 Baso % (Auto) 0.4 % 01/20/24 05:35 Neut # (Auto) 8.17 K/uL (1.40-6.50) H 01/20/24 05:35 Lymph # (Auto) 1.03 K/uL (1.20-3.40) L 01/20/24 05:35 Craig # (Auto) 1.19 K/uL (0.11-0.59) H 01/20/24 05:35 Eos # (Auto) 0.39 K/uL (0.00-0.50) 01/20/24 05:35 Baso # (Auto) 0.05 K/uL (0.00-0.20) 01/20/24 05:35 Immature Gran # (Auto) 0.57 K/uL (0.01-0.20) H 01/20/24 05:35 Absolute Nucleated RBC 0.08 K/uL (0.00-0.12) 01/20/24 05:35 Nucleated RBC % (auto) 0.7 % 01/20/24 05:35 Polychromasia 2+ 01/20/24 05:35 Anisocytosis Present 01/20/24 05:35 Sodium 131 mmol/L (136-145) L 01/20/24 05:35 Potassium 3.2 mmol/L (3.5-5.1) L 01/20/24 05:35 Chloride 97 mmol/L (98-107) L 01/20/24 05:35 Carbon Dioxide 27 mmol/L (21-32) 01/20/24 05:35 Anion Gap 7 (3-11) 01/20/24 05:35 BUN 42 mg/dl (6-23) H 01/20/24 05:35 Creatinine 1.94 mg/dl (0.6-1.4) H 01/20/24 05:35 Est Cr Clr Drug Dosing 54.1 ml/min 01/20/24 05:35 Est GFR ( Amer) 40.3 ml/min 01/20/24 05:35 Est GFR (Non-Af Amer) 34.8 ml/min 01/20/24 05:35 BUN/Creatinine Ratio 21.6 (10-20) H 01/20/24 05:35 Glucose 101 mg/dl (70-99(Fasting)) H 01/20/24 05:35 Calcium 8.2 mg/dl (8.6-10.3) L 01/20/24 05:35 Magnesium 2.0 mg/dl (1.7-2.4) 01/20/24 05:35 Total Bilirubin 0.8 mg/dl (0.2-1.0) 01/20/24 05:35 AST 31 U/L (13-39) 01/20/24 05:35 ALT 29 U/L (7-52) 01/20/24 05:35 Alkaline Phosphatase 131 U/L (34-104) H 01/20/24 05:35 Total Protein 5.6 gm/dl (6.0-8.3) L 01/20/24 05:35 Albumin 2.5 gm/dl (3.4-5.0) L 01/20/24 05:35 Globulin 3.1 gm/dl (2.5-4.0) 01/20/24 05:35 Albumin/Globulin Ratio 0.8 (0.9-2) L 01/20/24 05:35 Urine Color Yellow 01/19/24 12:35 Urine Appearance Clear (Clear) 01/19/24 12:35 Urine pH 6.0 (4.5-7.5) 01/19/24 12:35 Ur Specific [place] 1.017 (1.000-1.030) 01/19/24 12:35 Urine Protein Trace (Negative) H 01/19/24 12:35 Urine Glucose (UA) Negative (Negative) 01/19/24 12:35 Urine Ketones Negative (Negative) 01/19/24 12:35 Urine Blood Negative (Negative) 01/19/24 12:35 Urine Nitrite Negative (Negative) 01/19/24 12:35 Urine Bilirubin Negative (Negative) 01/19/24 12:35 Urine Urobilinogen Negative (Negative) 01/19/24 12:35 Ur Leukocyte Esterase Negative (Negative) 01/19/24 12:35 Urine WBC (Auto) 0-5 /hpf (0-5) 01/19/24 12:35 Urine RBC (Auto) 0-2 /hpf (0-2) 01/19/24 12:35 U Hyaline Cast (Auto) 0-2 /lpf (0-2) 01/19/24 12:35 U Epithel Cells (Auto) 0-2 /hpf (0-2) 01/19/24 12:35 Urine Bacteria (Auto) None Seen (None Seen) 01/19/24 12:35 TB Test (QFT) Gold Plus NEGATIVE (NEGATIVE) 01/17/24 14:59 TB Test (QFT) Nil 0.02 IU/mL 01/17/24 14:59 TB Test Mitogen - Nil 3.40 IU/mL 01/17/24 14:59 TB Test Ag - Nil 1 0.00 IU/mL 01/17/24 14:59 TB Test Ag - Nil 2 0.00 IU/mL 01/17/24 14:59 Blood Type A Positive 01/17/24 15:06 Antibody Screen NEGATIVE 01/17/24 15:06 Crossmatch See Detail 01/17/24 15:[address] 01/17/24 14:21 CT chest diagnostic wo con CLINICAL HISTORY: eval RLL necrotizing mass TECHNIQUE: Multidetector row helical CT of the chest was performed. Coronal and sagittal reformations were obtained. Automated dose lowering techniques and/or adjustment according to patient size were utilized for this exam. CT DOSE: 924.78 mGy.cm Comparison: Comparison is made to CT chest 12/29/2023 FINDINGS: Lungs and pleura: Complex pleural collection is again seen on the right with locules of gas. Previously noted pigtail catheter has been removed. Atelectasis is seen. There is groundglass density in the left upper lobe. Heart and pericardium: Heart size is normal. No pericardial effusion. Vessels: Mild atherosclerotic changes in the aorta and coronary arteries. Mediastinum and raeann: Enlarged lymph nodes measure up to 13 mm in the subcarinal station. Chest wall and lower neck: Unremarkable. Abdomen: A hiatal hernia is seen. Hepatic steatosis is seen. Bones: Unremarkable. IMPRESSION: Complex right pleural masses compatible with hemothorax and possibly empyema. Interval development of left upper lobe groundglass opacity which may be infectious. Mediastinal lymphadenopathy is likely reactive. ACT 112: Negative or not required by law. Electronically signed by: Jermaine Sewell M.D. 01/17/2024 4:59 PM Chest X-Ray 01/19/24 15:30 XR chest 1V portable HISTORY: eval for accumulating hemothorax COMPARISON: Chest 01/18/2024. FINDINGS: The heart remains mildly enlarged. Patchy groundglass densities within the left upper lobe are again noted. No significant mediastinal shift. There is a small layering right pleural effusion. There is also a density overlying the right upper to midlung zone containing small foci of gas. This corresponds to the loculated pleural effusion/hemothorax. This is similar to the prior chest x- ray No acute fractures identified. IMPRESSION: 1. Loculated right pleural effusion/hemothorax is similar to the prior chest x- ray. There are small foci of gas within the pleural collection which could represent a pneumothorax from the prior chest tube placement or an underlying infectious process/empyema. 2. No mediastinal shift. 3. Stable cardiomegaly. ACT 112: Negative or not required by law. Electronically signed by: Raymundo Borja M.D. 01/19/2024 4:40 PM PG Care Time/CCT Total # of Minutes Spent Total Time Spent with Patient: Total time spent is greater than 50% in coordination of care (as documented) at patient's floor/unit and/or counseling patient: Coding Level of Care Code 24080 SUB INP/OBS CARE 3/50MIN Diagnoses Chronic kidney disease N18.9 Secondary adrenal insufficiency E27.49 Atrial fibrillation I48.91 Acute blood loss anemia D62 Necrotizing pneumonia J85.0 Varicella zoster B02.9
--- NOTE | 2024-01-20 10:00 | Hospitalist Progress Note ---
Date of Service January 20, 2024 Assessment & Plan (1) Necrotizing pneumonia: (2) Hemothorax on right: (3) Acute blood loss anemia: (4) Varicella zoster: (5) Renal cell carcinoma: (6) Chronic kidney disease with active medical management without dialysis, stage 3 (moderate): (7) Atrial fibrillation with RVR: (8) Hypothyroidism: (9) Secondary adrenal insufficiency: Plan: 69-year-old male with past medical history of metastatic renal cancer, hypothyroidism, atrial fibrillation, adrenal insufficiency who was initially admitted to [facility] on 12/24/2023 and developed a complicated pneumothorax with hemothorax. Pigtail catheter was placed and patient was transferred to [place] on 12/30/2023. Patient underwent thorascopic saline lavage on 01/01/2024 with repeat thorascopic evaluation on 01/05/2024 with pigtail catheter placement at [facility]. Patient was transferred back to [facility] on 01/17/2024. #Necrotizing pneumonia #Hemothorax status post evacuation #Abnormal CT scan of chest findings ID is following the patient Patient is currently on IV Zosyn BDG and urine histo are pending Pulmonology saw the patient in consultation and recommended speaking with [place] CT surgery team regarding CAT scan findings I spoke with Dr. Ramírez Valle, CT surgeon at [facility] this morning and in his opinion patient is not a good surgical candidate and would benefit from treating with antibiotics. I reviewed patient's cultures from [facility]: Patient had pleural fluid culture from 01/05/2024 and 01/11/2024 which showed no growth. Patient also had an AFB from 01/05/2024 which was negative at 14 days. Patient also had fungal cultures sent from 01/05/2024 which have been negative to date Awaiting ID recommendations regarding antibiotics #Atrial fibrillation #Acute blood loss anemia likely secondary hemothorax #Orthostatic hypotension Patient has required blood transfusion intermittently H&H is currently stable with no active bleeding Patient was restarted on apixaban at [facility] which has been held here as patient required blood transfusion If H&H is stable, resume apixaban Patient was previously on rate controlling agents with metoprolol which have been held due to patient having orthostatic hypotension Continue midodrine and monitor orthostatic vital signs Continue Florinef Reduce midodrine to 5 mg 3 times daily per nephrology recommendations and wean as tolerated #History of renal cell carcinoma #HANSEL on CKD stage IIIb #Hypokalemia Baseline creatinine is around 2.2 Nephrology saw the patient in consultation History of renal cell carcinoma metastatic to the lung with resection in 2019. Previously treated with cabozantinib 20 mg q 48h and avelumab 10 mg q 4 weeks, held during acute hospital stay. 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 Darin Aiken from nephrology via secure chat: As per nephrology, patient has been diuresing on his own and per nephrology if diuretic is needed would resume at low-dose Bumex 1 mg daily and monitor weight, kidney function and urine output. 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 Garcia as outpatient He is on hydrocortisone 20 mg in the morning and 10 mg in the afternoon #Varicella-zoster Patient did have Shingrix vaccine He was seen by dermatology at [facility] and swab confirmed varicella zoster, not herpes simplex Derm recommended 10 days of treatment and he has been treated with Valtrex from 01/05/2024 for over 10 days As per ID, 7 days treatment is sufficient which patient has already completed #Hypothyroidism Continue Synthroid 150 mcg p.o. daily CODE STATUS: Full code DVT prophylaxis: Bilateral SCDs, resume apixaban if H&H remained stable with no active bleeding Discharge planning to short-term rehab based on ID recommendations regarding IV antibiotics Care plan discussed with patient, nursing staff Admission and Anticipated Discharge Date Admission Date: January 17, 2024 Subjective Patient seen and examined He wants to try advancing his diet and is requesting to see speech therapy Anxiety has been a driving factor in his swallowing issues He denies any chest pain no shortness of breath He denies any nausea, vomiting or abdominal pain Review of Systems Review of Systems: As per HPI Physical Exam Physical Exam: General: No acute distress, speaking in full sentences Psych: Awake and alert HEENT: Anicteric sclera, moist oral mucosa CVS: Regular rate and rhythm Lungs: Bilateral air entry, no wheezing noted Abdomen: Soft, nontender, no rebound, no guarding Ext: Bilateral lower extremity edema noted, right upper extremity edema noted Neuro: No focal motor deficits noted Results & Data Results & Data Vital Signs (Past 12 Hours) Vital Signs Temp Pulse Resp BP Pulse Ox O2 Del Method 01/20/24 07:58 36.7 C 94 H 18 126/75 94 Room Air Laboratory Results Laboratory Results - last 24 hr 01/19/24 01/20/24 Unknown 05:35 WBC 11.40 H RBC 2.59 L Hgb 7.9 L Hct 25.4 L MCV 98.1 MCH 30.5 MCHC 31.1 L RDW Std Deviation 68.1 H RDW Coeff of Enzo 21.0 H Plt Count 281 MPV 8.8 L Immature Gran % (Auto) 5.0 Neut % (Auto) 71.8 Lymph % (Auto) 9.0 [place] % (Auto) 10.4 Eos % (Auto) 3.4 Baso % (Auto) 0.4 Neut # (Auto) 8.17 H Lymph # (Auto) 1.03 L [place] # (Auto) 1.19 H Eos # (Auto) 0.39 Baso # (Auto) 0.05 Immature Gran # (Auto) 0.57 H Absolute Nucleated RBC 0.08 Nucleated RBC % (auto) 0.7 Polychromasia 2+ Anisocytosis Present Sodium 131 L Potassium 3.2 L Chloride 97 L Carbon Dioxide 27 Anion Gap 7 BUN 42 H Creatinine 1.94 H Est Cr Clr Drug Dosing 54.1 Est GFR ( Amer) 40.3 Est GFR (Non-Af Amer) 34.8 BUN/Creatinine Ratio 21.6 H Glucose 101 H Calcium 8.2 L Magnesium 2.0 Total Bilirubin 0.8 AST 31 ALT 29 Alkaline Phosphatase 131 H Total Protein 5.6 L Albumin 2.5 L Globulin 3.1 Albumin/Globulin Ratio 0.8 L U Histopl Galactoman Ag Pending PG Care Time/CCT Total # of Minutes Spent Total Time Spent with Patient: Total time spent is greater than 50% in coordination of care (as documented) at patient's floor/unit and/or counseling patient: Coding Level of Care Code 40418 SUB INP/OBS CARE 3/50MIN Diagnoses Necrotizing pneumonia J85.0 Hemothorax on right J94.2 Acute blood loss anemia D62 Varicella zoster B02.9 Renal cell carcinoma, unspecified laterality C64.9 Laterality: unspecified laterality Chronic kidney disease with active medical management without dialysis, stage 3 (moderate) N18.30 Atrial fibrillation with RVR I48.91 Hypothyroidism E03.9 Secondary adrenal insufficiency E27.49 (5) Renal cell carcinoma Laterality: unspecified laterality Qualified Code(s): C64.9 - Malignant neoplasm of unspecified kidney, except renal pelvis
--- NOTE | 2024-01-20 10:04 | Infectious Disease Progress Nt ---
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 Was started on tapering steroids at 80 mg/d, with taper by 10 mg weekly, to remain on prednisone 10 mg daily at the end of the taper, now on HC 20/10 daily #CKD #BDG >500 #buttock lesion Micro: 12/23 MRSA swab: neg 12/23 BCx x1: NGTD Abx: Unasyn 12/24 Zosyn 12/23 - 12/24 Linezolid 12/23 - 12/24 Cefepime 12/23 Zosyn From OSH- present Discussion Repeat imaging shows ongoing GGO, with steroid use since 10/2023, initially on pred of 80mg which was tapered down. Now he is on hydrocortisone 20/10mg daily which is equivalent to prednisone ~8mg daily. While this is not nec risk for PJP his prior high dose steroids, GGO on imaging and BDG being positive, it is difficult to ignore and patient may have multiple processes. H/E Unasyn and Zosyn could both cause a false pos! Impression: -Patient has clinically improved, off oxygen and doing well -His BDG number is quite high, I am going to repeat this lab BDG can be a/w several bacterial infections as well as PCP and fungi and can be a false positive with Zosyn and Unasyn use -Check PCP sputum, repeat BDG, urine histo -I am c.f starting bactrim for presumptive PCP given his renal function, will plan for atovaquone 750mg po bid with food instead while waiting on results -Plese try to obtain ID records from [facility], presume they tested for fungal/afb/bacterial cultures on fluid there--> I spoke with primary team who confirms negative afb, fungal, bacterial cultures from pleural fluid -Buttock lesion doesnt appear to be HSV or VZV could consider dcing Valtrex once hes received total of 7 days (from when he started at [facility]) Plan will be to complete Zosyn 4.5G IV q8 hours (crcl ~30) can either place a midline or picc line EOT 02/04/24 Weekly CBC with diff, CMP Follow up CT in 2 weeks Mepron 750mg po bid with fatty meal x 21 days through 02/09/24 ID will sign off but follow peripherally while he is inpatient for the week Pending: BDG, Urine marquezo Eloisa Whatley MD Infectious Diseases Admission and Anticipated Discharge Date Admission Date: January 17, 2024 Subjective Subsequent visit was provided via telemedicine using two-way real-time interactive telecommunication between the patient and the telemedicine provider. For the duration of the visit, the provider was performing the assessment from a different facility than the patient. This includesuse of bluetooth Inaurathosc ope forauscultationperformed by the telepresenter that the telemedicine provider can hear if described in the physical exam. [employer] contact information: Please call [facility] [phone]. (Phone Number For Physician Use Only) After establishing a telemedicine visit, patient was: Patient was verified with two unique identifiers, Patient/authorized rep acknowledged consent and understanding and Gave permission to continue telehealth session Time Spent with Patient: Subsequent => 35 min Physical Exam Physical Exam: NAD Buttock lesion round, no open sore Results & Data Vital Signs (Past 12 Hours) Vital Signs Temp Pulse Resp BP Pulse Ox O2 Del Method 01/20/24 07:58 36.7 C 94 H 18 126/75 94 Room Air Laboratory Results Short CBC 01/20/24 Range/Units 05:35 WBC 11.40 H (4.8-10.8) K/ul Hgb 7.9 L (14.0-18.0) g/dl Hct 25.4 L (42.0-52.0) % Plt Count 281 (130-400) K/uL BMP 01/20/24 05:35 Sodium 131 L Potassium 3.2 L Chloride 97 L Carbon Dioxide 27 BUN 42 H Creatinine 1.94 H Glucose 101 H Calcium 8.2 L Liver Function 01/20/24 Range/Units 05:35 Total Bilirubin 0.8 (0.2-1.0) mg/dl AST 31 (13-39) U/L ALT 29 (7-52) U/L Alkaline Phosphatase 131 H (34-104) U/L Albumin 2.5 L (3.4-5.0) gm/dl Urine 01/19/24 Range/Units 12:35 Urine Color Yellow Urine Appearance Clear (Clear) Urine pH 6.0 (4.5-7.5) Ur Specific Pioneer 1.017 (1.000-1.030) Urine Protein Trace H (Negative) Urine Glucose (UA) Negative (Negative) Medications Administered Current Inpatient Medications Acetaminophen (Acetaminophen 325 Mg Tab) 650 mg PO Q4H PRN PRN Reason: pain/fever Stop: 02/16/24 08:54 Acyclovir (Acyclovir 5% Oint 15 Gm Tube) 1 appln EXT BID KASEY Stop: 01/27/24 20:59 Last Admin: 01/20/24 09:46 Dose: 1 appln Alprazolam (Alprazolam 0.25 Mg Tablet) 0.25 mg PO QID PRN PRN Reason: Nausea And Vomiting Stop: 02/17/24 16:57 Apixaban (Apixaban 2.5 Mg Tab) 2.5 mg PO BID [facility] Stop: 02/16/24 20:59 Last Admin: 01/18/24 07:44 Dose: 2.5 mg Fludrocortisone Acetate (Fludrocortisone Acetate 0.1 Mg Tab) 0.1 mg PO QAM [facility] Stop: 02/18/24 08:59 Last Admin: 01/20/24 09:46 Dose: 0.1 mg Hydrocortisone (Hydrocortisone 10 Mg Tab) 20 mg PO QAM KASEY Stop: 02/17/24 08:59 Last Admin: 01/20/24 09:45 Dose: 20 mg Hydrocortisone (Hydrocortisone 10 Mg Tab) 10 mg PO Q24H KASE[facility] Stop: 02/16/24 14:59 Last Admin: 01/19/24 15:45 Dose: 10 mg Piperacillin Sod/Tazobactam Sod (Zosyn) 4.5 gm in 100 mls @ 25 mls/hr IV Q8H KASE[facility] Stop: 02/04/24 19:59 Last Infusion: 01/20/24 09:44 Dose: Infused Levothyroxine Sodium (Levothyroxine Sodium 150 Mcg Tablet) 150 mcg PO DAILYBB KASE[facility] Stop: 02/17/24 06:29 Last Admin: 01/20/24 06:01 Dose: 150 mcg Midodrine (Midodrine Hcl 10 Mg Tab) 10 mg PO TID@0800,1200,1700 [facility] Stop: 02/16/24 16:59 Last Admin: 01/20/24 09:46 Dose: 10 mg Ondansetron HCl (Ondansetron Inj 2 Mg/Ml 2 Ml Vial) 4 mg IV Q6H PRN PRN Reason: Nausea Stop: 02/16/24 08:54 Polyethylene Glycol (Polyethylene (Miralax) 17 Gm Pack) 17 gm PO DAILY PRN PRN Reason: Constipation Stop: 02/16/24 08:54 Potassium Chloride (Potassium Chloride Crtab 20 Meq Tabcr) 40 meq PO ONCE ONE Stop: 01/20/24 21:01 Sennosides (Senna 8.6 Mg Tab) 17.2 mg PO QAM [facility] Stop: 02/17/24 08:59 Last Admin: 01/20/24 09:45 Dose: 17.2 mg
[2024-01-20] MEDS: POTASSIUM CHLORIDE CRTAB 20 MEQ TABCR PO STA (10:56)
[2024-01-20] MEDS: ATOVAQUONE 750 MG/5 ML UDC PO SCH (14:42)
[2024-01-20] MEDS: POTASSIUM CHLORIDE CRTAB 20 MEQ TABCR PO ONE (21:24)
[2024-01-21 07:16] LABS: Calcium 7.8 mg/dl (8.6-10.3); Creatinine Clr Calc Pharmacy 58.4 ml/min; Est GFR (African American) 44.2 ml/min; Est GFR (Non-African American) 38.1 ml/min; Potassium 3.3 mmol/L (3.5-5.1)
[2024-01-21] MEDS: MIDODRINE HCL 2.5 MG TAB PO SCH (08:43)
[2024-01-21] MEDS: POTASSIUM CHLORIDE CRTAB 20 MEQ TABCR PO STA (09:30)
--- NOTE | 2024-01-21 09:42 | Hospitalist Progress Note ---
Date of Service January 21, 2024 Assessment & Plan (1) Necrotizing pneumonia: (2) Hemothorax on right: (3) Acute blood loss anemia: (4) Varicella zoster: (5) Renal cell carcinoma: (6) Chronic kidney disease with active medical management without dialysis, stage 3 (moderate): (7) Atrial fibrillation with RVR: (8) Hypothyroidism: (9) Secondary adrenal insufficiency: Plan: 69-year-old male with past medical history of metastatic renal cancer, hypothyroidism, atrial fibrillation, adrenal insufficiency who was initially admitted to [facility] on 12/24/2023 and developed a complicated pneumothorax with hemothorax. Pigtail catheter was placed and patient was transferred to [facility] on 12/30/2023. Patient underwent thorascopic saline lavage on 01/01/2024 with repeat thorascopic evaluation on 01/05/2024 with pigtail catheter placement at [facility]. Patient was transferred back to [facility] on 01/17/2024. #Necrotizing pneumonia #Hemothorax status post evacuation #Abnormal CT scan of chest findings ID is following the patient Patient is currently on IV Zosyn BDG and urine histo are pending Pulmonology saw the patient in consultation and recommended speaking with [facility] surgery team regarding CAT scan findings I spoke with Dr. Ramírez Valle, CT surgeon at [facility] on 01/20/24 and in his opinion patient is not a good surgical candidate and would benefit from treating with antibiotics. I reviewed patient's cultures from [facility] with Dr. Valle: Patient had pleural fluid culture from 01/05/2024 and 01/11/2024 which showed no growth. Patient also had an AFB from 01/05/2024 phaneuf hospital ch was negative at 14 days. Patient also had fungal cultures sent from 01/05/2024 which have been negative to date Plan from ID is as follows: complete Zosyn 4.5G IV q8 hours (crcl ~30) until 02/04/24 Weekly CBC with diff, CMP Follow up CT in 2 weeks Mepron 750mg po bid with fatty meal x 21 days through 02/09/24 Patient consented for midline/PICC placement today #Atrial fibrillation #Acute blood loss anemia likely secondary hemothorax #Orthostatic hypotension Patient has required blood transfusion intermittently H&H is currently stable with no active bleeding Patient was restarted on apixaban at [facility] which has been held here as patient required blood transfusion H&H is stable, resume apixaban Patient was previously on rate controlling agents with metoprolol which have been held due to patient having orthostatic hypotension Continue midodrine and monitor orthostatic vital signs Continue Florinef Reduce midodrine to 5 mg two times daily per nephrology recommendations and wean as tolerated #History of renal cell carcinoma #HANSEL on CKD stage IIIb #Hypokalemia Baseline creatinine is around 2.2 Nephrology saw the patient in consultation History of renal cell carcinoma metastatic to the lung with resection in 2019. Previously treated with cabozantinib 20 mg q 48h and avelumab 10 mg q 4 weeks, held during acute hospital stay. 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 Darin Aiken from nephrology via secure chat: As per nephrology, patient has been diuresing on his own and per nephrology if diuretic is needed would resume at low-dose Bumex 1 mg daily and monitor weight, kidney function and urine output. 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 Garcia as outpatient He is on hydrocortisone 20 mg in the morning and 10 mg in the afternoon #Varicella-zoster Patient did have Shingrix vaccine He was seen by dermatology at [facility] and swab confirmed varicella zoster, not herpes simplex Derm recommended 10 days of treatment and he has been treated with Valtrex from 01/05/2024 for over 10 days As per ID, 7 days treatment is sufficient which patient has already completed #Hypothyroidism Continue Synthroid 150 mcg p.o. daily CODE STATUS: Full code DVT prophylaxis: Bilateral SCDs, apixaban Discharge planning to short-term rehab tomorrow on IV antibiotics Care plan discussed with patient, nursing staff Admission and Anticipated Discharge Date Admission Date: January 17, 2024 Review of Systems Review of Systems: As per HPI Physical Exam Physical Exam: General: No acute distress, speaking in full sentences Psych: Awake and alert HEENT: Anicteric sclera, moist oral mucosa CVS: Regular rate and rhythm Lungs: Bilateral air entry, no wheezing noted Abdomen: Soft, nontender, no rebound, no guarding Ext: Improving bilateral lower extremity edema noted, improving right upper extremity edema Neuro: No focal motor deficits noted Results & Data Results & Data Vital Signs (Past 12 Hours) Vital Signs Temp Pulse Resp BP Pulse Ox O2 Del Method 01/21/24 08:38 36.4 C L 97 H 20 127/77 92 Room Air Laboratory Results Laboratory Results - last 24 hr 01/21/24 06:31 Sodium 132 L Potassium 3.3 L Chloride 99 Carbon Dioxide 26 Anion Gap 7 BUN 36 H Creatinine 1.80 H Est Cr Clr Drug Dosing 58.4 Est GFR ( Amer) 44.2 Est GFR (Non-Af Amer) 38.1 BUN/Creatinine Ratio 20.0 Glucose 94 Calcium 7.8 L Magnesium 2.0 PG Care Time/CCT Total # of Minutes Spent Total Time Spent with Patient: Total time spent is greater than 50% in coordination of care (as documented) at patient's floor/unit and/or counseling patient: Coding Level of Care Code 42446 SUB INP/OBS CARE 2/35MIN Diagnoses Necrotizing pneumonia J85.0 Hemothorax on right J94.2 Acute blood loss anemia D62 Varicella zoster B02.9 Renal cell carcinoma, unspecified laterality C64.9 Laterality: unspecified laterality Chronic kidney disease with active medical management without dialysis, stage 3 (moderate) N18.30 Atrial fibrillation with RVR I48.91 Hypothyroidism E03.9 Secondary adrenal insufficiency E27.49 (5) Renal cell carcinoma Laterality: unspecified laterality Qualified Code(s): C64.9 - Malignant neoplasm of unspecified kidney, except renal pelvis
[2024-01-21] MEDS: POTASSIUM CHLORIDE CRTAB 20 MEQ TABCR PO ONE (21:01)
[2024-01-22 06:48] LABS: Basophils # (auto) 0.05 K/uL (0.00-0.20); Basophils % (auto) 0.5 %; Eosinophils # (auto) 0.25 K/uL (0.00-0.50); Eosinophils % (auto) 2.3 %; Hematocrit (blood only) 22.7 % (42.0-52.0); Hemoglobin 7.2 g/dl (14.0-18.0); Immature Granulocytes # (auto) 0.41 K/uL (0.01-0.20); Immature Granulocytes % (auto) 3.8 %; Lymphocytes # (auto) 0.94 K/uL (1.20-3.40); Lymphocytes % (auto) 8.8 %; Mean Corpuscular Hemoglobin 31.2 pg (25.0-34.0); Mean Corpuscular Hgb Conc 31.7 g/dL (32.0-36.0); Mean Corpuscular Volume 98.3 fL (80.0-100.0); Mean Platelet Volume 8.8 fL (9.4-12.4); Monocytes # (auto) 1.06 K/uL (0.11-0.59); Monocytes % (auto) 9.9 %; Neutrophils # (auto) 7.95 K/uL (1.40-6.50); Neutrophils % (auto) 74.7 %; Nucleated RBC # (auto) 0.06 K/uL (0.00-0.12); Nucleated RBC % (auto) 0.6 %; Platelet Count 285 K/uL (130-400); RDW Coefficient of Variation 21.2 % (11.5-14.5); RDW Standard Deviation 73.9 fL (36.4-46.3); Red Blood Count 2.31 M/uL (4.70-6.10); White Blood Count 10.66 K/ul (4.8-10.8)
[2024-01-22 07:12] VITALS: RESP 17
[2024-01-22 07:34] LABS: Anisocytosis Present; Polychromasia 2+
[2024-01-22 08:21] LABS: Albumin Globulin Ratio 0.8 (0.9-2); Albumin Level 2.3 gm/dl (3.4-5.0); BUN Creatinine Ratio 20.6 (10-20); Bilirubin,Total 0.6 mg/dl (0.2-1.0); Calcium 7.8 mg/dl (8.6-10.3); Creatinine Clr Calc Pharmacy 60.3 ml/min; Est GFR (African American) 45.7 ml/min; Est GFR (Non-African American) 39.4 ml/min; Total Protein 5.3 gm/dl (6.0-8.3)
[2024-01-22] MEDS ORDERED: MIDODRINE HCL 2.5 MG TAB PO SCH (09:00)
[2024-01-22] MEDS: ACETAMINOPHEN 325 MG TAB PO PRN (11:47)
--- NOTE | 2024-01-22 11:48 | Hospitalist Progress Note ---
Date of Service January 22, 2024 Assessment & Plan (1) Necrotizing pneumonia: (2) Hemothorax on right: (3) Acute blood loss anemia: (4) Varicella zoster: (5) Renal cell carcinoma: (6) Chronic kidney disease with active medical management without dialysis, stage 3 (moderate): (7) Atrial fibrillation with RVR: (8) Hypothyroidism: (9) Secondary adrenal insufficiency: Plan: 69-year-old male with past medical history of metastatic renal cancer, hypothyroidism, atrial fibrillation, adrenal insufficiency who was initially admitted to [facility] on 12/24/2023 and developed a complicated pneumothorax with hemothorax. Pigtail catheter was placed and patient was transferred to [place] on 12/30/2023. Patient underwent thorascopic saline lavage on 01/01/2024 with repeat thorascopic evaluation on 01/05/2024 with pigtail catheter placement at [facility]. Patient was transferred back to [facility] on 01/17/2024. #Necrotizing pneumonia #Hemothorax status post evacuation #Abnormal CT scan of chest findings ID is following the patient Patient is currently on IV Zosyn BDG Fungitell and and urine histo galactomannan antigen are pending Pulmonology saw the patient in consultation and recommended speaking with [place] CT surgery team regarding CAT scan findings I spoke with Dr. Ramírez Valle, CT surgeon at [facility] on 01/20/24 and in his opinion patient is not a good surgical candidate and would benefit from treating with antibiotics. I reviewed patient's cultures from [facility] with Dr. Valle: Patient had pleural fluid culture from 01/05/2024 and 01/11/2024 which showed no growth. Patient also had an AFB from 01/05/2024 which was negative at 14 days. Patient also had fungal cultures sent from 01/05/2024 which have been negative to date Plan from ID is as follows: complete Zosyn 4.5G IV q8 hours (crcl ~30) until 02/04/24 Weekly CBC with diff, CMP Follow up CT in 2 weeks Mepron 750mg po bid with fatty meal x 21 days through 02/09/24 Patient had right arm midline placed on 01/22/2024 #Atrial fibrillation #Acute blood loss anemia likely secondary hemothorax #Orthostatic hypotension Patient has required blood transfusion intermittently H&H is currently stable with no active bleeding, hemoglobin today is 7.2 Patient was restarted on apixaban at [facility] which has been held here as patient required blood transfusion Continue apixaban Patient was previously on rate controlling agents with metoprolol which have been held due to patient having orthostatic hypotension Continue midodrine and monitor orthostatic vital signs Continue Florinef As per nephrology recommendations, midodrine has been stopped as blood pressures are elevated at this point #History of renal cell carcinoma #HANSEL on CKD stage IIIb #Hypokalemia Baseline creatinine is around 2.2 Nephrology saw the patient in consultation History of renal cell carcinoma metastatic to the lung with resection in 2019. Previously treated with cabozantinib 20 mg q 48h and avelumab 10 mg q 4 weeks, held during acute hospital stay. 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 Darin Aiken from nephrology via secure chat on 01/21/24: As per nephrology, patient has been diuresing on his own and per nephrology if diuretic is needed would resume at low-dose Bumex 1 mg daily and monitor weight, kidney function and urine output. 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 Garcia as outpatient He is on hydrocortisone 20 mg in the morning and 10 mg in the afternoon #Varicella-zoster Patient did have Shingrix vaccine He was seen by dermatology at [facility] and swab confirmed varicella zoster, not herpes simplex Derm recommended 10 days of treatment and he has been treated with Valtrex from 01/05/2024 for over 10 days As per ID, 7 days treatment is sufficient which patient has already completed #Hypothyroidism Continue Synthroid 150 mcg p.o. daily I spoke with infection control team today: Awaiting recommendations regarding discontinuing airborne isolation since patient's cultures all have been negative CODE STATUS: Full code DVT prophylaxis: Bilateral SCDs, apixaban Discharge planning to bucktail when insurance authorization obtained, on IV antibiotics until February 04, 2024 Care plan discussed with patient, nursing staff Admission and Anticipated Discharge Date Admission Date: January 17, 2024 Subjective Patient seen and examined Appetite is improved He is frustrated about being in airborne isolation and wants this to be addressed with infection control He denies any fever, chills, chest pain or shortness of breath Overall edema has improved Patient had right arm midline placed this morning and complaining of localized pain in the area Review of Systems Review of Systems: As per HPI Physical Exam Physical Exam: General: No acute distress Psych: Awake and alert HEENT: Anicteric sclera, moist oral mucosa CVS: Regular rate and rhythm Lungs: Bilateral air entry, no wheezing noted Abdomen: Soft, nontender, no rebound, no guarding Ext: Improving bilateral lower extremity edema noted, improving right upper extremity edema, right arm midline noted Results & Data Results & Data Vital Signs (Past 12 Hours) Vital Signs Temp Pulse Resp BP Pulse Ox O2 Del Method 01/22/24 07:30 Room Air 01/22/24 07:07 36.7 C 91 H 17 178/78 H 91 Room Air Laboratory Results Laboratory Results - last 24 hr 01/22/24 06:05 WBC 10.66 RBC 2.31 L Hgb 7.2 L Hct 22.7 L MCV 98.3 MCH 31.2 MCHC 31.7 L RDW Std Deviation 73.9 H RDW Coeff of Enzo 21.2 H Plt Count 285 MPV 8.8 L Immature Gran % (Auto) 3.8 Neut % (Auto) 74.7 Lymph % (Auto) 8.8 Yancey % (Auto) 9.9 Eos % (Auto) 2.3 Baso % (Auto) 0.5 Neut # (Auto) 7.95 H Lymph # (Auto) 0.94 L Yancey # (Auto) 1.06 H Eos # (Auto) 0.25 Baso # (Auto) 0.05 Immature Gran # (Auto) 0.41 H Absolute Nucleated RBC 0.06 Nucleated RBC % (auto) 0.6 Polychromasia 2+ Anisocytosis Present Sodium 133 L Potassium 4.0 D Chloride 101 Carbon Dioxide 25 Anion Gap 7 BUN 36 H Creatinine 1.75 H Est Cr Clr Drug Dosing 60.3 Est GFR ( Amer) 45.7 Est GFR (Non-Af Amer) 39.4 BUN/Creatinine Ratio 20.6 H Glucose 94 Calcium 7.8 L Magnesium 2.0 Total Bilirubin 0.6 AST 33 ALT 24 Alkaline Phosphatase 116 H Total Protein 5.3 L Albumin 2.3 L Globulin 3.0 Albumin/Globulin Ratio 0.8 L PG Care Time/CCT Total # of Minutes Spent Total Time Spent with Patient: Total time spent is greater than 50% in coordination of care (as documented) at patient's floor/unit and/or counseling patient: Coding Level of Care Code 03380 SUB INP/OBS CARE 2/35MIN Diagnoses Necrotizing pneumonia J85.0 Hemothorax on right J94.2 Acute blood loss anemia D62 Varicella zoster B02.9 Renal cell carcinoma, unspecified laterality C64.9 Laterality: unspecified laterality Chronic kidney disease with active medical management without dialysis, stage 3 (moderate) N18.30 Atrial fibrillation with RVR I48.91 Hypothyroidism E03.9 Secondary adrenal insufficiency E27.49 (5) Renal cell carcinoma Laterality: unspecified laterality Qualified Code(s): C64.9 - Malignant neoplasm of unspecified kidney, except renal pelvis
[2024-01-22 14:39] VITALS: BP 133/75; PULSE 110; TEMP 97.9; O2SAT 92
--- NOTE | 2024-01-22 15:41 | Discharge Summary ---
Discharge Summary Date of Service January 22, 2024 Principal Dx & Hospital Course #1 = Principal Diagnosis (1) Necrotizing pneumonia: (2) Hemothorax on right: (3) Acute blood loss anemia: (4) Varicella zoster: (5) Renal cell carcinoma: (6) Chronic kidney disease with active medical management without dialysis, stage 3 (moderate): (7) Atrial fibrillation with RVR: (8) Hypothyroidism: (9) Secondary adrenal insufficiency: 69-year-old male with past medical history of metastatic renal cancer, hypothyroidism, atrial fibrillation, adrenal insufficiency who was initially admitted to [facility] on 12/24/2023 and developed a complicated pneumothorax with hemothorax. Pigtail catheter was placed and patient was transferred to [facility] on 12/30/2023. Patient underwent thorascopic saline lavage on 01/01/2024 with repeat thorascopic evaluation on 01/05/2024 with pigtail catheter placement at [facility]. Patient was transferred back to [facility] on 01/17/2024. #Necrotizing pneumonia #Hemothorax status post evacuation #Abnormal CT scan of chest findings ID is following the patient Patient is currently on IV Zosyn BDG Fungitell and and urine histo galactomannan antigen are pending Pulmonology saw the patient in consultation and recommended speaking with [facility] CT surgery team regarding CAT scan findings I spoke with Dr. Ramírez Valle, CT surgeon at [facility] on 01/20/24 and in his opinion patient is not a good surgical candidate and would benefit from treating with antibiotics. I reviewed patient's cultures from [facility] with Dr. Valle: Patient had pleural fluid culture from 01/05/2024 and 01/11/2024 which showed no growth. Patient also had an AFB from 01/05/2024 which was negative at 14 days. Patient also had fungal cultures sent from 01/05/2024 which have been negative to date Plan from ID is as follows: complete Zosyn 4.5G IV q8 hours (crcl ~30) until 02/04/24 Weekly CBC with diff, CMP Follow up CT in 2 weeks Mepron 750mg po bid with fatty meal x 21 days through 02/09/24 Patient had right arm midline placed on 01/22/2024 #Atrial fibrillation #Acute blood loss anemia likely secondary hemothorax #Orthostatic hypotension Patient has required blood transfusion intermittently H&H is currently stable with no active bleeding, hemoglobin today is 7.2 Patient was restarted on apixaban at [facility] which has been held here as patient required blood transfusion Continue apixaban Patient was previously on rate controlling agents with metoprolol which have been held due to patient having orthostatic hypotension Patient was initially on midodrine and blood pressures have improved Continue Florinef As per nephrology recommendations, midodrine has been stopped #History of renal cell carcinoma #HANSEL on CKD stage IIIb #Hypokalemia Baseline creatinine is around 2.2 Nephrology saw the patient in consultation History of renal cell carcinoma metastatic to the lung with resection in 2019. Previously treated with cabozantinib 20 mg q 48h and avelumab 10 mg q 4 weeks, held during acute hospital stay. 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 Darin Aiken from nephrology via secure chat on 01/21/24: As per nephrology, patient has been diuresing on his own and per nephrology if diuretic is needed would resume at low-dose Bumex 1 mg daily and monitor weight, kidney function and urine output. 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 Garcia as outpatient He is on hydrocortisone 20 mg in the morning and 10 mg in the afternoon Patient to follow-up with his outpatient ammonia technician on discharge #Varicella-zoster Patient did have Shingrix vaccine He was seen by dermatology at [facility] and swab confirmed varicella zoster, not herpes simplex Derm recommended 10 days of treatment and he has been treated with Valtrex from 01/05/2024 for over 10 days As per ID, 7 days treatment is sufficient which patient has already completed it. #Hypothyroidism Continue Synthroid 150 mcg p.o. daily Patient seen and examined today. He is stable for discharge to [facility]. I gone over the discharge care plan, medications and follow- up with the patient and answered all his questions. This discharge took greater than 30 minutes to coordinate Admission HPI Per Admitting Provider Received phone call from Dr. Rosario at [facility] about return service agreement for Mr. Rodriguez. He reportedly was in stable condition except for some orthostatic hypotension being treated with midodrine and Florinef. His hemoglobin has been stable his return to anticoagulation and his atrial fibrillation has not been an issue although he said his rate controlling agents stopped. He is currently on a medical floor they will be transferred to medical floor here in need of subacute rehab placement. Patient was transferred from our facility on December 29 after he developed a pneumothorax requiring pigtail catheter placement and then a subsequent hemothorax in the context of a necrotizing pneumonia and a history of renal cell carcinoma metastatic to the lung s/p resection. Patient acute blood loss anemia was transferred to units packed red blood cells prior to transfer. Patient was on anticoagulation therapy for atrial fibrillation. He was transferred to higher level of care for possibility of IR treatment. INitiallly presenting with septic shock requiring pressors on arrival [place] [facility] Thoracic surgery performed Saline lavage of chest 12/31, then evacuated old clot 01/[address] pigtail, second placed 01/05, both removed by 01/09 Discharge Exam General: No acute distress Psych: Awake and alert HEENT: Anicteric sclera, moist oral mucosa CVS: Regular rate and rhythm Lungs: Bilateral air entry, no wheezing noted Abdomen: Soft, nontender, no rebound, no guarding Ext: Improving bilateral lower extremity edema noted, improving right upper extremity edema, right arm midline noted Discharge Plan Discharge Items Patient Disposition: Transfer Nursing Home Fac Reason For Visit: Metastatic Renal Cell Carcinoma, Hemorhorax Discharge Diagnosis: #Necrotizing pneumonia #Hemothorax status post evacuation #Abnormal CT scan of chest findings #Atrial fibrillation #Acute blood loss anemia likely secondary hemothorax #Orthostatic hypotension #History of renal cell carcinoma #HANSEL on CKD stage IIIb #Adrenal insufficiency # Recent varicella-zoster #Hypothyroidism Condition on Discharge: Good Activity: As commented below Activity Comment: As tolerated with assistance Non-emergency contact: Primary Care Provider Call non-emergency contact if: you have any medication questions, your symptoms worsen, your pain is not controlled and you have a fever Follow-up/Referrals: Chance Garcia MD [Physician] - Victor Manuel Santiago DO [Physician] - Skip Isaac MD [Physician] - Bill Cantrell MD [Primary Care Provider] - Diet: Regular Addtl Attending Provider Instructions: DISCHARGE INSTRUCTION TO PATIENT/FAMILY/SNF: Follow-up with your primary care provider within 1 week regarding: Posthospital discharge, medication review, medication refills and follow-up on all your medical problems Please take all your discharge medications, discharge information and discharge instructions to all your doctors appointments. Avoid all NSAIDs including ibuprofen, Motrin, Advil, Aleve, naproxen, meloxicam, Toradol, diclofenac Pending labs: BDG Fungitell and and urine histo galactomannan antigen are pending: Please follow-up on results Patient has a right arm midline placed on 01/22/2024: Please remove midline after last dose of IV antibiotics on 02/04/2024 Recommendations from Infectious disease regarding antibiotics and lab/CT scan are as follows: Complete Zosyn 4.5G IV q8 hours (crcl ~30) until 02/04/24 Weekly (Q Thursday) CBC with diff, CMP WHILE ON ANTIBIOTICS, next set of Labs to be done on Thursday01/25/[address] Chest in 2 weeks Mepron 750mg po bid with fatty meal x 21 days until 02/09/24 Follow-up with your oncologist, neon molder and ammonia technician upon discharge Pending Studies at Discharge: Yes (BDG Fungitell and and urine histo galactomannan antigen results are pending) Studies:: BDG Fungitell and and urine histo galactomannan antigen results are pending Stand-Alone Forms: My [facility] Skilled Items Patient informed of condition?: Yes DNR: No Discharge Level of Care: Skilled Communicable Disease: No Discharge Prognosis: Stable Lines: Mid-Line Urinary Catheter: No Medications and DC Order Prescriptions: New atovaquone [Mepron] 750 mg/5 mL Suspension 750 mg PO BIDM 19 Days Qty: 190 0RF Rx Instructions: STOP DATE: 02/09/24 fludrocortisone 0.1 mg Tablet 0.1 mg PO QAM Qty: 7 0RF Zosyn in dextrose (iso-osm) 4.5 gram/100 mL piggyback 4.5 g IV Q8H 14 Days Rx Instructions: end of therapy date: 02/04/24 Continued hydrocortisone 10 mg tablet See Rx Instructions PO .COMPLEX Qty: 50 1RF Rx Instructions: take 20 mg AM; take 10 mg 8 hours later; may double in times of stress Eliquis 2.5 mg tablet 2.5 mg PO AMPM Hold Instructions: Resume on 12/31/23. until instructed by pulmonary to resume cholecalciferol (vitamin D3) 25 mcg (1,000 unit) capsule 25 mcg PO QAM mecobalamin (vitamin B12) 500 mcg tablet,chewable 500 mcg PO QAM levothyroxine 150 mcg tablet 150 mcg PO DAILYBB Held nivolumab IV .ON HOLD Hold Instructions: None Rx Instructions: ON HOLD cabozantinib 20 mg tablet 20 mg PO Q OTHER DAY Hold Instructions: Per patient Rx Instructions: take on even days Discontinued bumetanide 1 mg tablet 2 mg PO BID Qty: 360 2RF Hold Instructions: Hold per provider losartan 100 mg tablet 100 mg PO QAM Hold Instructions: Resume on 01/12/24. until discussed with nephrology amoxicillin-pot clavulanate 875-125 mg Tablet 1 tab PO BIDM 41 Days Qty: 82 0RF Discharge Orders: Discharge Order (Routine); Ordered 01/22/24 Ordered By: Casey Trammell Admission Data Admit Date/Time: 01/17/24 12:00 Attending Provider: Casey Trammell Admit Provider: Garfield Leyva Primary Care Provider: Bill Cantrell Other Providers: [facility]; Darin Aiken; Maxine Harvey; Eloisa Whatley; Randi Rutledge; Bianka Jones; Marti Sharp; Vianney Mathews; Oscar Talavera Hospital Stay Data Consultations 01/18/24 07:47 Consult Neurology Routine 01/18/24 16:58 Consult Infectious Diseases Routine 01/19/24 10:13 Consult Pulmonology Routine Diagnostic Imagining Performed 01/17/24 14:21 CT chest without contrast [CT chest diagnostic wo con] Routine Chest CT 01/17/24 14:21 CT chest diagnostic wo con CLINICAL HISTORY: eval RLL necrotizing mass TECHNIQUE: Multidetector row helical CT of the chest was performed. Coronal and sagittal reformations were obtained. Automated dose lowering techniques and/or adjustment according to patient size were utilized for this exam. CT DOSE: 924.78 mGy.cm Comparison: Comparison is made to CT chest 12/29/2023 FINDINGS: Lungs and pleura: Complex pleural collection is again seen on the right with locules of gas. Previously noted pigtail catheter has been removed. Atelectasis is seen. There is groundglass density in the left upper lobe. Heart and pericardium: Heart size is normal. No pericardial effusion. Vessels: Mild atherosclerotic changes in the aorta and coronary arteries. Mediastinum and raeann: Enlarged lymph nodes measure up to 13 mm in the subcarinal station. Chest wall and lower neck: Unremarkable. Abdomen: A hiatal hernia is seen. Hepatic steatosis is seen. Bones: Unremarkable. IMPRESSION: Complex right pleural masses compatible with hemothorax and possibly empyema. Interval development of left upper lobe groundglass opacity which may be infectious. Mediastinal lymphadenopathy is likely reactive. ACT 112: Negative or not required by law. Electronically signed by: Jermaine Sewell M.D. 01/17/2024 4:59 PM Chest X-Ray 01/18/24 15:30 XR chest 1V portable HISTORY: eval for accumulating hemothorax COMPARISON: Chest CT 01/17/2024. Chest x-ray 12/29/2023. FINDINGS: The heart remains mildly enlarged. Patchy groundglass densities within the left upper lobe are better appreciated on the recent chest CT. SUV and mediastinal shift. There is a small layering right pleural effusion. There is also a density overlying the right upper to midlung zone containing small foci of gas. This corresponds to the loculated pleural effusion/hemothorax. This is similar to the recent chest CT. No acute fractures identified. IMPRESSION: 1. Loculated right pleural effusion/hemothorax is similar to the recent chest CT. There are small foci of gas within the pleural collection which could represent a pneumothorax from the prior chest tube placement or an underlying infectious process/empyema. 2. No mediastinal shift. 3. Stable cardiomegaly. ACT 112: Negative or not required by law. Electronically signed by: Raymundo Borja M.D. 01/18/2024 4:13 PM Chest X-Ray 01/19/24 15:30 XR chest 1V portable HISTORY: eval for accumulating hemothorax COMPARISON: Chest 01/18/2024. FINDINGS: The heart remains mildly enlarged. Patchy groundglass densities within the left upper lobe are again noted. No significant mediastinal shift. There is a small layering right pleural effusion. There is also a density overlying the right upper to midlung zone containing small foci of gas. This corresponds to the loculated pleural effusion/hemothorax. This is similar to the prior chest x- ray No acute fractures identified. IMPRESSION: 1. Loculated right pleural effusion/hemothorax is similar to the prior chest x-r ay. There are small foci of gas within the pleural collection which could represent a pneumothorax from the prior chest tube placement or an underlying infectious process/empyema. 2. No mediastinal shift. 3. Stable cardiomegaly. ACT 112: Negative or not required by law. Electronically signed by: Raymundo Borja M.D. 01/19/2024 4:40 PM Laboratory Results - last 48 hr 01/21/24 01/22/24 06:31 06:05 WBC 10.66 RBC 2.31 L Hgb 7.2 L Hct 22.7 L MCV 98.3 MCH 31.2 MCHC 31.7 L RDW Std Deviation 73.9 H RDW Coeff of Enzo 21.2 H Plt Count 285 MPV 8.8 L Immature Gran % (Auto) 3.8 Neut % (Auto) 74.7 Lymph % (Auto) 8.8 [place] % (Auto) 9.9 Eos % (Auto) 2.3 Baso % (Auto) 0.5 Neut # (Auto) 7.95 H Lymph # (Auto) 0.94 L [place] # (Auto) 1.06 H Eos # (Auto) 0.25 Baso # (Auto) 0.05 Immature Gran # (Auto) 0.41 H Absolute Nucleated RBC 0.06 Nucleated RBC % (auto) 0.6 Polychromasia 2+ Anisocytosis Present Sodium 132 L 133 L Potassium 3.3 L 4.0 D Chloride 99 101 Carbon Dioxide 26 25 Anion Gap 7 7 BUN 36 H 36 H Creatinine 1.80 H 1.75 H Est Cr Clr Drug Dosing 58.4 60.3 Est GFR ( Amer) 44.2 45.7 Est GFR (Non-Af Amer) 38.1 39.4 BUN/Creatinine Ratio 20.0 20.6 H Glucose 94 94 Calcium 7.8 L 7.8 L Magnesium 2.0 2.0 Total Bilirubin 0.6 AST 33 ALT 24 Alkaline Phosphatase 116 H Total Protein 5.3 L Albumin 2.3 L Globulin 3.0 Albumin/Globulin Ratio 0.8 L Pending Results Patient Have Any Pending Studies at Discharge: Yes (BDG Fungitell and and urine histo galactomannan antigen results are pending) Discharge Instructions Given to Patient (Per Discharging Provider) DISCHARGE INSTRUCTION TO PATIENT/FAMILY/SNF: Follow-up with your primary care provider within 1 week regarding: Posthospital discharge, medication review, medication refills and follow-up on all your medical problems Please take all your discharge medications, discharge information and discharge instructions to all your doctors appointments. Avoid all NSAIDs including ibuprofen, Motrin, Advil, Aleve, naproxen, meloxicam, Toradol, diclofenac Pending labs: BDG Fungitell and and urine histo galactomannan antigen are pending: Please follow-up on results Patient has a right arm midline placed on 01/22/2024: Please remove midline after last dose of IV antibiotics on 02/04/2024 Recommendations from Infectious disease regarding antibiotics and lab/CT scan are as follows: Complete Zosyn 4.5G IV q8 hours (crcl ~30) until 02/04/24 Weekly (Q Thursday) CBC with diff, CMP WHILE ON ANTIBIOTICS, next set of Labs to be done on Thursday01/25/[address] Chest in 2 weeks Mepron 750mg po bid with fatty meal x 21 days until 02/09/24 Follow-up with your oncologist, neon molder and ammonia technician upon discharge Total Time Total Time Spent Total Time Spent (In Minutes): 40 Coding Level of Care Code 48902 INP/OBS DISCH >30 MIN Diagnoses Necrotizing pneumonia J85.0 Hemothorax on right J94.2 Acute blood loss anemia D62 Varicella zoster B02.9 Renal cell carcinoma, unspecified laterality C64.9 Laterality: unspecified laterality Chronic kidney disease with active medical management without dialysis, stage 3 (moderate) N18.30 Atrial fibrillation with RVR I48.91 Hypothyroidism E03.9 Secondary adrenal insufficiency E27.49
[2024-01-23 19:28] LABS: Fungitell (1-3)-B-D-Glucan 112 pg/mL
== END 2024-01-22 17:08 | DRG 178 ==
LOC: SUATTDRO 01-17 12:00 → 3E 01-17 12:00